=== PATIENT | male | born 1935 | race Caucasian/White ===

== ENCOUNTER 2016-11-10 10:01 | Day surgery (SDC) | payer MEDICARE ==
[~2016-11-10 10:01] MED LIST: CHONDR SU A NA/HYALUR INTRAOC KIT (SURGICARE) ONE; KETOROLAC TROMETHAMINE 0.45% 4 DROP/0.4 ML DROPERETTE OD PRN; LIDOCAINE 1% INJ-PF (10 MG/ML) 30 ML SDV ONE; PHENYLEPHRINE/KETOROLAC 1%-0.3% 4 ML VIAL ONE
[2016-11-10] MEDS: BESIFLOXACIN HCL 0.6% OPH SUSP 5 ML BOTTLE OD PRN ×4 (11:25→12:47)
[2016-11-10] MEDS: CYCLOPENTOLATE 0.2%/PHENYLEPHRINE 1% OPH SOLN 2 ML OD PRN ×3 (11:25→11:45)
[2016-11-10] MEDS: TROPICAMIDE 1% OPH SOLN 3 ML OD PRN ×3 (11:25→11:45)
[2016-11-10] MEDS: TETRACAINE HCL 0.5% OPH SOLN 2 ML OD PRN ×3 (11:26→12:06)
[2016-11-10] MEDS ORDERED: MIDAZOLAM 2 MG/2 ML INJ ONE (11:46)
--- NOTE | 2016-11-11 04:28 | [facility] OPERATIVE REPORT E ---
[facility] Operative Report NAME: SARAH PIÑA AGE: 81Y DATE OF SURGERY: 11/10/2016 ROOM: PREOPERATIVE DIAGNOSES: 1. CATARACT, RIGHT EYE. 2. PUPIL MIOSIS OF THE RIGHT EYE. POSTOPERATIVE DIAGNOSES: 1. CATARACT, RIGHT EYE. 2. PUPIL MIOSIS OF THE RIGHT EYE. OPERATION: Complex cataract extraction with use of Malyugin ring due to a very miotic pupil. SURGEON: GAL PALACIO M.D. ANESTHESIA: Topical. PROCEDURE: After obtaining appropriate consent, the patient's right eye was prepped and draped in sterile fashion as well as the surgeon in a sterile manner and cataract surgery was started. First a paracentesis blade was used to make a small side-port incision. Viscoelastic was used to inflate the anterior chamber. Next a 2.4 mm incision was made with the paracentesis blade. A continuous capsulorrhexis incision was made using a cystotome and Utrata forceps. Following this hydrodissection was carried out to make the lens fully loose and mobile and it was rotated 90 degrees. Following this, a pakqku-tsm-[id number] technique was used to phacoemulsify the lens with a CDE of 17.96. The remaining cortex was removed with irrigation/aspiration. Provisc was instilled into the capsular bag to inflate the bag. A SN60WF, 21.5 diopter lens was placed. The remaining viscoelastic material was removed with irrigation/aspiration. Following this, a 10-0 nylon suture was used to close the incision and it was found to be watertight. Vigamox was instilled in the eye and a protective shield was placed over the eye. The patient returned to the postoperative recovery in stable condition. Prior to making the capsulorrhexis, a Malyugin ring was inserted. This was due to a very miotic pupil. This was removed at the end of the case. DICTATING PHYSICIAN: GAL PALACIO M.D. [id number] PHY#: [id number] ID: [id number] JOB#: [id number] ACCT: [id number] cc:GAL PALACIO M.D. >
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
== END 2016-11-10 13:32 | disposition home or self-care (01) ==
LOC: SC 10:01
PROVIDERS: ATTEND Internal Medicine
PROC: 08RJ3JZ Replacement of Right Lens with Synthetic Substitute, Percutaneous Approach (ICD-10-PCS; principal; 2016-11-10 11:30)
DX: H25.11 Age-related nuclear cataract, right eye (principal); Z96.1 Presence of intraocular lens; H57.03 Miosis; H35.372 Puckering of macula, left eye; H43.813 Vitreous degeneration, bilateral; E11.22 Type 2 diabetes mellitus with diabetic chronic kidney disease; I12.9 Hypertensive chronic kidney disease with stage 1 through stage 4 chronic kidney disease, or unspecified chronic kidney disease; N18.9 Chronic kidney disease, unspecified; E78.00 Pure hypercholesterolemia, unspecified; M19.90 Unspecified osteoarthritis, unspecified site; D64.9 Anemia, unspecified; Z79.82 Long term (current) use of aspirin
CPT/HCPCS: 66982; 82962; V2632; J2250; J3490 ×2; A9270; C9447; 142

== ENCOUNTER → 2016-11-17 | Outpatient (CLI) | payer MEDICARE ==
[2016-11-17 08:37] LABS: HEMATOCRIT 30.9 % (37.9-51.0); HEMOGLOBIN 10.2 g/dL (13.5-17.0); HGB HCT DIFFERENCE -0.3; MEAN CORPUSCULAR HEMOGLOBIN 29.2 pg (27.0-33.4); MEAN CORPUSCULAR VOLUME 88 fl (80-97); RED CELL DISTRIBUTION WIDTH 14.1 % (11.5-14.0); WHITE BLOOD COUNT 4.9 10^3/uL (4.0-10.5)
[2016-11-17 09:01] LABS: ANION GAP 9 (5-19); BLOOD UREA NITROGEN 34 mg/dL (7-20); CALCIUM 9.5 mg/dL (8.4-10.2); CARBON DIOXIDE 27 mmol/L (22-30); CHLORIDE 103 mmol/L (98-107); CREATININE RESULT 1.32 mg/dL (0.52-1.25); GLUCOSE 285 mg/dL (75-110); POTASSIUM 5.1 mmol/L (3.6-5.0); SODIUM 138.6 mmol/L (137-145)
== END ==
LOC: OD 08:03
PROVIDERS: ATTEND Internal Medicine Nephrology
DX: I12.9 Hypertensive chronic kidney disease with stage 1 through stage 4 chronic kidney disease, or unspecified chronic kidney disease (principal); N18.3 Chronic kidney disease, stage 3 (moderate); R80.9 Proteinuria, unspecified; D64.9 Anemia, unspecified
CPT/HCPCS: 36415; 80048; 82728; 83540; 83550; 85027

== ENCOUNTER → 2017-05-15 | Outpatient (CLI) | payer MEDICARE ==
[2017-05-15 12:35] LABS: HEMATOCRIT 29.1 % (37.9-51.0); HEMOGLOBIN 9.6 g/dL (13.5-17.0); HGB HCT DIFFERENCE -0.3; MEAN CORPUSCULAR HEMOGLOBIN 29.9 pg (27.0-33.4); MEAN CORPUSCULAR HGB CONC 32.9 g/dL (32.0-36.0); MEAN CORPUSCULAR VOLUME 91 fl (80-97); RED CELL DISTRIBUTION WIDTH 14.3 % (11.5-14.0); WHITE BLOOD COUNT 4.2 10^3/uL (4.0-10.5)
[2017-05-15 12:50] LABS: APPEARANCE,URINE SLIGHTLY-CLOUDY; BILIRUBIN,URINE NEGATIVE (NEGATIVE); GLUCOSE, URINE NEGATIVE (NEGATIVE); KETONES,URINE TRACE mg/dL (NEGATIVE); LEUKOCYTE ESTERASE,URINE NEGATIVE (NEGATIVE); NITRITE,URINE NEGATIVE (NEGATIVE); PROTEIN,URINE 100 mg/dL (NEGATIVE); URINE SPECIFIC GRAVITY 1.017; UROBILINOGEN,URINE NEGATIVE mg/dL (<2.0)
[2017-05-15 12:59] LABS: ANION GAP 8 (5-19); BLOOD UREA NITROGEN 29 mg/dL (7-20); CALCIUM 9.2 mg/dL (8.4-10.2); CARBON DIOXIDE 27 mmol/L (22-30); CHLORIDE 106 mmol/L (98-107); CREATININE RESULT 1.25 mg/dL (0.52-1.25); GLUCOSE 144 mg/dL (75-110); POTASSIUM 4.5 mmol/L (3.6-5.0); SODIUM 140.8 mmol/L (137-145)
[2017-05-15 13:15] LABS: URINE CREATININE 187.6 mg/dL (22-328); URINE PROTEIN 128.6 mg/dL (<12)
== END ==
LOC: OD 11:22
PROVIDERS: ATTEND Internal Medicine Nephrology
DX: E11.22 Type 2 diabetes mellitus with diabetic chronic kidney disease (principal); I12.9 Hypertensive chronic kidney disease with stage 1 through stage 4 chronic kidney disease, or unspecified chronic kidney disease; N18.2 Chronic kidney disease, stage 2 (mild); K50.90 Crohn's disease, unspecified, without complications
CPT/HCPCS: 36415; 80048; 81001; 82570; 82728; 83540; 83550; 84156; 85027

== ENCOUNTER → 2017-06-15 | Outpatient (CLI) | payer MEDICARE ==
[2017-06-15 08:26] LABS: HEMOGLOBIN 10.1 g/dL (13.5-17.0); HGB HCT DIFFERENCE 0.3; MEAN CORPUSCULAR HEMOGLOBIN 30.4 pg (27.0-33.4); MEAN CORPUSCULAR HGB CONC 33.8 g/dL (32.0-36.0); MEAN CORPUSCULAR VOLUME 90 fl (80-97); RED BLOOD COUNT 3.34 10^6/uL (4.35-5.55); RED CELL DISTRIBUTION WIDTH 14.9 % (11.5-14.0); WHITE BLOOD COUNT 5.2 10^3/uL (4.0-10.5)
[2017-06-15 08:45] LABS: ANION GAP 11 (5-19); BLOOD UREA NITROGEN 33 mg/dL (7-20); CALCIUM 9.1 mg/dL (8.4-10.2); CARBON DIOXIDE 27 mmol/L (22-30); CHLORIDE 105 mmol/L (98-107); CREATININE RESULT 1.07 mg/dL (0.52-1.25); GLUCOSE 161 mg/dL (75-110); POTASSIUM 4.2 mmol/L (3.6-5.0); SODIUM 143.4 mmol/L (137-145)
[2017-06-19 16:39] LABS: IMMUNOGLOBULIN A 75 mg/dL (61-437); IMMUNOGLOBULIN G 434 mg/dL (700-1600)
[2017-06-20 08:08] LABS: IMMUNOFIXATION SERUM 2 Comment: (.); IMMUNOGLOBULIN M 9 mg/dL (15-143)
== END ==
LOC: OD 07:14
PROVIDERS: ATTEND Internal Medicine Nephrology
DX: I12.9 Hypertensive chronic kidney disease with stage 1 through stage 4 chronic kidney disease, or unspecified chronic kidney disease (principal); N18.3 Chronic kidney disease, stage 3 (moderate); D64.9 Anemia, unspecified; R80.9 Proteinuria, unspecified
CPT/HCPCS: 36415; 80048; 82784; 85027

== ENCOUNTER → 2017-08-15 | Outpatient (CLI) | payer MEDICARE ==
[2017-08-15 08:23] LABS: HEMATOCRIT 31.5 % (37.9-51.0); HEMOGLOBIN 10.6 g/dL (13.5-17.0); HGB HCT DIFFERENCE 0.3; MEAN CORPUSCULAR HEMOGLOBIN 29.9 pg (27.0-33.4); MEAN CORPUSCULAR HGB CONC 33.6 g/dL (32.0-36.0); MEAN CORPUSCULAR VOLUME 89 fl (80-97); RED BLOOD COUNT 3.55 10^6/uL (4.35-5.55); RED CELL DISTRIBUTION WIDTH 13.8 % (11.5-14.0); WHITE BLOOD COUNT 6.1 10^3/uL (4.0-10.5)
== END ==
LOC: OD 07:08
PROVIDERS: ATTEND Internal Medicine Nephrology
DX: N18.3 Chronic kidney disease, stage 3 (moderate) (principal); D64.9 Anemia, unspecified
CPT/HCPCS: 36415; 82728; 83540; 83550; 85027

== ENCOUNTER → 2017-11-13 | Outpatient (CLI) | payer MEDICARE ==
[2017-11-13 13:33] LABS: HEMATOCRIT 32.1 % (37.9-51.0); HEMOGLOBIN 10.8 g/dL (13.5-17.0); MEAN CORPUSCULAR HEMOGLOBIN 29.9 pg (27.0-33.4); MEAN CORPUSCULAR HGB CONC 33.7 g/dL (32.0-36.0); MEAN CORPUSCULAR VOLUME 89 fl (80-97); PLATELET COUNT 192 10^3/uL (150-450); RED BLOOD COUNT 3.62 10^6/uL (4.35-5.55); RED CELL DISTRIBUTION WIDTH 14.9 % (11.5-14.0); WHITE BLOOD COUNT 6.3 10^3/uL (4.0-10.5)
[2017-11-13 13:45] LABS: IRON(TIBC) 101.5 ug/dL (49-181)
== END ==
LOC: OD 12:21
PROVIDERS: ATTEND Internal Medicine Nephrology
DX: D64.9 Anemia, unspecified (principal); N18.3 Chronic kidney disease, stage 3 (moderate)
CPT/HCPCS: 36415; 82728; 83540; 83550; 85027

== ENCOUNTER → 2017-12-11 | Outpatient (CLI) | payer MEDICARE ==
[2017-12-11 10:18] LABS: HEMATOCRIT 31.6 % (37.9-51.0); HEMOGLOBIN 10.7 g/dL (13.5-17.0); MEAN CORPUSCULAR HEMOGLOBIN 30.4 pg (27.0-33.4); MEAN CORPUSCULAR HGB CONC 33.7 g/dL (32.0-36.0); MEAN CORPUSCULAR VOLUME 90 fl (80-97); PLATELET COUNT 183 10^3/uL (150-450); RED BLOOD COUNT 3.51 10^6/uL (4.35-5.55); RED CELL DISTRIBUTION WIDTH 14.9 % (11.5-14.0); WHITE BLOOD COUNT 4.2 10^3/uL (4.0-10.5)
[2017-12-11 10:42] LABS: ANION GAP 7 (5-19); BLOOD UREA NITROGEN 25 mg/dL (7-20); CALCIUM 8.9 mg/dL (8.4-10.2); CARBON DIOXIDE 29 mmol/L (22-30); CHLORIDE 104 mmol/L (98-107); GLUCOSE 240 mg/dL (75-110); IRON(TIBC) 81.4 ug/dL (49-181); SODIUM 140.1 mmol/L (137-145)
== END ==
LOC: OD 09:14
PROVIDERS: ATTEND Internal Medicine Nephrology
DX: N18.3 Chronic kidney disease, stage 3 (moderate) (principal); D64.9 Anemia, unspecified; I12.9 Hypertensive chronic kidney disease with stage 1 through stage 4 chronic kidney disease, or unspecified chronic kidney disease; E11.9 Type 2 diabetes mellitus without complications
CPT/HCPCS: 36415; 80048; 82728; 83540; 83550; 85027

== ENCOUNTER → 2018-03-05 | Outpatient (CLI) | payer MEDICARE ==
[2018-03-05 12:54] LABS: HEMOGLOBIN 11.4 g/dL (13.5-17.0); MEAN CORPUSCULAR HEMOGLOBIN 30.1 pg (27.0-33.4); MEAN CORPUSCULAR HGB CONC 33.4 g/dL (32.0-36.0); MEAN CORPUSCULAR VOLUME 90 fl (80-97); PLATELET COUNT 201 10^3/uL (150-450); RED BLOOD COUNT 3.77 10^6/uL (4.35-5.55); RED CELL DISTRIBUTION WIDTH 14.2 % (11.5-14.0); WHITE BLOOD COUNT 5.3 10^3/uL (4.0-10.5)
[2018-03-05 13:15] LABS: IRON(TIBC) 76.2 ug/dL (49-181)
== END ==
LOC: OD 11:59
PROVIDERS: ATTEND Internal Medicine Nephrology
DX: N18.3 Chronic kidney disease, stage 3 (moderate) (principal); D64.9 Anemia, unspecified
CPT/HCPCS: 36415; 82728; 83540; 83550; 85027

== ENCOUNTER → 2018-06-11 | Outpatient (CLI) | payer MEDICARE ==
[2018-06-11 09:30] LABS: HEMATOCRIT 29.4 % (37.9-51.0); HEMOGLOBIN 10.1 g/dL (13.5-17.0); MEAN CORPUSCULAR HEMOGLOBIN 29.9 pg (27.0-33.4); MEAN CORPUSCULAR HGB CONC 34.2 g/dL (32.0-36.0); MEAN CORPUSCULAR VOLUME 87 fl (80-97); PLATELET COUNT 189 10^3/uL (150-450); RED BLOOD COUNT 3.37 10^6/uL (4.35-5.55); WHITE BLOOD COUNT 7.9 10^3/uL (4.0-10.5)
[2018-06-11 10:04] LABS: ANION GAP 11 (5-19); BLOOD UREA NITROGEN 60 mg/dL (7-20); CALCIUM 8.8 mg/dL (8.4-10.2); CARBON DIOXIDE 23 mmol/L (22-30); CHLORIDE 106 mmol/L (98-107); GLUCOSE 204 mg/dL (75-110); POTASSIUM 4.8 mmol/L (3.6-5.0); SODIUM 140.4 mmol/L (137-145)
[2018-06-11 10:20] LABS: APPEARANCE,URINE CLEAR; BILIRUBIN,URINE NEGATIVE (NEGATIVE); COLOR,URINE YELLOW; GLUCOSE, URINE NEGATIVE (NEGATIVE); KETONES,URINE NEGATIVE (NEGATIVE); LEUKOCYTE ESTERASE,URINE NEGATIVE (NEGATIVE); NITRITE,URINE NEGATIVE (NEGATIVE); PROTEIN,URINE 30 mg/dL (NEGATIVE); UROBILINOGEN,URINE NEGATIVE mg/dL (<2.0)
[2018-06-11 10:31] LABS: URINE SPECIFIC GRAVITY 1.017
== END ==
LOC: OD 08:19
PROVIDERS: ATTEND Internal Medicine Nephrology
DX: I12.9 Hypertensive chronic kidney disease with stage 1 through stage 4 chronic kidney disease, or unspecified chronic kidney disease (principal); E11.22 Type 2 diabetes mellitus with diabetic chronic kidney disease; N18.3 Chronic kidney disease, stage 3 (moderate); R80.9 Proteinuria, unspecified; D64.9 Anemia, unspecified
CPT/HCPCS: 36415; 80048; 81001; 83735; 85027

== ENCOUNTER → 2018-07-23 | Outpatient (CLI) | payer MEDICARE ==
[2018-07-23 10:02] LABS: HEMOGLOBIN 9.9 g/dL (13.5-17.0); MEAN CORPUSCULAR HEMOGLOBIN 30.7 pg (27.0-33.4); MEAN CORPUSCULAR VOLUME 91 fl (80-97); PLATELET COUNT 271 10^3/uL (150-450); RED BLOOD COUNT 3.21 10^6/uL (4.35-5.55); RED CELL DISTRIBUTION WIDTH 16.1 % (11.5-14.0); WHITE BLOOD COUNT 6.5 10^3/uL (4.0-10.5)
[2018-07-23 10:06] LABS: APPEARANCE,URINE CLEAR; BILIRUBIN,URINE NEGATIVE (NEGATIVE); COLOR,URINE YELLOW; GLUCOSE, URINE NEGATIVE (NEGATIVE); KETONES,URINE NEGATIVE (NEGATIVE); LEUKOCYTE ESTERASE,URINE NEGATIVE (NEGATIVE); NITRITE,URINE NEGATIVE (NEGATIVE); PROTEIN,URINE 100 mg/dL (NEGATIVE); URINE SPECIFIC GRAVITY 1.015; UROBILINOGEN,URINE NEGATIVE mg/dL (<2.0)
[2018-07-23 10:29] LABS: ANION GAP 12 (5-19); BLOOD UREA NITROGEN 32 mg/dL (7-20); CALCIUM 9.3 mg/dL (8.4-10.2); CARBON DIOXIDE 26 mmol/L (22-30); CHLORIDE 105 mmol/L (98-107); GLUCOSE 206 mg/dL (75-110); IRON(TIBC) 64.3 ug/dL (49-181); PHOSPHORUS 4.6 mg/dL (2.5-4.5); POTASSIUM 4.5 mmol/L (3.6-5.0); SODIUM 142.5 mmol/L (137-145)
[2018-07-23 10:31] LABS: UR PRO/CREAT RATIO RESULT 1.4 mg/mg (0.0-0.2); URINE PROTEIN 154.8 mg/dL (<12)
== END ==
LOC: OD 09:05
PROVIDERS: ATTEND Internal Medicine Nephrology
DX: I12.9 Hypertensive chronic kidney disease with stage 1 through stage 4 chronic kidney disease, or unspecified chronic kidney disease (principal); N18.3 Chronic kidney disease, stage 3 (moderate); R80.9 Proteinuria, unspecified; D64.9 Anemia, unspecified
CPT/HCPCS: 36415; 80048; 81001; 82570; 82728; 83540; 83550; 83970; 84100; 84156; 85027

== ENCOUNTER 2018-09-09 09:34 | Inpatient (IN) | payer MEDICARE ==
[2018-09-09] MEDS ORDERED: LIDOCAINE 5% (700 MG) TRANSDERMAL ADH..PATCH TP ONE (09:59)
[2018-09-09] MEDS ORDERED: HYDROCHLOROTHIAZIDE 12.5 MG TABLET PO ONE ×2 (10:00→19:00)
[2018-09-09] MEDS ORDERED: HYDROCODONE/ACETAMINOPHEN 5-325 MG TABLET PO ONE (10:06)
--- NOTE | 2018-09-09 10:36 | RADIOLOGY REPORT (SQ) ---
EXAM DESCRIPTION: HIP LEFT AP/LATERAL COMPLETED DATE/TIME: 09/09/2018 10:26 am REASON FOR STUDY: concern for necrosis of head COMPARISON: None. NUMBER OF VIEWS: Two views. TECHNIQUE: AP pelvis and additional frog-leg view of the left hip. LIMITATIONS: None. FINDINGS: AP pelvis and frog-leg view left hip demonstrate no bony abnormality or fracture. Specifi carmen there no findings to suggest AVN. The SI joints are symmetrical. Lumbar spondylosis noted. V ascular calcification abdominal aorta and iliac vessels. IMPRESSION: NEGATIVE STUDY OF THE LEFT HIP AND PELVIS. NO RADIOGRAPHIC EVIDENCE OF ACUTE INJURY. TECHNICAL DOCUMENTATION: JOB ID: [id number] [employer]- All Rights Reserved Reading location - IP/workstation name: [email or web address]
--- NOTE | 2018-09-09 10:52 | ER Document Report ---
ED Medical Screen (RME) - General Chief Complaint: Hip Injury Stated Complaint: LEFT LEG/HIP PAIN Time Seen by Provider: 09/09/18 09:42 TRAVEL OUTSIDE OF THE [place] IN LAST 30 DAYS: No - HPI Patient complains to provider of: left hip pelvis pain Onset: Other - This is an 83-year-old man who presents for evaluation of pain in his left hip and back which radiates down the leg which is suffered for some time been evaluated by his primary physician in the past and started on celecoxi b 200 mg every afternoon to try and help with this pain. He notes that he is continued to have pain despite the use of Tylenol and this medicine as well as a topical medication to help with it. Nothing seems to make it better or worse and today because of how bad the pain was he could not do anything with it. - Related Data Allergies/Adverse Reactions: No Known Allergies Allergy (Verified 09/09/18 09:35) Past Medical History - General Information source: Patient, Relative - Past Medical History Cardiac Medical History: Reports: Hx Hypertension Denies: Hx Heart Attack Pulmonary Medical History: Denies: Hx Asthma Neurological Medical History: Denies: Hx Cerebrovascular Accident, Hx Seizures Endocrine Medical History: Reports: Hx Diabetes Mellitus Type 2 Renal/ Medical History: Denies: Hx Peritoneal Dialysis GI Medical History: Denies: Hx Hepatitis, Hx Hiatal Hernia, Hx Ulcer Infectious Medical History: Denies: Hx Hepatitis Past Surgical History: Reports: Hx Cholecystectomy. Denies: Hx Open Heart Surgery, Hx Pacemaker - Immunizations Hx Diphtheria, Pertussis, Tetanus Vaccination: Yes Physical Exam - Vital signs Vitals: Temp Pulse Resp BP Pulse Ox 97.5 F 74 18 156/68 H 99 09/09/18 09:41 09/09/18 09:41 09/09/18 09:41 09/09/18 09:41 09/09/18 09:41 Course - Re-evaluation Re-evalutation: 09/09/18 12:08 Obtained x-ray for this gentleman. X-rays nondiagnostic. Placed Lidoderm patch administered narcotic patient did take Celebrex last night. On reinvestigation the patient states that his pain is worse than when he arrived. Says it is been going through this since Lian and he is tired of it needs help. Son at the bedside states that he is concerned about his father and that now he cannot walk. Patient continues to have a normal neurologic examination of the left lower extremity. Does have some radicular symptoms. I have seen and evaluated this patient in rapid medical screening exam fashion. I have initiated a evaluation and workup, this patient will require further investigation evaluation and disposition determination by secondary provider. - Vital Signs Vital signs: Temp Pulse Resp BP Pulse Ox 97.5 F 74 18 156/68 H 99 09/09/18 09:41 09/09/18 09:41 09/09/18 09:41 09/09/18 09:41 09/09/18 09:41 - Laboratory Result Diagrams: 09/09/18 10:30 Laboratory results interpreted by me: 09/09/18 10:30 Sodium 136.6 L BUN 33 H Creatinine 1.27 H Est GFR (Non-Af Amer) 54 L Glucose 182 H Doctor's Discharge - Discharge Clinical Impression: Back pain Qualifiers: Back pain location: low back pain Chronicity: acute Back pain laterality: left Sciatica presence: unspecified whether sciatica present Qualified Code(s): M54.5 - Low back pain Hip pain Qualifiers: Laterality: left Qualified Code(s): M25.552 - Pain in left hip Additional Instructions: You were seen today in the emergency department for the pain in your back as well as your hip. You had an evaluation including a physical exam. You were given a strong medicine to kill this pain. You can increase the dose of your celecoxib to twice a day. You should take it in the morning in the early part of the day. You have been given a prescription for the numbing medicine that we placed on your back. You have been given a couple of the strong painkiller medicines called Erskine. Be careful taking the Erskine and the Tylenol you are taking together. If you have worsening pain, or unable to walk or have new numbness or weakness please return to the emergency room because it could be a more serious condition. Prescriptions: Hydrocodone/Acetaminophen [Erskine 5-325 mg Tablet] 1 tab PO Q8 PRN #12 tablet PRN Reason: Lidocaine [Lidoderm 5% (700 mg) Transdermal Patch] 1 patch TP DAILY #30 adh..patch Referrals: Ruby WHEAT MD [Primary Care Provider] - Follow up as needed
[2018-09-09 11:21] LABS: ANION GAP 9 (5-19); BLOOD UREA NITROGEN 33 mg/dL (7-20); CARBON DIOXIDE 22 mmol/L (22-30); CHLORIDE 106 mmol/L (98-107); GLUCOSE 182 mg/dL (75-110); POTASSIUM 4.5 mmol/L (3.6-5.0); SODIUM 136.6 mmol/L (137-145)
[2018-09-09] MEDS ORDERED: KETOROLAC TROMETHAMINE 60 MG/2 ML SDV IM ONE (12:08)
--- NOTE | 2018-09-09 12:58 | RADIOLOGY REPORT (SQ) ---
EXAM DESCRIPTION: CT LUMBAR SPINE WITHOUT COMPLETED DATE/TIME: 09/09/2018 12:42 pm REASON FOR STUDY: concern for narrowing in the spine COMPARISON: None. TECHNIQUE: Axial images acquired through the lumbar spine without intravenous contrast. Images revi ewed with lung, soft tissue and bone windows. Reconstructed coronal and sagittal MPR images reviewed . All images stored on PACS. All CT scanners at this facility use dose modulation, iterative reconstruction, and/or weight based d osing when appropriate to reduce radiation dose to as low as reasonably achievable (ALARA). [facility]: Dose Right [facility]: CareDose [facility]: Dose Right [facility]: Teradose 4D [facility]: Macrotek RADIATION DOSE: 498 mGy cm LIMITATIONS: None. FINDINGS: SEGMENTATION: Normal. No transitional anatomy. ALIGNMENT: Normal. VERTEBRAL BODIES: Osteopenia. Acute appearing superior endplate wedge deformity of L4 vertebral body . DISCS: No significant protrusions. Study limited by lack of intrathecal contrast. PEDICLES, TRANSVERSE PROCESSES: No fractures. No dislocation. No acute findings. FACETS, POSTERIOR ELEMENTS: No fractures. No dislocation. No spinal stenosis. HARDWARE: None in the spine. VISUALIZED RIBS: No fractures. SOFT TISSUES: No significant or acute finding in adjacent soft tissues. OTHER: Extensive calcified atherosclerosis. IMPRESSION: Acute appearing superior endplate wedge deformity of the L4 vertebral body. No obvious epidural hematoma or fracture fragment pulsion. TECHNICAL DOCUMENTATION: JOB ID: [id number] Quality ID # [id number]: Final reports with documentation of one or more dose reduction techniques (e.g., Au tomated exposure control, adjustment of the mA and/or kV according to patient size, use of iterative reconstruction technique) 2010 [employer]- All Rights Reserved Reading location - IP/workstation name: [email or web address]
[2018-09-09] MEDS ORDERED: FENTANYL CITRATE INJ/PF 100 MCG/2 ML AMPUL IV ONE (13:48)
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
[2018-09-09 14:57] LABS: ABSOLUTE LYMPHOCYTES (AUTO) 1.1 10^3/uL (0.5-4.7); ABSOLUTE MONOCYTES (AUTO) 0.5 10^3/uL (0.1-1.4); ABSOLUTE NEUT (AUTO) 2.8 10^3/uL (1.7-8.2); BASOPHILS % (AUTO) 0.3 % (0-2); EOSINOPHILS % (AUTO) 0.3 % (0-6); HEMATOCRIT 30.2 % (37.9-51.0); HEMOGLOBIN 10.1 g/dL (13.5-17.0); LYMPHOCYTES % (AUTO) 23.8 % (13-45); MEAN CORPUSCULAR HEMOGLOBIN 31.2 pg (27.0-33.4); MEAN CORPUSCULAR HGB CONC 33.3 g/dL (32.0-36.0); MEAN CORPUSCULAR VOLUME 94 fl (80-97); MONOCYTES % (AUTO) 11.6 % (3-13); PLATELET COUNT 208 10^3/uL (150-450); RED BLOOD COUNT 3.23 10^6/uL (4.35-5.55); RED CELL DISTRIBUTION WIDTH 16.7 % (11.5-14.0); TOTAL CELLS COUNTED % (AUTO) 100 %; WHITE BLOOD COUNT 4.4 10^3/uL (4.0-10.5)
[2018-09-09] MEDS ORDERED: GLUCAGON,HUMAN RECOMB 1 MG INJ IM PRN (15:09)
[2018-09-09] MEDS ORDERED: DEXTROSE 40% GEL 15 GM TUBE PO PRN ×2 (15:09)
[2018-09-09] MEDS ORDERED: DEXTROSE 50%-WATER 25 GM/50 ML DISP.SYRIN IV PRN ×2 (15:09)
[2018-09-09] MEDS: MORPHINE SULFATE 10 MG/ML INJ IV PRN (16:07)
[2018-09-09] MEDS: ATORVASTATIN CALCIUM 40 MG TABLET PO SCH (17:06)
[2018-09-09] MEDS: HYDROCODONE/ACETAMINOPHEN 7.5-325 MG TABLET PO PRN (17:09)
[2018-09-09] MEDS ORDERED: HYDRALAZINE HCL INJ/PF 20 MG/1 ML SDV IV PRN (18:02)
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
[2018-09-09] MEDS ORDERED: LOSARTAN POTASSIUM 50 MG TABLET PO ONE (19:00)
[2018-09-09] MEDS: INSULIN LISPRO 100 UNIT/ML 3 ML VIAL SUBCUT PRN (22:04)
[2018-09-09] MEDS: HEPARIN SOD (PORCINE) 5,000 UNIT/ML 1 ML SYRINGE SUBCUT SCH (22:05)
--- NOTE | 2018-09-09 22:13 | EKG REPORT ---
SEVERITY:- NORMAL ECG - SINUS RHYTHM : Confirmed by: Noemi Altman MD 09-Sep-2018 22:12:58
[2018-09-10] MEDS: MORPHINE SULFATE 10 MG/ML INJ IV PRN (05:54)
[2018-09-10] MEDS: HYDROCODONE/ACETAMINOPHEN 7.5-325 MG TABLET PO PRN ×3 (08:19→21:10)
[2018-09-10 09:51] LABS: ANION GAP 5 (5-19); BLOOD UREA NITROGEN 35 mg/dL (7-20); CALCIUM 8.8 mg/dL (8.4-10.2); CARBON DIOXIDE 25 mmol/L (22-30); CHLORIDE 110 mmol/L (98-107); GLUCOSE 104 mg/dL (75-110); POTASSIUM 4.6 mmol/L (3.6-5.0); SODIUM 140.2 mmol/L (137-145)
[2018-09-10] MEDS: HEPARIN SOD (PORCINE) 5,000 UNIT/ML 1 ML SYRINGE SUBCUT SCH (10:05)
[2018-09-10] MEDS: AMLODIPINE BESYLATE 10 MG TABLET PO SCH (10:05)
[2018-09-10] MEDS: FINASTERIDE 5 MG TABLET PO SCH (10:05)
[2018-09-10] MEDS: HYDROCHLOROTHIAZIDE 12.5 MG TABLET PO SCH (10:06)
[2018-09-10] MEDS: LOSARTAN POTASSIUM 50 MG TABLET PO SCH (10:06)
[2018-09-10] MEDS: TAMSULOSIN HCL 0.4 MG CAP.SR.24H PO SCH (10:06)
[2018-09-10] MEDS: ATORVASTATIN CALCIUM 40 MG TABLET PO SCH ×2 (10:06→17:02)
[2018-09-10] MEDS: ASPIRIN 81 MG TABLET, ENT COATED PO SCH (10:06)
--- NOTE | 2018-09-10 11:03 | RADIOLOGY REPORT (SQ) ---
EXAM DESCRIPTION: FOOT RIGHT 2 VIEWS COMPLETED DATE/TIME: 09/10/2018 10:54 am REASON FOR STUDY: right foot swelling R73.9 HYPERGLYCEMIA, UNSPECIFIED COMPARISON: None. NUMBER OF VIEWS: Two views. TECHNIQUE: AP and lateral radiographic images acquired of the right foot. LIMITATIONS: None. FINDINGS: MINERALIZATION: Osteoporotic BONES: No acute fracture or dislocation. No worrisome bone lesions. JOINTS: No effusions. SOFT TISSUES: Forefoot soft tissue swelling. No foreign body. OTHER: No other significant finding. IMPRESSION: Soft tissue swelling without acute fracture identified. TECHNICAL DOCUMENTATION: JOB ID: [id number] [employer]- All Rights Reserved Reading location - IP/workstation name: [email or web address]
--- NOTE | 2018-09-10 12:40 | PDOC PROGRESS REPORT ---
Subjective Progress Note for:: 09/10/18 Subjective:: SARAH PIÑA is a 83 year old male with a PMH of HTN, IDDM, and BPH who presented with intractable back pain failing outpatient treatment. He was found to have an L4 compression fracture on lumbar CT. No acute event overnight. His pain is controlled with current pain regimen. Discussed with Dr. Rosas who said his colleague will be evaluating patient later today. Patient denies numbness, paresthesia, weakness on the legs. No urinary or bowel incontinence. Reason For Visit: INTRACTABLE PAIN,L4 COMPRESSION DEFORMITY Physical Exam Vital Signs: Temp Pulse Resp BP Pulse Ox 98.2 F 57 L 16 154/54 H 100 09/10/18 12:04 09/10/18 12:04 09/10/18 12:04 09/10/18 12:04 09/10/18 12:04 Intake & Output 09/09/18 09/10/18 09/11/18 06:59 06:59 06:59 Intake Total 480 Balance 480 Weight 170 lb 6.677 oz General appearance: PRESENT: no acute distress, well-developed, well-nourished Head exam: PRESENT: atraumatic, normocephalic Eye exam: PRESENT: conjunctiva pink, EOMI, PERRLA. ABSENT: scleral icterus Ear exam: PRESENT: normal external ear exam Mouth exam: PRESENT: moist, tongue midline Neck exam: ABSENT: carotid bruit, JVD, lymphadenopathy, thyromegaly Respiratory exam: PRESENT: clear to auscultation kevin. ABSENT: rales, rhonchi, wheezes Pulses: PRESENT: normal dorsalis pedis pul GI/Abdominal exam: PRESENT: normal bowel sounds, soft. ABSENT: distended, guarding, mass, organolmegaly, rebound, tenderness Rectal exam: PRESENT: deferred Neurological exam: PRESENT: alert, awake, oriented to person, oriented to place, oriented to time, oriented to situation, CN II-XII grossly intact. ABSENT: motor sensory deficit Results Laboratory Results: 09/09/18 14:40 09/10/18 08:54 09/09/18 09/10/18 14:40 08:54 WBC 4.4 RBC 3.23 L Hgb 10.1 L Hct 30.2 L MCV 94 MCH 31.2 MCHC 33.3 RDW 16.7 H Plt Count 208 Seg Neutrophils % 64.0 Lymphocytes % 23.8 Monocytes % 11.6 Eosinophils % 0.3 Basophils % 0.3 Absolute Neutrophils 2.8 Absolute Lymphocytes 1.1 Absolute Monocytes 0.5 Absolute Eosinophils 0.0 Absolute Basophils 0.0 Sodium 140.2 Potassium 4.6 Chloride 110 H Carbon Dioxide 25 Anion Gap 5 BUN 35 H Creatinine 1.12 Est GFR ( Amer) > 60 Est GFR (Non-Af Amer) > 60 Glucose 104 Calcium 8.8 Impressions: Hip X-Ray 09/09/18 09:59 IMPRESSION: NEGATIVE STUDY OF THE LEFT HIP AND PELVIS. NO RADIOGRAPHIC EVIDENCE OF ACUTE INJURY. Lumbar Spine CT 09/09/18 12:07 IMPRESSION: Acute appearing superior endplate wedge deformity of the L4 vertebral body. No obvious epidural hematoma or fracture fragment pulsion. Foot X-Ray 09/10/18 00:00 IMPRESSION: Soft tissue swelling without acute fracture identified. Assessment & Plan - Diagnosis (1) Intractable pain Is this a current diagnosis for this admission?: Yes Plan: Patient presented with intractable pain failing outpatient pain medication regimen secondary to L4 compression fracture. He was given [place] and fentanyl in the ER which have given him some relief. Conitnue [place] and morphine prn. Discussed with Dr. Rosas. Await further evaluation and recommendation for possible kyphoplasty. (2) Wedge compression fracture of L4 vertebra Qualifiers: Encounter type: initial encounter Fracture type: closed Qualified Code(s): S32.040A - Wedge compression fracture of fourth lumbar vertebra, initial encounter for closed fracture Is this a current diagnosis for this admission?: Yes Plan: As per number 1. (3) Insulin dependent diabetes mellitus Is this a current diagnosis for this admission?: Yes Plan: Hba1c 7.8. Continue sliding scale coverage. (4) Hypertension Is this a current diagnosis for this admission?: Yes Plan: Continue losartan and amlodipine. - Time Time Spent with patient: 25-34 minutes
[2018-09-10] MEDS: INSULIN LISPRO 100 UNIT/ML 3 ML VIAL SUBCUT PRN ×2 (17:02→22:40)
[2018-09-11 00:21] LABS: APPEARANCE,URINE CLEAR; BILIRUBIN,URINE NEGATIVE (NEGATIVE); COLOR,URINE YELLOW; GLUCOSE, URINE NEGATIVE (NEGATIVE); KETONES,URINE NEGATIVE (NEGATIVE); LEUKOCYTE ESTERASE,URINE NEGATIVE (NEGATIVE); NITRITE,URINE NEGATIVE (NEGATIVE); PROTEIN,URINE 100 mg/dL (NEGATIVE); URINE SPECIFIC GRAVITY 1.018; UROBILINOGEN,URINE NEGATIVE mg/dL (<2.0)
[2018-09-11 00:37] LABS: HEMATOCRIT 25.4 % (37.9-51.0); HEMOGLOBIN 8.6 g/dL (13.5-17.0); MEAN CORPUSCULAR HEMOGLOBIN 31.6 pg (27.0-33.4); MEAN CORPUSCULAR HGB CONC 33.6 g/dL (32.0-36.0); MEAN CORPUSCULAR VOLUME 94 fl (80-97); PLATELET COUNT 183 10^3/uL (150-450); RED BLOOD COUNT 2.71 10^6/uL (4.35-5.55); RED CELL DISTRIBUTION WIDTH 16.4 % (11.5-14.0); WHITE BLOOD COUNT 4.7 10^3/uL (4.0-10.5)
[2018-09-11 00:41] LABS: INTERNATIONAL RATION (INR) 0.87; PROTHROMBIN TIME 12.3 SEC (11.4-15.4)
[2018-09-11 00:42] LABS: PARTIAL THROMBOPLASTIN TIME 26.9 SEC (23.5-35.8)
[2018-09-11] MEDS: HYDROCODONE/ACETAMINOPHEN 7.5-325 MG TABLET PO PRN ×2 (03:54→21:27)
[2018-09-11] MEDS ORDERED: LIDOCAINE 1% INJ-PF (10 MG/ML) 30 ML SDV ONE (06:48)
[2018-09-11] MEDS ORDERED: SODIUM BICARBONATE 8.4% INJ 50 MEQ/50 ML DISP.SYRIN ONE (06:48)
[2018-09-11] MEDS ORDERED: ONDANSETRON HCL INJ/PF 4 MG/2 ML SDV IV PRN (07:51)
[2018-09-11] MEDS ORDERED: MEPERIDINE HCL/PF INJ 25 MG/1 ML DISP.SYRIN IV PRN (07:51)
[2018-09-11] MEDS ORDERED: MORPHINE SULFATE 10 MG/ML INJ IV PRN (07:51)
[2018-09-11] MEDS ORDERED: DIPHENHYDRAMINE HCL 50 MG/ML VIAL IV PRN (07:51)
[2018-09-11] MEDS ORDERED: PROMETHAZINE HCL INJ 25 MG/1 ML VIAL IV PRN ×2 (07:51)
[2018-09-11] MEDS ORDERED: FENTANYL CITRATE INJ/PF 100 MCG/2 ML AMPUL IV PRN ×3 (07:51)
[2018-09-11] MEDS ORDERED: CEFAZOLIN INJ 1 GM VIAL ONE (08:46)
[2018-09-11] MEDS: FENTANYL CITRATE INJ/PF 100 MCG/2 ML AMPUL ONE ×2 (09:00→09:05)
[2018-09-11] MEDS ORDERED: CEFAZOLIN 1 GM/D5W RTU 1 GM/50 ML RTUPB IV PRN (09:13)
[2018-09-11] MEDS: MORPHINE SULFATE 10 MG/ML INJ IV PRN ×3 (11:00→18:13)
[2018-09-11] MEDS ORDERED: ACETAMINOPHEN 325 MG TABLET PO PRN (11:18)
[2018-09-11] MEDS: AMLODIPINE BESYLATE 10 MG TABLET PO SCH (11:20)
[2018-09-11] MEDS: TAMSULOSIN HCL 0.4 MG CAP.SR.24H PO SCH (11:20)
[2018-09-11] MEDS: LOSARTAN POTASSIUM 50 MG TABLET PO SCH (11:21)
[2018-09-11] MEDS: HYDROCHLOROTHIAZIDE 12.5 MG TABLET PO SCH (11:21)
[2018-09-11] MEDS: FINASTERIDE 5 MG TABLET PO SCH (11:21)
[2018-09-11] MEDS: ATORVASTATIN CALCIUM 40 MG TABLET PO SCH ×2 (11:21→18:13)
--- NOTE | 2018-09-11 11:24 | PDOC PROGRESS REPORT ---
Subjective Progress Note for:: 09/11/18 Subjective:: 83-year-old male admitted for L4 compression fracture and pain he went for a laminectomy this morning. He came back from the procedure he says feeling much better after his surgery. No acute events in the last 24 hours. Reason For Visit: INTRACTABLE PAIN,L4 COMPRESSION DEFORMITY Physical Exam Vital Signs: Temp Pulse Resp BP Pulse Ox 97.6 F 66 12 143/53 H 100 09/11/18 09:30 09/11/18 09:30 09/11/18 09:30 09/11/18 09:30 09/11/18 09:30 Intake & Output 09/10/18 09/11/18 09/12/18 06:59 06:59 06:59 Intake Total 1560 750 Output Total 225 5 Balance 1335 745 Weight 77.3 kg 76 kg General appearance: PRESENT: no acute distress Head exam: PRESENT: atraumatic Eye exam: PRESENT: PERRLA Mouth exam: PRESENT: moist Neck exam: ABSENT: carotid bruit, JVD, lymphadenopathy, thyromegaly Respiratory exam: PRESENT: clear to auscultation kevin. ABSENT: rales, rhonchi, wheezes Cardiovascular exam: PRESENT: RRR. ABSENT: diastolic murmur, rubs, systolic murmur GI/Abdominal exam: PRESENT: normal bowel sounds, soft. ABSENT: distended, guar ding, mass, organolmegaly, rebound, tenderness Extremities exam: PRESENT: full ROM. ABSENT: calf tenderness, clubbing, pedal edema Neurological exam: PRESENT: alert, awake, oriented to person, oriented to place, oriented to time, oriented to situation, CN II-XII grossly intact. ABSENT: motor sensory deficit Psychiatric exam: PRESENT: appropriate affect, normal mood. ABSENT: homicidal ideation, suicidal ideation Results Laboratory Results: 09/11/18 00:26 09/10/18 08:54 09/10/18 09/11/18 23:56 00:26 WBC 4.7 RBC 2.71 L Hgb 8.6 L Hct 25.4 L MCV 94 MCH 31.6 MCHC 33.6 RDW 16.4 H Plt Count 183 Urine Color YELLOW Urine Appearance CLEAR Urine pH 5.0 Ur Specific [place] 1.018 Urine Protein 100 H Urine Glucose (UA) NEGATIVE Urine Ketones NEGATIVE Urine Blood NEGATIVE Urine Nitrite NEGATIVE Ur Leukocyte Esterase NEGATIVE Urine WBC (Auto) 1 Urine RBC (Auto) 0 Impressions: Hip X-Ray 09/09/18 09:59 IMPRESSION: NEGATIVE STUDY OF THE LEFT HIP AND PELVIS. NO RADIOGRAPHIC EVIDENCE OF ACUTE INJURY. Lumbar Spine CT 09/09/18 12:07 IMPRESSION: Acute appearing superior endplate wedge deformity of the L4 vertebral body. No obvious epidural hematoma or fracture fragment pulsion. Foot X-Ray 09/10/18 00:00 IMPRESSION: Soft tissue swelling without acute fracture identified. Assessment & Plan - Diagnosis (1) Intractable pain Is this a current diagnosis for this admission?: Yes Plan: Patient presented with intractable pain failing outpatient pain medication regimen secondary to L4 compression fracture. He was given [place] and fentanyl in the ER which have given him some relief. Conitnue [place] and morphine prn. Discussed with Dr. Rosas. Await further evaluation and recommendation for possible kyphoplasty. 09/11/2018-patient came in with the severe pain secondary to L4 compression fracture status post laminectomy. She is feeling much better after the surgery. Presently he is on [place] and as needed morphine. Plan is to continue the present management. (2) Wedge compression fracture of L4 vertebra Qualifiers: Encounter type: initial encounter Fracture type: closed Qualified Code(s): S32.040A - Wedge compression fracture of fourth lumbar vertebra, initial encounter for closed fracture Is this a current diagnosis for this admission?: Yes Plan: 09/21/2018-patient has a laminectomy today for L4 compression fracture patient is feeling much better I am going to request for PT/ OT consult. Continue the present management. Patient denies any problem with urination or bowel movements. (3) Insulin dependent diabetes mellitus Is this a current diagnosis for this admission?: Yes Plan: 09/11/2018-patient has history of diabetes mellitus he is home on sliding scale and also on Lantus 14 units nightly. Globin A1c 7.9 plan is to resume the medications. Patient is also on glipizide 10 mg p.o. daily at home plan is to resume the medication. (4) Hypertension Is this a current diagnosis for this admission?: Yes Plan: 09/11/2018-patient's blood pressure today is 143/53 with pulse rate of 63. Plan is to resume his home medication amlodipine 10 mg daily, losartan/ hydrochlorothiazide 25-12.5 mg p.o. daily. - Time Time Spent with patient: 15-24 minutes Medications reviewed and adjusted accordingly: Yes Anticipated discharge: Home
[2018-09-11] MEDS ORDERED: (PENDING PHARMACY ID) (Alendronate Sodium [Fosamax 70 Mg Tablet] 70 MG) PO SCH (11:30)
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
--- NOTE | 2018-09-11 15:48 | RADIOLOGY REPORT (SQ) ---
EXAM DESCRIPTION: NO CHG FLUORO; L SPINE 2 VIEWS COMPLETED DATE/TIME: 09/11/2018 3:39 pm REASON FOR STUDY: KYPHOPLASTY L4 ASSISTED WITH FLUORO IN OR; KYPHOPLASTY L4 IN OR R73.9 HYPERGLYCE HAIM, UNSPECIFIED S32.008A OTH FRACTURE OF UNSP LUMBAR VERTEBRA, INIT FOR CLOS M54.5 LOW BACK PAIN COMPARISON: None. FLUOROSCOPY TIME: 4.1 minutes. 13 images saved to PACS. TECHNIQUE: Intra-operative images acquired during surgical procedure to evaluate progress. NUMBER OF IMAGES: 13 images. LIMITATIONS: None. FINDINGS: Images of the spine acquired during kyphoplasty procedure. IMPRESSION: IMAGE(S) OBTAINED DURING PROCEDURE. COMMENT: Quality ID 145: Final reports for procedures using fluoroscopy that document radiation exp osure indices, or exposure time and number of fluorographic images (if radiation exposure indices are not available) Please consult full operative report of the attending physician for description of the procedure. TECHNICAL DOCUMENTATION: JOB ID: [id number] [employer]- All Rights Reserved Reading location - IP/workstation name: [facility]
--- NOTE | 2018-09-11 15:48 | RADIOLOGY REPORT (SQ) ---
EXAM DESCRIPTION: NO CHG FLUORO; L SPINE 2 VIEWS COMPLETED DATE/TIME: 09/11/2018 3:39 pm REASON FOR STUDY: KYPHOPLASTY L4 ASSISTED WITH FLUORO IN OR; KYPHOPLASTY L4 IN OR R73.9 HYPERGLYCE HAIM, UNSPECIFIED S32.008A OTH FRACTURE OF UNSP LUMBAR VERTEBRA, INIT FOR CLOS M54.5 LOW BACK PAIN COMPARISON: None. FLUOROSCOPY TIME: 4.1 minutes. 13 images saved to PACS. TECHNIQUE: Intra-operative images acquired during surgical procedure to evaluate progress. NUMBER OF IMAGES: 13 images. LIMITATIONS: None. FINDINGS: Images of the spine acquired during kyphoplasty procedure. IMPRESSION: IMAGE(S) OBTAINED DURING PROCEDURE. COMMENT: Quality ID 145: Final reports for procedures using fluoroscopy that document radiation exp osure indices, or exposure time and number of fluorographic images (if radiation exposure indices are not available) Please consult full operative report of the attending physician for description of the procedure. TECHNICAL DOCUMENTATION: JOB ID: [id number] [employer]- All Rights Reserved Reading location - IP/workstation name: [facility]
[2018-09-11] MEDS: SILVER SULFADIAZINE 1% CREAM 400 GM TP SCH ×2 (18:19→21:22)
[2018-09-11] MEDS: HEPARIN SOD (PORCINE) 5,000 UNIT/ML 1 ML SYRINGE SUBCUT SCH (21:21)
[2018-09-11] MEDS: INSULIN LISPRO 100 UNIT/ML 3 ML VIAL SUBCUT PRN (22:49)
[2018-09-12] MEDS: HYDROCODONE/ACETAMINOPHEN 7.5-325 MG TABLET PO PRN (04:12)
[2018-09-12 06:51] LABS: ABSOLUTE LYMPHOCYTES (AUTO) 1.1 10^3/uL (0.5-4.7); ABSOLUTE MONOCYTES (AUTO) 0.6 10^3/uL (0.1-1.4); ABSOLUTE NEUT (AUTO) 3.7 10^3/uL (1.7-8.2); BASOPHILS % (AUTO) 0.3 % (0-2); EOSINOPHILS % (AUTO) 0.6 % (0-6); HEMATOCRIT 27.4 % (37.9-51.0); HEMOGLOBIN 9.1 g/dL (13.5-17.0); LYMPHOCYTES % (AUTO) 19.9 % (13-45); MEAN CORPUSCULAR HEMOGLOBIN 31.2 pg (27.0-33.4); MEAN CORPUSCULAR HGB CONC 33.2 g/dL (32.0-36.0); MEAN CORPUSCULAR VOLUME 94 fl (80-97); MONOCYTES % (AUTO) 10.7 % (3-13); PLATELET COUNT 198 10^3/uL (150-450); RED BLOOD COUNT 2.92 10^6/uL (4.35-5.55); RED CELL DISTRIBUTION WIDTH 16.3 % (11.5-14.0); SEGMENTED NEUTROPHILS % (AUTO) 68.5 % (42-78); TOTAL CELLS COUNTED % (AUTO) 100 %; WHITE BLOOD COUNT 5.4 10^3/uL (4.0-10.5)
[2018-09-12] MEDS: MORPHINE SULFATE 10 MG/ML INJ IV PRN ×2 (06:59→09:05)
[2018-09-12 07:11] LABS: ALANINE AMINOTRANSFERASE 41 U/L (21-72); ALKALINE PHOSPHATASE 50 U/L (38-126); ANION GAP 7 (5-19); ASPARTATE AMINO TRANSFERASE 38 U/L (17-59); BILIRUBIN,DIRECT 0.2 mg/dL (0.0-0.4); BILIRUBIN,TOTAL 0.4 mg/dL (0.2-1.3); BLOOD UREA NITROGEN 41 mg/dL (7-20); CALCIUM 8.1 mg/dL (8.4-10.2); CARBON DIOXIDE 24 mmol/L (22-30); CHLORIDE 106 mmol/L (98-107); GLUCOSE 100 mg/dL (75-110); POTASSIUM 4.6 mmol/L (3.6-5.0); SODIUM 137.1 mmol/L (137-145); TOTAL PROTEIN 5.1 g/dL (6.3-8.2)
[2018-09-12] MEDS: ATORVASTATIN CALCIUM 40 MG TABLET PO SCH ×2 (09:12→17:45)
[2018-09-12] MEDS: TAMSULOSIN HCL 0.4 MG CAP.SR.24H PO SCH (09:12)
[2018-09-12] MEDS: FERROUS SULFATE 325 MG TABLET PO SCH (09:12)
[2018-09-12] MEDS: AMLODIPINE BESYLATE 10 MG TABLET PO SCH (09:13)
[2018-09-12] MEDS: GLIPIZIDE XL 5 MG TAB.ER.24 PO SCH (09:13)
[2018-09-12] MEDS: CHOLECALCIFEROL (D3) 1,000 UNIT TABLET PO SCH (09:13)
[2018-09-12] MEDS: HYDROCHLOROTHIAZIDE 12.5 MG TABLET PO SCH (09:14)
[2018-09-12] MEDS: FINASTERIDE 5 MG TABLET PO SCH (09:15)
[2018-09-12] MEDS: LOSARTAN POTASSIUM 50 MG TABLET PO SCH (09:15)
[2018-09-12] MEDS: SILVER SULFADIAZINE 1% CREAM 400 GM TP SCH ×4 (09:17→21:33)
[2018-09-12] MEDS: HEPARIN SOD (PORCINE) 5,000 UNIT/ML 1 ML SYRINGE SUBCUT SCH ×2 (09:18→21:31)
[2018-09-12] MEDS ORDERED: INSULIN GLARGINE HUM REC ANLOG 14 UNIT SQ SCH (10:00)
--- NOTE | 2018-09-12 10:35 | PDOC PROGRESS REPORT ---
Subjective Progress Note for:: 09/12/18 Subjective:: 83-year-old male admitted for L4 compression fracture and pain he went for kyphoplasty this morning. He came back from the procedure he says feeling much better after his surgery. No acute events in the last 24 hours. 09/12/2018-patient was admitted for L4 compression fracture status post kyphoplasty yesterday. Patient is in excruciating pain today he is getting morphine 2 mg IV every 4 as needed and also is getting p.o. morphine according to the patient 2 tablets are not working at all the IV morphine lasting for only for 3 hours with the nurse called me around 9:00 I requested her to give a one- time dose of her morphine 2 mg IV I am going to switch the frequency to every 3 hours as needed. On examination patient is not in pain at this moment as I men tioned above is complaining of pain and medication is lasting only for 3 hours. No acute events in the last 24 hours. Reason For Visit: INTRACTABLE PAIN,L4 COMPRESSION DEFORMITY Physical Exam Vital Signs: Temp Pulse Resp BP Pulse Ox 98.1 F 60 16 121/57 L 98 09/12/18 04:01 09/12/18 04:01 09/12/18 04:01 09/12/18 04:01 09/12/18 04:01 Intake & Output 09/11/18 09/12/18 09/13/18 06:59 06:59 06:59 Intake Total 1560 1105 Output Total 225 5 Balance 1335 1100 Weight 76 kg General appearance: PRESENT: mild distress Head exam: PRESENT: atraumatic Eye exam: PRESENT: PERRLA Mouth exam: PRESENT: moist Neck exam: ABSENT: carotid bruit, JVD, lymphadenopathy, thyromegaly Respiratory exam: PRESENT: clear to auscultation kevin. ABSENT: rales, rhonchi, wheezes Cardiovascular exam: PRESENT: RRR. ABSENT: diastolic murmur, rubs, systolic murmur GI/Abdominal exam: PRESENT: normal bowel sounds, soft. ABSENT: distended, guarding, mass, organolmegaly, rebound, tenderness Neurological exam: PRESENT: alert, awake, oriented to person, oriented to place, oriented to time, oriented to situation, CN II-XII grossly intact. ABSENT: motor sensory deficit Psychiatric exam: PRESENT: appropriate affect, normal mood. ABSENT: homicidal ideation, suicidal ideation Results Laboratory Results: 09/12/18 06:23 09/12/18 06:23 09/12/18 09/12/18 06:23 06:23 WBC 5.4 RBC 2.92 L Hgb 9.1 L Hct 27.4 L MCV 94 MCH 31.2 MCHC 33.2 RDW 16.3 H Plt Count 198 Seg Neutrophils % 68.5 Lymphocytes % 19.9 Monocytes % 10.7 Eosinophils % 0.6 Basophils % 0.3 Absolute Neutrophils 3.7 Absolute Lymphocytes 1.1 Absolute Monocytes 0.6 Absolute Eosinophils 0.0 Absolute Basophils 0.0 Sodium 137.1 Potassium 4.6 Chloride 106 Carbon Dioxide 24 Anion Gap 7 BUN 41 H Creatinine 1.22 Est GFR ( Amer) > 60 Est GFR (Non-Af Amer) 56 L Glucose 100 Calcium 8.1 L Magnesium 2.3 Total Bilirubin 0.4 AST 38 ALT 41 Alkaline Phosphatase 50 Total Protein 5.1 L Albumin 3.0 L Impressions: Hip X-Ray 09/09/18 09:59 IMPRESSION: NEGATIVE STUDY OF THE LEFT HIP AND PELVIS. NO RADIOGRAPHIC EVIDENCE OF ACUTE INJURY. Lumbar Spine CT 09/09/18 12:07 IMPRESSION: Acute appearing superior endplate wedge deformity of the L4 vertebral body. No obvious epidural hematoma or fracture fragment pulsion. Foot X-Ray 09/10/18 00:00 IMPRESSION: Soft tissue swelling without acute fracture identified. Fluoroscopy 09/11/18 00:00 IMPRESSION: IMAGE(S) OBTAINED DURING PROCEDURE. Lumbar Spine X-Ray 09/11/18 00:00 IMPRESSION: IMAGE(S) OBTAINED DURING PROCEDURE. Assessment & Plan - Diagnosis (1) Intractable pain Is this a current diagnosis for this admission?: Yes Plan: Patient presented with intractable pain failing outpatient pain medication regimen secondary to L4 compression fracture. He was given [place] and fentanyl in the ER which have given him some relief. Conitnue [place] and morphine prn. Discussed with Dr. Rosas. Await further evaluation and recommendation for possible kyphoplasty. 09/11/2018-patient came in with the severe pain secondary to L4 compression fracture status post kyphoplasty. She is feeling much better after the surgery. Presently he is on [place] and as needed morphine. Plan is to continue the present management. 09/12/2018-patient is in excruciating pain this morning around 9:00 nurse called me with the patient complaining of pain scale of 10 x 10, we gave her morphine 2 mg IV 1 dose and switching morphine from 2 mg every 4 as needed to every 3 hours IV as needed. Hopefully it will help to ease off the pain. Because of the intractable pain I think is appropriate to change the patient's status from observation to inpatient. Awaiting the recommendations from a pain management team. (2) Wedge compression fracture of L4 vertebra Qualifiers: Encounter type: initial encounter Fracture type: closed Qualified Code(s): S32.040A - Wedge compression fracture of fourth lumbar vertebra, initial encounter for closed fracture Is this a current diagnosis for this admission?: Yes Plan: 09/11/2018-patient has kyphoplasty today for L4 compression fracture patient is feeling much better I am going to request for PT/ OT consult. Continue the present management. Patient denies any problem with urination or bowel movements. 09/12/2018-patient has a kyphoplasty yesterday yesterday his pain was much better after the surgery as expected today pain was much severe today presently he is on morphine 2 mg IV every 3 as needed. I am going to assess his pain scale on regular basis. Plan is to continue PT/OT. (3) Insulin dependent diabetes mellitus Is this a current diagnosis for this admission?: Yes Plan: 09/11/2018-patient has history of diabetes mellitus he is home on sliding scale and also on Lantus 14 units nightly. hemoGlobin A1c 7.9 plan is to resume the medications. Patient is also on glipizide 10 mg p.o. daily at home plan is to resume the medication. 09/12/2018-she has blood sugar today is 111 well controlled. Presently he is on Lantus 14 units at night and glipizide 10 mg p.o. daily along with insulin sliding scale. Hemoglobin A1c 7.9. Plan is to continue the present management. Dietary consult was requested. (4) Hypertension Is this a current diagnosis for this admission?: Yes Plan: 09/11/2018-patient's blood pressure today is 143/53 with pulse rate of 63. Plan is to resume his home medication amlodipine 10 mg daily, losartan/hydrochlor othiazide 25-12.5 mg p.o. daily. 09/12/2018-blood pressure today is 121/54 with pulse rate of 60. Patient is on amlodipine 10 mg daily, losartan/hydrochlorothiazide 25/ 12.5 mg p.o. daily. plan is to continue the present management. - Time Time Spent with patient: 15-24 minutes Medications reviewed and adjusted accordingly: Yes
--- NOTE | 2018-09-12 11:11 | CONSULTATION REPORT E ---
Consultation Report NAME: SARAH PIÑA : 1935 AGE: 83Y DATE: 09/10/2018 322 A TO: GREGORIA ZEPEDA M.D. FROM: DAVID GREEN M.D. Requesting Physician REASON FOR CONSULTATION: L4 COMPRESSION FRACTURE. REQUESTING PHYSICIAN: Dr. Celso Haines. CHIEF COMPLAINT: Low back pain. HISTORY OF PRESENT ILLNESS: The patient is a pleasant 83-year-old male with a past medical history diabetes, hypertension, and BPH who was seen in the emergency room for intractable back and left posterior hip pain. The patient and his son recount that around May, during [place], patient was moving heavy a heavy flower pot and felt like he pulled his back. He had the sudden development of pain in the lower back with radiation down the left lateral leg to the outside of the knee. This did not extend down to the calf or the foot. He denied any numbness or tingling associated with this, nor loss of bowel or bladder function. He went to his primary care physician and states he was given a few shots. He states he had an x-ray which showed no acute findings. The patient states that the pain was in fact improving over a period of time and his son noted that he was able to take him out on a fishing trip with no real difficulty with ambulation, just some lingering intermittent pain. However, approximately 2 to 3 weeks ago the patient had sudden progression of his pain. He states his pain became very severe, sharp, and shooting in his lower back and left hip area. The patient was still having some radiation down the left leg, though this was less prominent than the pain in the middle to left portion of the lower back. He states that he has been barely able to walk secondary to this pain. As such, he presented to the Emergency Department. Lumbar spine CT was performed and the patient was found to have an acute compression fracture of the L4 vertebral body, changed from previous x-rays. The patient's family notes today that he has been crying because he is in severe pain. Tonight, the patient notes that his pain is somewhat better after some pain medication including morphine and hydrocodone. However, any movement exacerbates pain to a severe degree. He states any time he gets up or moves out of the bed the pain is sharp and lancinating. He is hopeful to find something more that can be done about this. PAST MEDICAL HISTORY: 1. Hypertension. 2. Diabetes type-2. 3. Benign prostatic hyperplasia. 4. Hyperlipidemia. 5. Osteoporosis. PAST SURGICAL HISTORY: Cholecystectomy. SOCIAL HISTORY: The patient is . He is here with his son. He currently has his own healthcare power of contracts attorney. The patient is full code and he was never a smoker. Denies any illicit drug use. FAMILY HISTORY: Noncontributory. ALLERGIES: No known drug allergies. HOME MEDICATIONS: 1. Amlodipine. 2. Atorvastatin. 3. Cholecalciferol. 4. *------*. 5. Insulin. 6. Losartan hydrochlorothiazide. 7. Tamsulosin. 8. Acetaminophen. 9. Alendronate. 10. Celebrex. 11. Ferrous sulfate. 12. Glipizide. 13. Insulin glargine. LAB RESULTS: CBC is within normal limits. Lumbar spine CT demonstrates osteopenia and acute appearing superior end-plate wedge deformity of the L4 vertebral body with no obvious retropulsion. Hip x-ray negative for acute process. PHYSICAL EXAMINATION: VITAL SIGNS: Temperature 98.6. Blood pressure 131/52. Saturation 98% on room air. Pain level 4/5. GENERAL: The patient is a very pleasant, well-developed, well-nourished elderly gentleman. He is sitting on the side of the bed with very minimal capacity to move secondary to pain. HEENT: Patient wears glasses. CACRDIOVASCULAR: Pulses regular at current. RESPIRATORY: Even, unlabored work of breathing. MUSCULOSKELETAL: The patient's lumbar spine demonstrates loss of lordosis. He does have prominent midline tenderness at the L4-L5 spinous process and left-sided paravertebral muscular along the left iliac crest. There is some mild skin breakdown from previous TENS unit placement in the left paravertebral musculature region. Patient has no tenderness along the greater trochanteric bursa. Mild diminished sensation along the left lateral side noted. Negative straight leg raise from seated position. NEUROLOGIC: Strength is preserved in the upper and lower extremities. No overt motor deficit appreciated. ASSESSMENT: ACUTE COMPRESSION OF THE L4 VERTEBRAL BODY WITH INTRACTABLE BACK PAIN. PLAN: The patient is a very pleasant 83-year-old male with what sounds to be acute lumbar radiculopathy that presented after lifting a heavy pot in May which has recently been exacerbated by severe midline back pain that I suspect is due to the acute L4 vertebral compression fracture. I discussed risks of potential kyphoplasty with the patient at length including but not limited to bleeding, bruising, infection, injury to nerve, or nerve ends, loss of bowel or bladder function, paralysis, pain and . I did discuss with the patient that kyphoplasty may not help with pain along the left side of the leg, however, the patient notes that the worst of the pain at current is in the mid back. I think this was consistent with the history and findings on examination. As such, we will plan to proceed with kyphoplasty tomorrow morning. Should this not ameliorate pain to a substantial degree then we will proceed with MRI of the lumbar spine and consideration of further interventional therapy based upon findings. Additionally, we will plan for physical therapy to evaluate the patient prior to discharge to ensure that strength is reasonably well preserved. He may continue hydrocodone and morphine as needed at the current dosing. Otherwise, we will continue to follow along with the patient. DICTATING PHYSICIAN: GREGORIA ZEPEDA M.D. [id number] Y#: [id number] 1819 ID: [id number] JOB#: [id number] ACCT: [id number] cc:GREGORIA ZEPEDA M.D. >
[2018-09-12] MEDS: HYDROMORPHONE HCL INJ/PF 2 MG/ML AMPULE IV PRN ×3 (12:00→17:41)
[2018-09-12] MEDS: GABAPENTIN 100 MG CAPSULE PO SCH (21:30)
[2018-09-12] MEDS: INSULIN LISPRO 100 UNIT/ML 3 ML VIAL SUBCUT PRN (21:30)
--- NOTE | 2018-09-13 01:12 | RADIOLOGY REPORT (SQ) ---
EXAM DESCRIPTION: MR LUMBAR SPINE WITHOUT IV CONTRAST COMPLETED DATE/TME: 09/12/2018 00:00 CLINICAL HISTORY: 83 years, Male, back pain COMPARISON: Plain films 09/11/2018 TECHNIQUE: 171 Images stored on PACS. LIMITATIONS: None. FINDINGS: For the purposes of this exam, 5 lumbar type vertebral bodies are labeled. There is lumbarization of the S1 segment. Normal signal in the visualized spinal cord. The conus medullaris terminates appropriately. Superior endplate compression fracture deformity of L4, with widening of the L3/L4 disc space. A small amount of fluid within the disc space. Low signal associated with the superior L4 endplate likely reflects postkyphoplasty changes at this level. No retropulsed fracture fragment. Limited evaluation of extraspinal anatomic structures is unremarkable. T12-L1 level is unremarkable. Minor endplate degenerative changes at L1-L2 and L2-L3 without disc bulge or protrusion. At L3-L4, there is mild facet arthropathy bilaterally with ligament flavum hypertrophy and diffuse disc bulging. Moderate neural foraminal narrowing bilaterally. No greater than mild central canal stenosis. At L4-5, there is bilateral facet arthropathy with endplate degenerative change, ossific spurring, and diffuse disc bulging. Mild bilateral neural foraminal narrowing. No central canal stenosis. At L5-S1, there is bilateral facet arthropathy with endplate degenerative change and ossific spurring. Diffuse disc bulging with a superimposed central disc protrusion and annular tear. No central canal stenosis. Moderate neural foraminal narrowing bilaterally. 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 IMPRESSION: Post kyphoplasty changes at the L4 level. Minor widening of the L3/L4 disc space with a small amount of fluid in the disc space. Findings are likely postoperative. Infectious process felt much less likely. Surrounding soft tissues are grossly unremarkable. Multilevel degenerative change. No greater than mild central canal stenosis, noted at the L3-4 level. Moderate neural foraminal narrowing bilaterally at L3-4 and L5-S1. Please see above for detailed discussion at each level. copyright 2010 [facility]- All Rights Reserved
[2018-09-13] MEDS: HYDROMORPHONE HCL INJ/PF 2 MG/ML AMPULE IV PRN ×5 (07:20→19:49)
--- NOTE | 2018-09-13 09:54 | PDOC PROGRESS REPORT ---
Subjective Progress Note for:: 09/13/18 Subjective:: 83-year-old male admitted for L4 compression fracture and pain he went for kyphoplasty this morning. He came back from the procedure he says feeling much better after his surgery. No acute events in the last 24 hours. 09/12/2018-patient was admitted for L4 compression fracture status post kyphoplasty yesterday. Patient is in excruciating pain today he is getting morphine 2 mg IV every 4 as needed and also is getting p.o. morphine according to the patient 2 tablets are not working at all the IV morphine lasting for only for 3 hours with the nurse called me around 9:00 I requested her to give a one- time dose of her morphine 2 mg IV I am going to switch the frequency to every 3 hours as needed. On examination patient is not in pain at this moment as I men tioned above is complaining of pain and medication is lasting only for 3 hours. No acute events in the last 24 hours. 09/13/2018-patient complained of severe lower back pain yesterday he went for the MRI of the spine it shows mild postoperative decrease with the fluid collection around the L4 kyphoplasty site the radiologist impression is infection is very less likely. Patient is doing much better today. No acute events. Patient is afebrile. Reason For Visit: 14 COMPRESSION FRACTURE Physical Exam Vital Signs: Temp Pulse Resp BP Pulse Ox 98.3 F 65 16 127/49 H 99 09/13/18 03:16 09/13/18 03:16 09/13/18 03:16 09/13/18 03:16 09/13/18 03:16 Intake & Output 09/12/18 09/13/18 09/14/18 06:59 06:59 06:59 Intake Total 1105 1006 Output Total 5 250 Balance 1100 756 Weight 80.9 kg General appearance: PRESENT: no acute distress Head exam: PRESENT: atraumatic Eye exam: PRESENT: PERRLA Mouth exam: PRESENT: moist Neck exam: ABSENT: carotid bruit, JVD, lymphadenopathy, thyromegaly Respiratory exam: PRESENT: clear to auscultation kevin. ABSENT: rales, rhonchi, wheezes Cardiovascular exam: PRESENT: RRR. ABSENT: diastolic murmur, rubs, systolic murmur GI/Abdominal exam: PRESENT: normal bowel sounds, soft. ABSENT: distended, guarding, mass, organolmegaly, rebound, tenderness Extremities exam: PRESENT: full ROM. ABSENT: calf tenderness, clubbing, pedal edema Neurological exam: PRESENT: alert, awake, oriented to person, oriented to place, oriented to time, oriented to situation, CN II-XII grossly intact. ABSENT: motor sensory deficit Psychiatric exam: PRESENT: appropriate affect, normal mood. ABSENT: homicidal ideation, suicidal ideation Results Laboratory Results: 09/12/18 06:23 09/12/18 06:23 Impressions: Hip X-Ray 09/09/18 09:59 IMPRESSION: NEGATIVE STUDY OF THE LEFT HIP AND PELVIS. NO RADIOGRAPHIC EVIDENCE OF ACUTE INJURY. Lumbar Spine CT 09/09/18 12:07 IMPRESSION: Acute appearing superior endplate wedge deformity of the L4 vertebral body. No obvious epidural hematoma or fracture fragment pulsion. Foot X-Ray 09/10/18 00:00 IMPRESSION: Soft tissue swelling without acute fracture identified. Fluoroscopy 09/11/18 00:00 IMPRESSION: IMAGE(S) OBTAINED DURING PROCEDURE. Lumbar Spine X-Ray 09/11/18 00:00 IMPRESSION: IMAGE(S) OBTAINED DURING PROCEDURE. Lumbar Spine MRI 09/12/18 00:00 IMPRESSION: Post kyphoplasty changes at the L4 level. Minor widening of the L3/L4 disc space with a small amount of fluid in the disc space. Findings are likely postoperative. Infectious process felt much less likely. Surrounding soft tissues are grossly unremarkable. Multilevel degenerative change. No greater than mild central canal stenosis, noted at the L3-4 level. Moderate neural foraminal narrowing bilaterally at L3-4 and L5-S1. Please see above for detailed discussion at each level. copyright 2010 [employer]- All Rights Reserved Assessment & Plan - Diagnosis (1) Intractable pain Is this a current diagnosis for this admission?: Yes Plan: Patient presented with intractable pain failing outpatient pain medication regimen secondary to L4 compression fracture. He was given Freeport and fentanyl in the ER which have given him some relief. Conitnue Freeport and morphine prn. Discussed with Dr. Rosas. Await further evaluation and recommendation for possible kyphoplasty. 09/11/2018-patient came in with the severe pain secondary to L4 compression fracture status post kyphoplasty. She is feeling much better after the surgery. Presently he is on Freeport and as needed morphine. Plan is to continue the present management. 09/12/2018-patient is in excruciating pain this morning around 9:00 nurse called me with the patient complaining of pain scale of 10 x 10, we gave her morphine 2 mg IV 1 dose and switching morphine from 2 mg every 4 as needed to every 3 hours IV as needed. Hopefully it will help to ease off the pain. Because of the intractable pain I think is appropriate to change the patient's status from observation to inpatient. Awaiting the recommendations from a pain management team. 09/13/2018-patient yesterday complaining of severe pain pain scale of 10 x 10 event for the lumbar spine MRI no acute changes were found. Patient is doing much much better. As per the pain management we are going to watch his pain levels today and if he is able to tolerate the p.o. medications probably we will discharge him back home tomorrow. He had a good bowel movement today. (2) Wedge compression fracture of L4 vertebra Qualifiers: Encounter type: initial encounter Fracture type: closed Qualified Code(s): S32.040A - Wedge compression fracture of fourth lumbar vertebra, initial encounter for closed fracture Is this a current diagnosis for this admission?: Yes Plan: 09/11/2018-patient has kyphoplasty today for L4 compression fracture patient is feeling much better I am going to request for PT/ OT consult. Continue the present management. Patient denies any problem with urination or bowel movements. 09/12/2018-patient has a kyphoplasty yesterday yesterday his pain was much better after the surgery as expected today pain was much severe today presently he is on morphine 2 mg IV every 3 as needed. I am going to assess his pain scale on regular basis. Plan is to continue PT/OT. 09/13/2018-patient was admitted with wedge compression fracture of the L4 vertebra status post kyphoplasty was done postop day 2. He is doing much much better. Plan is to continue the present management. (3) Insulin dependent diabetes mellitus Is this a current diagnosis for this admission?: Yes Plan: 09/11/2018-patient has history of diabetes mellitus he is home on sliding scale and also on Lantus 14 units nightly. hemoGlobin A1c 7.9 plan is to resume the medications. Patient is also on glipizide 10 mg p.o. daily at home plan is to resume the medication. 09/12/2018-she has blood sugar today is 111 well controlled. Presently he is on Lantus 14 units at night and glipizide 10 mg p.o. daily along with insulin sliding scale. Hemoglobin A1c 7.9. Plan is to continue the present management. Dietary consult was requested. 09/13/2018-patient blood sugar is 133. Well controlled hemoglobin A1c 7.9 plan is to continue the present management. (4) Hypertension Is this a current diagnosis for this admission?: Yes Plan: 09/11/2018-patient's blood pressure today is 143/53 with pulse rate of 63. Plan is to resume his home medication amlodipine 10 mg daily, losartan/hydrochlorothiazide 25-12.5 mg p.o. daily. 09/12/2018-blood pressure today is 121/54 with pulse rate of 60. Patient is on amlodipine 10 mg daily, losartan/hydrochlorothiazide 25/ 12.5 mg p.o. daily. plan is to continue the present management. 09/13/2018-blood pressure today is 127/49 well controlled pulse rate is 65 plan is to continue amlodipine 10 mg p.o. daily, losartan/hydrochlorothiazide 25/12.5 mg p.o. daily. - Time Time Spent with patient: 15-24 minutes Medications reviewed and adjusted accordingly: Yes Anticipated discharge: Home
[2018-09-13] MEDS: AMLODIPINE BESYLATE 10 MG TABLET PO SCH (11:03)
[2018-09-13] MEDS: FERROUS SULFATE 325 MG TABLET PO SCH (11:04)
[2018-09-13] MEDS: ASPIRIN 81 MG TABLET, ENT COATED PO SCH (11:04)
[2018-09-13] MEDS: GLIPIZIDE XL 5 MG TAB.ER.24 PO SCH (11:04)
[2018-09-13] MEDS: HYDROCHLOROTHIAZIDE 12.5 MG TABLET PO SCH (11:04)
[2018-09-13] MEDS: LOSARTAN POTASSIUM 50 MG TABLET PO SCH (11:04)
[2018-09-13] MEDS: FINASTERIDE 5 MG TABLET PO SCH (11:04)
[2018-09-13] MEDS: ATORVASTATIN CALCIUM 40 MG TABLET PO SCH ×2 (11:05→17:20)
[2018-09-13] MEDS: CHOLECALCIFEROL (D3) 1,000 UNIT TABLET PO SCH (11:05)
[2018-09-13] MEDS: TAMSULOSIN HCL 0.4 MG CAP.SR.24H PO SCH (11:05)
[2018-09-13] MEDS: HEPARIN SOD (PORCINE) 5,000 UNIT/ML 1 ML SYRINGE SUBCUT SCH ×2 (11:05→22:16)
[2018-09-13] MEDS: SILVER SULFADIAZINE 1% CREAM 400 GM TP SCH ×4 (11:12→22:16)
[2018-09-13] MEDS ORDERED: OXYCODONE HCL IR 5 MG TABLET PO PRN (18:56)
[2018-09-13] MEDS: INSULIN LISPRO 100 UNIT/ML 3 ML VIAL SUBCUT PRN (19:49)
[2018-09-13] MEDS: GABAPENTIN 100 MG CAPSULE PO SCH (22:22)
[2018-09-14] MEDS: HYDROMORPHONE HCL INJ/PF 2 MG/ML AMPULE IV PRN ×2 (08:37→11:29)
[2018-09-14] MEDS: GLIPIZIDE XL 5 MG TAB.ER.24 PO SCH (08:38)
[2018-09-14 10:42] VITALS: BP 131/52
[2018-09-14] MEDS: AMLODIPINE BESYLATE 10 MG TABLET PO SCH (11:13)
[2018-09-14] MEDS: ATORVASTATIN CALCIUM 40 MG TABLET PO SCH (11:13)
[2018-09-14] MEDS: ASPIRIN 81 MG TABLET, ENT COATED PO SCH (11:14)
[2018-09-14] MEDS: TAMSULOSIN HCL 0.4 MG CAP.SR.24H PO SCH (11:14)
[2018-09-14] MEDS: HYDROCHLOROTHIAZIDE 12.5 MG TABLET PO SCH (11:14)
[2018-09-14] MEDS: CHOLECALCIFEROL (D3) 1,000 UNIT TABLET PO SCH (11:14)
[2018-09-14] MEDS: FINASTERIDE 5 MG TABLET PO SCH (11:16)
[2018-09-14] MEDS: FERROUS SULFATE 325 MG TABLET PO SCH (11:17)
[2018-09-14] MEDS: SILVER SULFADIAZINE 1% CREAM 400 GM TP SCH (11:17)
[2018-09-14] MEDS: HEPARIN SOD (PORCINE) 5,000 UNIT/ML 1 ML SYRINGE SUBCUT SCH (11:17)
[2018-09-14] MEDS: LOSARTAN POTASSIUM 50 MG TABLET PO SCH (11:17)
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
== END 2018-09-14 13:22 | disposition home health service (06) | DRG 517 ==
LOC: ER 09:34 → INTOOBSV 14:30 → OBSVTOIN 14:30 → UNDOADMOB 14:30 → EH 14:30 → 3W 15:57 → EH 15:57
PROVIDERS: ADMIT Internal Medicine; ATTEND Internal Medicine
PROC: 0QU03JZ Supplement Lumbar Vertebra with Synthetic Substitute, Percutaneous Approach (ICD-10-PCS; 2018-09-11)
PROC: 0QS03ZZ Reposition Lumbar Vertebra, Percutaneous Approach (ICD-10-PCS; principal; 2018-09-11 07:30)
DX: S32.040A Wedge compression fracture of fourth lumbar vertebra, initial encounter for closed fracture (principal); E11.65 Type 2 diabetes mellitus with hyperglycemia; I10 Essential (primary) hypertension; N40.0 Benign prostatic hyperplasia without lower urinary tract symptoms; E78.5 Hyperlipidemia, unspecified; M81.0 Age-related osteoporosis without current pathological fracture; Z79.4 Long term (current) use of insulin; Z79.82 Long term (current) use of aspirin; Z79.899 Other long term (current) drug therapy; Z90.49 Acquired absence of other specified parts of digestive tract
CPT/HCPCS: 01936; 36415; 72100; 72131; 72148; 80048; 80053; 81001; 82962; 83036; 83735; 85025; 85027; 85610; 85730; 93005; 93010; 96372; 96374; 99284; C1713; J0690; J1170; J1644; J1815; J1885; J2270; J3010; J3490; Q9966

== ENCOUNTER → 2018-09-12 | Outpatient (CLI) | payer MEDICARE ==
[~2018-09-12] MED LIST changes: -CHONDR SU A NA/HYALUR INTRAOC KIT (SURGICARE) ONE; +FENTANYL CITRATE INJ/PF 100 MCG/2 ML AMPUL ONE; +KETAMINE HCL INJ 500 MG/10 ML VIAL ONE; -KETOROLAC TROMETHAMINE 0.45% 4 DROP/0.4 ML DROPERETTE OD PRN; -LIDOCAINE 1% INJ-PF (10 MG/ML) 30 ML SDV ONE; +LIDOCAINE 2% INJ-PF (20 MG/ML) 10 ML AMPUL ONE; +MIDAZOLAM 2 MG/2 ML INJ ONE; +ONDANSETRON HCL INJ/PF 4 MG/2 ML SDV ONE; -PHENYLEPHRINE/KETOROLAC 1%-0.3% 4 ML VIAL ONE; +PROPOFOL INJ 200 MG/20 ML VIAL IV ONE
== END ==
LOC: RAD 10:30
PROVIDERS: ATTEND Family Medicine
DX: Z53.9 Procedure and treatment not carried out, unspecified reason (principal)
CPT/HCPCS: J2250; J3010; J3490 ×2; J2405; J2704

== ENCOUNTER → 2018-09-25 | Outpatient (CLI) | payer MEDICARE ==
[2018-09-25 16:20] LABS: HEMATOCRIT 25.5 % (37.9-51.0); HEMOGLOBIN 8.6 g/dL (13.5-17.0); MEAN CORPUSCULAR HEMOGLOBIN 31.5 pg (27.0-33.4); MEAN CORPUSCULAR HGB CONC 33.6 g/dL (32.0-36.0); MEAN CORPUSCULAR VOLUME 94 fl (80-97); PLATELET COUNT 257 10^3/uL (150-450); RED BLOOD COUNT 2.72 10^6/uL (4.35-5.55); RED CELL DISTRIBUTION WIDTH 15.1 % (11.5-14.0); WHITE BLOOD COUNT 6.7 10^3/uL (4.0-10.5)
[2018-09-25 16:40] LABS: ANION GAP 9 (5-19); BLOOD UREA NITROGEN 55 mg/dL (7-20); CALCIUM 8.5 mg/dL (8.4-10.2); CARBON DIOXIDE 23 mmol/L (22-30); CHLORIDE 102 mmol/L (98-107); GLUCOSE 238 mg/dL (75-110); POTASSIUM 5.7 mmol/L (3.6-5.0); SODIUM 134.3 mmol/L (137-145)
== END ==
LOC: OD 15:40
PROVIDERS: ATTEND Internal Medicine Nephrology
DX: N18.4 Chronic kidney disease, stage 4 (severe) (principal); D64.9 Anemia, unspecified
CPT/HCPCS: 36415; 80048; 85027

== ENCOUNTER → 2018-10-02 | Outpatient (CLI) | payer MEDICARE | LOC: OD 15:49 | PROVIDERS: ATTEND Physician Assistant Medical | DX: N18.4 Chronic kidney disease, stage 4 (severe) (principal); E87.5 Hyperkalemia | CPT/HCPCS: 36415; 84132 ==

== ENCOUNTER 2018-10-16 10:33 | Emergency (ER) | payer MEDICARE ==
[2018-10-16] MEDS ORDERED: BUPIVACAINE HCL 0.75% INJ/PF (7.5 MG/1 ML) 10 ML SDV INJ ONE (11:01)
[2018-10-16] MEDS ORDERED: METHYLPREDNISOLONE ACETATE INJ 80 MG/1 ML VIAL IM ONE (11:01)
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
--- NOTE | 2018-10-16 11:36 | RADIOLOGY REPORT (SQ) ---
EXAM DESCRIPTION: CHEST SINGLE VIEW COMPLETED DATE/TIME: 10/16/2018 11:24 am REASON FOR STUDY: Chest pain COMPARISON: None. EXAM PARAMETERS: NUMBER OF VIEWS: One view. TECHNIQUE: Single frontal radiographic view of the chest acquired. RADIATION DOSE: NA LIMITATIONS: None. FINDINGS: LUNGS AND PLEURA: No opacities, masses or pneumothorax. No pleural effusion. MEDIASTINUM AND HILAR STRUCTURES: No masses. Contour normal. HEART AND VASCULAR STRUCTURES: Heart normal in size. Normal vasculature. BONES: No acute findings. HARDWARE: None in the chest. OTHER: No other significant finding. IMPRESSION: NO ACUTE RADIOGRAPHIC FINDING IN THE CHEST. TECHNICAL DOCUMENTATION: JOB ID: [id number] [employer]- All Rights Reserved Reading location - IP/workstation name: [email or web address]
--- NOTE | 2018-10-16 11:52 | ER Document Report ---
ED General - General Chief Complaint: Hip Pain Stated Complaint: HIP PAIN Time Seen by Provider: 10/16/18 10:56 Primary Care Provider: ELIUD GARCIA MD [Primary Care Provider] - Follow up as needed Notes: 83-year-old male presents with pain in his left buttock/hip nonradiating and severe worse with certain positions. He had an L4 kyphoplasty a few months ago for a compression fracture and has been in chronic pain ever since having been to pain management, having been on Dilaudid and having run out of said Dilaudid 3 days prior to this ED visit. No radiculopathy no neurologic symptoms. Incidentally he felt sharp chest pain and palpitations for about 30 minutes overnight which is now resolved this was at least 6 hours ago, and says that he is been constipated while taking iron and having dark stools. Intermittent dizziness when standing. TRAVEL OUTSIDE OF THE [place] IN LAST 30 DAYS: No - Related Data Allergies/Adverse Reactions: No Known Allergies Allergy (Verified 10/16/18 10:35) Past Medical History - Social History Smoking Status: Never Smoker Family History: Reviewed & Not Pertinent Patient has suicidal ideation: No Patient has homicidal ideation: No - Medical History Medical History: Other - Diabetes hypertension hyperlipidemia compression fracture anemia - Past Medical History Cardiac Medical History: Reports: Hx Hypertension Denies: Hx Heart Attack Pulmonary Medical History: Denies: Hx Asthma Neurological Medical History: Denies: Hx Cerebrovascular Accident, Hx Seizures Endocrine Medical History: Reports: Hx Diabetes Mellitus Type 2 Renal/ Medical History: Denies: Hx Peritoneal Dialysis GI Medical History: Denies: Hx Hepatitis, Hx Hiatal Hernia, Hx Ulcer Infectious Medical History: Denies: Hx Hepatitis Past Surgical History: Reports: Hx Cholecystectomy. Denies: Hx Open Heart Surgery, Hx Pacemaker - Immunizations Hx Diphtheria, Pertussis, Tetanus Vaccination: Yes Review of Systems - Review of Systems Notes: REVIEW OF SYSTEMS GEN: Denies fever, chills, weight loss ENT: Denies sore throat, nasal discharge, ear pain EYES: Denies blurry vision, eye pain, discharge CV: Denies chest pain, palpitations, edema RESP: Denies cough, shortness of breath, wheezing GI: Denies abdominal pain, nausea, vomiting, diarrhea positive dark stools MSK: Denies joint pain/swelling, edema, left buttock pain presents SKIN: Denies rash, skin lesions LYMPH: Denies swollen glands/lymph nodes NEURO: Intermittent dizziness. Denies headache, focal weakness or numbness, dizziness PSYCH: Denies depression, suicidal or homicidal ideation PHYSICAL EXAMINATION General: No acute distress, well-nourished Head: Atraumatic, normocephalic ENT: Mouth normal, oropharynx moist, no exudates or tonsillar enlargement Eyes: Conjunctiva normal, pupils equal, lids normal Neck: No JVD, supple, no guarding CVS: Normal rate, regular rhythm, no murmurs Resp: No resp distress, equal and normal breath sounds bilaterally GI: Nondistended, soft, no tenderness to palpation, no rebound or guarding dark stools. Ext: No deformities, no edema, normal range of motion in upper and lower ext Back: No CVA or midline TTP uncomfortable moving about the gurney but no point tenderness in the back. Skin: No rash, warm Lymphatic: No lymphadeopathy noted Neuro: Awake, alert. Face symmetric. GCS 15. Physical Exam - Vital signs Vitals: Temp 97.6 F 10/16/18 10:47 Course - Re-evaluation Re-evalutation: 10/16/18 12:53 Acute on chronic back pain in the setting of discontinuing opioids. Seems could be SI joint versus other source of back pain but there is no neurologic deficits or fever or bowel or bladder dysfunction. Family reports multiple visits to multiple providers about this pain and difficulty controlling it. Has stopped Dilaudid recently and this is probably contributing. Also having dark stool and constipation likely from iron. His hemoglobin today is higher than usual and there is no evidence of ongoing GI leading. His atypical episode of chest pain overnight seems innocuous, his family reports yearly stress tests all of which are normal, and today his ECG is nonischemic and his troponin, although slightly detectable, as well below the range given the amount of time I think we have ruled out ACS. Given a dose of Dilaudid p.o. in the ED and referred back to primary care. I have discussed with the patient there likely diagnosis, aftercare plan, follow- up plans and my usual and customary return precautions. They verbalized understanding of this. - Vital Signs Vital signs: Temp Pulse Resp BP Pulse Ox 97.6 F 71 18 150/52 H 98 10/16/18 10:54 10/16/18 10:54 10/16/18 10:54 10/16/18 10:54 10/16/18 11:10 - Laboratory Result Diagrams: 10/16/18 11:30 10/16/18 11:30 Laboratory results interpreted by me: 10/16/18 10/16/18 11:30 11:30 RBC 3.26 L Hgb 10.3 L Hct 31.3 L RDW 14.6 H Seg Neutrophils % 86.1 H Lymphocytes % 7.0 L Sodium 135.8 L Potassium 5.3 H Carbon Dioxide 21 L BUN 35 H Creatinine 1.34 H Est GFR (Non-Af Amer) 51 L Glucose 549 H* - Diagnostic Test Radiology reviewed: Pending, Image reviewed, Reports reviewed - EKG Interpretation by Me EKG shows normal: Sinus rhythm Rate: Normal Rhythm: NSR - Ischemic change Discharge - Discharge Clinical Impression: Chronic back pain Qualifiers: Back pain location: back pain in unspecified location Back pain laterality: left Qualified Code(s): M54.9 - Dorsalgia, unspecified Condition: Good Disposition: HOME, SELF-CARE Instructions: Constipation ([facility]), Chronic Back Pain ([facility]), Chest Pain of Unclear Cause ([facility]) Referrals: ELIUD GARCIA MD [Primary Care Provider] - Follow up as needed
[2018-10-16 11:53] LABS: ABSOLUTE LYMPHOCYTES (AUTO) 0.5 10^3/uL (0.5-4.7); ABSOLUTE MONOCYTES (AUTO) 0.5 10^3/uL (0.1-1.4); BASOPHILS % (AUTO) 0.1 % (0-2); HEMATOCRIT 31.3 % (37.9-51.0); HEMOGLOBIN 10.3 g/dL (13.5-17.0); MEAN CORPUSCULAR HEMOGLOBIN 31.5 pg (27.0-33.4); MEAN CORPUSCULAR HGB CONC 32.7 g/dL (32.0-36.0); MEAN CORPUSCULAR VOLUME 96 fl (80-97); MONOCYTES % (AUTO) 6.8 % (3-13); PLATELET COUNT 222 10^3/uL (150-450); RED BLOOD COUNT 3.26 10^6/uL (4.35-5.55); RED CELL DISTRIBUTION WIDTH 14.6 % (11.5-14.0); SEGMENTED NEUTROPHILS % (AUTO) 86.1 % (42-78); TOTAL CELLS COUNTED % (AUTO) 100 %
[2018-10-16 12:09] LABS: ALANINE AMINOTRANSFERASE 53 U/L (21-72); ALBUMIN 4.4 g/dL (3.5-5.0); ALKALINE PHOSPHATASE 71 U/L (38-126); ANION GAP 10 (5-19); ASPARTATE AMINO TRANSFERASE 50 U/L (17-59); BILIRUBIN,DIRECT 0.3 mg/dL (0.0-0.4); BILIRUBIN,TOTAL 0.5 mg/dL (0.2-1.3); BLOOD UREA NITROGEN 35 mg/dL (7-20); CALCIUM 8.9 mg/dL (8.4-10.2); CARBON DIOXIDE 21 mmol/L (22-30); CHLORIDE 105 mmol/L (98-107); CREATINE KINASE 81 U/L (55-170); POTASSIUM 5.3 mmol/L (3.6-5.0); SODIUM 135.8 mmol/L (137-145); TOTAL PROTEIN 6.3 g/dL (6.3-8.2)
[2018-10-16 12:18] LABS: GLUCOSE 549 mg/dL (75-110)
[2018-10-16 12:32] LABS: CREATINE KINASE MB 2.96 ng/mL (<4.55)
[2018-10-16 12:33] LABS: TROPONIN I 0.036 ng/mL
[2018-10-16] MEDS ORDERED: HYDROMORPHONE HCL 2 MG TABLET PO ONE (12:52)
[2018-10-16] MEDS ORDERED: INSULIN REG, HUMAN 100 UNIT/ML 3 ML VIAL (PYX) IV ONE (12:59)
[2018-10-16 13:04] VITALS: BP 197/73
--- NOTE | 2018-10-16 17:55 | EKG REPORT ---
SEVERITY:- NORMAL ECG - SINUS RHYTHM : Confirmed by: Noemi Altman MD 16-Oct-2018 17:54:19
== END 2018-10-16 14:04 | disposition home or self-care (01) ==
LOC: ER 10:33
DX: G89.29 Other chronic pain (principal); M54.9 Dorsalgia, unspecified; M25.552 Pain in left hip; K59.00 Constipation, unspecified; R19.5 Other fecal abnormalities; R07.9 Chest pain, unspecified; R00.2 Palpitations; R42 Dizziness and giddiness; I10 Essential (primary) hypertension; E11.9 Type 2 diabetes mellitus without complications; D64.9 Anemia, unspecified; Z98.890 Other specified postprocedural states; Z79.899 Other long term (current) drug therapy
CPT/HCPCS: 93005; 99284; 96372; 36415; 82553; 82962; 82550; 85025; 80053; 84484; 71045; 93010; J3490; A9270 ×2; J1040; J1815

== ENCOUNTER 2018-10-24 19:43 | Inpatient (IN) | payer MEDICARE ==
[2018-10-24 20:23] LABS: ABSOLUTE LYMPHOCYTES (AUTO) 0.7 10^3/uL (0.5-4.7); ABSOLUTE MONOCYTES (AUTO) 0.8 10^3/uL (0.1-1.4); BASOPHILS % (AUTO) 0.2 % (0-2); EOSINOPHILS % (AUTO) 0.1 % (0-6); HEMATOCRIT 34.6 % (37.9-51.0); HEMOGLOBIN 11.7 g/dL (13.5-17.0); LYMPHOCYTES % (AUTO) 7.1 % (13-45); MEAN CORPUSCULAR HEMOGLOBIN 31.7 pg (27.0-33.4); MEAN CORPUSCULAR HGB CONC 33.7 g/dL (32.0-36.0); MEAN CORPUSCULAR VOLUME 94 fl (80-97); MONOCYTES % (AUTO) 8.8 % (3-13); PLATELET COUNT 222 10^3/uL (150-450); RED BLOOD COUNT 3.68 10^6/uL (4.35-5.55); RED CELL DISTRIBUTION WIDTH 14.3 % (11.5-14.0); SEGMENTED NEUTROPHILS % (AUTO) 83.8 % (42-78); TOTAL CELLS COUNTED % (AUTO) 100 %; WHITE BLOOD COUNT 9.5 10^3/uL (4.0-10.5)
--- NOTE | 2018-10-24 20:29 | ER Document Report ---
ED Blood Sugar Problem - General Chief Complaint: High Blood Sugar Stated Complaint: BLOOD SUGAR ISSUES Time Seen by Provider: 10/24/18 20:29 Primary Care Provider: ELIUD GARCIA MD [Primary Care Provider] - Follow up as needed Mode of Arrival: Stretcher Information source: Patient, Relative, Emergency Med Personnel Notes: HISTORY OF PRESENT ILLNESS: Patient is a 83-year-old male with a past medical history of diabetes, hypertension, and chronic back and left hip pain who presents with elevated blood glucose. Patient and family deny recent fevers or chills, report patient has been having more pain lately and has not had a good appetite. Checked his blood sugar earlier this morning but does not remember what it was, however he still give himself a dose of insulin but does not remember how much. Of note, the patient was recently diagnosed with a urinary tract infection and was treated with antibiotics. Location: Global, left hip Onset: Gradual Provocation: Movement Quality: Aching Radiation: None Severity: Moderate to severe Timing: Constant Associated symptoms: Denies fevers or chills, no cough or congestion, no chest pain or shortness of breath REVIEW OF SYSTEMS: CONSTITUTIONAL : Positive for general weakness. Denies fever or chills, no sweats. Denies recent illness. EENT: Denies eye, ear, throat, or mouth pain or symptoms. Denies nasal or sinus congestion. CARDIOVASCULAR: Denies chest pain. RESPIRATORY: Denies cough, cold, or chest congestion. Denies shortness of breath, difficulty breathing, or wheezing. GASTROINTESTINAL: Denies abdominal pain. Denies nausea, vomiting, or diarrhea. Denies constipation. GENITOURINARY: Denies difficulty urinating, painful urination, burning, frequency, or blood in urine. MUSCULOSKELETAL: Positive for left hip and chronic back pain. Denies swelling or neck pain. SKIN: Denies rash or skin lesions. HEMATOLOGIC : Denies easy bruising or bleeding. LYMPHATIC: Denies swollen, enlarged glands. NEUROLOGICAL: Denies altered mental status or loss of consciousness. Denies headache. Denies weakness or paralysis or loss of use of either side. Denies problems with gait or speech. Denies sensory or motor loss. PSYCHIATRIC: Denies anxiety or stress or depression. All other systems reviewed and negative. PHYSICAL EXAMINATION: GENERAL: Frail-appearing, well-nourished and in no acute distress. HEAD: Atraumatic, normocephalic. No scalp deformity, depression, or crepitance. EYES: Pupils are 2mm and equal/round/reactive to light, extraocular movements intact, sclera anicteric, conjunctiva are normal. ENT: Nares patent bilaterally, oropharynx clear without exudates or palatal petechia. Moist mucous membranes. No tonsil hypertrophy. NECK: Normal range of motion, supple without lymphadenopathy. LUNGS: Breath sounds present, equal, and clear to auscultation bilaterally. No wheezes, rales, or rhonchi. HEART: Regular rate and rhythm without murmurs, rubs, or gallops. 2+ peripheral pulses. Normal capillary refill. ABDOMEN: Soft, nontender, nondistended. Normoactive bowel sounds. No guarding, no rebound. No masses appreciated. BACK: Normal contour, no midline tenderness. Rectal exam deferred. GENITAL: Deferred. EXTREMITIES: Moderate tenderness to the left lateral hip without deformity. Normal range of motion, no pitting or edema. No cyanosis. NEUROLOGICAL: No focal neurological deficits. Moves all extremities spontaneously and on command. PSYCH: Normal mood, normal affect. No suicidal thoughts/ideations. No homocidal thoughts/ideations. No hallucinations. SKIN: Warm, dry, normal turgor, no rashes or lesions noted. ASSESSMENT AND PLAN: This patient is a 83-year-old male who presents with chronic back pain with left hip pain in the setting of feeling weaker than normal with decreased appetite. Could be UTI versus viral syndrome versus malnutrition versus dehydration versus acute ME. Initial fingerstick was greater than 500, preliminary blood work currently shows blood glucose of almost 700 with a potassium of 6.2. 1. Will obtain labs, urine, cardiac enzymes, VBG, and lactic acid. 2. Will give IV fluids with insulin and reassess. TRAVEL OUTSIDE OF THE [place] IN LAST 30 DAYS: No - Related Data Allergies/Adverse Reactions: No Known Allergies Allergy (Verified 10/16/18 10:35) Past Medical History - General Information source: Patient, Relative, Emergency Med Personnel - Social History Smoking Status: Former Smoker Chew tobacco use (# tins/day): No Frequency of alcohol use: None Drug Abuse: None Lives with: Family Family History: Reviewed & Not Pertinent Patient has suicidal ideation: No Patient has homicidal ideation: No - Past Medical History Cardiac Medical History: Reports: Hx Hypertension Denies: Hx Heart Attack Pulmonary Medical History: Reports: None Denies: Hx Asthma EENT Medical History: Reports: None Neurological Medical History: Reports: None. Denies: Hx Cerebrovascular Accident, Hx Seizures Endocrine Medical History: Reports: Hx Diabetes Mellitus Type 2 Renal/ Medical History: Reports: None. Denies: Hx Peritoneal Dialysis Malignancy Medical History: Reports None GI Medical History: Reports: None. Denies: Hx Hepatitis, Hx Hiatal Hernia, Hx Ulcer Musculoskeletal Medical History: Reports Hx Musculoskeletal Trauma Skin Medical History: Reports None Psychiatric Medical History: Reports: None Traumatic Medical History: Reports: None Infectious Medical History: Reports: None. Denies: Hx Hepatitis Past Surgical History: Reports: Hx Cholecystectomy. Denies: Hx Open Heart Surgery, Hx Pacemaker - Immunizations Immunizations up to date: Yes Hx Diphtheria, Pertussis, Tetanus Vaccination: Yes History of Influenza Vaccine for 06/2017 - 11/2017 Season: No Physical Exam - Vital signs Vitals: Temp Pulse Resp BP Pulse Ox 98.7 F 80 16 181/80 H 100 10/24/18 19:43 10/24/18 19:43 10/24/18 19:43 10/24/18 19:43 10/24/18 19:43 Course - Re-evaluation Re-evalutation: 10/25/18 01:41 Urine is negative. Head CT is still pending. Cardiac enzymes are mildly elevated, overall patient has baseline labs with chronic renal failure. Patient will be admitted to the hospital. - Vital Signs Vital signs: Temp Pulse Resp BP Pulse Ox 98.7 F 80 15 133/67 H 99 10/24/18 19:43 10/24/18 19:43 10/25/18 00:00 10/24/18 23:01 10/25/18 00:00 - Laboratory Result Diagrams: 10/24/18 20:14 10/24/18 20:14 Laboratory results interpreted by me: 10/24/18 10/24/18 10/24/18 20:14 20:14 20:42 RBC 3.68 L Hgb 11.7 L Hct 34.6 L RDW 14.3 H Seg Neutrophils % 83.8 H Lymphocytes % 7.1 L Sodium 131.9 L Potassium 6.1 H* Chloride 97 L BUN 89 H Creatinine 1.92 H Est GFR ( Amer) 40 L Est GFR (Non-Af Amer) 33 L Glucose 594 H* POC Glucose Total Protein 6.0 L Urine Protein 30 H Urine Glucose (UA) >=500 H Urine Blood SMALL H 10/25/18 00:06 RBC Hgb Hct RDW Seg Neutrophils % Lymphocytes % Sodium Potassium Chloride BUN Creatinine Est GFR ( Amer) Est GFR (Non-Af Amer) Glucose POC Glucose 385 H Total Protein Urine Protein Urine Glucose (UA) Urine Blood - Diagnostic Test Radiology reviewed: Image reviewed, Reports reviewed - EKG Interpretation by Me EKG shows normal: Sinus rhythm Rate: Normal Rhythm: NSR Levering/QRS: No: Right axis deviation, Left axis deviation, RBBB, LBBB, IVCD, LAHB/LAFB, LPHB/LPFB, Bifasicular block Voltage: No: Increased voltage, Consistant with LVH, Decreased voltage, Throughout, Limb leads P Waves: No: ROCHELLE, LAE, Absent, AV Dissociation, Other Heart block present: No: 1st Degree, Mobitz 1, Mobitz 2, CHB (3rd degree block) When compared to previous EKG there are: No significant change - Consults Dr. Gottlieb Time consulted: 01:41 - Will admit Consulted provider: will come to ER Discharge - Discharge Clinical Impression: Hyperglycemia, Elevated troponin Failure to thrive Qualifiers: Failure to thrive age range: in adult Qualified Code(s): R62.7 - Adult failure to thrive Condition: Stable Disposition: ADMITTED INPATIENT Admitting Provider: Hospitalist Unit Admitted: Telemetry Referrals: ELIUD GARCIA MD [Primary Care Provider] - Follow up as needed
[2018-10-24 20:41] LABS: ALANINE AMINOTRANSFERASE 52 U/L (21-72); ALBUMIN 4.3 g/dL (3.5-5.0); ALKALINE PHOSPHATASE 72 U/L (38-126); ANION GAP 12 (5-19); ASPARTATE AMINO TRANSFERASE 39 U/L (17-59); BILIRUBIN,DIRECT 0.3 mg/dL (0.0-0.4); BILIRUBIN,TOTAL 0.6 mg/dL (0.2-1.3); BLOOD UREA NITROGEN 89 mg/dL (7-20); CALCIUM 9.3 mg/dL (8.4-10.2); CARBON DIOXIDE 23 mmol/L (22-30); CHLORIDE 97 mmol/L (98-107); SODIUM 131.9 mmol/L (137-145)
[2018-10-24 20:51] LABS: GLUCOSE 594 mg/dL (75-110); POTASSIUM 6.1 mmol/L (3.6-5.0)
[2018-10-24 21:01] LABS: VENOUS BLOOD BASE EXCESS -1.1 mmol/L; VENOUS BLOOD HCO3 24.9 mmol/L (20-32); VENOUS BLOOD PCO2 47.3 mmHg (35-63); VENOUS BLOOD PH 7.34 (7.30-7.42)
[2018-10-24 21:21] LABS: APPEARANCE,URINE CLEAR; BILIRUBIN,URINE NEGATIVE (NEGATIVE); COLOR,URINE STRAW; GLUCOSE, URINE >=500 mg/dL (NEGATIVE); KETONES,URINE NEGATIVE (NEGATIVE); LEUKOCYTE ESTERASE,URINE NEGATIVE (NEGATIVE); NITRITE,URINE NEGATIVE (NEGATIVE); PROTEIN,URINE 30 mg/dL (NEGATIVE); URINE SPECIFIC GRAVITY 1.015; UROBILINOGEN,URINE NEGATIVE mg/dL (<2.0)
[2018-10-24] MEDS ORDERED: INSULIN REG, HUMAN 100 UNIT/ML 3 ML VIAL (PYX) IV ONE (21:37)
[2018-10-24] MEDS ORDERED: NORMAL SALINE 1000 ML 1,000 ML IV ONE (21:37)
[2018-10-25] MEDS ORDERED: MAG HYDROX/AL HYDROX/SIMETH SUSP 30 ML UDCUP PO PRN (02:39)
[2018-10-25] MEDS ORDERED: ONDANSETRON 4 MG TAB.RAPDIS PO PRN (02:39)
[2018-10-25] MEDS ORDERED: ONDANSETRON HCL INJ/PF 4 MG/2 ML SDV IV PRN (02:39)
[2018-10-25] MEDS ORDERED: ACETAMINOPHEN 325 MG TABLET PO PRN (02:46)
[2018-10-25] MEDS ORDERED: DEXTROSE 50%-WATER 25 GM/50 ML DISP.SYRIN IV PRN ×2 (02:47)
[2018-10-25] MEDS ORDERED: DEXTROSE 40% GEL 15 GM TUBE PO PRN ×2 (02:47)
[2018-10-25] MEDS ORDERED: GLUCAGON,HUMAN RECOMB 1 MG INJ IM PRN (02:47)
--- NOTE | 2018-10-25 03:15 | RADIOLOGY REPORT (SQ) ---
EXAM DESCRIPTION: CT HEAD WITHOUT IV CONTRAST COMPLETED DATE/TME: 10/25/2018 01:24 CLINICAL HISTORY: 83 years, Male, Weakness COMPARISON: None. TECHNIQUE: 74 Images stored on PACS. All CT scanners at this facility use dose modulation, iterative reconstruction, and/or weight based dosing when appropriate to reduce radiation dose to as low as reasonably achievable (ALARA). [facility]: Dose Right [facility]: CareDose [facility]: Dose Right [facility]: Teradose 4D [facility]: Sensicore LIMITATIONS: None. FINDINGS: The globes are intact. Paranasal sinuses and mastoid air cells are unremarkable. No displaced or depressed skull fracture. No intra or extra-axial hemorrhage. CT is limited for evaluation of acute infarct. No CT evidence for large or territorial acute infarct. Diffuse age-appropriate atrophy. Hypodensities in the periventricular and subcortical white matter consistent with sequelae of small vessel ischemic change. No mass or midline shift. IMPRESSION: Diffuse atrophy with small vessel ischemic change TECHNICAL DOCUMENTATION: Quality ID # [id number]: Final reports with documentation of one or more dose reduction techniques (e.g., Automated exposure control, adjustment of the mA and/or kV according to patient size, use of iterative reconstruction technique) copyright 2010 [employer]- All Rights Reserved
[2018-10-25 04:06] LABS: CREATINE KINASE MB 5.17 ng/mL (<4.55); TROPONIN I 0.044 ng/mL
[2018-10-25 04:12] LABS: FREE T3 2.13 pg/mL (2.77-5.27); FREE T4 (FREE THYROXINE) 1.46 ng/dL (0.78-2.19)
[2018-10-25 04:26] LABS: THYROID STIMULATING HORMONE 0.37 uIU/mL (0.47-4.68)
--- NOTE | 2018-10-25 06:50 | PDOC H&P ---
History of Present Illness Admission Date/PCP: 10/25/18 02:10 ELIUD GARCIA MD Patient complains of: Weakness History of Present Illness: SARAH PIÑA is a 83 year old male who presented to the emergency room with a one-week history of gradually worsening weakness. He indicates that his problems began several weeks ago when he apparently injured his back while moving a large flowerpot. He subsequently had an evaluation performed utilizing a CT/MRI which revealed bulging disks and some collapsed vertebrae which were treated with an injection of some type. Approximately 1 week ago he received a steroid injection in his left hip performed by his primary care physician and also another injection 1 day later given in the emergency room here at [facility]. Since that time he has gradually worsening weakness, his blood sugars have been running high and there has been no relief of his back pain which he now rates as extremely severe. His pain is a constant, continuous, sharp grinding/grating sensation in his left lower back radiating to the left hip area. The pain is somewhat relieved with rest and is significantly exacerbated by movement or weightbearing. His attempt to control his blood sugar with insulin has failed and he has become more lethargic and weak. He additionally admits the associated symptoms of decreased appetite with the increased pain in his back since his injury. He admits that this pain is an increased level of the pain that he has chronically. In the emergency room he was found to have no significant changes in his laboratory evaluation from his baseline with the exception of a mild hyperkalemia and a acute on chronic renal insufficiency. He was subsequently admitted to hospital for further evaluation and treatment. Past Medical History Cardiac Medical History: Reports: Hypertension Denies: Myocardial Infarction Pulmonary Medical History: Denies: Asthma, Chronic Obstructive Pulmonary Disease (COPD) EENT Medical History: Reports: None Neurological Medical History: Denies: Multiple Sclerosis, Seizures Endocrine Medical History: Reports: Diabetes Mellitus Type 2 Denies: Hyperthyroidism, Hypothyroidism Renal/ Medical History: Reports: Chronic Kidney Disease Denies: Nephrolithiasis Malignancy Medical History: Reports: None GI Medical History: Denies: Cirrhosis, Hepatitis, Hiatal Hernia Musculoskeltal Medical History: Reports: 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, Other - Chronic back pain Skin Medical History: Reports: Eczema, Psoriasis Psychiatric Medical History: Denies: Alcohol Dependency, Substance Abuse, Tobacco Dependency Traumatic Medical History: Reports: Other - Recent back injury as indicated in HPI Hematology: Denies: Anemia, Sickle Cell Disease Infectious Medical History: Reports: None Past Surgical History Past Surgical History: Reports: Cholecystectomy Denies: Pacemaker Social History Information Source: Patient Lives with: Family Smoking Status: Former Smoker Frequency of Alcohol Use: None Hx Recreational Drug Use: No Drugs: None Hx Prescription Drug Abuse: No - Advance Directive Resuscitation Status: Full Code Surrogate healthcare decision maker:: Spouse Family History Family History: CAD, DM, Hypertension, Malignancy Parental Family History Reviewed: Yes Children Family History Reviewed: No Sibling(s) Family History Reviewed.: Yes Medication/Allergy Home Medications: Amlodipine Besylate [Norvasc 10 mg Tablet] 10 mg PO DAILY 11/09/16 Atorvastatin Calcium [Lipitor 40 mg Tablet] 40 mg PO QHS 11/09/16 Cholecalciferol (Vitamin D3) [Vitamin D3 1000 Unit Tablet] 1,000 unit PO DAILY 11/09/16 Finasteride [Proscar 5 mg Tablet] 5 mg PO DAILY 11/09/16 Insulin Regular, Human [Humulin R (Reg) Insulin 100 unit/mL] 0 unit SUBCUT .SLD SCALE 11/09/16 Losartan/Hydrochlorothiazide [Hyzaar 50-12.5 Tablet] 1 each PO DAILY 11/09/16 Tamsulosin HCl [Flomax] 0.4 mg PO DAILY 11/09/16 Acetaminophen [Tylenol 325 mg Tablet] 650 mg PO PRN PRN 09/09/18 Alendronate Sodium [Fosamax 70 mg Tablet] 70 mg PO Q7D 09/09/18 Ferrous Sulfate [Albafort] 325 mg PO DAILY 09/09/18 Glipizide [Glipizide Xl] 10 mg PO DAILY 09/09/18 Insulin Glargine,Hum.rec.anlog [Toujeo Solostar] 14 unit SQ DAILY 09/09/18 Aspirin [Ecotrin 81 mg EC Tablet] 81 mg PO DAILY tabec 09/14/18 Gabapentin [Neurontin 100 mg Capsule] 100 mg PO QHS #30 capsule 09/14/18 Oxycodone HCl [Oxy-Ir 5 mg Tablet] 10 mg PO Q4HP PRN #20 tablet 09/14/18 Allergies/Adverse Reactions: No Known Allergies Allergy (Verified 10/16/18 10:35) Review of Systems Constitutional: PRESENT: as per HPI, anorexia - Decreased appetite secondary to pain, weakness - Generalized weakness, other - Lethargy. ABSENT: chills, fever(s) Eyes: ABSENT: visual disturbances, other Ears: ABSENT: hearing changes, other - Eye pain ear pain Nose, Mouth, and Throat: ABSENT: mouth pain, sore throat Cardiovascular: ABSENT: chest pain, palpitations Respiratory: ABSENT: cough, dyspnea Gastrointestinal: PRESENT: nausea. ABSENT: abdominal pain, constipation, diar staci, vomiting Genitourinary: ABSENT: dysuria, hematuria Musculoskeletal: PRESENT: as per HPI, back pain. ABSENT: deformity, joint swelling, muscle weakness Integumentary: ABSENT: pruritus, rash Neurological: ABSENT: confusion, convulsions, memory loss Psychiatric: ABSENT: anxiety, depression Endocrine: ABSENT: cold intolerance, heat intolerance Hematologic/Lymphatic: ABSENT: easy bleeding, easy bruising Physical Exam Vital Signs: Temp Pulse Resp BP Pulse Ox 98.7 F 80 20 173/82 H 100 10/24/18 19:43 10/24/18 19:43 10/25/18 02:14 10/25/18 02:14 10/25/18 02:14 Intake & Output 10/23/18 10/24/18 10/25/18 23:59 23:59 23:59 Weight 74.843 kg General appearance: PRESENT: no acute distress, cooperative Head exam: PRESENT: atraumatic, normocephalic Eye exam: PRESENT: conjunctiva pink. ABSENT: scleral icterus Ear exam: PRESENT: normal external ear exam. ABSENT: drainage Mouth exam: PRESENT: dry mucosa, neck supple Neck exam: ABSENT: thyromegaly, tracheal deviation Respiratory exam: PRESENT: clear to auscultation kevin, symmetrical, unlabored Cardiovascular exam: PRESENT: RRR. ABSENT: clicks, gallop, rubs Pulses: PRESENT: normal radial pulses, normal dorsalis pedis pul Vascular exam: PRESENT: normal capillary refill. ABSENT: pallor GI/Abdominal exam: PRESENT: normal bowel sounds, soft Rectal exam: PRESENT: deferred Extremities exam: ABSENT: joint swelling, pedal edema Musculoskeletal exam: PRESENT: tenderness - Painful to palpate or move his left lower back. Moderate to severe muscle spasm is present in the left lumbar region.. ABSENT: deformity, dislocation Neurological exam: PRESENT: alert, oriented to person, oriented to place, oriented to time, oriented to situation, CN II-XII grossly intact. ABSENT: motor sensory deficit Psychiatric exam: PRESENT: appropriate affect, normal mood Skin exam: PRESENT: dry, intact, warm. ABSENT: jaundice, rash, urticaria Results Laboratory Results: 10/24/18 20:14 10/24/18 20:14 10/24/18 10/24/18 10/24/18 20:14 20:14 20:42 WBC 9.5 RBC 3.68 L Hgb 11.7 L Hct 34.6 L MCV 94 MCH 31.7 MCHC 33.7 RDW 14.3 H Plt Count 222 Seg Neutrophils % 83.8 H Lymphocytes % 7.1 L Monocytes % 8.8 Eosinophils % 0.1 Basophils % 0.2 Absolute Neutrophils 8.0 Absolute Lymphocytes 0.7 Absolute Monocytes 0.8 Absolute Eosinophils 0.0 Absolute Basophils 0.0 VBG pH 7.34 VBG pCO2 47.3 VBG HCO3 24.9 VBG Base Excess -1.1 Sodium 131.9 L Potassium 6.1 H* Chloride 97 L Carbon Dioxide 23 Anion Gap 12 BUN 89 H Creatinine 1.92 H Est GFR ( Amer) 40 L Est GFR (Non-Af Amer) 33 L Glucose 594 H* Calcium 9.3 Total Bilirubin 0.6 AST 39 ALT 52 Alkaline Phosphatase 72 Total Protein 6.0 L Albumin 4.3 Urine Color Urine Appearance Urine pH Ur Specific [place] Urine Protein Urine Glucose (UA) Urine Ketones Urine Blood Urine Nitrite Ur Leukocyte Esterase Urine WBC (Auto) Urine RBC (Auto) 10/24/18 20:42 WBC RBC Hgb Hct MCV MCH MCHC RDW Plt Count Seg Neutrophils % Lymphocytes % Monocytes % Eosinophils % Basophils % Absolute Neutrophils Absolute Lymphocytes Absolute Monocytes Absolute Eosinophils Absolute Basophils VBG pH VBG pCO2 VBG HCO3 VBG Base Excess Sodium Potassium Chloride Carbon Dioxide Anion Gap BUN Creatinine Est GFR ( Amer) Est GFR (Non-Af Amer) Glucose Calcium Total Bilirubin AST ALT Alkaline Phosphatase Total Protein Albumin Urine Color STRAW Urine Appearance CLEAR Urine pH 5.0 Ur Specific [place] 1.015 Urine Protein 30 H Urine Glucose (UA) >=500 H Urine Ketones NEGATIVE Urine Blood SMALL H Urine Nitrite NEGATIVE Ur Leukocyte Esterase NEGATIVE Urine WBC (Auto) 1 Urine RBC (Auto) 0 10/24/18 20:14 Troponin I 0.054 Assessment & Plan - Diagnosis (1) Intractable pain Is this a current diagnosis for this admission?: Yes Plan: Patient will be admitted for further evaluation and treatment with addressing his back pain with a reasonable approach to chronic pain therapy and dealing with acute exacerbations. This will require use of morphine 2-4 mg IV every 2 hours as needed on a sliding scale for pain control. Patient should then be placed on a chronic dose of morphine with an extended release form and an instant release form given in combination for long-term pain management and acute breakthrough pain. Another approach to pain management may be acceptable and will be at the discretion of hospitalist managing the patient. (2) Insulin dependent diabetes mellitus Is this a current diagnosis for this admission?: Yes Plan: Along with a diabetic diet the patient will be continued on an insulin regiment for management of his diabetes with the use of Lantus and a sliding scale insulin in the form of Humulin R to bring his blood sugar under adequate control. (3) Hypertension Qualifiers: Hypertension type: essential hypertension Qualified Code(s): I10 - Essential (primary) hypertension Is this a current diagnosis for this admission?: Yes Plan: Patient will be continued on his current antihypertensive regiment as appropriate for management of his hypertension. (4) Chronic pain syndrome Is this a current diagnosis for this admission?: Yes Plan: Patient's chronic pain syndrome will be managed with extended release morphine administered orally to the patient. He will use instant release morphine as required for controlling breakthrough pain. (5) Acute kidney injury (nontraumatic) Is this a current diagnosis for this admission?: Yes Plan: Patient was given IV fluids in an attempt to reverse the effect of excessive diuresis and decreased intake the last week. - Time Time Spent: 30 to 50 Minutes Critical Time spent with patient: Less than 15 minutes Medications reviewed and adjusted accordingly: Yes Anticipated discharge: Home - Inpatient Certification Based on my medical assessment, after consideration of the patient's comorbidities, presenting symptoms, or acuity I expect that the services needed warrant INPATIENT care.: Yes I certify that my determination is in accordance with my understanding of Medicare's requirements for reasonable and necessary INPATIENT services [42 CFR 412.3e].: Yes Medical Necessity: Significant Comorbidiites Make Outpatient Treatment Too Risky, Need For IV Fluids, Need For Continuous Telemetry Monitoring, Need for Pain Control, Risk of Complication if Not Cared For in Hospital
[2018-10-25] MEDS ORDERED: MORPHINE SULFATE 10 MG/ML INJ IV PRN ×2 (07:00)
[2018-10-25 09:45] LABS: HEMOGLOBIN 11.5 g/dL (13.5-17.0); MEAN CORPUSCULAR HEMOGLOBIN 31.7 pg (27.0-33.4); MEAN CORPUSCULAR HGB CONC 33.9 g/dL (32.0-36.0); MEAN CORPUSCULAR VOLUME 94 fl (80-97); PLATELET COUNT 217 10^3/uL (150-450); RED BLOOD COUNT 3.63 10^6/uL (4.35-5.55); RED CELL DISTRIBUTION WIDTH 14.8 % (11.5-14.0); WHITE BLOOD COUNT 9.9 10^3/uL (4.0-10.5)
[2018-10-25] MEDS: HEPARIN SOD (PORCINE) 5,000 UNIT/ML 1 ML SYRINGE SUBCUT SCH ×3 (09:49→23:00)
[2018-10-25] MEDS: ASPIRIN 81 MG TABLET, ENT COATED PO SCH (09:56)
[2018-10-25] MEDS: TAMSULOSIN HCL 0.4 MG CAP.SR.24H PO SCH (09:56)
[2018-10-25] MEDS: FERROUS SULFATE 325 MG TABLET PO SCH (09:56)
[2018-10-25] MEDS: DOCUSATE SODIUM 100 MG CAPSULE PO SCH ×2 (09:56→17:34)
[2018-10-25] MEDS: GLIPIZIDE XL 5 MG TAB.ER.24 PO SCH (09:56)
[2018-10-25] MEDS: LOSARTAN POTASSIUM 50 MG TABLET PO SCH (09:56)
[2018-10-25] MEDS: HYDROCHLOROTHIAZIDE 25 MG TABLET PO SCH (09:57)
[2018-10-25] MEDS: AMLODIPINE BESYLATE 10 MG TABLET PO SCH (09:57)
[2018-10-25] MEDS: MORPHINE SULFATE SR 30 MG TABLET PO SCH ×2 (09:57→22:59)
[2018-10-25] MEDS: CHOLECALCIFEROL (D3) 1,000 UNIT TABLET PO SCH (09:58)
[2018-10-25] MEDS: NORMAL SALINE 1000 ML 1,000 ML IV PRN ×2 (09:58→11:11)
[2018-10-25] MEDS: FAMOTIDINE 20 MG TABLET PO SCH ×2 (09:58→22:59)
[2018-10-25] MEDS: FINASTERIDE 5 MG TABLET PO SCH (10:00)
[2018-10-25] MEDS ORDERED: INSULIN GLARGINE HUM REC ANLOG 14 UNIT SQ SCH (10:00)
[2018-10-25 10:08] LABS: ANION GAP 10 (5-19); CALCIUM 9.2 mg/dL (8.4-10.2); CARBON DIOXIDE 22 mmol/L (22-30); CHLORIDE 105 mmol/L (98-107); GLUCOSE 369 mg/dL (75-110); SODIUM 136.5 mmol/L (137-145)
[2018-10-25 10:18] LABS: CREATINE KINASE MB 4.05 ng/mL (<4.55); TROPONIN I 0.046 ng/mL
[2018-10-25 10:34] LABS: BLOOD UREA NITROGEN 68 mg/dL (7-20)
[2018-10-25 10:35] LABS: POTASSIUM 6.1 mmol/L (3.6-5.0)
--- NOTE | 2018-10-25 11:29 | RADIOLOGY REPORT (SQ) ---
EXAM DESCRIPTION: MRI HEAD WITHOUT COMPLETED DATE/TIME: 10/25/2018 10:43 am REASON FOR STUDY: Sudden change in personality confusion, weakness, altered mental status COMPARISON: CT brain 10/25/2018 TECHNIQUE: Multiplanar imaging includes non-contrasted T1, T2, FLAIR, and diffusion with ADC map seq uences. Images stored on PACS. LIMITATIONS: None. FINDINGS: ANATOMY: No congenital anomalies. Normal vascular flow voids. Pituitary fossa normal. CSF SPACES: Mild prominence of the ventricles out of proportion to sulci and sylvian fissures. This does raise a question of normal pressure hydrocephalus. Clinical correlation recommended. CEREBRUM AND CEREBELLUM: No MR evidence of acute large territory ischemic change, acute intracranial hemorrhage, mass effect, or midline shift. 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 Minimal bifrontal a nd biparietal small vessel ischemic change in the hemispheric white matter. 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 Internal auditory canals, cerebello-pontine angles, mastoids normal. DIFFUSION IMAGING: Negative for acute or sub-acute infarction. ORBITS: No masses. Globes post cataract surgery. PARANASAL SINUSES: No fluid levels. Mucosa normal. OTHER: No other significant finding. IMPRESSION: Prominence of the ventricles out of proportion to sulci. Question normal pressure hydro cephalus. Clinical correlation recommended. 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 Minimal whit e matter disease. EVIDENCE OF ACUTE STROKE: NO. TECHNICAL DOCUMENTATION: JOB ID: [id number] [employer]- All Rights Reserved Reading location - IP/workstation name: [email or web address]
[2018-10-25 15:11] LABS: CREATINE KINASE MB 2.62 ng/mL (<4.55); TROPONIN I 0.035 ng/mL
--- NOTE | 2018-10-25 15:17 | PDOC PROGRESS REPORT ---
Subjective Progress Note for:: 10/25/18 Subjective:: 10/25/2018 83 year old male who presented to the emergency room with a one-week history of gradually worsening weakness. He indicates that his problems began several weeks ago when he apparently injured his back while moving a large flowerpot. He subsequently had an evaluation performed utilizing a CT/MRI which revealed bulging disks and some collapsed vertebrae which were treated with an injection of some type. Approximately 1 week ago he received a steroid in jection in his left hip performed by his primary care physician and also another injection 1 day later given in the emergency room here at [facility]. Since that time he has gradually worsening weakness, his blood sugars have been running high and there has been no relief of his back pain which he now rates as extremely severe. His pain is a constant, continuous, sharp grinding/grating sensation in his left lower back radiating to the left hip area. The pain is somewhat relieved with rest and is significantly exacerbated by movement or weightbearing. His attempt to control his blood sugar with insulin has failed and he has become more lethargic and weak. He additionally admits the associated symptoms of decreased appetite with the increased pain in his back since his injury. He admits that this pain is an increased level of the pain that he has chronically. In the emergency room he was found to have no significant changes in his laboratory evaluation from his baseline with the exception of a mild hyperkalemia and a acute on chronic renal insufficiency. He was subsequently admitted to hospital for further evaluation and treatment. 10/25/2018-patient is more alert and awake communicating better today. MRI of the brain CT head was negative. Blood sugars are improving. His appetite is improving. Calcium levels are still high we going to repeat the potassium level again. Repeat potassium is 5.9. Started on Veltassa. Reason For Visit: PROGRESSIVE GENERALIZED WEAKNESS, WITH Physical Exam Vital Signs: Temp Pulse Resp BP Pulse Ox 98.5 F 75 12 124/52 L 96 10/25/18 11:11 10/25/18 14:00 10/25/18 11:11 10/25/18 11:11 10/25/18 11:11 Intake & Output 10/24/18 10/25/18 10/26/18 06:59 06:59 06:59 Intake Total 2203 Balance 2203 Weight 62 kg General appearance: PRESENT: no acute distress Head exam: PRESENT: atraumatic Eye exam: PRESENT: PERRLA Mouth exam: PRESENT: dry mucosa Neck exam: ABSENT: carotid bruit, JVD, lymphadenopathy, thyromegaly Respiratory exam: PRESENT: clear to auscultation kevin. ABSENT: rales, rhonchi, wheezes Pulses: PRESENT: normal dorsalis pedis pul GI/Abdominal exam: PRESENT: normal bowel sounds, soft. ABSENT: distended, guarding, mass, organolmegaly, rebound, tenderness Extremities exam: PRESENT: full ROM. ABSENT: calf tenderness, clubbing, pedal edema Neurological exam: PRESENT: alert, awake, oriented to person, oriented to place, oriented to time, oriented to situation, CN II-XII grossly intact. ABSENT: motor sensory deficit Psychiatric exam: PRESENT: appropriate affect, normal mood. ABSENT: homicidal ideation, suicidal ideation Results Laboratory Results: 10/25/18 09:07 10/25/18 13:52 10/24/18 10/24/18 10/24/18 20:14 20:14 20:42 WBC 9.5 RBC 3.68 L Hgb 11.7 L Hct 34.6 L MCV 94 MCH 31.7 MCHC 33.7 RDW 14.3 H Plt Count 222 Seg Neutrophils % 83.8 H Lymphocytes % 7.1 L Monocytes % 8.8 Eosinophils % 0.1 Basophils % 0.2 Absolute Neutrophils 8.0 Absolute Lymphocytes 0.7 Absolute Monocytes 0.8 Absolute Eosinophils 0.0 Absolute Basophils 0.0 VBG pH 7.34 VBG pCO2 47.3 VBG HCO3 24.9 VBG Base Excess -1.1 Sodium 131.9 L Potassium 6.1 H* Chloride 97 L Carbon Dioxide 23 Anion Gap 12 BUN 89 H Creatinine 1.92 H Est GFR ( Amer) 40 L Est GFR (Non-Af Amer) 33 L Glucose 594 H* Calcium 9.3 Magnesium Total Bilirubin 0.6 AST 39 ALT 52 Alkaline Phosphatase 72 Total Protein 6.0 L Albumin 4.3 TSH Free T4 Free T3 pg/mL Urine Color Urine Appearance Urine pH Ur Specific Jermyn Urine Protein Urine Glucose (UA) Urine Ketones Urine Blood Urine Nitrite Ur Leukocyte Esterase Urine WBC (Auto) Urine RBC (Auto) 10/24/18 10/25/18 10/25/18 20:42 03:20 03:20 WBC RBC Hgb Hct MCV MCH MCHC RDW Plt Count Seg Neutrophils % Lymphocytes % Monocytes % Eosinophils % Basophils % Absolute Neutrophils Absolute Lymphocytes Absolute Monocytes Absolute Eosinophils Absolute Basophils VBG pH VBG pCO2 VBG HCO3 VBG Base Excess Sodium Potassium Chloride Carbon Dioxide Anion Gap BUN Creatinine Est GFR ( Amer) Est GFR (Non-Af Amer) Glucose Calcium Magnesium 2.9 H Total Bilirubin AST ALT Alkaline Phosphatase Total Protein Albumin TSH 0.37 L Free T4 1.46 Free T3 pg/mL 2.13 L Urine Color STRAW Urine Appearance CLEAR Urine pH 5.0 Ur Specific Jermyn 1.015 Urine Protein 30 H Urine Glucose (UA) >=500 H Urine Ketones NEGATIVE Urine Blood SMALL H Urine Nitrite NEGATIVE Ur Leukocyte Esterase NEGATIVE Urine WBC (Auto) 1 Urine RBC (Auto) 0 10/25/18 10/25/18 10/25/18 09:07 09:07 13:52 WBC 9.9 RBC 3.63 L Hgb 11.5 L Hct 34.0 L MCV 94 MCH 31.7 MCHC 33.9 RDW 14.8 H Plt Count 217 Seg Neutrophils % Lymphocytes % Monocytes % Eosinophils % Basophils % Absolute Neutrophils Absolute Lymphocytes Absolute Monocytes Absolute Eosinophils Absolute Basophils VBG pH VBG pCO2 VBG HCO3 VBG Base Excess Sodium 136.5 L Potassium 6.1 H* 5.9 H Chloride 105 Carbon Dioxide 22 Anion Gap 10 BUN 68 H D Creatinine 1.30 H Est GFR ( Amer) > 60 Est GFR (Non-Af Amer) 52 L Glucose 369 H Calcium 9.2 Magnesium Total Bilirubin AST ALT Alkaline Phosphatase Total Protein Albumin TSH Free T4 Free T3 pg/mL Urine Color Urine Appearance Urine pH Ur Specific Jermyn Urine Protein Urine Glucose (UA) Urine Ketones Urine Blood Urine Nitrite Ur Leukocyte Esterase Urine WBC (Auto) Urine RBC (Auto) 10/24/18 10/25/18 10/25/18 20:14 03:20 03:20 Creatine Kinase 249 H CK-MB (CK-2) 5.17 H Troponin I 0.054 0.044 10/25/18 10/25/18 09:07 09:07 Creatine Kinase 189 H CK-MB (CK-2) 4.05 Troponin I 0.046 Impressions: Head MRI 10/25/18 00:00 IMPRESSION: Prominence of the ventricles out of proportion to sulci. Question normal pressure hydrocephalus. Clinical correlation recommended. 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 Minimal white matter disease. EVIDENCE OF ACUTE STROKE: NO. Head CT 10/25/18 01:24 IMPRESSION: Diffuse atrophy with small vessel ischemic change TECHNICAL DOCUMENTATION: Quality ID # 436: Final reports with documentation of one or more dose reduction techniques (e.g., Automated exposure control, adjustment of the mA and/or kV according to patient size, use of iterative reconstruction technique) copyright 2010 [employer]- All Rights Reserved Assessment & Plan - Diagnosis (1) Acute kidney injury (nontraumatic) Is this a current diagnosis for this admission?: Yes Plan: Patient was given IV fluids in an attempt to reverse the effect of excessive diuresis and decreased intake the last week. 10/25/2018-acute kidney injury most likely secondary to prerenal causes. With IV fluids it is improved to 1.3 today. (2) Intractable pain Is this a current diagnosis for this admission?: Yes Plan: Patient will be admitted for further evaluation and treatment with addressing his back pain with a reasonable approach to chronic pain therapy and dealing with acute exacerbations. This will require use of morphine 2-4 mg IV every 2 hours as needed on a sliding scale for pain control. Patient should then be placed on a chronic dose of morphine with an extended release form and an instant release form given in combination for long-term pain management and acute breakthrough pain. Another approach to pain management may be acceptable and will be at the discretion of hospitalist managing the patient. 10/25/2018-patient was admitted with intractable pain. He is on IV morphine sliding scale. Physical therapy consult was requested. aT the time of examination patient said pain scale is 0. Physical therapy consult was requested. (3) Insulin dependent diabetes mellitus Is this a current diagnosis for this admission?: Yes Plan: Along with a diabetic diet the patient will be continued on an insulin regiment for management of his diabetes with the use of Lantus and a sliding scale insulin in the form of Humulin R to bring his blood sugar under adequate control. 10/25/2018-patient's hemoglobin A1c is 11.2. Is on insulin sliding scale. I started him on Lantus 10 units twice a day. Latest blood sugar is 437. We are going to check the labs again tomorrow. Dietary consult was requested. (4) Hypertension Qualifiers: Hypertension type: essential hypertension Qualified Code(s): I10 - Essential (primary) hypertension Is this a current diagnosis for this admission?: Yes Plan: 10/25/2018 patient blood pressure today is 124/52 with pulse rate 76 he is on Bumex 1 mg p.o. daily which was discontinued. (5) Chronic pain syndrome Is this a current diagnosis for this admission?: Yes Plan: 10/25/2018-patient has a chronic pain syndrome he is on morphine sliding scale. Pain is relatively controlled now. Physical therapy consult was requested. - Time Time Spent with patient: 15-24 minutes Medications reviewed and adjusted accordingly: Yes Anticipated discharge: Home
[2018-10-25] MEDS: MORPHINE SULFATE 10 MG/ML INJ IV PRN (16:21)
--- NOTE | 2018-10-25 16:58 | PSYCHOLOGICAL NOTE ---
Psych Note - Psych Note Date seen by psych provider: 10/25/18 Time seen by psych provider: 11:40 Psych Note: Reason for Consult: confusion Family at bedside per patient's request SARAH PIÑA is a 83 year old male who presented to the emergency room with a one-week history of gradually worsening weakness. Patient is unable to state that he is currently in the hospital however is able to identify as a brick building where "babies are " and "operations hap pen." Patient currently believes is 2000 however is able to identify the current president is Rory. When asked further worsens of past presidents sees he is only able to identify Fred Fatima and that his "Lynda Fatima tried but lost."Patient is unable to identify the current city but is able to identify the county. When patient is asked abstract rational level thinking questions he is unable to correctly answer. He is unable to answer sequencing questions or switching questions. When asked problem solving and safety questions he states that he would attempt to ensure no one was in the building if there was a fire and then call the fire department; however, he was unable to identify the number to call. When specifically asked what the emergency number would be, he was able to state 911. Patient was unable to make the connection between the emergency number and the number to call when in the emergency. Patient denies any thoughts of wanting to harm himself or others. Patient is alert and orientated to person and place. Mood is euthymic with congruent affect is smiling and engaging with clinician. Patient denies suicidal and homicidal ideations. Clinician notes patient is demonstrating symptoms of cognitive impairment i.e. orientation difficulties, abstract rational level thinking difficulties, memory difficulties executive functioning sequencing and switching difficulties problem solving and safety difficulties, in addition to planning, attention, and visuospatial organizational abilities. Clinician notes patient is currently in medical crisis and is unknown at this time if current presentation is temporary. Patient is not demonstrating any behaviors indicating he is responding to internal stimuli i.e. maintains good eye contact and is able to answer questions and organized linear manner, Even if incorrect. Clinician spoke with patient's son, Stew identified as RYANN, who reports that the patient has had an increase in difficulties since receiving multiple steroid medications and shots for pain. He reports that on the he received a shot and then on the he received another 1. The family did not notice any confusion or behavioral changes until the . At that time they were realized the patient had stopped writing in his daily journal on his diabetes checks. It is unclear how long the patient was accurately caring for his diabetes. Medication recommendations per [facility]'s contracted psychiatrist Dr Cecelia SALAZAR are as follows Tegretol 500mg twice daily Buspar 7.5mg twice daily Impression/Plan: Patient is cleared from acute psychiatric services. Patient is currently in medical crisis and is demonstrating some delirium. Medication recommendations have been provided at the family's request. Please reconsult once patient's medical status is stabilized if there is further concerns. Dr. Bellamy was consulted on the care and management of this patient; attending physician is in agreement with recommendations and disposition.
[2018-10-25] MEDS: PATIROMER 8.4 GM SUSP PACKET PO SCH (17:34)
[2018-10-25] MEDS: INSULIN REG, HUMAN 100 UNIT/ML 3 ML VIAL (PYX) SUBCUT PRN (17:35)
[2018-10-25] MEDS: INSULIN GLARGINE,HUM.REC.ANLOG 1,000 UNIT/10 ML UNIT SUBCUT SCH (17:35)
[2018-10-25] MEDS ORDERED: INSULIN GLARGINE,HUM.REC.ANLOG 1,000 UNIT/10 ML UNIT SUBCUT SCH (18:00)
[2018-10-25] MEDS ORDERED: MIRTAZAPINE 15 MG TABLET PO PRN (22:00)
[2018-10-25] MEDS: ATORVASTATIN CALCIUM 40 MG TABLET PO SCH (22:59)
[2018-10-26] MEDS: HEPARIN SOD (PORCINE) 5,000 UNIT/ML 1 ML SYRINGE SUBCUT SCH ×3 (06:12→21:56)
[2018-10-26 08:49] LABS: HEMATOCRIT 35.3 % (37.9-51.0); HEMOGLOBIN 11.7 g/dL (13.5-17.0); MEAN CORPUSCULAR HEMOGLOBIN 31.2 pg (27.0-33.4); MEAN CORPUSCULAR HGB CONC 33.2 g/dL (32.0-36.0); MEAN CORPUSCULAR VOLUME 94 fl (80-97); PLATELET COUNT 195 10^3/uL (150-450); RED BLOOD COUNT 3.75 10^6/uL (4.35-5.55); RED CELL DISTRIBUTION WIDTH 14.6 % (11.5-14.0); WHITE BLOOD COUNT 11.8 10^3/uL (4.0-10.5)
[2018-10-26] MEDS: DOCUSATE SODIUM 100 MG CAPSULE PO SCH ×2 (09:07→17:41)
[2018-10-26] MEDS: LOSARTAN POTASSIUM 50 MG TABLET PO SCH (09:07)
[2018-10-26] MEDS: TAMSULOSIN HCL 0.4 MG CAP.SR.24H PO SCH (09:08)
[2018-10-26] MEDS: HYDROCHLOROTHIAZIDE 25 MG TABLET PO SCH (09:08)
[2018-10-26] MEDS: ASPIRIN 81 MG TABLET, ENT COATED PO SCH (09:08)
[2018-10-26] MEDS: GLIPIZIDE XL 5 MG TAB.ER.24 PO SCH (09:08)
[2018-10-26] MEDS: FERROUS SULFATE 325 MG TABLET PO SCH (09:08)
[2018-10-26] MEDS: AMLODIPINE BESYLATE 10 MG TABLET PO SCH (09:10)
[2018-10-26] MEDS: INSULIN GLARGINE,HUM.REC.ANLOG 1,000 UNIT/10 ML UNIT SUBCUT SCH ×2 (09:10→21:52)
[2018-10-26] MEDS: MORPHINE SULFATE SR 30 MG TABLET PO SCH (09:10)
[2018-10-26] MEDS: CYANOCOBALAMIN (VITAMIN B-12) 1,000 MCG TABLET PO SCH (09:11)
[2018-10-26] MEDS: FINASTERIDE 5 MG TABLET PO SCH (09:11)
[2018-10-26] MEDS: FAMOTIDINE 20 MG TABLET PO SCH (09:11)
[2018-10-26] MEDS: CHOLECALCIFEROL (D3) 1,000 UNIT TABLET PO SCH (09:11)
[2018-10-26] MEDS: INSULIN REG, HUMAN 100 UNIT/ML 3 ML VIAL (PYX) SUBCUT PRN ×4 (09:12→21:54)
[2018-10-26 09:16] LABS: ALANINE AMINOTRANSFERASE 35 U/L (21-72); ALBUMIN 3.9 g/dL (3.5-5.0); ALKALINE PHOSPHATASE 55 U/L (38-126); ANION GAP 10 (5-19); ASPARTATE AMINO TRANSFERASE 31 U/L (17-59); BILIRUBIN,DIRECT 0.3 mg/dL (0.0-0.4); BILIRUBIN,TOTAL 0.5 mg/dL (0.2-1.3); BLOOD UREA NITROGEN 70 mg/dL (7-20); CALCIUM 9.5 mg/dL (8.4-10.2); CARBON DIOXIDE 21 mmol/L (22-30); CHLORIDE 105 mmol/L (98-107); GLUCOSE 233 mg/dL (75-110); SODIUM 136.2 mmol/L (137-145); TOTAL PROTEIN 5.9 g/dL (6.3-8.2)
[2018-10-26 09:22] LABS: POTASSIUM 6.2 mmol/L (3.6-5.0)
[2018-10-26] MEDS ORDERED: BUMETANIDE 1 MG TABLET PO SCH (10:00)
[2018-10-26] MEDS: SODIUM POLYSTYRENE SULFONATE 15 GM/60 ML PO SCH ×2 (10:56→21:56)
--- NOTE | 2018-10-26 10:56 | PDOC PROGRESS REPORT ---
Subjective Progress Note for:: 10/26/18 Subjective:: 10/25/2018 83 year old male who presented to the emergency room with a one-week history of gradually worsening weakness. He indicates that his problems began several weeks ago when he apparently injured his back while moving a large flowerpot. He subsequently had an evaluation performed utilizing a CT/MRI which revealed bulging disks and some collapsed vertebrae which were treated with an injection of some type. Approximately 1 week ago he received a steroid in jection in his left hip performed by his primary care physician and also another injection 1 day later given in the emergency room here at [facility]. Since that time he has gradually worsening weakness, his blood sugars have been running high and there has been no relief of his back pain which he now rates as extremely severe. His pain is a constant, continuous, sharp grinding/grating sensation in his left lower back radiating to the left hip area. The pain is somewhat relieved with rest and is significantly exacerbated by movement or weightbearing. His attempt to control his blood sugar with insulin has failed and he has become more lethargic and weak. He additionally admits the associated symptoms of decreased appetite with the increased pain in his back since his injury. He admits that this pain is an increased level of the pain that he has chronically. In the emergency room he was found to have no significant changes in his laboratory evaluation from his baseline with the exception of a mild hyperkalemia and a acute on chronic renal insufficiency. He was subsequently admitted to hospital for further evaluation and treatment. 10/25/2018-patient is more alert and awake communicating better today. MRI of the brain CT head was negative. Blood sugars are improving. His appetite is improving. Calcium levels are still high we going to repeat the potassium level again. Repeat potassium is 5.9. Started on Veltassa. 10/26/2018-no acute events in the last 24 hours. Patient is comfortable in the chair. Afebrile. Pain-free. Communicating very well. His wrist requesting something for bowel movement. Reason For Visit: PROGRESSIVE GENERALIZED WEAKNESS, WITH Physical Exam Vital Signs: Temp Pulse Resp BP Pulse Ox 97.3 F 64 15 122/54 L 99 10/26/18 08:00 10/26/18 08:00 10/26/18 08:00 10/26/18 08:00 10/26/18 08:00 Intake & Output 10/25/18 10/26/18 10/27/18 06:59 06:59 06:59 Intake Total 2723 Output Total 1850 Balance 873 Weight 62 kg 61.5 kg General appearance: PRESENT: no acute distress Head exam: PRESENT: atraumatic Eye exam: PRESENT: PERRLA Mouth exam: PRESENT: moist, tongue midline Neck exam: ABSENT: carotid bruit, JVD, lymphadenopathy, thyromegaly Respiratory exam: PRESENT: clear to auscultation kevin. ABSENT: rales, rhonchi, wheezes Cardiovascular exam: PRESENT: RRR. ABSENT: diastolic murmur, rubs, systolic murmur GI/Abdominal exam: PRESENT: normal bowel sounds, soft. ABSENT: distended, gua rding, mass, organolmegaly, rebound, tenderness Extremities exam: PRESENT: full ROM. ABSENT: calf tenderness, clubbing, pedal edema Neurological exam: PRESENT: alert, awake, oriented to person, oriented to place, oriented to time, oriented to situation, CN II-XII grossly intact. ABSENT: motor sensory deficit Psychiatric exam: PRESENT: appropriate affect, normal mood. ABSENT: homicidal ideation, suicidal ideation Results Laboratory Results: 10/26/18 07:53 10/26/18 07:53 10/25/18 10/26/18 10/26/18 13:52 07:53 07:53 WBC 11.8 H RBC 3.75 L Hgb 11.7 L Hct 35.3 L MCV 94 MCH 31.2 MCHC 33.2 RDW 14.6 H Plt Count 195 Sodium 136.2 L Potassium 5.9 H 6.2 H* Chloride 105 Carbon Dioxide 21 L Anion Gap 10 BUN 70 H Creatinine 1.59 H Est GFR ( Amer) 50 L Est GFR (Non-Af Amer) 42 L Glucose 233 H Calcium 9.5 Magnesium 3.0 H Total Bilirubin 0.5 AST 31 ALT 35 Alkaline Phosphatase 55 Total Protein 5.9 L Albumin 3.9 10/24/18 10/25/18 10/25/18 20:14 03:20 03:20 Creatine Kinase 249 H CK-MB (CK-2) 5.17 H Troponin I 0.054 0.044 10/25/18 10/25/18 10/25/18 09:07 09:07 14:33 Creatine Kinase 189 H 133 CK-MB (CK-2) 4.05 Troponin I 0.046 10/25/18 14:33 Creatine Kinase CK-MB (CK-2) 2.62 Troponin I 0.035 Impressions: Head MRI 10/25/18 00:00 IMPRESSION: Prominence of the ventricles out of proportion to sulci. Question normal pressure hydrocephalus. Clinical correlation recommended. 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 Minimal white matter disease. EVIDENCE OF ACUTE STROKE: NO. Head CT 10/25/18 01:24 IMPRESSION: Diffuse atrophy with small vessel ischemic change TECHNICAL DOCUMENTATION: Quality ID # 436: Final reports with documentation of one or more dose reduction techniques (e.g., Automated exposure control, adjustment of the mA and/or kV according to patient size, use of iterative reconstruction technique) copyright 2011 [employer]- All Rights Reserved Assessment & Plan - Diagnosis (1) Acute kidney injury (nontraumatic) Is this a current diagnosis for this admission?: Yes Plan: Patient was given IV fluids in an attempt to reverse the effect of excessive diuresis and decreased intake the last week. 10/25/2018-acute kidney injury most likely secondary to prerenal causes. With IV fluids it is improved to 1.3 today. 10/26/2018-patient was admitted with acute kidney injury with creatinine 1.93, it is 1.59 today. Acute kidney injury most likely prerenal. Taking Bumex at home. Which was stopped. Plan is to stop his losartan also today. To recheck his labs again tomorrow. Patient is nonoliguric. (2) Intractable pain Is this a current diagnosis for this admission?: Yes Plan: Patient will be admitted for further evaluation and treatment with addressing his back pain with a reasonable approach to chronic pain therapy and dealing with acute exacerbations. This will require use of morphine 2-4 mg IV every 2 h ours as needed on a sliding scale for pain control. Patient should then be placed on a chronic dose of morphine with an extended release form and an instant release form given in combination for long-term pain management and acute breakthrough pain. Another approach to pain management may be acceptable and will be at the discretion of hospitalist managing the patient. 10/25/2018-patient was admitted with intractable pain. He is on IV morphine sliding scale. Physical therapy consult was requested. aT the time of examination patient said pain scale is 0. Physical therapy consult was reques kasey. 10/26/2018-patient is not complaining of any pain at present he is comfortable in the chair. Physical therapy is working with the patient. He is on modified sliding scale. Plan is to continue the present management. (3) Insulin dependent diabetes mellitus Is this a current diagnosis for this admission?: Yes Plan: Along with a diabetic diet the patient will be continued on an insulin regiment for management of his diabetes with the use of Lantus and a sliding scale insulin in the form of Humulin R to bring his blood sugar under adequate control. 10/25/2018-patient's hemoglobin A1c is 11.2. Is on insulin sliding scale. I started him on Lantus 10 units twice a day. Latest blood sugar is 437. We are going to check the labs again tomorrow. Dietary consult was requested. 10/26/2017-latest blood sugar is 223. He is on Lantus 10 units twice a day and is also insulin sliding scale. Plan is to increase the Lantus to 15 units twice a day and continue to closely monitor the blood sugars. (4) Hypertension Qualifiers: Hypertension type: essential hypertension Qualified Code(s): I10 - Essential (primary) hypertension Is this a current diagnosis for this admission?: Yes Plan: 10/25/2018 patient blood pressure today is 124/52 with pulse rate 76 he is on Bumex 1 mg p.o. daily which was discontinued. 10/26/2018-patient blood pressure today is 122/54. We are going to hold his losartan for today. (5) Chronic pain syndrome Is this a current diagnosis for this admission?: Yes Plan: 10/25/2018-patient has a chronic pain syndrome he is on morphine sliding scale. Pain is relatively controlled now. Physical therapy consult was requested. 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 Physical therapy consult was requested he is on IV morphine on as needed basis. (6) Hyperkalemia Is this a current diagnosis for this admission?: Yes Plan: 10/26/2018-patient potassium level 6.2 today started on Veltassa yesterday. Plan is to hold losartan for today. Hyperkalemia most likely secondary to acute on chronic kidney injury. To recheck the labs tomorrow morning. - Time Time Spent with patient: 15-24 minutes Medications reviewed and adjusted accordingly: Yes Anticipated discharge: SNF
[2018-10-26] MEDS ORDERED: ONDANSETRON 4 MG TAB.RAPDIS PO PRN (11:00)
[2018-10-26] MEDS ORDERED: ONDANSETRON HCL INJ/PF 4 MG/2 ML SDV IV PRN (11:00)
[2018-10-26] MEDS: POLYETHYLENE GLYCOL 3350 POWDER 17 GM/1 PACKET PO SCH (12:39)
[2018-10-26] MEDS: MORPHINE SULFATE 10 MG/ML INJ IV PRN (14:25)
[2018-10-26] MEDS: PATIROMER 8.4 GM SUSP PACKET PO SCH (17:41)
[2018-10-26] MEDS: ATORVASTATIN CALCIUM 40 MG TABLET PO SCH (21:57)
[2018-10-27] MEDS: HEPARIN SOD (PORCINE) 5,000 UNIT/ML 1 ML SYRINGE SUBCUT SCH ×3 (05:27→21:21)
[2018-10-27 08:15] LABS: HEMATOCRIT 31.6 % (37.9-51.0); HEMOGLOBIN 10.8 g/dL (13.5-17.0); MEAN CORPUSCULAR HEMOGLOBIN 31.7 pg (27.0-33.4); MEAN CORPUSCULAR HGB CONC 34.1 g/dL (32.0-36.0); MEAN CORPUSCULAR VOLUME 93 fl (80-97); PLATELET COUNT 172 10^3/uL (150-450); RED BLOOD COUNT 3.39 10^6/uL (4.35-5.55); RED CELL DISTRIBUTION WIDTH 14.4 % (11.5-14.0); WHITE BLOOD COUNT 10.4 10^3/uL (4.0-10.5)
[2018-10-27 08:35] LABS: ALANINE AMINOTRANSFERASE 37 U/L (21-72); ALBUMIN 3.1 g/dL (3.5-5.0); ALKALINE PHOSPHATASE 51 U/L (38-126); ANION GAP 8 (5-19); ASPARTATE AMINO TRANSFERASE 36 U/L (17-59); BILIRUBIN,DIRECT 0.3 mg/dL (0.0-0.4); BILIRUBIN,TOTAL 0.3 mg/dL (0.2-1.3); BLOOD UREA NITROGEN 79 mg/dL (7-20); CALCIUM 8.9 mg/dL (8.4-10.2); CARBON DIOXIDE 25 mmol/L (22-30); CHLORIDE 103 mmol/L (98-107); GLUCOSE 104 mg/dL (75-110); TOTAL PROTEIN 4.9 g/dL (6.3-8.2)
[2018-10-27 08:51] LABS: POTASSIUM 4.9 mmol/L (3.6-5.0)
--- NOTE | 2018-10-27 09:47 | PDOC PROGRESS REPORT ---
Subjective Progress Note for:: 10/27/18 Subjective:: 10/25/2018 83 year old male who presented to the emergency room with a one-week history of gradually worsening weakness. He indicates that his problems began several weeks ago when he apparently injured his back while moving a large flowerpot. He subsequently had an evaluation performed utilizing a CT/MRI which revealed bulging disks and some collapsed vertebrae which were treated with an injection of some type. Approximately 1 week ago he received a steroid in jection in his left hip performed by his primary care physician and also another injection 1 day later given in the emergency room here at [facility]. Since that time he has gradually worsening weakness, his blood sugars have been running high and there has been no relief of his back pain which he now rates as extremely severe. His pain is a constant, continuous, sharp grinding/grating sensation in his left lower back radiating to the left hip area. The pain is somewhat relieved with rest and is significantly exacerbated by movement or weightbearing. His attempt to control his blood sugar with insulin has failed and he has become more lethargic and weak. He additionally admits the associated symptoms of decreased appetite with the increased pain in his back since his injury. He admits that this pain is an increased level of the pain that he has chronically. In the emergency room he was found to have no significant changes in his laboratory evaluation from his baseline with the exception of a mild hyperkalemia and a acute on chronic renal insufficiency. He was subsequently admitted to hospital for further evaluation and treatment. 10/25/2018-patient is more alert and awake communicating better today. MRI of the brain CT head was negative. Blood sugars are improving. His appetite is improving. Calcium levels are still high we going to repeat the potassium level again. Repeat potassium is 5.9. Started on Veltassa. 10/26/2018-no acute events in the last 24 hours. Patient is comfortable in the chair. Afebrile. Pain-free. Communicating very well. His wrist requesting something for bowel movement. 10/27/2018-no acute events in the last 24 hours. Patient is afebrile. Patient said pain is well controlled. Family is happy that his appetite is coming back. Finally potassium is back to normal. Patient does not have any bowel movement for the last 4 days. We are going to try GoLYTELY. Family is concerned about his chronic back pain usually they go to pain management clinic so consult placed for Dr. Huerta. Reason For Visit: PROGRESSIVE GENERALIZED WEAKNESS, WITH Physical Exam Vital Signs: Temp Pulse Resp BP Pulse Ox 98.2 F 78 18 157/54 H 98 10/27/18 08:00 10/27/18 08:00 10/27/18 08:00 10/27/18 08:00 10/27/18 08:00 Intake & Output 10/26/18 10/27/18 10/28/18 06:59 06:59 06:59 Intake Total 2723 1390 Output Total 1850 965 Balance 873 425 Weight 61.5 kg 64.3 kg General appearance: PRESENT: no acute distress Head exam: PRESENT: atraumatic Eye exam: PRESENT: PERRLA Neck exam: ABSENT: carotid bruit, JVD, lymphadenopathy, thyromegaly Respiratory exam: PRESENT: clear to auscultation kevin. ABSENT: rales, rhonchi, wheezes Cardiovascular exam: PRESENT: RRR. ABSENT: diastolic murmur, rubs, systolic murmur GI/Abdominal exam: PRESENT: normal bowel sounds, soft. ABSENT: distended, guarding, mass, organolmegaly, rebound, tenderness Extremities exam: PRESENT: full ROM. ABSENT: calf tenderness, clubbing, pedal edema Neurological exam: PRESENT: alert, awake, oriented to person, oriented to place, oriented to time, oriented to situation, CN II-XII grossly intact. ABSENT: motor sensory deficit Psychiatric exam: PRESENT: appropriate affect, normal mood. ABSENT: homicidal ideation, suicidal ideation Results Laboratory Results: 10/27/18 07:38 10/27/18 07:38 10/27/18 10/27/18 10/27/18 07:38 07:38 07:38 WBC 10.4 RBC 3.39 L Hgb 10.8 L Hct 31.6 L MCV 93 MCH 31.7 MCHC 34.1 RDW 14.4 H Plt Count 172 Sodium 136.0 L Potassium 4.9 D Chloride 103 Carbon Dioxide 25 Anion Gap 8 BUN 79 H Creatinine 1.69 H Est GFR ( Amer) 47 L Est GFR (Non-Af Amer) 39 L Glucose 104 Calcium 8.9 Magnesium 2.7 H Total Bilirubin 0.3 AST 36 ALT 37 Alkaline Phosphatase 51 Total Protein 4.9 L Albumin 3.1 L 10/24/18 10/25/18 10/25/18 20:14 03:20 03:20 Creatine Kinase 249 H CK-MB (CK-2) 5.17 H Troponin I 0.054 0.044 10/25/18 10/25/18 10/25/18 09:07 09:07 14:33 Creatine Kinase 189 H 133 CK-MB (CK-2) 4.05 Troponin I 0.046 10/25/18 14:33 Creatine Kinase CK-MB (CK-2) 2.62 Troponin I 0.035 Impressions: Head MRI 10/25/18 00:00 IMPRESSION: Prominence of the ventricles out of proportion to sulci. Question normal pressure hydrocephalus. Clinical correlation recommended. 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 Minimal white matter disease. EVIDENCE OF ACUTE STROKE: NO. Head CT 10/25/18 01:24 IMPRESSION: Diffuse atrophy with small vessel ischemic change TECHNICAL DOCUMENTATION: Quality ID # [id number]: Final reports with documentation of one or more dose reduction techniques (e.g., Automated exposure control, adjustment of the mA and/or kV according to patient size, use of iterative reconstruction technique) copyright 2011 [employer]- All Rights Reserved Assessment & Plan - Diagnosis (1) Acute kidney injury (nontraumatic) Is this a current diagnosis for this admission?: Yes Plan: Patient was given IV fluids in an attempt to reverse the effect of excessive diuresis and decreased intake the last week. 10/25/2018-acute kidney injury most likely secondary to prerenal causes. With IV fluids it is improved to 1.3 today. 10/26/2018-patient was admitted with acute kidney injury with creatinine 1.93, it is 1.59 today. Acute kidney injury most likely prerenal. Taking Bumex at home. Which was stopped. Plan is to stop his losartan also today. To recheck his labs again tomorrow. Patient is nonoliguric. 10/27/2018-patient admitted with acute kidney injury with creatinine 1.93 today's creatinine is 1.69. Acute kidney injury most likely prerenal. Bumex was discontinued. Blood pressure today is 157/54. Losartan was discontinued y esterday. Patient was encouraged to drink plenty of fluids. We are going to continue to monitor the renal function on daily basis. (2) Intractable pain Is this a current diagnosis for this admission?: Yes Plan: Patient will be admitted for further evaluation and treatment with addressing his back pain with a reasonable approach to chronic pain therapy and dealing with acute exacerbations. This will require use of morphine 2-4 mg IV every 2 hours as needed on a sliding scale for pain control. Patient should then be placed on a chronic dose of morphine with an extended release form and an instant release form given in combination for long-term pain management and acute breakthrough pain. Another approach to pain management may be acceptable and will be at the discretion of hospitalist managing the patient. 10/25/2018-patient was admitted with intractable pain. He is on IV morphine sliding scale. Physical therapy consult was requested. aT the time of examination patient said pain scale is 0. Physical therapy consult was requested. 10/26/2018-patient is not complaining of any pain at present he is comfortable in the chair. Physical therapy is working with the patient. He is on modified sliding scale. Plan is to continue the present management. 10/27/2018-patient is on IV morphine as needed no complaints of pain today. Family's main concern is constipation at this time. We are going to give GoLYTELY to him. (3) Insulin dependent diabetes mellitus Is this a current diagnosis for this admission?: Yes Plan: Along with a diabetic diet the patient will be continued on an insulin regiment for management of his diabetes with the use of Lantus and a sliding scale insulin in the form of Humulin R to bring his blood sugar under adequate control. 10/25/2018-patient's hemoglobin A1c is 11.2. Is on insulin sliding scale. I started him on Lantus 10 units twice a day. Latest blood sugar is 437. We are going to check the labs again tomorrow. Dietary consult was requested. 10/26/2017-latest blood sugar is 223. He is on Lantus 10 units twice a day and is also insulin sliding scale. Plan is to increase the Lantus to 15 units twice a day and continue to closely monitor the blood sugars. 10/27/2018 finally blood sugars are controlled. Blood sugar is 106 today. Presently on Lantus 15 units twice a day, on glipizide 10 mg p.o. daily and insulin sliding scale. plan is to continue the present management .dietary consult was requested. (4) Hypertension Qualifiers: Hypertension type: essential hypertension Qualified Code(s): I10 - Essential (primary) hypertension Is this a current diagnosis for this admission?: Yes Plan: 10/25/2018 patient blood pressure today is 124/52 with pulse rate 76 he is on Bumex 1 mg p.o. daily which was discontinued. 10/26/2018-patient blood pressure today is 122/54. We are going to hold his losartan for today. 10/27/2018-patient blood pressure today is 157/54 presently on amlodipine 10 mg daily hydrochlorothiazide 12.5 mg p.o. daily plan is to continue the present management. (5) Chronic pain syndrome Is this a current diagnosis for this admission?: Yes (6) Hyperkalemia Is this a current diagnosis for this admission?: Yes Plan: 10/26/2018-patient potassium level 6.2 today started on Veltassa yesterday. Plan is to hold losartan for today. Hyperkalemia most likely secondary to acute on chronic kidney injury. To recheck the labs tomorrow morning. 10/27/2018-serum potassium level is 4.9 today he still did not have any bowel movement for the last 4 days we going to give GoLYTELY. Hopefully it may help in decreasing the potassium levels. - Time Time Spent with patient: 15-24 minutes Medications reviewed and adjusted accordingly: Yes Anticipated discharge: SNF
[2018-10-27] MEDS: MORPHINE SULFATE 10 MG/ML INJ IV PRN (10:07)
[2018-10-27] MEDS: DOCUSATE SODIUM 100 MG CAPSULE PO SCH ×2 (10:11→17:33)
[2018-10-27] MEDS: CHOLECALCIFEROL (D3) 1,000 UNIT TABLET PO SCH (10:12)
[2018-10-27] MEDS: HYDROCHLOROTHIAZIDE 25 MG TABLET PO SCH (10:12)
[2018-10-27] MEDS: CYANOCOBALAMIN (VITAMIN B-12) 1,000 MCG TABLET PO SCH (10:12)
[2018-10-27] MEDS: FERROUS SULFATE 325 MG TABLET PO SCH (10:12)
[2018-10-27] MEDS: TAMSULOSIN HCL 0.4 MG CAP.SR.24H PO SCH (10:12)
[2018-10-27] MEDS: FAMOTIDINE 20 MG TABLET PO SCH (10:12)
[2018-10-27] MEDS: AMLODIPINE BESYLATE 10 MG TABLET PO SCH (10:13)
[2018-10-27] MEDS: ASPIRIN 81 MG TABLET, ENT COATED PO SCH (10:14)
[2018-10-27] MEDS: INSULIN GLARGINE,HUM.REC.ANLOG 1,000 UNIT/10 ML UNIT SUBCUT SCH (10:14)
[2018-10-27] MEDS: POLYETHYLENE GLYCOL 3350 POWDER 17 GM/1 PACKET PO SCH (10:15)
[2018-10-27] MEDS: GLIPIZIDE XL 5 MG TAB.ER.24 PO SCH (10:23)
[2018-10-27] MEDS: FINASTERIDE 5 MG TABLET PO SCH (10:23)
[2018-10-27] MEDS ORDERED: PEG 3350/NA SULF,BICARB,CL/KCL 4000 ML PO ONE (11:30)
[2018-10-27] MEDS: INSULIN REG, HUMAN 100 UNIT/ML 3 ML VIAL (PYX) SUBCUT PRN ×4 (13:15→21:23)
[2018-10-27 16:20] LABS: APPEARANCE,URINE SLIGHTLY-CLOUDY; BILIRUBIN,URINE NEGATIVE (NEGATIVE); COLOR,URINE YELLOW; GLUCOSE, URINE >=500 mg/dL (NEGATIVE); KETONES,URINE NEGATIVE (NEGATIVE); LEUKOCYTE ESTERASE,URINE SMALL (NEGATIVE); NITRITE,URINE NEGATIVE (NEGATIVE); PROTEIN,URINE NEGATIVE (NEGATIVE); URINE SPECIFIC GRAVITY 1.013; UROBILINOGEN,URINE NEGATIVE mg/dL (<2.0)
[2018-10-27] MEDS: LIDOCAINE 5% (700 MG) TRANSDERMAL ADH..PATCH TP SCH (17:33)
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
[2018-10-27] MEDS: ATORVASTATIN CALCIUM 40 MG TABLET PO SCH (21:21)
[2018-10-27] MEDS: BISACODYL 10 MG SUPP.RECT PR ONE (21:27)
[2018-10-27] MEDS ORDERED: INSULIN GLARGINE,HUM.REC.ANLOG 1,000 UNIT/10 ML UNIT SUBCUT SCH (22:00)
[2018-10-28] MEDS: BISACODYL 10 MG SUPP.RECT PR ONE (01:00)
[2018-10-28] MEDS ORDERED: BISACODYL 10 MG SUPP.RECT PR ONE ×2 (01:15→15:00)
[2018-10-28] MEDS: MAGNESIUM HYDROXIDE SUSP 30 ML UDCUP PO PRN ×2 (01:15→23:11)
[2018-10-28] MEDS: HEPARIN SOD (PORCINE) 5,000 UNIT/ML 1 ML SYRINGE SUBCUT SCH ×3 (05:21→22:16)
[2018-10-28] MEDS ORDERED: NA PHOS,M-B/NA PHOS,DI-BA (ADULT) 133 ML ENEMA PR ONE ×2 (06:00→11:00)
[2018-10-28 06:48] LABS: HEMATOCRIT 31.6 % (37.9-51.0); HEMOGLOBIN 10.8 g/dL (13.5-17.0); MEAN CORPUSCULAR HEMOGLOBIN 31.7 pg (27.0-33.4); MEAN CORPUSCULAR VOLUME 93 fl (80-97); PLATELET COUNT 168 10^3/uL (150-450); RED BLOOD COUNT 3.39 10^6/uL (4.35-5.55); RED CELL DISTRIBUTION WIDTH 14.4 % (11.5-14.0); WHITE BLOOD COUNT 10.1 10^3/uL (4.0-10.5)
[2018-10-28 07:10] LABS: ALANINE AMINOTRANSFERASE 49 U/L (21-72); ALBUMIN 3.3 g/dL (3.5-5.0); ALKALINE PHOSPHATASE 55 U/L (38-126); ANION GAP 10 (5-19); ASPARTATE AMINO TRANSFERASE 44 U/L (17-59); BILIRUBIN,DIRECT 0.2 mg/dL (0.0-0.4); BILIRUBIN,TOTAL 0.3 mg/dL (0.2-1.3); BLOOD UREA NITROGEN 88 mg/dL (7-20); CALCIUM 8.5 mg/dL (8.4-10.2); CARBON DIOXIDE 29 mmol/L (22-30); CHLORIDE 96 mmol/L (98-107); GLUCOSE 77 mg/dL (75-110); POTASSIUM 4.5 mmol/L (3.6-5.0); SODIUM 135.4 mmol/L (137-145)
[2018-10-28] MEDS: FERROUS SULFATE 325 MG TABLET PO SCH (09:08)
[2018-10-28] MEDS: ASPIRIN 81 MG TABLET, ENT COATED PO SCH (09:08)
[2018-10-28] MEDS: DOCUSATE SODIUM 100 MG CAPSULE PO SCH ×2 (09:08→17:37)
[2018-10-28] MEDS: GLIPIZIDE XL 5 MG TAB.ER.24 PO SCH (09:08)
[2018-10-28] MEDS: TAMSULOSIN HCL 0.4 MG CAP.SR.24H PO SCH (09:08)
[2018-10-28] MEDS: CHOLECALCIFEROL (D3) 1,000 UNIT TABLET PO SCH (09:09)
[2018-10-28] MEDS: LIDOCAINE 5% (700 MG) TRANSDERMAL ADH..PATCH TP SCH (09:09)
[2018-10-28] MEDS: AMLODIPINE BESYLATE 10 MG TABLET PO SCH (09:09)
[2018-10-28] MEDS: FAMOTIDINE 20 MG TABLET PO SCH (09:09)
[2018-10-28] MEDS: CYANOCOBALAMIN (VITAMIN B-12) 1,000 MCG TABLET PO SCH (09:09)
[2018-10-28] MEDS: MORPHINE SULFATE IR 15 MG TABLET PO PRN (09:09)
[2018-10-28] MEDS: POLYETHYLENE GLYCOL 3350 POWDER 17 GM/1 PACKET PO SCH (09:09)
[2018-10-28] MEDS: HYDROCHLOROTHIAZIDE 25 MG TABLET PO SCH (09:09)
[2018-10-28] MEDS: FINASTERIDE 5 MG TABLET PO SCH (09:09)
--- NOTE | 2018-10-28 09:45 | PDOC PROGRESS REPORT ---
Subjective Progress Note for:: 10/28/18 Subjective:: 10/25/2018 83 year old male who presented to the emergency room with a one-week history of gradually worsening weakness. He indicates that his problems began several weeks ago when he apparently injured his back while moving a large flowerpot. He subsequently had an evaluation performed utilizing a CT/MRI which revealed bulging disks and some collapsed vertebrae which were treated with an injection of some type. Approximately 1 week ago he received a steroid in jection in his left hip performed by his primary care physician and also another injection 1 day later given in the emergency room here at [facility]. Since that time he has gradually worsening weakness, his blood sugars have been running high and there has been no relief of his back pain which he now rates as extremely severe. His pain is a constant, continuous, sharp grinding/grating sensation in his left lower back radiating to the left hip area. The pain is somewhat relieved with rest and is significantly exacerbated by movement or weightbearing. His attempt to control his blood sugar with insulin has failed and he has become more lethargic and weak. He additionally admits the associated symptoms of decreased appetite with the increased pain in his back since his injury. He admits that this pain is an increased level of the pain that he has chronically. In the emergency room he was found to have no significant changes in his laboratory evaluation from his baseline with the exception of a mild hyperkalemia and a acute on chronic renal insufficiency. He was subsequently admitted to hospital for further evaluation and treatment. 10/25/2018-patient is more alert and awake communicating better today. MRI of the brain CT head was negative. Blood sugars are improving. His appetite is improving. Calcium levels are still high we going to repeat the potassium level again. Repeat potassium is 5.9. Started on Veltassa. 10/26/2018-no acute events in the last 24 hours. Patient is comfortable in the chair. Afebrile. Pain-free. Communicating very well. His wrist requesting something for bowel movement. 10/27/2018-no acute events in the last 24 hours. Patient is afebrile. Patient said pain is well controlled. Family is happy that his appetite is coming back. Finally potassium is back to normal. Patient does not have any bowel movement for the last 4 days. We are going to try GoLYTELY. Family is concerned about his chronic back pain usually they go to pain management clinic so consult placed for Dr. Huerta. 10/28/2018 patient's blood sugar dropped to 51 around 2 AM this morning he started sweating and the nurse took the blood sugar turned out to be 51. At this present time blood sugar is 89. His blood sugars are fluctuating. Around 6:30 PM yesterday blood sugar is 435. Plan is to discontinue his glipizide from this evening and increase the Lantus to 25 units twice daily continue the sliding scale. Plan is to hold his Lantus this morning. Patient is also does not have any bowel movement. We tried in the mass to be tried Dulcolax suppositories to be tried GoLYTELY we tried magnesium citrate nothing is helping. We are going to try soapsuds edema today. Reason For Visit: PROGRESSIVE GENERALIZED WEAKNESS, WITH Physical Exam Vital Signs: Temp Pulse Resp BP Pulse Ox 98.2 F 69 19 119/51 L 97 10/28/18 07:59 10/28/18 07:59 10/28/18 07:59 10/28/18 07:59 10/28/18 07:59 Intake & Output 10/27/18 10/28/18 10/29/18 06:59 06:59 06:59 Intake Total 1390 1720 Output Total 965 700 Balance 425 1020 Weight 64.3 kg 64.2 kg General appearance: PRESENT: no acute distress Head exam: PRESENT: atraumatic Eye exam: PRESENT: PERRLA Mouth exam: PRESENT: moist, tongue midline Neck exam: ABSENT: carotid bruit, JVD, lymphadenopathy, thyromegaly Respiratory exam: PRESENT: clear to auscultation kevin. ABSENT: rales, rhonchi, wheezes Cardiovascular exam: PRESENT: tachycardia GI/Abdominal exam: PRESENT: normal bowel sounds, soft. ABSENT: distended, guarding, mass, organolmegaly, rebound, tenderness Extremities exam: PRESENT: full ROM. ABSENT: calf tenderness, clubbing, pedal edema Neurological exam: PRESENT: alert, awake, oriented to person, oriented to place, oriented to time, oriented to situation, CN II-XII grossly intact. ABSENT: motor sensory deficit Psychiatric exam: PRESENT: appropriate affect, normal mood. ABSENT: homicidal ideation, suicidal ideation Results Laboratory Results: 10/28/18 06:00 10/28/18 06:00 10/27/18 10/28/18 10/28/18 15:50 06:00 06:00 WBC 10.1 RBC 3.39 L Hgb 10.8 L Hct 31.6 L MCV 93 MCH 31.7 MCHC 34.0 RDW 14.4 H Plt Count 168 Sodium Cancelled Potassium Cancelled Chloride Cancelled Carbon Dioxide Cancelled Anion Gap Cancelled BUN Cancelled Creatinine Cancelled Est GFR ( Amer) Cancelled Est GFR (Non-Af Amer) Cancelled Glucose Cancelled Calcium Cancelled Magnesium 2.6 H Total Bilirubin AST ALT Alkaline Phosphatase Total Protein Albumin Urine Color YELLOW Urine Appearance SLIGHTLY-CLOUDY Urine pH 5.0 Ur Specific [place] 1.013 Urine Protein NEGATIVE Urine Glucose (UA) >=500 H Urine Ketones NEGATIVE Urine Blood NEGATIVE Urine Nitrite NEGATIVE Ur Leukocyte Esterase SMALL H Urine WBC (Auto) 6 Urine RBC (Auto) 0 10/28/18 06:00 WBC RBC Hgb Hct MCV MCH MCHC RDW Plt Count Sodium 135.4 L Potassium 4.5 Chloride 96 L Carbon Dioxide 29 Anion Gap 10 BUN 88 H Creatinine 1.65 H Est GFR ( Amer) 48 L Est GFR (Non-Af Amer) 40 L Glucose 77 Calcium 8.5 Magnesium Total Bilirubin 0.3 AST 44 ALT 49 Alkaline Phosphatase 55 Total Protein 5.0 L Albumin 3.3 L Urine Color Urine Appearance Urine pH Ur Specific [place] Urine Protein Urine Glucose (UA) Urine Ketones Urine Blood Urine Nitrite Ur Leukocyte Esterase Urine WBC (Auto) Urine RBC (Auto) 10/24/18 10/25/18 10/25/18 20:14 03:20 03:20 Creatine Kinase 249 H CK-MB (CK-2) 5.17 H Troponin I 0.054 0.044 10/25/18 10/25/18 10/25/18 09:07 09:07 14:33 Creatine Kinase 189 H 133 CK-MB (CK-2) 4.05 Troponin I 0.046 10/25/18 14:33 Creatine Kinase CK-MB (CK-2) 2.62 Troponin I 0.035 Impressions: Head MRI 10/25/18 00:00 IMPRESSION: Prominence of the ventricles out of proportion to sulci. Question normal pressure hydrocephalus. Clinical correlation recommended. 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 Minimal white matter disease. EVIDENCE OF ACUTE STROKE: NO. Head CT 10/25/18 01:24 IMPRESSION: Diffuse atrophy with small vessel ischemic change TECHNICAL DOCUMENTATION: Quality ID # 436: Final reports with documentation of one or more dose reduction techniques (e.g., Automated exposure control, adjustment of the mA and/or kV according to patient size, use of iterative reconstruction technique) copyright [address] [employer]- All Rights Reserved Assessment & Plan - Diagnosis (1) Acute kidney injury (nontraumatic) Is this a current diagnosis for this admission?: Yes Plan: Patient was given IV fluids in an attempt to reverse the effect of excessive diuresis and decreased intake the last week. 10/25/2018-acute kidney injury most likely secondary to prerenal causes. With IV fluids it is improved to 1.3 today. 10/26/2018-patient was admitted with acute kidney injury with creatinine 1.93, it is 1.59 today. Acute kidney injury most likely prerenal. Taking Bumex at home. Which was stopped. Plan is to stop his losartan also today. To recheck his labs again tomorrow. Patient is nonoliguric. 10/27/2018-patient admitted with acute kidney injury with creatinine 1.93 today's creatinine is 1.69. Acute kidney injury most likely prerenal. Bumex was discontinued. Blood pressure today is 157/54. Losartan was discontinued yesterday. Patient was encouraged to drink plenty of fluids. We are going to continue to monitor the renal function on daily basis. 10/28/2018-patient is admitted with acute kidney injury with creatinine of 1.93. Today's creatinine is 1.65. Improvement in creatinine. His baseline creatinine around 1.3. Patient is encouraged to drink more fluids. Plan to do the daily renal panel. (2) Intractable pain Is this a current diagnosis for this admission?: Yes Plan: Patient will be admitted for further evaluation and treatment with addressing his back pain with a reasonable approach to chronic pain therapy and dealing with acute exacerbations. This will require use of morphine 2-4 mg IV every 2 hours as needed on a sliding scale for pain control. Patient should then be placed on a chronic dose of morphine with an extended release form and an instant release form given in combination for long-term pain management and acute breakthrough pain. Another approach to pain management may be acceptable and will be at the discretion of hospitalist managing the patient. 10/25/2018-patient was admitted with intractable pain. He is on IV morphine sliding scale. Physical therapy consult was requested. aT the time of examination patient said pain scale is 0. Physical therapy consult was requested. 10/26/2018-patient is not complaining of any pain at present he is comfortable in the chair. Physical therapy is working with the patient. He is on modified sliding scale. Plan is to continue the present management. 10/27/2018-patient is on IV morphine as needed no complaints of pain today. Family's main concern is constipation at this time. We are going to give GoLYTELY to him. 10/28/2018-patient admitted with intractable pain. Pain is well controlled. He is getting IV morphine on as-needed basis. Presently severely constipated we going to try soapsuds enema. (3) Insulin dependent diabetes mellitus Is this a current diagnosis for this admission?: Yes Plan: Along with a diabetic diet the patient will be continued on an insulin regiment for management of his diabetes with the use of Lantus and a sliding scale insulin in the form of Humulin R to bring his blood sugar under adequate control. 10/25/2018-patient's hemoglobin A1c is 11.2. Is on insulin sliding scale. I started him on Lantus 10 units twice a day. Latest blood sugar is 437. We are going to check the labs again tomorrow. Dietary consult was requested. 10/26/2017-latest blood sugar is 223. He is on Lantus 10 units twice a day and is also insulin sliding scale. Plan is to increase the Lantus to 15 units twice a day and continue to closely monitor the blood sugars. 10/27/2018 finally blood sugars are controlled. Blood sugar is 106 today. Presently on Lantus 15 units twice a day, on glipizide 10 mg p.o. daily and insulin sliding scale. plan is to continue the present management .dietary consult was requested. 10/28/2018 patient hemoglobin A1c is 11.2 gently he is on Lantus 20 units twice a day glipizide 10 mg daily his blood sugar dropped to 51 last night he already received glipizide this morning. Be going to hold his Lantus to his morning d ose. Continue to do the sliding scale. And plan to give Lantus 25 units from [employer]. . (4) Hypertension Qualifiers: Hypertension type: essential hypertension Qualified Code(s): I10 - Essential (primary) hypertension Is this a current diagnosis for this admission?: Yes Plan: 10/25/2018 patient blood pressure today is 124/52 with pulse rate 76 he is on Bumex 1 mg p.o. daily which was discontinued. 10/26/2018-patient blood pressure today is 122/54. We are going to hold his losartan for today. 10/27/2018-patient blood pressure today is 157/54 presently on amlodipine 10 mg daily hydrochlorothiazide 12.5 mg p.o. daily plan is to continue the present management. 10/28/2018 patient blood pressure is 119/51 with pulse rate of 69 blood pressure is well-controlled presently on amlodipine 10 mg daily, hydrochlorothiazide 25 mg p.o. daily. (5) Chronic pain syndrome Is this a current diagnosis for this admission?: Yes Plan: 10/25/2018-patient has a chronic pain syndrome he is on morphine sliding scale. Pain is relatively controlled now. Physical therapy consult was requested. 10/26/2018-patient has chronic pain syndrome most likely secondary to spinal stenosis. Physical therapy consult was requested he is on IV morphine on as needed basis. 10/28/2018-patient is admitted with chronic pain syndrome secondary to spinal stenosis. His pain is relatively controlled well. (6) Hyperkalemia Is this a current diagnosis for this admission?: Yes Plan: 10/26/2018-patient potassium level 6.2 today started on Veltassa yesterday. Plan is to hold losartan for today. Hyperkalemia most likely secondary to acute on chronic kidney injury. To recheck the labs tomorrow morning. 10/27/2018-serum potassium level is 4.9 today he still did not have any bowel movement for the last 4 days we going to give GoLYTELY. Hopefully it may help in decreasing the potassium levels. 10/28/2018 patient potassium is 4.5 today hyperkalemia is resolved.
[2018-10-28] MEDS: INSULIN GLARGINE,HUM.REC.ANLOG 1,000 UNIT/10 ML UNIT SUBCUT SCH ×2 (12:25→22:17)
[2018-10-28] MEDS: INSULIN REG, HUMAN 100 UNIT/ML 3 ML VIAL (PYX) SUBCUT PRN ×3 (12:28→22:16)
[2018-10-28] MEDS: ATORVASTATIN CALCIUM 40 MG TABLET PO SCH (22:17)
--- NOTE | 2018-10-29 01:50 | RADIOLOGY REPORT (SQ) ---
EXAM DESCRIPTION: X-ray abdomen 1 view CLINICAL DATA: 83-year-old male with constipation. TECHNICAL DATA: A single AP supine x-ray of the abdomen was performed on 10/28/2018 at 7:17 PM. Comparison: None. FINDINGS: The bowel gas pattern is nonspecific and nonobstructive. There is moderate fecal residue scattered throughout the colon. Occasional pelvic phleboliths and additional vascular calcifications are noted. There is a punctate calcification projecting over the left upper quadrant. No abnormal air collections are identified. No focal soft tissue abnormalities are seen. No acute osseous abnormalities are identified. There has been prior cement augmentation of L4. There are mild degenerative changes of the thoracolumbar spine. IMPRESSION: 1. Moderate fecal residue scattered throughout the colon. 2. Nonspecific and nonobstructive bowel gas pattern. 3. Prior L4 cement augmentation.
[2018-10-29] MEDS: MORPHINE SULFATE IR 15 MG TABLET PO PRN (02:58)
[2018-10-29] MEDS: HEPARIN SOD (PORCINE) 5,000 UNIT/ML 1 ML SYRINGE SUBCUT SCH ×3 (06:11→22:45)
[2018-10-29 07:21] LABS: ABSOLUTE LYMPHOCYTES (AUTO) 0.9 10^3/uL (0.5-4.7); ABSOLUTE NEUT (AUTO) 8.1 10^3/uL (1.7-8.2); BASOPHILS % (AUTO) 0.2 % (0-2); EOSINOPHILS % (AUTO) 0.1 % (0-6); HEMATOCRIT 28.6 % (37.9-51.0); HEMOGLOBIN 9.9 g/dL (13.5-17.0); LYMPHOCYTES % (AUTO) 8.7 % (13-45); MEAN CORPUSCULAR HEMOGLOBIN 31.9 pg (27.0-33.4); MEAN CORPUSCULAR HGB CONC 34.5 g/dL (32.0-36.0); MEAN CORPUSCULAR VOLUME 93 fl (80-97); MONOCYTES % (AUTO) 10.3 % (3-13); PLATELET COUNT 139 10^3/uL (150-450); RED BLOOD COUNT 3.09 10^6/uL (4.35-5.55); RED CELL DISTRIBUTION WIDTH 14.5 % (11.5-14.0); SEGMENTED NEUTROPHILS % (AUTO) 80.7 % (42-78); TOTAL CELLS COUNTED % (AUTO) 100 %
[2018-10-29 07:50] LABS: ALANINE AMINOTRANSFERASE 30 U/L (21-72); ALBUMIN 2.8 g/dL (3.5-5.0); ALKALINE PHOSPHATASE 52 U/L (38-126); ANION GAP 7 (5-19); ASPARTATE AMINO TRANSFERASE 39 U/L (17-59); BILIRUBIN,DIRECT 0.3 mg/dL (0.0-0.4); BILIRUBIN,TOTAL 0.4 mg/dL (0.2-1.3); BLOOD UREA NITROGEN 75 mg/dL (7-20); CALCIUM 8.2 mg/dL (8.4-10.2); CARBON DIOXIDE 27 mmol/L (22-30); CHLORIDE 100 mmol/L (98-107); GLUCOSE 145 mg/dL (75-110); SODIUM 134.3 mmol/L (137-145); TOTAL PROTEIN 4.7 g/dL (6.3-8.2)
[2018-10-29] MEDS: HYDROCHLOROTHIAZIDE 25 MG TABLET PO SCH (09:32)
[2018-10-29] MEDS: FERROUS SULFATE 325 MG TABLET PO SCH (09:32)
[2018-10-29] MEDS: ASPIRIN 81 MG TABLET, ENT COATED PO SCH (09:32)
[2018-10-29] MEDS: INSULIN GLARGINE,HUM.REC.ANLOG 1,000 UNIT/10 ML UNIT SUBCUT SCH ×2 (09:32→22:46)
[2018-10-29] MEDS: DOCUSATE SODIUM 100 MG CAPSULE PO SCH ×2 (09:32→17:40)
[2018-10-29] MEDS: TAMSULOSIN HCL 0.4 MG CAP.SR.24H PO SCH (09:32)
[2018-10-29] MEDS: FINASTERIDE 5 MG TABLET PO SCH (09:33)
[2018-10-29] MEDS: POLYETHYLENE GLYCOL 3350 POWDER 17 GM/1 PACKET PO SCH (09:33)
[2018-10-29] MEDS: CHOLECALCIFEROL (D3) 1,000 UNIT TABLET PO SCH (09:33)
[2018-10-29] MEDS: FAMOTIDINE 20 MG TABLET PO SCH (09:33)
[2018-10-29] MEDS: LIDOCAINE 5% (700 MG) TRANSDERMAL ADH..PATCH TP SCH (09:33)
[2018-10-29] MEDS: CYANOCOBALAMIN (VITAMIN B-12) 1,000 MCG TABLET PO SCH (09:33)
[2018-10-29] MEDS: AMLODIPINE BESYLATE 10 MG TABLET PO SCH (09:33)
--- NOTE | 2018-10-29 10:41 | PDOC PROGRESS REPORT ---
Subjective Progress Note for:: 10/29/18 Subjective:: 10/25/2018 83 year old male who presented to the emergency room with a one-week history of gradually worsening weakness. He indicates that his problems began several weeks ago when he apparently injured his back while moving a large flowerpot. He subsequently had an evaluation performed utilizing a CT/MRI which revealed bulging disks and some collapsed vertebrae which were treated with an injection of some type. Approximately 1 week ago he received a steroid in jection in his left hip performed by his primary care physician and also another injection 1 day later given in the emergency room here at [facility]. Since that time he has gradually worsening weakness, his blood sugars have been running high and there has been no relief of his back pain which he now rates as extremely severe. His pain is a constant, continuous, sharp grinding/grating sensation in his left lower back radiating to the left hip area. The pain is somewhat relieved with rest and is significantly exacerbated by movement or weightbearing. His attempt to control his blood sugar with insulin has failed and he has become more lethargic and weak. He additionally admits the associated symptoms of decreased appetite with the increased pain in his back since his injury. He admits that this pain is an increased level of the pain that he has chronically. In the emergency room he was found to have no significant changes in his laboratory evaluation from his baseline with the exception of a mild hyperkalemia and a acute on chronic renal insufficiency. He was subsequently admitted to hospital for further evaluation and treatment. 10/25/2018-patient is more alert and awake communicating better today. MRI of the brain CT head was negative. Blood sugars are improving. His appetite is improving. Calcium levels are still high we going to repeat the potassium level again. Repeat potassium is 5.9. Started on Veltassa. 10/26/2018-no acute events in the last 24 hours. Patient is comfortable in the chair. Afebrile. Pain-free. Communicating very well. His wrist requesting something for bowel movement. 10/27/2018-no acute events in the last 24 hours. Patient is afebrile. Patient said pain is well controlled. Family is happy that his appetite is coming back. Finally potassium is back to normal. Patient does not have any bowel movement for the last 4 days. We are going to try GoLYTELY. Family is concerned about his chronic back pain usually they go to pain management clinic so consult placed for Dr. Huerta. 10/28/2018 patient's blood sugar dropped to 51 around 2 AM this morning he started sweating and the nurse took the blood sugar turned out to be 51. At this present time blood sugar is 89. His blood sugars are fluctuating. Around 6:30 PM yesterday blood sugar is 435. Plan is to discontinue his glipizide from this evening and increase the Lantus to 25 units twice daily continue the sliding scale. Plan is to hold his Lantus this morning. Patient is also does not have any bowel movement. We tried in the mass to be tried Dulcolax suppositories to be tried GoLYTELY we tried magnesium citrate nothing is helping. We are going to try soapsuds edema today. 10/29/2018-no acute events in the last 24 hours. Patient is afebrile. Had a large bowel movement yesterday. Cultures came back positive for Proteus mirabilis am going to start him on Cipro 500 mg p.o. daily. Family prefers the patient to go to [facility]. Reason For Visit: PROGRESSIVE GENERALIZED WEAKNESS, WITH Physical Exam Vital Signs: Temp Pulse Resp BP Pulse Ox 98.5 F 64 15 119/54 L 98 10/29/18 07:24 10/29/18 07:24 10/29/18 07:24 10/29/18 07:24 10/29/18 07:24 Intake & Output 10/28/18 10/29/18 10/30/18 06:59 06:59 06:59 Intake Total 1720 700 Output Total 700 200 Balance 1020 500 Weight 64.2 kg 64.4 kg General appearance: PRESENT: no acute distress Head exam: PRESENT: atraumatic Eye exam: PRESENT: PERRLA Neck exam: ABSENT: carotid bruit, JVD, lymphadenopathy, thyromegaly Respiratory exam: PRESENT: clear to auscultation kevin. ABSENT: rales, rhonchi, wheezes Cardiovascular exam: PRESENT: RRR. ABSENT: diastolic murmur, rubs, systolic murmur GI/Abdominal exam: PRESENT: normal bowel sounds, soft. ABSENT: distended, guarding, mass, organolmegaly, rebound, tenderness Extremities exam: PRESENT: full ROM. ABSENT: calf tenderness, clubbing, pedal edema Neurological exam: PRESENT: alert, awake, oriented to person, oriented to place, oriented to time, oriented to situation, CN II-XII grossly intact. ABSENT: motor sensory deficit Psychiatric exam: PRESENT: appropriate affect, normal mood. ABSENT: homicidal ideation, suicidal ideation Results Laboratory Results: 10/29/18 07:05 10/29/18 07:05 10/29/18 10/29/18 07:05 07:05 WBC 10.0 RBC 3.09 L Hgb 9.9 L Hct 28.6 L MCV 93 MCH 31.9 MCHC 34.5 RDW 14.5 H Plt Count 139 L Seg Neutrophils % 80.7 H Lymphocytes % 8.7 L Monocytes % 10.3 Eosinophils % 0.1 Basophils % 0.2 Absolute Neutrophils 8.1 Absolute Lymphocytes 0.9 Absolute Monocytes 1.0 Absolute Eosinophils 0.0 Absolute Basophils 0.0 Sodium 134.3 L Potassium 5.0 Chloride 100 Carbon Dioxide 27 Anion Gap 7 BUN 75 H Creatinine 1.45 H Est GFR ( Amer) 56 L Est GFR (Non-Af Amer) 46 L Glucose 145 H Calcium 8.2 L Magnesium 2.8 H Total Bilirubin 0.4 AST 39 ALT 30 Alkaline Phosphatase 52 Total Protein 4.7 L Albumin 2.8 L 10/27/18 15:50 Clean Catch Midstream Urine Culture - Final Proteus Mirabilis 10/24/18 10/25/18 10/25/18 20:14 03:20 03:20 Creatine Kinase 249 H CK-MB (CK-2) 5.17 H Troponin I 0.054 0.044 10/25/18 10/25/18 10/25/18 09:07 09:07 14:33 Creatine Kinase 189 H 133 CK-MB (CK-2) 4.05 Troponin I 0.046 10/25/18 14:33 Creatine Kinase CK-MB (CK-2) 2.62 Troponin I 0.035 Impressions: Head MRI 10/25/18 00:00 IMPRESSION: Prominence of the ventricles out of proportion to sulci. Question normal pressure hydrocephalus. Clinical correlation recommended. 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 Minimal white matter disease. EVIDENCE OF ACUTE STROKE: NO. Head CT 10/25/18 01:24 IMPRESSION: Diffuse atrophy with small vessel ischemic change TECHNICAL DOCUMENTATION: Quality ID # [id number]: Final reports with documentation of one or more dose reduction techniques (e.g., Automated exposure control, adjustment of the mA and/or kV according to patient size, use of iterative reconstruction technique) copyright 2011 [employer]- All Rights Reserved KUB X-Ray 10/28/18 00:00 IMPRESSION: 1. Moderate fecal residue scattered throughout the colon. 2. Nonspecific and nonobstructive bowel gas pattern. 3. Prior L4 cement augmentation. Assessment & Plan - Diagnosis (1) Acute kidney injury (nontraumatic) Is this a current diagnosis for this admission?: Yes Plan: Patient was given IV fluids in an attempt to reverse the effect of excessive diuresis and decreased intake the last week. 10/25/2018-acute kidney injury most likely secondary to prerenal causes. With IV fluids it is improved to 1.3 today. 10/26/2018-patient was admitted with acute kidney injury with creatinine 1.93, it is 1.59 today. Acute kidney injury most likely prerenal. Taking Bumex at home. Which was stopped. Plan is to stop his losartan also today. To recheck his la bs again tomorrow. Patient is nonoliguric. 10/27/2018-patient admitted with acute kidney injury with creatinine 1.93 today's creatinine is 1.69. Acute kidney injury most likely prerenal. Bumex was discontinued. Blood pressure today is 157/54. Losartan was discontinued yesterday. Patient was encouraged to drink plenty of fluids. We are going to continue to monitor the renal function on daily basis. 10/28/2018-patient is admitted with acute kidney injury with creatinine of 1.93. Today's creatinine is 1.65. Improvement in creatinine. His baseline creatinine around 1.3. Patient is encouraged to drink more fluids. Plan to do the daily renal panel. 10/29/2018-patient is admitted with acute kidney injury admission creatinine is 1.93. Creatinine today is 1.45 baseline creatinine is 1.3. Acute kidney injury secondary to prerenal causes improved. (2) Intractable pain Is this a current diagnosis for this admission?: Yes Plan: Patient will be admitted for further evaluation and treatment with addressing his back pain with a reasonable approach to chronic pain therapy and dealing with acute exacerbations. This will require use of morphine 2-4 mg IV every 2 hours as needed on a sliding scale for pain control. Patient should then be placed on a chronic dose of morphine with an extended release form and an ins tant release form given in combination for long-term pain management and acute breakthrough pain. Another approach to pain management may be acceptable and will be at the discretion of hospitalist managing the patient. 10/25/2018-patient was admitted with intractable pain. He is on IV morphine sli ding scale. Physical therapy consult was requested. aT the time of examination patient said pain scale is 0. Physical therapy consult was requested. 10/26/2018-patient is not complaining of any pain at present he is comfortable in the chair. Physical therapy is working with the patient. He is on modified sliding scale. Plan is to continue the present management. 10/27/2018-patient is on IV morphine as needed no complaints of pain today. Family's main concern is constipation at this time. We are going to give GoLYTELY to him. 10/28/2018-patient admitted with intractable pain. Pain is well controlled. He is getting IV morphine on as-needed basis. Presently severely constipated we go ing to try soapsuds enema. 10/29/2018 patient still having the occasional severe back pains. Is getting morphine on as-needed basis. Plan is to continue the present management. (3) Insulin dependent diabetes mellitus Is this a current diagnosis for this admission?: Yes Plan: Along with a diabetic diet the patient will be continued on an insulin regiment for management of his diabetes with the use of Lantus and a sliding scale insulin in the form of Humulin R to bring his blood sugar under adequate control. 10/25/2018-patient's hemoglobin A1c is 11.2. Is on insulin sliding scale. I started him on Lantus 10 units twice a day. Latest blood sugar is 437. We are going to check the labs again tomorrow. Dietary consult was requested. 10/26/2017-latest blood sugar is 223. He is on Lantus 10 units twice a day and is also insulin sliding scale. Plan is to increase the Lantus to 15 units twice a day and continue to closely monitor the blood sugars. 10/27/2018 finally blood sugars are controlled. Blood sugar is 106 today. Presently on Lantus 15 units twice a day, on glipizide 10 mg p.o. daily and insulin sliding scale. plan is to continue the present management .dietary consult was requested. 10/28/2018 patient hemoglobin A1c is 11.2 gently he is on Lantus 20 units twice a day glipizide 10 mg daily his blood sugar dropped to 51 last night he already received glipizide this morning. Be going to hold his Lantus to his morning dose. Continue to do the sliding scale. And plan to give Lantus 25 units from [employer]. . 10/29/2018-blood sugar this morning is 139 the blood sugars are stable last night. Presently on Lantus 25 units twice a day. Glipizide was discontinued. Plan is to continue the present management. (4) Hypertension Qualifiers: Hypertension type: essential hypertension Qualified Code(s): I10 - Essential (primary) hypertension Is this a current diagnosis for this admission?: Yes Plan: 10/25/2018 patient blood pressure today is 124/52 with pulse rate 76 he is on Bumex 1 mg p.o. daily which was discontinued. 10/26/2018-patient blood pressure today is 122/54. We are going to hold his losartan for today. 10/27/2018-patient blood pressure today is 157/54 presently on amlodipine 10 mg daily hydrochlorothiazide 12.5 mg p.o. daily plan is to continue the present management. 10/28/2018 patient blood pressure is 119/51 with pulse rate of 69 blood pressure is well-controlled presently on amlodipine 10 mg daily, hydrochlorothiazide 25 mg p.o. daily. 10/29/2018-patient blood pressure today is 119/54 with pulse rate of 64 blood pressure is well controlled he is on amlodipine 10 mg daily, hydrochlorothiazide 25 mg p.o. daily plan is to continue the present management. (5) Chronic pain syndrome Is this a current diagnosis for this admission?: Yes Plan: 10/25/2018-patient has a chronic pain syndrome he is on morphine sliding scale. Pain is relatively controlled now. Physical therapy consult was requested. 10/26/2018-patient has chronic pain syndrome most likely secondary to spinal sten osis. Physical therapy consult was requested he is on IV morphine on as needed basis. 10/28/2018-patient is admitted with chronic pain syndrome secondary to spinal stenosis. His pain is relatively controlled well. 10/29/2018 patient has chronic pain syndrome with opioid dependent. Presently is on morphine. Pain is relatively controlled. (6) Hyperkalemia Is this a current diagnosis for this admission?: Yes Plan: 10/26/2018-patient potassium level 6.2 today started on Veltassa yesterday. Plan is to hold losartan for today. Hyperkalemia most likely secondary to acute on chronic kidney injury. To recheck the labs tomorrow morning. 10/27/2018-serum potassium level is 4.9 today he still did not have any bowel movement for the last 4 days we going to give GoLYTELY. Hopefully it may help in decreasing the potassium levels. 10/28/2018 patient potassium is 4.5 today hyperkalemia is resolved. 10/29/2018-patient potassium level is 5.0 today today .hyperkalemia is resolved. - Time Time Spent with patient: 25-34 minutes Medications reviewed and adjusted accordingly: Yes Anticipated discharge: SN[facility]
[2018-10-29] MEDS: INSULIN REG, HUMAN 100 UNIT/ML 3 ML VIAL (PYX) SUBCUT PRN ×3 (11:50→22:44)
[2018-10-29] MEDS: ATORVASTATIN CALCIUM 40 MG TABLET PO SCH (22:45)
[2018-10-30] MEDS: MORPHINE SULFATE IR 15 MG TABLET PO PRN ×2 (01:00→08:15)
[2018-10-30] MEDS: HEPARIN SOD (PORCINE) 5,000 UNIT/ML 1 ML SYRINGE SUBCUT SCH ×3 (05:45→22:23)
[2018-10-30 07:42] LABS: ABSOLUTE LYMPHOCYTES (AUTO) 0.8 10^3/uL (0.5-4.7); ABSOLUTE MONOCYTES (AUTO) 0.8 10^3/uL (0.1-1.4); ABSOLUTE NEUT (AUTO) 6.2 10^3/uL (1.7-8.2); BASOPHILS % (AUTO) 0.4 % (0-2); EOSINOPHILS % (AUTO) 0.4 % (0-6); HEMATOCRIT 27.4 % (37.9-51.0); HEMOGLOBIN 9.3 g/dL (13.5-17.0); LYMPHOCYTES % (AUTO) 10.5 % (13-45); MEAN CORPUSCULAR HEMOGLOBIN 31.6 pg (27.0-33.4); MEAN CORPUSCULAR HGB CONC 34.1 g/dL (32.0-36.0); MEAN CORPUSCULAR VOLUME 93 fl (80-97); MONOCYTES % (AUTO) 10.5 % (3-13); PLATELET COUNT 148 10^3/uL (150-450); RED BLOOD COUNT 2.96 10^6/uL (4.35-5.55); RED CELL DISTRIBUTION WIDTH 14.4 % (11.5-14.0); SEGMENTED NEUTROPHILS % (AUTO) 78.2 % (42-78); TOTAL CELLS COUNTED % (AUTO) 100 %; WHITE BLOOD COUNT 7.9 10^3/uL (4.0-10.5)
[2018-10-30 08:11] LABS: ALANINE AMINOTRANSFERASE 32 U/L (21-72); ALBUMIN 2.7 g/dL (3.5-5.0); ALKALINE PHOSPHATASE 46 U/L (38-126); ASPARTATE AMINO TRANSFERASE 35 U/L (17-59); BILIRUBIN,DIRECT 0.3 mg/dL (0.0-0.4); BILIRUBIN,TOTAL 0.4 mg/dL (0.2-1.3); BLOOD UREA NITROGEN 67 mg/dL (7-20); CALCIUM 8.3 mg/dL (8.4-10.2); CARBON DIOXIDE 28 mmol/L (22-30); CHLORIDE 101 mmol/L (98-107); GLUCOSE 162 mg/dL (75-110); POTASSIUM 5.2 mmol/L (3.6-5.0); TOTAL PROTEIN 4.5 g/dL (6.3-8.2)
[2018-10-30 08:16] LABS: SODIUM 132.9 mmol/L (137-145)
[2018-10-30 08:19] LABS: ANION GAP 4 (5-19)
[2018-10-30] MEDS: INSULIN REG, HUMAN 100 UNIT/ML 3 ML VIAL (PYX) SUBCUT PRN ×4 (08:47→22:21)
[2018-10-30] MEDS: POLYETHYLENE GLYCOL 3350 POWDER 17 GM/1 PACKET PO SCH (10:58)
[2018-10-30] MEDS: INSULIN GLARGINE,HUM.REC.ANLOG 1,000 UNIT/10 ML UNIT SUBCUT SCH ×2 (10:58→22:22)
[2018-10-30] MEDS: HYDROCHLOROTHIAZIDE 25 MG TABLET PO SCH (10:59)
[2018-10-30] MEDS: DOCUSATE SODIUM 100 MG CAPSULE PO SCH ×2 (10:59→17:31)
[2018-10-30] MEDS: FERROUS SULFATE 325 MG TABLET PO SCH (10:59)
[2018-10-30] MEDS: CYANOCOBALAMIN (VITAMIN B-12) 1,000 MCG TABLET PO SCH (11:00)
[2018-10-30] MEDS: TAMSULOSIN HCL 0.4 MG CAP.SR.24H PO SCH (11:00)
[2018-10-30] MEDS: CIPROFLOXACIN HCL 500 MG TABLET PO SCH (11:00)
[2018-10-30] MEDS: AMLODIPINE BESYLATE 10 MG TABLET PO SCH (11:00)
[2018-10-30] MEDS: ASPIRIN 81 MG TABLET, ENT COATED PO SCH (11:00)
[2018-10-30] MEDS: FAMOTIDINE 20 MG TABLET PO SCH (11:00)
[2018-10-30] MEDS: CHOLECALCIFEROL (D3) 1,000 UNIT TABLET PO SCH (11:00)
[2018-10-30] MEDS: LIDOCAINE 5% (700 MG) TRANSDERMAL ADH..PATCH TP SCH (11:01)
[2018-10-30] MEDS: FINASTERIDE 5 MG TABLET PO SCH (11:10)
--- NOTE | 2018-10-30 12:43 | PDOC PROGRESS REPORT ---
Subjective Progress Note for:: 10/30/18 Subjective:: 10/25/2018 83 year old male who presented to the emergency room with a one-week history of gradually worsening weakness. He indicates that his problems began several weeks ago when he apparently injured his back while moving a large flowerpot. He subsequently had an evaluation performed utilizing a CT/MRI which revealed bulging disks and some collapsed vertebrae which were treated with an injection of some type. Approximately 1 week ago he received a steroid in jection in his left hip performed by his primary care physician and also another injection 1 day later given in the emergency room here at [facility]. Since that time he has gradually worsening weakness, his blood sugars have been running high and there has been no relief of his back pain which he now rates as extremely severe. His pain is a constant, continuous, sharp grinding/grating sensation in his left lower back radiating to the left hip area. The pain is somewhat relieved with rest and is significantly exacerbated by movement or weightbearing. His attempt to control his blood sugar with insulin has failed and he has become more lethargic and weak. He additionally admits the associated symptoms of decreased appetite with the increased pain in his back since his injury. He admits that this pain is an increased level of the pain that he has chronically. In the emergency room he was found to have no significant changes in his laboratory evaluation from his baseline with the exception of a mild hyperkalemia and a acute on chronic renal insufficiency. He was subsequently admitted to hospital for further evaluation and treatment. 10/25/2018-patient is more alert and awake communicating better today. MRI of the brain CT head was negative. Blood sugars are improving. His appetite is improving. Calcium levels are still high we going to repeat the potassium level again. Repeat potassium is 5.9. Started on Veltassa. 10/26/2018-no acute events in the last 24 hours. Patient is comfortable in the chair. Afebrile. Pain-free. Communicating very well. His wrist requesting something for bowel movement. 10/27/2018-no acute events in the last 24 hours. Patient is afebrile. Patient said pain is well controlled. Family is happy that his appetite is coming back. Finally potassium is back to normal. Patient does not have any bowel movement for the last 4 days. We are going to try GoLYTELY. Family is concerned about his chronic back pain usually they go to pain management clinic so consult placed for Dr. Huerta. 10/28/2018 patient's blood sugar dropped to 51 around 2 AM this morning he started sweating and the nurse took the blood sugar turned out to be 51. At this present time blood sugar is 89. His blood sugars are fluctuating. Around 6:30 PM yesterday blood sugar is 435. Plan is to discontinue his glipizide from this evening and increase the Lantus to 25 units twice daily continue the sliding scale. Plan is to hold his Lantus this morning. Patient is also does not have any bowel movement. We tried in the mass to be tried Dulcolax suppositories to be tried GoLYTELY we tried magnesium citrate nothing is helping. We are going to try soapsuds edema today. 10/29/2018-no acute events in the last 24 hours. Patient is afebrile. Had a large bowel movement yesterday. Cultures came back positive for Proteus mirabilis am going to start him on Cipro 500 mg p.o. daily. Family prefers the patient to go to [facility] halfway. 10/30/2018-no acute events in the last 24 hours. Patient is afebrile. He had a good bowel movement yesterday. Comfortably sitting in the chair eating his lunch. Waiting for halfway placement. Reason For Visit: PROGRESSIVE GENERALIZED WEAKNESS, WITH Physical Exam Vital Signs: Temp Pulse Resp BP Pulse Ox 98.5 F 67 12 125/53 L 98 10/30/18 11:26 10/30/18 11:26 10/30/18 11:26 10/30/18 11:26 10/30/18 11:26 Intake & Output 10/29/18 10/30/18 10/31/18 06:59 06:59 06:59 Intake Total 700 950 Output Total 200 300 Balance 500 650 Weight 64.4 kg 63.5 kg General appearance: PRESENT: no acute distress Head exam: PRESENT: atraumatic Eye exam: PRESENT: PERRLA Neck exam: ABSENT: carotid bruit, JVD, lymphadenopathy, thyromegaly Respiratory exam: PRESENT: clear to auscultation kevin. ABSENT: rales, rhonchi, wheezes Cardiovascular exam: PRESENT: RRR. ABSENT: diastolic murmur, rubs, systolic murmur GI/Abdominal exam: PRESENT: normal bowel sounds, soft. ABSENT: distended, guarding, mass, organolmegaly, rebound, tenderness Extremities exam: PRESENT: full ROM. ABSENT: calf tenderness, clubbing, pedal edema Neurological exam: PRESENT: alert, awake, oriented to person, oriented to place, oriented to time, oriented to situation, CN II-XII grossly intact. ABSENT: motor sensory deficit Psychiatric exam: PRESENT: appropriate affect, normal mood. ABSENT: homicidal ideation, suicidal ideation Results Laboratory Results: 10/30/18 07:26 10/30/18 07:26 10/30/18 10/30/18 07:26 07:26 WBC 7.9 RBC 2.96 L Hgb 9.3 L Hct 27.4 L MCV 93 MCH 31.6 MCHC 34.1 RDW 14.4 H Plt Count 148 L Seg Neutrophils % 78.2 H Lymphocytes % 10.5 L Monocytes % 10.5 Eosinophils % 0.4 Basophils % 0.4 Absolute Neutrophils 6.2 Absolute Lymphocytes 0.8 Absolute Monocytes 0.8 Absolute Eosinophils 0.0 Absolute Basophils 0.0 Sodium 132.9 L Potassium 5.2 H Chloride 101 Carbon Dioxide 28 Anion Gap 4 L BUN 67 H Creatinine 1.19 Est GFR ( Amer) > 60 Est GFR (Non-Af Amer) 58 L Glucose 162 H Calcium 8.3 L Magnesium 2.9 H Total Bilirubin 0.4 AST 35 ALT 32 Alkaline Phosphatase 46 Total Protein 4.5 L Albumin 2.7 L 10/27/18 15:50 Clean Catch Midstream Urine Culture - Final Proteus Mirabilis 10/24/18 10/25/18 10/25/18 20:14 03:20 03:20 Creatine Kinase 249 H CK-MB (CK-2) 5.17 H Troponin I 0.054 0.044 10/25/18 10/25/18 10/25/18 09:07 09:07 14:33 Creatine Kinase 189 H 133 CK-MB (CK-2) 4.05 Troponin I 0.046 10/25/18 14:33 Creatine Kinase CK-MB (CK-2) 2.62 Troponin I 0.035 Impressions: Head MRI 10/25/18 00:00 IMPRESSION: Prominence of the ventricles out of proportion to sulci. Question normal pressure hydrocephalus. Clinical correlation recommended. 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 Minimal white matter disease. EVIDENCE OF ACUTE STROKE: NO. Head CT 10/25/18 01:24 IMPRESSION: Diffuse atrophy with small vessel ischemic change TECHNICAL DOCUMENTATION: Quality ID # 436: Final reports with documentation of one or more dose reduction techniques (e.g., Automated exposure control, adjustment of the mA and/or kV according to patient size, use of iterative reconstruction technique) copyright 2011 [employer]- All Rights Reserved KUB X-Ray 10/28/18 00:00 IMPRESSION: 1. Moderate fecal residue scattered throughout the colon. 2. Nonspecific and nonobstructive bowel gas pattern. 3. Prior L4 cement augmentation. Assessment & Plan - Diagnosis (1) Acute kidney injury (nontraumatic) Is this a current diagnosis for this admission?: Yes Plan: Patient was given IV fluids in an attempt to reverse the effect of excessive diuresis and decreased intake the last week. 10/25/2018-acute kidney injury most likely secondary to prerenal causes. With IV fluids it is improved to 1.3 today. 10/26/2018-patient was admitted with acute kidney injury with creatinine 1.93, it is 1.59 today. Acute kidney injury most likely prerenal. Taking Bumex at home. Which was stopped. Plan is to stop his losartan also today. To recheck his l abs again tomorrow. Patient is nonoliguric. 10/27/2018-patient admitted with acute kidney injury with creatinine 1.93 today's creatinine is 1.69. Acute kidney injury most likely prerenal. Bumex was discontinued. Blood pressure today is 157/54. Losartan was discontinued yesterday. Patient was encouraged to drink plenty of fluids. We are going to continue to monitor the renal function on daily basis. 10/28/2018-patient is admitted with acute kidney injury with creatinine of 1.93. Today's creatinine is 1.65. Improvement in creatinine. His baseline creatinine around 1.3. Patient is encouraged to drink more fluids. Plan to do the daily renal panel. 10/29/2018-patient is admitted with acute kidney injury admission creatinine is 1.93. Creatinine today is 1.45 baseline creatinine is 1.3. Acute kidney injury secondary to prerenal causes improved. 10/30/2018-patient is admitted with acute kidney injury with creatinine of 1.93, today it is 1.2 it is at baseline now acute on chronic kidney injury most likely prerenal is resolved. (2) Intractable pain Is this a current diagnosis for this admission?: Yes Plan: Patient will be admitted for further evaluation and treatment with addressing his back pain with a reasonable approach to chronic pain therapy and dealing with acute exacerbations. This will require use of morphine 2-4 mg IV every 2 hours as needed on a sliding scale for pain control. Patient should then be placed on a chronic dose of morphine with an extended release form and an instant release form given in combination for long-term pain management and acute breakthrough pain. Another approach to pain management may be acceptable and will be at the discretion of hospitalist managing the patient. 10/25/2018-patient was admitted with intractable pain. He is on IV morphine sliding scale. Physical therapy consult was requested. aT the time of examination patient said pain scale is 0. Physical therapy consult was requested. 10/26/2018-patient is not complaining of any pain at present he is comfortable in the chair. Physical therapy is working with the patient. He is on modified sliding scale. Plan is to continue the present management. 10/27/2018-patient is on IV morphine as needed no complaints of pain today. Family's main concern is constipation at this time. We are going to give GoLYTELY to him. 10/28/2018-patient admitted with intractable pain. Pain is well controlled. He is getting IV morphine on as-needed basis. Presently severely constipated we going to try soapsuds enema. 10/29/2018 patient still having the occasional severe back pains. Is getting morphine on as-needed basis. Plan is to continue the present management. 10/30/2018-patient is pain-free today he is on IV morphine on as-needed basis. Physical therapy consult and social service agency director consult was placed again today family is really interested in patient going to a rehab facility. (3) Insulin dependent diabetes mellitus Is this a current diagnosis for this admission?: Yes Plan: Along with a diabetic diet the patient will be continued on an insulin regiment for management of his diabetes with the use of Lantus and a sliding scale insulin in the form of Humulin R to bring his blood sugar under adequate control. 10/25/2018-patient's hemoglobin A1c is 11.2. Is on insulin sliding scale. I started him on Lantus 10 units twice a day. Latest blood sugar is 437. We are going to check the labs again tomorrow. Dietary consult was requested. 10/26/2017-latest blood sugar is 223. He is on Lantus 10 units twice a day and i s also insulin sliding scale. Plan is to increase the Lantus to 15 units twice a day and continue to closely monitor the blood sugars. 10/27/2018 finally blood sugars are controlled. Blood sugar is 106 today. Presently on Lantus 15 units twice a day, on glipizide 10 mg p.o. daily and insulin sliding scale. plan is to continue the present management .dietary consult was requested. 10/28/2018 patient hemoglobin A1c is 11.2 gently he is on Lantus 20 units twice a day glipizide 10 mg daily his blood sugar dropped to 51 last night he already received glipizide this morning. Be going to hold his Lantus to his morning dose. Continue to do the sliding scale. And plan to give Lantus [address] [facility]. . 10/29/2018-blood sugar this morning is 139 the blood sugars are stable last night. Presently on Lantus 25 units twice a day. Glipizide was discontinued. Plan is to continue the present management. 10/30/2018-patient blood sugar today is 340 is fluctuating. Patient is presently on Lantus 25 units twice a day, he is also on insulin sliding scale before meals and at bedtime we will continue the present management follow him on regular basis. (4) Hypertension Qualifiers: Hypertension type: essential hypertension Qualified Code(s): I10 - Essential (primary) hypertension Is this a current diagnosis for this admission?: Yes Plan: 10/25/2018 patient blood pressure today is 124/52 with pulse rate 76 he is on Bumex 1 mg p.o. daily which was discontinued. 10/26/2018-patient blood pressure today is 122/54. We are going to hold his losartan for today. 10/27/2018-patient blood pressure today is 157/54 presently on amlodipine 10 mg daily hydrochlorothiazide 12.5 mg p.o. daily plan is to continue the present management. 10/28/2018 patient blood pressure is 119/51 with pulse rate of 69 blood pressure is well-controlled presently on amlodipine 10 mg daily, hydrochlorothiazide 25 mg p.o. daily. 10/29/2018-patient blood pressure today is 119/54 with pulse rate of 64 blood pressure is well controlled he is on amlodipine 10 mg daily, hydrochlorothiazide 25 mg p.o. daily plan is to continue the present management. 10/30/2018 patient blood pressure today is 123/53. Stable. Heart rate of 67. Pain 10 mg daily, hydrochlorothiazide 25 mg p.o. daily. Plan is to continue the present management. (5) Chronic pain syndrome Is this a current diagnosis for this admission?: Yes Plan: 10/25/2018-patient has a chronic pain syndrome he is on morphine sliding scale. Pain is relatively controlled now. Physical therapy consult was requested. 10/26/2018-patient has chronic pain syndrome most likely secondary to spinal stenosis. Physical therapy consult was requested he is on IV morphine on as needed basis. 10/28/2018-patient is admitted with chronic pain syndrome secondary to spinal stenosis. His pain is relatively controlled well. 10/29/2018 patient has chronic pain syndrome with opioid dependent. Presently is on morphine. Pain is relatively controlled. 10/30/2018-patient is a chronic pains syndrome dependent on pain medications because of the severe back pains. Plan is to continue the present management. (6) Hyperkalemia Is this a current diagnosis for this admission?: Yes Plan: 10/26/2018-patient potassium level 6.2 today started on Veltassa yesterday. Plan is to hold losartan for today. Hyperkalemia most likely secondary to acute on chronic kidney injury. To recheck the labs tomorrow morning. 10/27/2018-serum potassium level is 4.9 today he still did not have any bowel movement for the last 4 days we going to give GoLYTELY. Hopefully it may help in decreasing the potassium levels. 10/28/2018 patient potassium is 4.5 today hyperkalemia is resolved. 10/29/2018-patient potassium level is 5.0 today today .hyperkalemia is resolved. Today's potassium is 5.2. We have difficulty in controlling his potassium levels. For the last 2 days potassium levels are normal now it is just able to normal today. We could continue his MiraLAX continue as needed Kayexalate to keep the blood potassium levels below 5. - Time Time Spent with patient: 15-24 minutes Medications reviewed and adjusted accordingly: Yes Anticipated discharge: Home
[2018-10-30] MEDS: ATORVASTATIN CALCIUM 40 MG TABLET PO SCH (22:23)
[2018-10-31 05:37] LABS: ABSOLUTE LYMPHOCYTES (AUTO) 0.9 10^3/uL (0.5-4.7); ABSOLUTE MONOCYTES (AUTO) 0.8 10^3/uL (0.1-1.4); ABSOLUTE NEUT (AUTO) 5.5 10^3/uL (1.7-8.2); BASOPHILS % (AUTO) 0.4 % (0-2); EOSINOPHILS % (AUTO) 0.5 % (0-6); HEMATOCRIT 28.1 % (37.9-51.0); HEMOGLOBIN 9.7 g/dL (13.5-17.0); LYMPHOCYTES % (AUTO) 11.9 % (13-45); MEAN CORPUSCULAR HEMOGLOBIN 31.9 pg (27.0-33.4); MEAN CORPUSCULAR HGB CONC 34.5 g/dL (32.0-36.0); MEAN CORPUSCULAR VOLUME 92 fl (80-97); PLATELET COUNT 144 10^3/uL (150-450); RED BLOOD COUNT 3.04 10^6/uL (4.35-5.55); RED CELL DISTRIBUTION WIDTH 14.1 % (11.5-14.0); SEGMENTED NEUTROPHILS % (AUTO) 76.2 % (42-78); TOTAL CELLS COUNTED % (AUTO) 100 %; WHITE BLOOD COUNT 7.2 10^3/uL (4.0-10.5)
[2018-10-31] MEDS: HEPARIN SOD (PORCINE) 5,000 UNIT/ML 1 ML SYRINGE SUBCUT SCH ×3 (05:50→21:40)
[2018-10-31 06:05] LABS: ALANINE AMINOTRANSFERASE 45 U/L (21-72); ALBUMIN 2.8 g/dL (3.5-5.0); ALKALINE PHOSPHATASE 52 U/L (38-126); ASPARTATE AMINO TRANSFERASE 31 U/L (17-59); BILIRUBIN,DIRECT 0.2 mg/dL (0.0-0.4); BILIRUBIN,TOTAL 0.3 mg/dL (0.2-1.3); BLOOD UREA NITROGEN 63 mg/dL (7-20); CALCIUM 8.2 mg/dL (8.4-10.2); GLUCOSE 180 mg/dL (75-110); POTASSIUM 5.5 mmol/L (3.6-5.0); TOTAL PROTEIN 4.8 g/dL (6.3-8.2)
[2018-10-31 06:28] LABS: ANION GAP 7 (5-19); CARBON DIOXIDE 25 mmol/L (22-30); CHLORIDE 101 mmol/L (98-107)
[2018-10-31] MEDS: MORPHINE SULFATE IR 15 MG TABLET PO PRN ×2 (08:36→21:39)
[2018-10-31] MEDS ORDERED: SODIUM POLYSTYRENE SULFONATE 15 GM/60 ML PO ONE (09:00)
--- NOTE | 2018-10-31 10:24 | EKG REPORT ---
SEVERITY:- NORMAL ECG - SINUS RHYTHM : Confirmed by: Ha Mabry 31-Oct-2018 10:24:18
[2018-10-31] MEDS: LIDOCAINE 5% (700 MG) TRANSDERMAL ADH..PATCH TP SCH (10:32)
[2018-10-31] MEDS: HYDROCHLOROTHIAZIDE 25 MG TABLET PO SCH (10:35)
[2018-10-31] MEDS: FAMOTIDINE 20 MG TABLET PO SCH (10:36)
[2018-10-31] MEDS: TAMSULOSIN HCL 0.4 MG CAP.SR.24H PO SCH (10:36)
[2018-10-31] MEDS: DOCUSATE SODIUM 100 MG CAPSULE PO SCH ×2 (10:36→17:51)
[2018-10-31] MEDS: FERROUS SULFATE 325 MG TABLET PO SCH (10:36)
[2018-10-31] MEDS: AMLODIPINE BESYLATE 10 MG TABLET PO SCH (10:36)
[2018-10-31] MEDS: CYANOCOBALAMIN (VITAMIN B-12) 1,000 MCG TABLET PO SCH (10:36)
[2018-10-31] MEDS: ASPIRIN 81 MG TABLET, ENT COATED PO SCH (10:36)
[2018-10-31] MEDS: CHOLECALCIFEROL (D3) 1,000 UNIT TABLET PO SCH (10:36)
[2018-10-31] MEDS: CIPROFLOXACIN HCL 500 MG TABLET PO SCH (10:37)
[2018-10-31] MEDS: POLYETHYLENE GLYCOL 3350 POWDER 17 GM/1 PACKET PO SCH (10:37)
[2018-10-31] MEDS: INSULIN GLARGINE,HUM.REC.ANLOG 1,000 UNIT/10 ML UNIT SUBCUT SCH ×2 (10:37→21:39)
[2018-10-31] MEDS: FINASTERIDE 5 MG TABLET PO SCH (10:37)
[2018-10-31] MEDS: INSULIN REG, HUMAN 100 UNIT/ML 3 ML VIAL (PYX) SUBCUT PRN ×3 (12:07→21:39)
[2018-10-31] MEDS: MORPHINE SULFATE 10 MG/ML INJ IV PRN (13:25)
[2018-10-31] MEDS ORDERED: PATIROMER 8.4 GM SUSP PACKET PO SCH (17:00)
--- NOTE | 2018-10-31 17:56 | PDOC PROGRESS REPORT ---
Subjective Progress Note for:: 10/31/18 Subjective:: The patient is an 83-year-old male with past medical history of hypertension, DM 2, CKD, arthritis and chronic back pain who was admitted 10/25/2018 for intractable back pain and AK I. The patient was seen on morning rounds. He was found resting in bed, really on room air. He reports that he is feeling well today and has no questions or concerns. He is looking forward to discharge to SNF and expresses appreciation for the care he has received here. He denies fever, chills, chest pain, palpitations, dyspnea, orthopnea, abdominal pain, nausea vomiting and diarrhea. He reports good appetite has just finished his lunch. He has no questions or concerns at this time. No concerns per nursing. Reason For Visit: PROGRESSIVE GENERALIZED WEAKNESS, WITH Physical Exam Vital Signs: Temp Pulse Resp BP Pulse Ox 97.8 F 66 16 142/55 H 97 10/31/18 15:14 10/31/18 15:14 10/31/18 15:14 10/31/18 15:14 10/31/18 15:14 Intake & Output 10/30/18 10/31/18 11/01/18 06:59 06:59 06:59 Intake Total 950 800 717 Output Total 300 Balance 650 800 717 Weight 63.5 kg 64.5 kg General appearance: PRESENT: no acute distress, cooperative, thin, well- developed, well-nourished Head exam: PRESENT: atraumatic, normocephalic Eye exam: PRESENT: conjunctiva pink, EOMI, PERRLA. ABSENT: scleral icterus Mouth exam: PRESENT: moist, tongue midline Respiratory exam: PRESENT: clear to auscultation kevin. ABSENT: rales, rhonchi, wheezes Cardiovascular exam: PRESENT: RRR. ABSENT: diastolic murmur, rubs, systolic murmur Pulses: PRESENT: normal dorsalis pedis pul GI/Abdominal exam: PRESENT: normal bowel sounds, soft. ABSENT: distended, guarding, mass, organolmegaly, rebound, tenderness Rectal exam: PRESENT: deferred Extremities exam: PRESENT: full ROM. ABSENT: calf tenderness, clubbing, pedal edema Neurological exam: PRESENT: alert, awake, oriented to person, oriented to place, oriented to time, oriented to situation, CN II-XII grossly intact. ABSENT: motor sensory deficit Psychiatric exam: PRESENT: appropriate affect, normal mood. ABSENT: homicidal ideation, suicidal ideation Skin exam: PRESENT: dry, intact, warm. ABSENT: cyanosis, rash Results Laboratory Results: 10/31/18 04:34 10/31/18 04:34 10/31/18 10/31/18 04:34 04:34 WBC 7.2 RBC 3.04 L Hgb 9.7 L Hct 28.1 L MCV 92 MCH 31.9 MCHC 34.5 RDW 14.1 H Plt Count 144 L Seg Neutrophils % 76.2 Lymphocytes % 11.9 L Monocytes % 11.0 Eosinophils % 0.5 Basophils % 0.4 Absolute Neutrophils 5.5 Absolute Lymphocytes 0.9 Absolute Monocytes 0.8 Absolute Eosinophils 0.0 Absolute Basophils 0.0 Sodium 133.0 L Potassium 5.5 H Chloride 101 Carbon Dioxide 25 Anion Gap 7 BUN 63 H Creatinine 1.20 Est GFR ( Amer) > 60 Est GFR (Non-Af Amer) 58 L Glucose 180 H Calcium 8.2 L Magnesium 3.0 H Total Bilirubin 0.3 AST 31 ALT 45 Alkaline Phosphatase 52 Total Protein 4.8 L Albumin 2.8 L 10/24/18 10/25/18 10/25/18 20:14 03:20 03:20 Creatine Kinase 249 H CK-MB (CK-2) 5.17 H Troponin I 0.054 0.044 10/25/18 10/25/18 10/25/18 09:07 09:07 14:33 Creatine Kinase 189 H 133 CK-MB (CK-2) 4.05 Troponin I 0.046 10/25/18 14:33 Creatine Kinase CK-MB (CK-2) 2.62 Troponin I 0.035 Impressions: Head MRI 10/25/18 00:00 IMPRESSION: Prominence of the ventricles out of proportion to sulci. Question normal pressure hydrocephalus. Clinical correlation recommended. 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 Minimal white matter disease. EVIDENCE OF ACUTE STROKE: NO. Head CT 10/25/18 01:24 IMPRESSION: Diffuse atrophy with small vessel ischemic change TECHNICAL DOCUMENTATION: Quality ID # 436: Final reports with documentation of one or more dose reduction techniques (e.g., Automated exposure control, adjustment of the mA and/or kV according to patient size, use of iterative reconstruction technique) copyright 2011 [employer]- All Rights Reserved KUB X-Ray 10/28/18 00:00 IMPRESSION: 1. Moderate fecal residue scattered throughout the colon. 2. Nonspecific and nonobstructive bowel gas pattern. 3. Prior L4 cement augmentation. Assessment & Plan - Diagnosis (1) Acute kidney injury (nontraumatic) Is this a current diagnosis for this admission?: Yes Plan: Resolved; patient was admitted with a creatinine of 1.34 that increased to 1.92 now returned to baseline of 1.20. BUN is gradually trending down. Continues to have difficulty with hyperkalemia; improved overall. Likely prerenal secondary to poor p.o. intake and excessive diuresis. Losartan and Bumex have been discontinued. Was provided gentle IV fluids and encouraged to increase p.o. fluids. (2) Chronic pain syndrome Is this a current diagnosis for this admission?: Yes Plan: Opiate dependent chronic pain secondary to spinal stenosis. Pain management was consulted with recommendations for morphine IR 50 mg every 6 hours as needed which is tremendously improved the patient's (3) Hyperkalemia Is this a current diagnosis for this admission?: Yes Plan: Slightly worsened today. Hyperkalemia likely secondary to acute on chronic kidney injury while on losartan. Losartan has been discontinued. Veltassa started yesterday, however, this takes several days to become effective. Potassium up to 5.5 this morning; will provide Kayexalate x1 and continue Veltassa. If stabilized or improved tomorrow, make proceed with plans to discharge to SNF with recommendation to repeat BMP by SNF provider in 2-3 days. (4) Hypertension Qualifiers: Hypertension type: essential hypertension Qualified Code(s): I10 - Essential (primary) hypertension Is this a current diagnosis for this admission?: Yes Plan: Acceptable for age; 142/55 Continue amlodipine 10 mg daily, hydrochlorothiazide 12.5 mg daily Cardiac diet. (5) Insulin dependent diabetes mellitus Is this a current diagnosis for this admission?: Yes Plan: Consistent carb diet. Accu-Cheks before meals and at bedtime with Humalog for sliding scale coverage. Lantus 30 units twice daily. Hypoglycemia protocol in place. (6) Intractable pain Is this a current diagnosis for this admission?: Yes Plan: Resolved; patient is now relatively comfortable. Pain management consultation was obtained; appreciate [facility]'s assistance. Continue Morphine IR 15 mg p.o. every 6 hours as needed. - Time Time Spent with patient: 15-24 minutes Medications reviewed and adjusted accordingly: Yes Anticipated discharge: SNF Within: within 24 hours
[2018-10-31] MEDS: ATORVASTATIN CALCIUM 40 MG TABLET PO SCH (21:39)
[2018-10-31] MEDS ORDERED: PHARMACY COMMUNICATION ORDER MC SCH (22:00)
[2018-11-01] MEDS ORDERED: CIPROFLOXACIN HCL 500 MG TABLET PO SCH (06:00)
[2018-11-01] MEDS: HEPARIN SOD (PORCINE) 5,000 UNIT/ML 1 ML SYRINGE SUBCUT SCH ×2 (06:21→13:32)
[2018-11-01 07:42] LABS: BLOOD UREA NITROGEN 46 mg/dL (7-20); CALCIUM 8.4 mg/dL (8.4-10.2); CARBON DIOXIDE 28 mmol/L (22-30); CHLORIDE 104 mmol/L (98-107); POTASSIUM 5.1 mmol/L (3.6-5.0); SODIUM 136.1 mmol/L (137-145)
[2018-11-01 07:53] LABS: ANION GAP 4 (5-19)
[2018-11-01 07:55] LABS: GLUCOSE 61 mg/dL (75-110)
[2018-11-01 08:34] VITALS: BP 140/58
[2018-11-01] MEDS: MORPHINE SULFATE IR 15 MG TABLET PO PRN (09:57)
[2018-11-01] MEDS: INSULIN GLARGINE,HUM.REC.ANLOG 1,000 UNIT/10 ML UNIT SUBCUT SCH (10:20)
[2018-11-01] MEDS: TAMSULOSIN HCL 0.4 MG CAP.SR.24H PO SCH (10:21)
[2018-11-01] MEDS: AMLODIPINE BESYLATE 10 MG TABLET PO SCH (10:21)
[2018-11-01] MEDS: HYDROCHLOROTHIAZIDE 25 MG TABLET PO SCH (10:21)
[2018-11-01] MEDS: CHOLECALCIFEROL (D3) 1,000 UNIT TABLET PO SCH (10:21)
[2018-11-01] MEDS: FINASTERIDE 5 MG TABLET PO SCH (10:22)
[2018-11-01] MEDS: DOCUSATE SODIUM 100 MG CAPSULE PO SCH (10:22)
[2018-11-01] MEDS: CYANOCOBALAMIN (VITAMIN B-12) 1,000 MCG TABLET PO SCH (10:22)
[2018-11-01] MEDS: LIDOCAINE 5% (700 MG) TRANSDERMAL ADH..PATCH TP SCH (10:22)
[2018-11-01] MEDS: ASPIRIN 81 MG TABLET, ENT COATED PO SCH (10:22)
[2018-11-01] MEDS: FAMOTIDINE 20 MG TABLET PO SCH (10:22)
[2018-11-01] MEDS: POLYETHYLENE GLYCOL 3350 POWDER 17 GM/1 PACKET PO SCH (10:22)
[2018-11-01] MEDS: FERROUS SULFATE 325 MG TABLET PO SCH (10:22)
--- NOTE | 2018-11-01 13:23 | PDOC TRANSFER SUMMARY ---
General - Admit/Disc Date/PCP Admission Date/Primary Care Provider: 10/25/18 02:10 ELIUD GARCIA MD Discharge Date: 11/01/18 - Discharge Diagnosis (1) Acute kidney injury (nontraumatic) Is this a current diagnosis for this admission?: Yes Summary: Resolved; patient was admitted with a creatinine of 1.34 that increased to 1.92 now returned to baseline of 1.20. BUN is gradually trending down. Continues to have difficulty with hyperkalemia; improved overall. Likely prerenal secondary to poor p.o. intake and excessive diuresis. Losartan and Bumex have been discontinued. Was provided gentle IV fluids and encouraged to increase p.o. fluids. Recommend follow-up BMP in 3-5 days. The patient is discharged to [facility] for continued physical therapy. He is in stable condition, maintaining oxygen saturations on room air, with adequately controlled pain. Recommend follow-up appointment with primary care provider within 1 week. Keep follow-up appointment with Dr. Washburn scheduled for 11/21/2018 at 3:15 PM. Return to the emergency department as needed for concerning symptoms. (2) Chronic pain syndrome Is this a current diagnosis for this admission?: Yes Summary: Opiate dependent chronic pain secondary to spinal stenosis. Pain management was consulted with recommendations for morphine IR 15 mg every 6 hours as needed. Trend is improvement in the patient's chronic pain. Keep follow-up appointment with Dr. Washburn as scheduled. (3) Hyperkalemia Is this a current diagnosis for this admission?: Yes Summary: Improved today. Hyperkalemia likely secondary to acute on chronic kidney injury while on losartan. Losartan has been discontinued. Veltassa started this admission, however, this takes several days to become effective. He was provided Kayexalate x1. He is discharged with prescription to continue for Veltassa daily. Recommend follow-up BMP in 3-5 days; hopefully the hyperkalemia will have no rmalized and patient will no longer require Veltassa. (4) Hypertension Is this a current diagnosis for this admission?: Yes Summary: Acceptable for age Continue amlodipine 10 mg daily, hydrochlorothiazide 12.5 mg daily (5) Insulin dependent diabetes mellitus Is this a current diagnosis for this admission?: Yes Summary: A1c 11.2%. Patient was placed on a consistent carb diet with Accu-Cheks before meals and at bedtime with Humalog for sliding scale coverage. Consistent carb diet. He was placed on Lantus 30 units nightly. He was provided the opportunity to meet with the registered dietitian and clinical staff educator. (6) Intractable pain Is this a current diagnosis for this admission?: Yes Summary: Resolved; patient is now relatively comfortable. Pain management consultation was obtained; pattie [facility]'s assistance. Continue Morphine IR 15 mg p.o. every 6 hours as needed. Follow-up with Dr. Washburn as scheduled. - Additional Information Resuscitation Status: Full Code Discharge Diet: Cardiac, Diabetic Prescriptions: Ciprofloxacin HCl [Cipro 500 mg Tablet] 500 mg PO Q6AM #7 tablet Insulin Glargine,Hum.rec.anlog [Lantus Insulin 100 Unit/1 ml 10 ml] 30 unit SUBC UT Q12 #1 vial Insulin Regular, Human [Humulin R (Reg) Insulin 100 unit/mL] 0 - 15 unit SUBCUT ACHSP PRN #1 vial PRN Reason: Lidocaine [Lidoderm 5% (700 mg) Transdermal Patch] 1 patch TP DAILY #30 a dh..patch Morphine Sulfate [Morphine Ir 15 mg Tablet] 15 mg PO Q6HP PRN #14 tablet PRN Reason: Patiromer Calcium Sorbitex [Veltassa 8.4 gm Susp Packet] 8.4 gm PO WSUPPER #14 packet Home Medications: Atorvastatin Calcium [Lipitor 40 mg Tablet] 40 mg PO QHS 11/09/16 Cholecalciferol (Vitamin D3) [Vitamin D3 1000 Unit Tablet] 1,000 unit PO DAILY 11/09/16 Finasteride [Proscar 5 mg Tablet] 5 mg PO DAILY 11/09/16 Tamsulosin HCl [Flomax] 0.4 mg PO DAILY 11/09/16 Alendronate Sodium [Fosamax 70 mg Tablet] 70 mg PO MO@1000 09/09/18 Ferrous Sulfate [Albafort] 325 mg PO DAILY 09/09/18 Cyanocobalamin (Vitamin B-12) [B-12] 1,000 mcg PO DAILY 10/25/18 Mirtazapine [Remeron] 30 mg PO HSP PRN 10/25/18 Acetaminophen [Tylenol 325 mg Tablet] 650 mg PO Q4HP PRN tablet 11/01/18 Amlodipine Besylate [Norvasc 10 mg Tablet] 10 mg PO DAILY tablet 11/01/18 Aspirin [Ecotrin 81 mg EC Tablet] 81 mg PO DAILY tabec 11/01/18 Ciprofloxacin HCl [Cipro 500 mg Tablet] 500 mg PO Q6AM #7 tablet 11/01/18 Docusate Sodium [Colace 100 mg Capsule] 100 mg PO BID capsule 11/01/18 Insulin Glargine,Hum.rec.anlog [Lantus Insulin 100 Unit/1 ml 10 ml] 30 unit SUBCUT Q12 #1 vial 11/01/18 Insulin Regular, Human [Humulin R (Reg) Insulin 100 unit/mL] 0 - 15 unit SUBCUT ACHSP PRN #1 vial 11/01/18 Lidocaine [Lidoderm 5% (700 mg) Transdermal Patch] 1 patch TP DAILY #30 adh..patch 11/01/18 Mag Hydrox/Al Hydrox/Simeth [Maalox Plus Susp 30 Udcup] 30 ml PO Q6HP PRN udc 11/01/18 Magnesium Hydroxide [Milk of Magnesia 30 ml Udcup] 30 ml PO HSP PRN udc 11/01/18 Morphine Sulfate [Morphine Ir 15 mg Tablet] 15 mg PO Q6HP PRN #14 tablet 11/01/18 Patiromer Calcium Sorbitex [Veltassa 8.4 gm Susp Packet] 8.4 gm PO WSUPPER #14 packet 11/01/18 Polyethylene Glycol 3350 [Miralax Powder 17 gm/Packet] 17 gm PO DAILY powd.pack 11/01/18 History of Present Illness Admission Date/PCP: 10/25/18 02:10 ELIUD GARCAI MD History of Present Illness: H&P per Dr. Gottlieb: SARAH PIÑA is a 83 year old male who presented to the emergency room with a one-week history of gradually worsening weakness. He indicates that his problems began several weeks ago when he apparently injured his back while moving a large flowerpot. He subsequently had an evaluation performed utilizing a CT/MRI which revealed bulging disks and some collapsed vertebrae which were treated with an injection of some type. Approximately 1 week ago he received a steroid injection in his left hip performed by his [facility] physician and also another injection 1 day later given in the emergency room here at [facility]. Since that time he has gradually worsening weakness, his blood sugars have been running high and there has been no relief of his back pain which he now rates as extremely severe. His pain is a constant, continuous, sharp grinding/grating sensation in his left lower back radiating to the left hip area. The pain is somewhat relieved with rest and is significantly exacerbated by movement or weightbearing. His attempt to control his blood sugar with insulin has failed and he has become more lethargic and weak. He additionally admits the associated symptoms of decreased appetite with the increased pain in his back since his injury. He admits that this pain is an increased level of the pain that he has chronically. In the emergency room he was found to have no significant changes in his laboratory evaluation from his baseline with the exception of a mild hyperkalemia and a acute on chronic renal insufficiency. He was subsequently admitted to hospital for further evaluation and treatment. Physical Exam Vital Signs: Temp Pulse Resp BP Pulse Ox 97.9 F 78 14 140/58 H 97 11/01/18 07:51 11/01/18 07:51 11/01/18 07:51 11/01/18 07:51 11/01/18 07:51 Intake & Output 10/31/18 11/01/18 11/02/18 06:59 06:59 06:59 Intake Total 800 1358 Balance 800 1358 Weight 64.5 kg 64.7 kg General appearance: PRESENT: no acute distress, cooperative, thin, well- developed, well-nourished Head exam: PRESENT: atraumatic, normocephalic Eye exam: PRESENT: conjunctiva pink, EOMI, PERRLA. ABSENT: scleral icterus Ear exam: PRESENT: normal external ear exam Mouth exam: PRESENT: moist, tongue midline Neck exam: ABSENT: carotid bruit, JVD, lymphadenopathy, thyromegaly Respiratory exam: PRESENT: clear to auscultation kevin, symmetrical, unlabored. ABSENT: rales, rhonchi, wheezes Cardiovascular exam: PRESENT: RRR. ABSENT: diastolic murmur, rubs, systolic murmur Pulses: PRESENT: normal dorsalis pedis pul Vascular exam: PRESENT: normal capillary refill GI/Abdominal exam: PRESENT: normal bowel sounds, soft. ABSENT: distended, guarding, mass, organolmegaly, rebound, tenderness Rectal exam: PRESENT: deferred Extremities exam: PRESENT: full ROM. ABSENT: calf tenderness, clubbing, pedal edema Neurological exam: PRESENT: alert, awake, oriented to person, oriented to place, oriented to time, oriented to situation, CN II-XII grossly intact. ABSENT: motor sensory deficit Psychiatric exam: PRESENT: appropriate affect, normal mood. ABSENT: homicidal ideation, suicidal ideation Skin exam: PRESENT: dry, intact, warm. ABSENT: cyanosis, rash Results Laboratory Results: 10/31/18 04:34 11/01/18 06:17 11/01/18 06:17 Sodium 136.1 L Potassium 5.1 H Chloride 104 Carbon Dioxide 28 Anion Gap 4 L BUN 46 H Creatinine 1.18 Est GFR ( Amer) > 60 Est GFR (Non-Af Amer) 59 L Glucose 61 L Calcium 8.4 10/24/18 10/25/18 10/25/18 20:14 03:20 03:20 Creatine Kinase 249 H CK-MB (CK-2) 5.17 H Troponin I 0.054 0.044 10/25/18 10/25/18 10/25/18 09:07 09:07 14:33 Creatine Kinase 189 H 133 CK-MB (CK-2) 4.05 Troponin I 0.046 10/25/18 14:33 Creatine Kinase CK-MB (CK-2) 2.62 Troponin I 0.035 Impressions: Head MRI 10/25/18 00:00 IMPRESSION: Prominence of the ventricles out of proportion to sulci. Question normal pressure hydrocephalus. Clinical correlation recommended. 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 Minimal white matter disease. EVIDENCE OF ACUTE STROKE: NO. Head CT 10/25/18 01:24 IMPRESSION: Diffuse atrophy with small vessel ischemic change TECHNICAL DOCUMENTATION: Quality ID # [id number]: Final reports with documentation of one or more dose reduction techniques (e.g., Automated exposure control, adjustment of the mA and/or kV according to patient size, use of iterative reconstruction technique) copyright 2011 [employer]- All Rights Reserved KUB X-Ray 10/28/18 00:00 IMPRESSION: 1. Moderate fecal residue scattered throughout the colon. 2. Nonspecific and nonobstructive bowel gas pattern. 3. Prior L4 cement augmentation. Transfer Plan - Disposition Transfer Plan: Follow-up with primary care provider within 1 week. Follow-up with [facility] as scheduled. Take your medications as prescribed. Drink plenty of water. Recommend follow-up BMP in 3-5 days. Return to the emergency department as needed for concerning symptoms. Qualifiers - * PATIENT BEING DISCHARGED WITH ANY OF THE FOLLOWING DIAGNOSIS: No
== END 2018-11-01 16:59 | DRG 684 ==
LOC: ER 19:43 → EH 10-25 02:10 → 4S 10-25 04:50
PROVIDERS: ADMIT Emergency Medicine; ATTEND Emergency Medicine
DX: N17.9 Acute kidney failure, unspecified (principal); G89.4 Chronic pain syndrome; M48.00 Spinal stenosis, site unspecified; E87.5 Hyperkalemia; N18.9 Chronic kidney disease, unspecified; I12.9 Hypertensive chronic kidney disease with stage 1 through stage 4 chronic kidney disease, or unspecified chronic kidney disease; E11.22 Type 2 diabetes mellitus with diabetic chronic kidney disease; N40.0 Benign prostatic hyperplasia without lower urinary tract symptoms; E78.5 Hyperlipidemia, unspecified; M81.0 Age-related osteoporosis without current pathological fracture; L30.9 Dermatitis, unspecified; L40.9 Psoriasis, unspecified; Z79.891 Long term (current) use of opiate analgesic; Z79.4 Long term (current) use of insulin; Z79.899 Other long term (current) drug therapy; Z90.49 Acquired absence of other specified parts of digestive tract; Z87.891 Personal history of nicotine dependence; Z83.3 Family history of diabetes mellitus; Z80.9 Family history of malignant neoplasm, unspecified; Z82.49 Family history of ischemic heart disease and other diseases of the circulatory system
CPT/HCPCS: 36415; 70450; 70551; 74018; 80048; 80053; 81001; 82550; 82553; 82803; 82962; 83036; 83735; 84132; 84439; 84443; 84481; 84484; 85025; 85027; 87086; 87088; 87186; 93005; 93010; 96360; 96361; 99285; J1644; J1815; J2270; J3490; J7030

== ENCOUNTER → 2019-02-05 | Outpatient (CLI) | payer MEDICARE ==
--- NOTE | 2019-02-05 11:49 | RADIOLOGY REPORT (SQ) ---
EXAM DESCRIPTION: BONE SURVEY COMPLETE COMPLETED DATE/TIME: 02/05/2019 11:12 am REASON FOR STUDY: MULTIPLE MYELOMA D47.2 MONOCLONAL GAMMOPATHY COMPARISON: None. TECHNIQUE: Images of the axial and proximal appendicular skeleton are obtained, along with lateral s kull and frontal chest films. LIMITATIONS: None. FINDINGS: AP CHEST: No bony findings. Lungs are clear. LATERAL SKULL: There are scattered small calvarial lesions. AP BOTH HUMERI: There appear to be several small lytic lesions in each proximal humerus. TWO-VIEW LUMBAR SPINE: No worrisome bone lesions. TWO-VIEW THORACIC SPINE: No worrisome bone lesions. AP PELVIS: No worrisome bone lesions. AP BOTH FEMURS: No worrisome bone lesions. OTHER: Degenerative joint disease in the knees, right more than left. Degenerative disc disease in t he lumbar spine. Anterolisthesis of L5 on S1. IMPRESSION: Small lytic lesions are seen in the calvarium and in both proximal humeri. Other findin gs as described. TECHNICAL DOCUMENTATION: JOB ID: [id number] [employer]- All Rights Reserved Reading location - IP/workstation name: [email or web address]
== END ==
LOC: RAD 10:36
PROVIDERS: ATTEND Internal Medicine Hematology & Oncology
DX: D47.2 Monoclonal gammopathy (principal); C90.00 Multiple myeloma not having achieved remission
CPT/HCPCS: 77075

== ENCOUNTER 2019-06-19 08:27 | Inpatient (IN) | payer MEDICARE ==
--- NOTE | 2019-06-19 08:53 | ER Document Report ---
ED General - General Chief Complaint: Leg Pain Stated Complaint: LEFT LEG PAIN Time Seen by Provider: 06/19/19 08:41 Primary Care Provider: TIFF COOK MD [ASSOCIATE] - Follow up as needed TRAVEL OUTSIDE OF THE [place] IN LAST 30 DAYS: No - HPI Notes: Patient is an 83-year-old male with a history of hypertension, mild CKD, anemia, gout, a-fib (on coumadin), insulin-dependent diabetes, multiple myeloma who presents complaining of left lower anterior leg soreness and mild redness that developed overnight. Patient states that he usually does have swelling in his legs bilaterally, but has had increased swelling recently to both legs. He has not had any calf pain. Denies drug allergies. He has not had any recent illness or fevers. He is able to eat and drink without difficulty. He is urinating normally and having normal bowel movements. No dyspnea on exertion or shortness of breath. Denies any headache, fever, neck pain, URI, sore throat, chest pain, palpitations, syncope, cough, shortness of breath, wheeze, dyspnea, abdominal pain, nausea/vomiting/diarrhea, urinary retention, dysuria, hematuria, loss of control of bowel or bladder, numbness/tingling, saddle anesthesia, muscle paralysis. - Related Data Allergies/Adverse Reactions: No Known Allergies Allergy (Verified 10/16/18 10:35) Past Medical History - Social History Smoking Status: Unknown if Ever Smoked Family History: CAD, DM, Hypertension, Malignancy - Past Medical History Cardiac Medical History: Reports: Hx Hypertension Denies: Hx Heart Attack Pulmonary Medical History: Denies: Hx Asthma, Hx COPD Neurological Medical History: Denies: Hx Cerebrovascular Accident, Hx Seizures Endocrine Medical History: Reports: Hx Diabetes Mellitus Type 2. 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 Denies: Hx Open Heart Surgery, Hx Pacemaker - Immunizations Immunizations up to date: Yes Hx Diphtheria, Pertussis, Tetanus Vaccination: Yes Review of Systems - Review of Systems -: Yes All other systems reviewed and negative Physical Exam - Vital signs Vitals: Temp Pulse Resp BP Pulse Ox 98.4 F 86 18 143/72 H 96 06/19/19 08:28 06/19/19 08:28 06/19/19 08:28 06/19/19 08:28 06/19/19 08:28 - Notes Notes: PHYSICAL EXAMINATION: GENERAL: Well-appearing, well-nourished and in no acute distress. HEAD: Atraumatic, normocephalic. EYES: Pupils equal round and reactive to light, extraocular movements intact, sclera anicteric, conjunctiva are normal. ENT: Nares patent and without discharge. oropharynx clear without exudates. No tonsilar hypertrophy or erythema. Moist mucous membranes. NECK: Normal range of motion, supple without lymphadenopathy LUNGS: Breath sounds clear to auscultation bilaterally and equal. No wheezes rales or rhonchi. HEART: Regular rate and rhythm ABDOMEN: Soft, nontender, nondistended abdomen. No guarding, no rebound. Normal bowel sounds present. No CVA tenderness bilaterally. Musculoskeletal: FROM to passive/active. Strength 5+/5. Lacy neg. No asymmetry to LE's. Extremities: there is 3+ pitting edema b/l LE's with 1-2+ extending to the proximal/mid thighs b/l. Pulses not palpable due to edema, doppler performed. Capillary refill less than 3 seconds. NEUROLOGICAL: Normal speech, normal gait. PSYCH: Normal mood, normal affect. SKIN: very mild no blanchable hazy pink/erythema noted to the anterior left lower leg that is tender to palp w/o fluctuance, induration, or streaks. No d/c. Course - Re-evaluation Re-evalutation: 06/19/19 11:[address] Cook, oncologist [place]. He states that the patient has a significant multiple myeloma that has been treated over the past 4 months that has responded really well to oral chemotherapy as well as injection once weekly. He is on Velcade as the injection. He is also on Procrit for anemia. He is on denosumab which may be causing his hypocalcemia. His last calcium was 7.3 a week ago noticing 8 worsening creatinine range from 1.7-1.9. He had negative venous Dopplers performed a couple weeks ago. He did have his right knee drained about 1 week ago and was diagnosed with gout and started on allopurinol. Recommends admission for diurese and calcium correction. May consult Dr. Russ if needed as they speak to each other often. Dr. Cook's Cell phone is [phone]. Patient is currently an afebrile, well-hydrated, 83-year-old male who presents patient presents with hypocalcemia and significant pitting edema to his lower extremities without acute failure. Vitals are currently acceptable without significant tachycardia, tachypnea, or hypoxia. PE is otherwise unremarkable. Patient is currently nontoxic-appearing and is tolerating p.o. without difficulty. Patient will need admission for diuresis and correction of his hypocalcemia. 06/19/19 11:47 I spoke with Nely Matias PA-C who accepted pt for admit to medical floor under Dr. Goldman. Pt/son in agreement. - Vital Signs Vital signs: Temp Pulse Resp BP Pulse Ox 98.4 F 86 20 135/54 H 98 06/19/19 08:28 06/19/19 08:28 06/19/19 11:38 06/19/19 11:38 06/19/19 11:38 - Laboratory Result Diagrams: 06/19/19 09:02 06/19/19 09:02 Laboratory results interpreted by me: 06/19/19 06/19/19 06/19/19 08:55 09:02 09:02 RBC 3.55 L Hgb 10.1 L Hct 31.8 L MCHC 31.8 L RDW 20.9 H Plt Count 48 L Band Neutrophils % 2 L Sodium 135.2 L BUN 33 H Creatinine 1.42 H Est GFR ( Amer) 57 L Est GFR (MDRD) Non-Af 47 L Glucose 65 L POC Glucose 69 L Calcium 6.2 L* NT-Pro-B Natriuret Pep Total Protein 4.8 L Albumin 2.7 L 06/19/19 09:02 RBC Hgb Hct MCHC RDW Plt Count Band Neutrophils % Sodium BUN Creatinine Est GFR ( Amer) Est GFR (MDRD) Non-Af Glucose POC Glucose Calcium NT-Pro-B Natriuret Pep 52761 H Total Protein Albumin Discharge - Discharge Clinical Impression: Hypocalcemia, Bilateral lower extremity edema Condition: Stable Disposition: ADMITTED INPATIENT Admitting Provider: Jones (Hospitalist) Unit Admitted: Medical Floor Referrals: TIFF COOK MD [ASSOCIATE] - Follow up as needed
[2019-06-19 09:17] LABS: HEMATOCRIT 31.8 % (37.9-51.0); HEMOGLOBIN 10.1 g/dL (13.5-17.0); MEAN CORPUSCULAR HEMOGLOBIN 28.5 pg (27.0-33.4); MEAN CORPUSCULAR HGB CONC 31.8 g/dL (32.0-36.0); MEAN CORPUSCULAR VOLUME 90 fl (80-97); RED BLOOD COUNT 3.55 10^6/uL (4.35-5.55); RED CELL DISTRIBUTION WIDTH 20.9 % (11.5-14.0); WHITE BLOOD COUNT 5.2 10^3/uL (4.0-10.5)
[2019-06-19 09:41] LABS: PLATELET COUNT 48 10^3/uL (150-450)
--- NOTE | 2019-06-19 09:43 | RADIOLOGY REPORT (SQ) ---
EXAM DESCRIPTION: CHEST SINGLE VIEW COMPLETED DATE/TIME: 06/19/2019 9:29 am REASON FOR STUDY: b/l LE significant pitting edema COMPARISON: 10/16/2018. EXAM PARAMETERS: NUMBER OF VIEWS: One view. TECHNIQUE: Single frontal radiographic view of the chest acquired. RADIATION DOSE: NA LIMITATIONS: None. FINDINGS: LUNGS AND PLEURA: Low lung volumes. Mild atelectasis. No opacities, masses or pneumothor ax. No pleural effusion. MEDIASTINUM AND HILAR STRUCTURES: No masses. Contour normal. HEART AND VASCULAR STRUCTURES: Heart normal in size. Normal vasculature. BONES: No acute findings. HARDWARE: None in the chest. OTHER: No other significant finding. IMPRESSION: NO ACUTE RADIOGRAPHIC FINDING IN THE CHEST. TECHNICAL DOCUMENTATION: JOB ID: [id number] [employer]- All Rights Reserved Reading location - IP/workstation name: [email or web address]
[2019-06-19 09:45] LABS: ABSOLUTE LYMPHOCYTES# (MANUAL) 0.8 10^3/uL (0.5-4.7); ABSOLUTE MONOCYTES # (MANUAL) 0.5 10^3/uL (0.1-1.4); BAND NEUTROPHILS % (MANUAL) 2 % (3-5); BASOPHILS % (MANUAL) 0 % (0-2); EOSINOPHILS % (MANUAL) 3 % (0-6); LYMPHOCYTES % (MANUAL) 15 % (13-45); MONOCYTES % (MANUAL) 9 % (3-13); SEGMENTED NEUTROPHILS % (MAN) 71 % (42-78); TOTAL CELLS COUNTED 100
[2019-06-19 09:46] LABS: ANISOCYTOSIS 2+; HYPOCHROMASIA SLIGHT; OVALOCYTES SLIGHT; PLATELET COMMENT DECREASED; POIKILOCYTOSIS SLIGHT
[2019-06-19 10:12] LABS: APPEARANCE,URINE CLEAR; BILIRUBIN,URINE NEGATIVE (NEGATIVE); COLOR,URINE YELLOW; GLUCOSE, URINE NEGATIVE (NEGATIVE); KETONES,URINE NEGATIVE (NEGATIVE); PROTEIN,URINE NEGATIVE (NEGATIVE); URINE SPECIFIC GRAVITY 1.006; UROBILINOGEN,URINE NEGATIVE mg/dL (<2.0)
[2019-06-19 10:21] LABS: ALBUMIN 2.7 g/dL (3.5-5.0); ALKALINE PHOSPHATASE 46 U/L (38-126); ANION GAP 8 (5-19); ASPARTATE AMINO TRANSFERASE 23 U/L (17-59); BILIRUBIN,DIRECT 0.3 mg/dL (0.0-0.4); BILIRUBIN,TOTAL 1.1 mg/dL (0.2-1.3); BLOOD UREA NITROGEN 33 mg/dL (7-20); CARBON DIOXIDE 25 mmol/L (22-30); CHLORIDE 102 mmol/L (98-107); POTASSIUM 4.1 mmol/L (3.6-5.0); TOTAL PROTEIN 4.8 g/dL (6.3-8.2)
[2019-06-19] MEDS ORDERED: MORPHINE SULFATE 10 MG/ML INJ IV ONE (10:21)
[2019-06-19 10:33] LABS: GLUCOSE 65 mg/dL (75-110)
[2019-06-19 10:35] LABS: CALCIUM 6.2 mg/dL (8.4-10.2)
[2019-06-19] MEDS ORDERED: CALCIUM GLUCONATE 1000 MG/10 ML INJ IV ONE (11:42)
[2019-06-19 11:54] LABS: INTERNATIONAL RATION (INR) 1.13; PARTIAL THROMBOPLASTIN TIME 33.5 SEC (23.5-35.8); PROTHROMBIN TIME 14.6 SEC (11.4-15.4)
[2019-06-19] MEDS ORDERED: HYDROMORPHONE HCL INJ/PF 2 MG/ML AMPULE IV ONE (11:55)
[2019-06-19] MEDS ORDERED: DEXTROSE 40% GEL 15 GM TUBE PO PRN ×2 (13:43)
[2019-06-19] MEDS ORDERED: GLUCAGON,HUMAN RECOMB 1 MG INJ IM PRN (13:43)
[2019-06-19] MEDS ORDERED: DEXTROSE 50%-WATER 25 GM/50 ML DISP.SYRIN IV PRN ×2 (13:43)
[2019-06-19] MEDS ORDERED: MAG HYDROX/AL HYDROX/SIMETH SUSP 30 ML UDCUP PO PRN (13:44)
[2019-06-19] MEDS ORDERED: NORMAL SALINE 1000 ML 1,000 ML IV PRN (13:44)
[2019-06-19] MEDS ORDERED: ONDANSETRON 4 MG TAB.RAPDIS PO PRN (13:44)
[2019-06-19] MEDS ORDERED: ONDANSETRON HCL INJ/PF 4 MG/2 ML SDV IV PRN (13:44)
[2019-06-19] MEDS ORDERED: HEPARIN SOD (PORCINE) 5,000 UNIT/ML 1 ML VIAL SUBCUT SCH (14:00)
[2019-06-19] MEDS ORDERED: HYDROMORPHONE HCL 2 MG TABLET PO ONE (14:00)
--- NOTE | 2019-06-19 14:38 | RADIOLOGY REPORT (SQ) ---
EXAM DESCRIPTION: VENOUS BILATERAL LOWER COMPLETED DATE/TIME: 06/19/2019 2:26 pm REASON FOR STUDY: b/l LE asymmetry, left leg pain, high risk DVT COMPARISON: None. TECHNIQUE: Dynamic and static francis scale and color images acquired of both lower extremity venous sy stems. Selected spectral images acquired with additional compression and augmentation maneuvers. Imag es stored on PACS. LIMITATIONS: None. FINDINGS: RIGHT LEG COMMON FEMORAL AND FEMORAL: Normal phasicity, compression and augmentation. No visualized echogenic m aterial on francis scale. No defects on color images. POPLITEAL: Normal compression and augmentation. No visualized echogenic material on francis scale. No de fects on color images. CALF VESSELS: Normal compression and augmentation. No visualized echogenic material on francis scale. No defects on color image. GSV AND SSV: Noncompressible occlusive thrombus in the distal portions of the right greater saphenous vein. ANY DEEP VENOUS INSUFFICIENCY: Not evaluated. ANY EVIDENCE OF POPLITEAL CYST: No. OTHER: Lower leg soft tissue edema. LEFT LEG COMMON FEMORAL AND FEMORAL: Normal phasicity, compression and augmentation. No visualized echogenic m aterial on francis scale. No defects on color images. POPLITEAL: Normal compression and augmentation. No visualized echogenic material on francis scale. No de fects on color images. CALF VESSELS: Normal compression and augmentation. No visualized echogenic material on francis scale. No defects on color images. GSV AND SSV: Normal compression. No visualized echogenic material on francis scale. No defects on color images. ANY DEEP VENOUS INSUFFICIENCY: Not evaluated. ANY EVIDENCE POPLITEAL CYST: Large Griffiths cyst in the left popliteal fossa. OTHER: Lower leg soft tissue edema. IMPRESSION: 1. Negative examination for deep venous thrombosis bilaterally. 2. Noncompressible occlusive thrombus in the distal portions of the right greater saphenous vein. 3. Bilateral lower leg soft tissue edema. 4. Large Griffiths cyst in the left popliteal fossa. TECHNICAL DOCUMENTATION: JOB ID: [id number] [employer]- All Rights Reserved Reading location - IP/workstation name: [email or web address]
[2019-06-19] MEDS: FUROSEMIDE INJ/PF 20 MG/2 ML SDV IV SCH ×2 (14:50→22:01)
[2019-06-19] MEDS: CEFTRIAXONE 1 GM/D5W RTU 1 GM/50 ML RTUPB IV SCH (14:51)
[2019-06-19] MEDS: HYDROMORPHONE HCL 2 MG TABLET PO PRN (15:02)
--- NOTE | 2019-06-19 16:27 | PDOC H&P ---
History of Present Illness Admission Date/PCP: 06/19/19 14:05 JOSE HOOD MD History of Present Illness: SARAH PIÑA is a 83 year old male has a complicated medical history. Dianna arroyo was diagnosed with multiple myeloma 4 months ago and is been treated in [place] by the oncologist, cording to the son who is historian last night his father started having left leg pain and was unable to get up out of the chair secondary to the left leg pain. Patient had a similar episode about 3 weeks ago with the right leg. At that time the patient had his right knee tapped in had steroids ejected into the knee and became much improved to the point where he was up and ambulatory and almost no pain. They were concerned about cellulitis they were also concerned about gout. Last night he started complaining of left lower leg pain below the knee has developed redness at this area. He also has increased fluid in both lower legs. His HCTZ may have been discontinued recently. According to the son last week on Monday he weighed 178 pounds and 2 days ago he weighed 184 pounds. Pat amandant denies shortness of breath and he denies chest pain. Patient is now admitted for redness of the left lower leg, and increased peripheral edema. Venous Dopplers have been done in the emergency room and they were negative for DVT. Patient's calcium level is low at 6.2 secondary to his meant of multiple myeloma. Patient's platelets are low at 48,000.. 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 Skin Medical History: Reports: Eczema, Psoriasis Hematology: Denies: Anemia, Sickle Cell Disease Past Surgical History Past Surgical History: Reports: Cholecystectomy Denies: Pacemaker Social History Smoking Status: Unknown if Ever Smoked Frequency of Alcohol Use: None Hx Recreational Drug Use: No Drugs: None Hx Prescription Drug Abuse: No - Advance Directive Resuscitation Status: Do Not Resuscitate Family History Family History: CAD, DM, Hypertension, Malignancy Parental Family History Reviewed: No Children Family History Reviewed: No Sibling(s) Family History Reviewed.: No Medication/Allergy Home Medications: Allopurinol [Zyloprim 100 mg Tablet] 200 mg PO DAILY 06/19/19 Aspirin [Adult Low Dose Aspirin EC] 81 mg PO DAILY 06/19/19 Atorvastatin Calcium [Lipitor 40 mg Tablet] 40 mg PO QHS 06/19/19 Bumetanide [Bumex 1 mg Tablet] 1 mg PO DAILY 06/19/19 Calcium Carbonate [Calcium] 500 mg PO BID 06/19/19 Cholecalciferol (Vitamin D3) [Vitamin D3 5000 unit Capsule] 5,000 unit PO BID 06/19/19 Dexamethasone [Decadron 4 mg Tablet] 20 mg PO WE 06/19/19 Docusate Sodium [Colace 100 mg Capsule] 100 mg PO BID 06/19/19 Ferrous Sulfate [Feosol 325 mg Tablet] 650 mg PO DAILY 06/19/19 Finasteride [Proscar 5 mg Tablet] 5 mg PO DAILY 06/19/19 Hydromorphone HCl [Dilaudid 2 mg Tablet] 2 mg PO BID 06/19/19 Insulin Glargine,Hum.rec.anlog [Lantus Insulin 100 Unit/1 ml 10 ml] 8 units SQ Q12 06/19/19 Lenalidomide [Revlimid] 15 mg PO QHS 06/19/19 Losartan Potassium [Cozaar 50 mg Tablet] 50 mg PO DAILY 06/19/19 Mirtazapine [Remeron] 30 mg PO QHS 06/19/19 Multivitamin [Multiple Vitamins] 1 tbs PO DAILY 06/19/19 Tamsulosin HCl [Flomax 0.4 mg Cap.sr] 0.4 mg PO QPM 06/19/19 Allergies/Adverse Reactions: No Known Allergies Allergy (Verified 10/16/18 10:35) Review of Systems Constitutional: ABSENT: chills, fever(s), headache(s), weight gain, weight loss Cardiovascular: ABSENT: chest pain, dyspnea on exertion, edema, orthropnea, palpitations Respiratory: ABSENT: cough, hemoptysis Neurological: ABSENT: abnormal gait, abnormal speech, confusion, dizziness, focal weakness, syncope Psychiatric: ABSENT: anxiety, depression, homidical ideation, suicidal ideation Physical Exam Vital Signs: Temp Pulse Resp BP Pulse Ox 98.4 F 86 27 H 122/56 L 97 06/19/19 08:28 06/19/19 08:28 06/19/19 15:00 06/19/19 15:00 06/19/19 15:00 Intake & Output 06/18/19 06/19/19 06/20/19 06:59 06:59 06:59 Intake Total 50 Output Total 650 Balance -600 Weight 89 kg General appearance: PRESENT: no acute distress Respiratory exam: PRESENT: clear to auscultation kevin. ABSENT: rales, rhonchi, wheezes Cardiovascular exam: PRESENT: RRR. ABSENT: diastolic murmur, rubs, systolic m urmur Pulses: PRESENT: normal dorsalis pedis pul Extremities exam: PRESENT: joint swelling, +2 edema, other - Redness of left lower leg Neurological exam: PRESENT: alert, awake, oriented to person, oriented to place, oriented to time, oriented to situation, CN II-XII grossly intact. ABSENT: motor sensory deficit Psychiatric exam: PRESENT: appropriate affect, normal mood. ABSENT: homicidal ideation, suicidal ideation Results Laboratory Results: 06/19/19 09:02 06/19/19 09:02 06/19/19 06/19/19 06/19/19 09:02 09:02 09:02 WBC 5.2 RBC 3.55 L Hgb 10.1 L Hct 31.8 L MCV 90 MCH 28.5 MCHC 31.8 L RDW 20.9 H Plt Count 48 L Seg Neutrophils % Not Reportable Sodium 135.2 L Potassium 4.1 Chloride 102 Carbon Dioxide 25 Anion Gap 8 BUN 33 H Creatinine 1.42 H Est GFR ( Amer) 57 L Glucose 65 L Calcium 6.2 L* Total Bilirubin 1.1 AST 23 Alkaline Phosphatase 46 Ammonia Total Protein 4.8 L Albumin 2.7 L TSH 1.87 Urine Color Urine Appearance Urine pH Ur Specific Vivian Urine Protein Urine Glucose (UA) Urine Ketones Urine Blood Urine RBC (Auto) 06/19/19 06/19/19 09:30 14:45 WBC RBC Hgb Hct MCV MCH MCHC RDW Plt Count Seg Neutrophils % Sodium Potassium Chloride Carbon Dioxide Anion Gap BUN Creatinine Est GFR ( Amer) Glucose Calcium Total Bilirubin AST Alkaline Phosphatase Ammonia < 8.7 L Total Protein Albumin TSH Urine Color YELLOW Urine Appearance CLEAR Urine pH 5.0 Ur Specific Vivian 1.006 Urine Protein NEGATIVE Urine Glucose (UA) NEGATIVE Urine Ketones NEGATIVE Urine Blood NEGATIVE Urine RBC (Auto) 0 06/19/19 06/19/19 09:02 09:02 Creatine Kinase 32 L NT-Pro-B Natriuret Pep [id number] H Impressions: Chest X-Ray 06/19/19 08:53 IMPRESSION: NO ACUTE RADIOGRAPHIC FINDING IN THE CHEST. Venous Doppler Study 06/19/19 11:38 IMPRESSION: 1. Negative examination for deep venous thrombosis bilaterally. 2. Noncompressible occlusive thrombus in the distal portions of the right greater saphenous vein. 3. Bilateral lower leg soft tissue edema. 4. Large Griffiths cyst in the left popliteal fossa. Assessment and Plan - Diagnosis (1) Multiple myeloma Is this a current diagnosis for this admission?: Yes (2) Bilateral lower extremity edema Is this a current diagnosis for this admission?: Yes (3) Hypocalcemia Is this a current diagnosis for this admission?: Yes (4) Acute kidney injury (nontraumatic) Is this a current diagnosis for this admission?: Yes (5) Chronic pain syndrome Is this a current diagnosis for this admission?: Yes (6) Insulin dependent diabetes mellitus Is this a current diagnosis for this admission?: Yes - Plan Summary Summary: 06/19/2019 Gently diurese patient with IV Lasix, will start broad-spectrum IV antibiotic, replace calcium. Venous Dopplers were done in the emergency room Chest x-ray shows no acute cardiopulmonary disease. I have explained this to the patient as well as his family in the room - Time Time Spent with patient: 35 or more minutes
[2019-06-19] MEDS: INSULIN LISPRO 100 UNIT/ML 3 ML VIAL SUBCUT SCH ×2 (16:46→21:40)
[2019-06-19] MEDS: HYDROMORPHONE HCL INJ/PF 2 MG/ML AMPULE IV PRN (16:47)
[2019-06-19] MEDS: DEXAMETHASONE 4 MG TABLET PO SCH (17:21)
[2019-06-19] MEDS ORDERED: LENALIDOMIDE 15 MG PO SCH ×2 (18:00→22:00)
[2019-06-19] MEDS: TAMSULOSIN HCL 0.4 MG CAP.SR.24H PO SCH (18:59)
[2019-06-19] MEDS ORDERED: CALCIUM GLUCONATE 2,222 MG in DEXTROSE 5%-WATER 100 ML IV ONE (19:00)
[2019-06-19] MEDS: CALCIUM CARBONATE 500 MG TABLET PO SCH (19:07)
[2019-06-19] MEDS: INSULIN GLARGINE,HUM.REC.ANLOG 1,000 UNIT/10 ML VIAL SUBCUT SCH (21:41)
[2019-06-19] MEDS: ATORVASTATIN CALCIUM 40 MG TABLET PO SCH (22:00)
[2019-06-19] MEDS ORDERED: Lenalidomide [Revlimid] 15 MG PO SCH (22:00)
[2019-06-19] MEDS: MIRTAZAPINE 15 MG TABLET PO SCH (22:00)
[2019-06-19] MEDS: FAMOTIDINE 20 MG TABLET PO SCH (22:01)
--- NOTE | 2019-06-19 23:12 | EKG REPORT ---
SEVERITY:- ABNORMAL ECG - ATRIAL FIBRILLATION, V-RATE 68-106 BORDERLINE PROLONGED QT INTERVAL : Confirmed by: Ha Mabry 19-Jun-2019 23:11:31
[2019-06-20 04:19] LABS: ABSOLUTE LYMPHOCYTES (AUTO) 0.5 10^3/uL (0.5-4.7); ABSOLUTE MONOCYTES (AUTO) 0.2 10^3/uL (0.1-1.4); BASOPHILS % (AUTO) 0.3 % (0-2); EOSINOPHILS % (AUTO) 0.2 % (0-6); HEMATOCRIT 28.8 % (37.9-51.0); HEMOGLOBIN 9.1 g/dL (13.5-17.0); LYMPHOCYTES % (AUTO) 9.8 % (13-45); MEAN CORPUSCULAR HEMOGLOBIN 28.3 pg (27.0-33.4); MEAN CORPUSCULAR HGB CONC 31.5 g/dL (32.0-36.0); MEAN CORPUSCULAR VOLUME 90 fl (80-97); MONOCYTES % (AUTO) 3.8 % (3-13); RED BLOOD COUNT 3.21 10^6/uL (4.35-5.55); RED CELL DISTRIBUTION WIDTH 21.5 % (11.5-14.0); SEGMENTED NEUTROPHILS % (AUTO) 85.9 % (42-78); TOTAL CELLS COUNTED % (AUTO) 100 %; WHITE BLOOD COUNT 4.6 10^3/uL (4.0-10.5)
[2019-06-20 04:49] LABS: PLATELET COUNT 27 10^3/uL (150-450)
[2019-06-20] MEDS: INSULIN LISPRO 100 UNIT/ML 3 ML VIAL SUBCUT SCH ×4 (08:45→22:14)
[2019-06-20] MEDS: MAGNESIUM HYDROXIDE SUSP 30 ML UDCUP PO PRN ×2 (08:45→22:20)
[2019-06-20] MEDS: ASPIRIN 81 MG TABLET, ENT COATED PO SCH (10:36)
[2019-06-20] MEDS: LOSARTAN POTASSIUM 50 MG TABLET PO SCH (10:36)
[2019-06-20] MEDS: CEFTRIAXONE 1 GM/D5W RTU 1 GM/50 ML RTUPB IV SCH (10:36)
[2019-06-20] MEDS: FERROUS SULFATE 325 MG TABLET PO SCH (10:36)
[2019-06-20] MEDS: ALLOPURINOL 100 MG TABLET PO SCH (10:36)
[2019-06-20] MEDS: FUROSEMIDE INJ/PF 20 MG/2 ML SDV IV SCH ×2 (10:36→22:14)
[2019-06-20] MEDS: INSULIN GLARGINE,HUM.REC.ANLOG 1,000 UNIT/10 ML VIAL SUBCUT SCH ×2 (10:37→22:16)
[2019-06-20] MEDS: MULTIVITAMIN TABLET PO SCH (10:37)
[2019-06-20] MEDS: CHOLECALCIFEROL (D3) 1,000 UNIT (25 MCG) TABLET PO SCH (10:37)
[2019-06-20] MEDS: DOCUSATE SODIUM 100 MG CAPSULE PO SCH (10:37)
[2019-06-20] MEDS: FINASTERIDE 5 MG TABLET PO SCH (10:37)
[2019-06-20] MEDS: CALCIUM CARBONATE 500 MG TABLET PO SCH ×2 (10:37→17:46)
[2019-06-20] MEDS: FAMOTIDINE 20 MG TABLET PO SCH ×2 (10:38→22:13)
[2019-06-20 10:56] LABS: ALBUMIN 2.2 g/dL (3.5-5.0); ALKALINE PHOSPHATASE 43 U/L (38-126); ANION GAP 13 (5-19); ASPARTATE AMINO TRANSFERASE 22 U/L (17-59); BILIRUBIN,DIRECT 0.5 mg/dL (0.0-0.4); BILIRUBIN,TOTAL 0.9 mg/dL (0.2-1.3); BLOOD UREA NITROGEN 39 mg/dL (7-20); CARBON DIOXIDE 17 mmol/L (22-30); CHLORIDE 102 mmol/L (98-107); GLUCOSE 244 mg/dL (75-110); PHOSPHORUS 5.4 mg/dL (2.5-4.5); TOTAL PROTEIN 4.2 g/dL (6.3-8.2)
[2019-06-20 11:00] LABS: PATH REVIEW PATHOLOGIST REVIEWED
[2019-06-20 11:12] LABS: CALCIUM 6.4 mg/dL (8.4-10.2)
[2019-06-20] MEDS ORDERED: FUROSEMIDE INJ/PF 40 MG/4 ML SDV IV ONE (12:30)
[2019-06-20] MEDS: POLYETHYLENE GLYCOL 3350 POWDER 17 GM/1 PACKET PO SCH (13:06)
[2019-06-20] MEDS ORDERED: CALCIUM GLUCONATE 2,222 MG in DEXTROSE 5%-WATER 100 ML IV ONE (13:30)
--- NOTE | 2019-06-20 14:33 | PDOC PROGRESS REPORT ---
Subjective Progress Note for:: 06/20/19 Subjective:: 06/20/2019 Patient is sitting up in bed looks much better and feels much better. Reason For Visit: MULTIPLE MELOMA, CONGESTIVE HEART FAILUTE, Physical Exam Vital Signs: Temp Pulse Resp BP Pulse Ox 97.4 F 74 16 141/50 H 98 06/20/19 12:00 06/20/19 12:00 06/20/19 12:00 06/20/19 12:00 06/20/19 12:00 Intake & Output 06/19/19 06/20/19 06/21/19 06:59 06:59 06:59 Intake Total 270 526 Output Total 650 200 Balance -380 326 Weight 88.2 kg General appearance: PRESENT: no acute distress Respiratory exam: PRESENT: clear to auscultation kevin. ABSENT: rales, rhonchi, wheezes Cardiovascular exam: PRESENT: RRR. ABSENT: diastolic murmur, rubs, systolic murmur Neurological exam: PRESENT: alert, awake, oriented to person, oriented to place, oriented to time, oriented to situation, CN II-XII grossly intact, other - Patient is much more alert today, even asking about getting up out of bed. ABSENT: motor sensory deficit Psychiatric exam: PRESENT: appropriate affect, normal mood. ABSENT: homicidal ideation, suicidal ideation Results Laboratory Results: 06/20/19 03:59 06/20/19 03:59 06/19/19 06/19/19 06/19/19 09:02 14:45 14:45 WBC RBC Hgb Hct MCV MCH MCHC RDW Plt Count Seg Neutrophils % Sodium Potassium Chloride Carbon Dioxide Anion Gap BUN Creatinine Est GFR ( Amer) Glucose Calcium 6.5 L* Phosphorus Magnesium Total Bilirubin AST Alkaline Phosphatase Ammonia < 8.7 L Total Protein Albumin TSH 1.87 06/20/19 06/20/19 03:59 03:59 WBC 4.6 RBC 3.21 L Hgb 9.1 L Hct 28.8 L MCV 90 MCH 28.3 MCHC 31.5 L RDW 21.5 H Plt Count 27 L* Seg Neutrophils % 85.9 H Sodium 132.2 L Potassium 5.0 Chloride 102 Carbon Dioxide 17 L Anion Gap 13 BUN 39 H Creatinine 1.69 H Est GFR ( Amer) 47 L Glucose 244 H Calcium 6.4 L* Phosphorus 5.4 H Magnesium 2.2 Total Bilirubin 0.9 AST 22 Alkaline Phosphatase 43 Ammonia Total Protein 4.2 L Albumin 2.2 L TSH 06/19/19 06/19/19 06/20/19 09:02 09:02 03:59 Creatine Kinase 32 L NT-Pro-B Natriuret Pep 71781 H 53448 H Impressions: Chest X-Ray 06/19/19 08:53 IMPRESSION: NO ACUTE RADIOGRAPHIC FINDING IN THE CHEST. Venous Doppler Study 06/19/19 11:38 IMPRESSION: 1. Negative examination for deep venous thrombosis bilaterally. 2. Noncompressible occlusive thrombus in the distal portions of the right greater saphenous vein. 3. Bilateral lower leg soft tissue edema. 4. Large Griffiths cyst in the left popliteal fossa. Assessment and Plan - Diagnosis (1) Multiple myeloma Is this a current diagnosis for this admission?: Yes (2) Bilateral lower extremity edema Is this a current diagnosis for this admission?: Yes (3) Hypocalcemia Is this a current diagnosis for this admission?: Yes (4) Acute kidney injury (nontraumatic) Is this a current diagnosis for this admission?: Yes (5) Chronic pain syndrome Is this a current diagnosis for this admission?: Yes (6) Insulin dependent diabetes mellitus Is this a current diagnosis for this admission?: Yes - Plan Summary Summary: 06/19/2019 Gently diurese patient with IV Lasix, will start broad-spectrum IV antibiotic, replace calcium. Venous Dopplers were done in the emergency room Chest x-ray shows no acute cardiopulmonary disease. I have explained this to the patient as well as his family in the room 06/20/2019 Venous Doppler showed no DVT. Continue to replace calcium. Add laxatives due to patient's history of constipation and chronic narcotics. Give extra dose of Lasix today during the day IV. Count still normal H&H is stable platelets have gone down to 27,000. Albumin low at 2.2. BNP is elevated at 13,500 however this is stable. Cultures pending Clinically patient has less peripheral edema this morning and less redness to the left lower leg. I did speak with the son by phone this morning with in the room - Time Time Spent with patient: 35 or more minutes
[2019-06-20] MEDS: TAMSULOSIN HCL 0.4 MG CAP.SR.24H PO SCH (17:46)
[2019-06-20] MEDS ORDERED: Lenalidomide [Revlimid] 15 MG PO SCH (22:00)
[2019-06-20] MEDS: ATORVASTATIN CALCIUM 40 MG TABLET PO SCH (22:13)
[2019-06-20] MEDS: MIRTAZAPINE 15 MG TABLET PO SCH (22:13)
[2019-06-21 07:54] LABS: ABSOLUTE EOSINOPHILS # (AUTO) 0.3 10^3/uL (0.0-0.6); ABSOLUTE LYMPHOCYTES (AUTO) 0.6 10^3/uL (0.5-4.7); ABSOLUTE MONOCYTES (AUTO) 0.7 10^3/uL (0.1-1.4); ABSOLUTE NEUT (AUTO) 3.7 10^3/uL (1.7-8.2); BASOPHILS % (AUTO) 0.5 % (0-2); EOSINOPHILS % (AUTO) 5.6 % (0-6); HEMATOCRIT 28.5 % (37.9-51.0); HEMOGLOBIN 9.2 g/dL (13.5-17.0); LYMPHOCYTES % (AUTO) 11.3 % (13-45); MEAN CORPUSCULAR HEMOGLOBIN 28.7 pg (27.0-33.4); MEAN CORPUSCULAR HGB CONC 32.4 g/dL (32.0-36.0); MEAN CORPUSCULAR VOLUME 89 fl (80-97); MONOCYTES % (AUTO) 13.6 % (3-13); RED BLOOD COUNT 3.21 10^6/uL (4.35-5.55); RED CELL DISTRIBUTION WIDTH 21.5 % (11.5-14.0); TOTAL CELLS COUNTED % (AUTO) 100 %; WHITE BLOOD COUNT 5.3 10^3/uL (4.0-10.5)
[2019-06-21 08:13] LABS: ALBUMIN 2.2 g/dL (3.5-5.0); ANION GAP 5 (5-19); BLOOD UREA NITROGEN 53 mg/dL (7-20); CARBON DIOXIDE 26 mmol/L (22-30); CHLORIDE 101 mmol/L (98-107); GLUCOSE 249 mg/dL (75-110); POTASSIUM 4.6 mmol/L (3.6-5.0)
[2019-06-21] MEDS: INSULIN LISPRO 100 UNIT/ML 3 ML VIAL SUBCUT SCH ×4 (08:18→21:54)
[2019-06-21 08:28] LABS: CALCIUM 6.5 mg/dL (8.4-10.2); PLATELET COUNT 53 10^3/uL (150-450)
[2019-06-21 08:29] LABS: ANISOCYTOSIS 3+; BURR CELLS 1+; OVALOCYTES 1+; PLATELET COMMENT ADEQUATE; PLATELET LARGE PRESENT; POIKILOCYTOSIS 1+; POLYCHROMASIA SLIGHT; SCHISTOCYTES 1+
[2019-06-21] MEDS ORDERED: NA PHOS,M-B/NA PHOS,DI-BA (ADULT) 133 ML ENEMA PR ONE (10:00)
[2019-06-21] MEDS: INSULIN GLARGINE,HUM.REC.ANLOG 1,000 UNIT/10 ML VIAL SUBCUT SCH ×2 (10:35→21:57)
[2019-06-21] MEDS: CEFTRIAXONE 1 GM/D5W RTU 1 GM/50 ML RTUPB IV SCH (10:35)
[2019-06-21] MEDS: FERROUS SULFATE 325 MG TABLET PO SCH (10:36)
[2019-06-21] MEDS: CHOLECALCIFEROL (D3) 1,000 UNIT (25 MCG) TABLET PO SCH (10:36)
[2019-06-21] MEDS: FAMOTIDINE 20 MG TABLET PO SCH ×2 (10:36→21:58)
[2019-06-21] MEDS: DOCUSATE SODIUM 100 MG CAPSULE PO SCH (10:36)
[2019-06-21] MEDS: CALCIUM CARBONATE 500 MG TABLET PO SCH ×2 (10:37→17:19)
[2019-06-21] MEDS: ALLOPURINOL 100 MG TABLET PO SCH (10:37)
[2019-06-21] MEDS: POLYETHYLENE GLYCOL 3350 POWDER 17 GM/1 PACKET PO SCH (10:37)
[2019-06-21] MEDS: ASPIRIN 81 MG TABLET, ENT COATED PO SCH (10:37)
[2019-06-21] MEDS: LOSARTAN POTASSIUM 50 MG TABLET PO SCH (10:37)
[2019-06-21] MEDS: FINASTERIDE 5 MG TABLET PO SCH (10:37)
[2019-06-21] MEDS: MULTIVITAMIN TABLET PO SCH (10:37)
[2019-06-21] MEDS: FUROSEMIDE INJ/PF 20 MG/2 ML SDV IV SCH ×2 (10:38→21:57)
--- NOTE | 2019-06-21 16:52 | PDOC PROGRESS REPORT ---
Subjective Progress Note for:: 06/21/19 Subjective:: 06/20/2019 Patient is sitting up in bed looks much better and feels much better. 06/21/2019 Patient is complaining of not having a bowel movement and states that the MiraLAX and Dulcolax are not working. He has had problems in the past with constipation due to to his narcotics. Start with a fleets enema and if that fails go to a soapsuds enema. Patient has about the same amount of peripheral edema and a little bit more redness to the left lower extremity. No shortness of breath no chest pain He is complaining of more left knee pain. Reason For Visit: MULTIPLE MELOMA, CONGESTIVE HEART FAILUTE, Physical Exam Vital Signs: Temp Pulse Resp BP Pulse Ox 98.0 F 68 18 126/50 H 96 06/21/19 16:00 06/21/19 16:00 06/21/19 16:00 06/21/19 16:00 06/21/19 16:00 Intake & Output 06/20/19 06/21/19 06/22/19 06:59 06:59 06:59 Intake Total 270 1066 290 Output Total 650 200 Balance -380 866 290 Weight 88.2 kg General appearance: PRESENT: mild distress Respiratory exam: PRESENT: clear to auscultation kevin. ABSENT: rales, rhonchi, wheezes Cardiovascular exam: PRESENT: RRR. ABSENT: diastolic murmur, rubs, systolic murmur GI/Abdominal exam: PRESENT: hyperactive bowel sounds, soft Extremities exam: PRESENT: +1 edema, other - Redness to the left lower leg, lightly more hyperintense today and larger than yesterday Neurological exam: PRESENT: alert, awake, oriented to person, oriented to place, oriented to time, oriented to situation, CN II-XII grossly intact. ABSENT: motor sensory deficit Psychiatric exam: PRESENT: flat affect Results Laboratory Results: 06/21/19 07:15 06/21/19 07:15 06/21/19 06/21/19 07:15 07:15 WBC 5.3 RBC 3.21 L Hgb 9.2 L Hct 28.5 L MCV 89 MCH 28.7 MCHC 32.4 RDW 21.5 H Plt Count 53 L Seg Neutrophils % 69.0 Sodium 132.3 L Potassium 4.6 Chloride 101 Carbon Dioxide 26 Anion Gap 5 BUN 53 H Creatinine 1.85 H Est GFR ( Amer) 42 L Glucose 249 H Calcium 6.5 L* Albumin 2.2 L 06/19/19 06/19/19 06/20/19 09:02 09:02 03:59 Creatine Kinase 32 L NT-Pro-B Natriuret Pep 94224 H 08417 H 06/21/19 07:15 Creatine Kinase NT-Pro-B Natriuret Pep 91319 H Impressions: Chest X-Ray 06/19/19 08:53 IMPRESSION: NO ACUTE RADIOGRAPHIC FINDING IN THE CHEST. Venous Doppler Study 06/19/19 11:38 IMPRESSION: 1. Negative examination for deep venous thrombosis bilaterally. 2. Noncompressible occlusive thrombus in the distal portions of the right greater saphenous vein. 3. Bilateral lower leg soft tissue edema. 4. Large Griffiths cyst in the left popliteal fossa. Assessment and Plan - Diagnosis (1) Multiple myeloma Is this a current diagnosis for this admission?: Yes (2) Bilateral lower extremity edema Is this a current diagnosis for this admission?: Yes (3) Hypocalcemia Is this a current diagnosis for this admission?: Yes (4) Acute kidney injury (nontraumatic) Is this a current diagnosis for this admission?: Yes (5) Chronic pain syndrome Is this a current diagnosis for this admission?: Yes (6) Insulin dependent diabetes mellitus Is this a current diagnosis for this admission?: Yes - Plan Summary Summary: 06/19/2019 Gently diurese patient with IV Lasix, will start broad-spectrum IV antibiotic, replace calcium. Venous Dopplers were done in the emergency room Chest x-ray shows no acute cardiopulmonary disease. I have explained this to the patient as well as his family in the room 06/20/2019 Venous Doppler showed no DVT. Continue to replace calcium. Add laxatives due to patient's history of constipation and chronic narcotics. Give extra dose of Lasix today during the day IV. Count still normal H&H is stable platelets have gone down to 27,000. Albumin low at 2.2. BNP is elevated at 13,500 however this is stable. Cultures pending Clinically patient has less peripheral edema this morning and less redness to the left lower leg. I did speak with the son by phone this morning with in the room Patient states he is having much less pain 06/21/2019 She is vital signs are stable however. Platelets have gone up to 53,000 white count is still normal, urine and creatinine are up however BNP is down and be difficult to add fluids to this patient at the present time due to his peripheral edema. Patient's biggest complaint today is constipation. Try a fleets enema and then progressed to soapsuds if needed. Sodium level is still low and I have consulted oncology concerning his pain and his abnormal lab values elated to his multiple myeloma. We will continue IV Lasix and increase IV to 100 and hour up from 30/h - Time Time Spent with patient: 25-34 minutes
[2019-06-21] MEDS: TAMSULOSIN HCL 0.4 MG CAP.SR.24H PO SCH (17:19)
[2019-06-21] MEDS: NORMAL SALINE 1000 ML 1,000 ML IV PRN (17:21)
[2019-06-21] MEDS ORDERED: CALCIUM GLUCONATE 1000 MG/10 ML INJ IV ONE (17:41)
--- NOTE | 2019-06-21 17:59 | PDOC CONSULTATION ---
Consultation Consult Date: 06/21/19 Provider Consulted: MARCI ISIDRO Consult reason:: Hematology/Oncology consultation was requested for patient with multiple myeloma who presents with cellulitis and hypocalcemia. History of Present Illness Admission Date/PCP: 06/19/19 14:05 ELIUD GARCIA MD History of Present Illness: SARAH PIÑA is a 83 year old male who was diagnosed with multiple myeloma earlier this year. He is followed by Dr. Owen in [place]. Although we do not have his records, family states that he was started on initial treatment for this which included 3 shots and at least 2 different oral medications. He is taking Revlimid as well as Dexamethasone and presumably received Velcade and Xgeva/Zometa in the office. He presented with a 24 hour history of left leg pain and weakness. A few weeks prior, he was admitted to the hospital in [place] for right knee effusion and was diagnosed with gout. He was started on Allopurinol at that time. On admission, he was found to have cellulitis of the left lower leg, hypocalcemia, and mild renal insufficiency. Today, patient and caregivers report that the erythema from cellulitis is worse, but swelling has improved. He only has pain with movement, so he has not been up out of bed. He was constipated, so Fleets enema was given earlier today with good results. 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 Skin Medical History: Reports: Eczema, Psoriasis Hematology: Denies: Anemia, Sickle Cell Disease Past Surgical History Past Surgical History: Reports: Cholecystectomy Denies: Pacemaker Social History Smoking Status: Never Smoker Frequency of Alcohol Use: None Hx Recreational Drug Use: No Drugs: None Hx Prescription Drug Abuse: No - Advance Directive Resuscitation Status: Do Not Resuscitate Family History Family History: CAD, DM, Hypertension, Malignancy Parental Family History Reviewed: Yes Children Family History Reviewed: Yes Sibling(s) Family History Reviewed.: No Medication/Allergy Home Medications: Allopurinol [Zyloprim 100 mg Tablet] 200 mg PO DAILY 06/19/19 Aspirin [Adult Low Dose Aspirin EC] 81 mg PO DAILY 06/19/19 Atorvastatin Calcium [Lipitor 40 mg Tablet] 40 mg PO QHS 06/19/19 Bumetanide [Bumex 1 mg Tablet] 1 mg PO DAILY 06/19/19 Calcium Carbonate [Calcium] 500 mg PO BID 06/19/19 Cholecalciferol (Vitamin D3) [Vitamin D3 5000 unit Capsule] 5,000 unit PO BID 06/19/19 Dexamethasone [Decadron 4 mg Tablet] 20 mg PO WE 06/19/19 Docusate Sodium [Colace 100 mg Capsule] 100 mg PO BID 06/19/19 Ferrous Sulfate [Feosol 325 mg Tablet] 650 mg PO DAILY 06/19/19 Finasteride [Proscar 5 mg Tablet] 5 mg PO DAILY 06/19/19 Hydromorphone HCl [Dilaudid 2 mg Tablet] 2 mg PO BID 06/19/19 Insulin Glargine,Hum.rec.anlog [Lantus Insulin 100 Unit/1 ml 10 ml] 8 units SQ Q12 06/19/19 Lenalidomide [Revlimid] 15 mg PO QHS 06/19/19 Losartan Potassium [Cozaar 50 mg Tablet] 50 mg PO DAILY 06/19/19 Mirtazapine [Remeron] 30 mg PO QHS 06/19/19 Multivitamin [Multiple Vitamins] 1 tbs PO DAILY 06/19/19 Tamsulosin HCl [Flomax 0.4 mg Cap.sr] 0.4 mg PO QPM 06/19/19 Allergies/Adverse Reactions: No Known Allergies Allergy (Verified 10/16/18 10:35) Review of Systems Constitutional: ABSENT: fever(s), headache(s) Eyes: ABSENT: visual disturbances Ears: ABSENT: hearing changes Nose, Mouth, and Throat: ABSENT: sore throat Cardiovascular: ABSENT: chest pain Respiratory: ABSENT: dyspnea Gastrointestinal: PRESENT: abdominal pain, constipation Genitourinary: ABSENT: dysuria Musculoskeletal: PRESENT: as per HPI Integumentary: PRESENT: as per HPI Neurological: PRESENT: weakness Hematologic/Lymphatic: ABSENT: easy bleeding Physical Exam Vital Signs: Temp Pulse Resp BP Pulse Ox 98.0 F 68 18 126/50 H 96 06/21/19 16:00 06/21/19 16:00 06/21/19 16:00 06/21/19 16:00 06/21/19 16:00 Intake & Output 06/20/19 06/21/19 06/22/19 06:59 06:59 06:59 Intake Total 270 1066 290 Output Total 650 200 Balance -380 866 290 Weight 88.2 kg General appearance: PRESENT: no acute distress, well-developed, well-nourished Head exam: PRESENT: normocephalic Eye exam: PRESENT: EOMI Mouth exam: PRESENT: tongue midline Neck exam: ABSENT: lymphadenopathy, tenderness Respiratory exam: PRESENT: clear to auscultation kevin, unlabored Cardiovascular exam: PRESENT: RRR GI/Abdominal exam: PRESENT: soft. ABSENT: tenderness Extremities exam: PRESENT: +2 edema - bilateral ankles. Neurological exam: PRESENT: alert, awake Psychiatric exam: PRESENT: appropriate affect Skin exam: PRESENT: other - erythema left lower extremity. Results Laboratory Results: 06/21/19 07:15 06/21/19 07:15 06/21/19 06/21/19 07:15 07:15 WBC 5.3 RBC 3.21 L Hgb 9.2 L Hct 28.5 L MCV 89 MCH 28.7 MCHC 32.4 RDW 21.5 H Plt Count 53 L Seg Neutrophils % 69.0 Sodium 132.3 L Potassium 4.6 Chloride 101 Carbon Dioxide 26 Anion Gap 5 BUN 53 H Creatinine 1.85 H Est GFR ( Amer) 42 L Glucose 249 H Calcium 6.5 L* Albumin 2.2 L 06/19/19 06/19/19 06/20/19 09:02 09:02 03:59 Creatine Kinase 32 L NT-Pro-B Natriuret Pep 26405 H 36716 H 06/21/19 07:15 Creatine Kinase NT-Pro-B Natriuret Pep 50932 H Impressions: Chest X-Ray 06/19/19 08:53 IMPRESSION: NO ACUTE RADIOGRAPHIC FINDING IN THE CHEST. Venous Doppler Study 06/19/19 11:38 IMPRESSION: 1. Negative examination for deep venous thrombosis bilaterally. 2. Noncompressible occlusive thrombus in the distal portions of the right greater saphenous vein. 3. Bilateral lower leg soft tissue edema. 4. Large Griffiths cyst in the left popliteal fossa. Status: Image reviewed by ne - US negative for DVT. CXR unremarkable. Assessment & Plan - Diagnosis (1) Cellulitis of left anterior lower leg Is this a current diagnosis for this admission?: Yes Plan: Continue antibiotics. We discussed immunocomromise status with Myeloma (2) Hypocalcemia Is this a current diagnosis for this admission?: Yes Plan: Replace with PO and IV. Watch levels. Most likely due to zometa/denosumab given prior to admission. (3) Multiple myeloma Qualifiers: Multiple myeloma remission status: not in remission Qualified Code(s): C90.00 - Multiple myeloma not having achieved remission Is this a current diagnosis for this admission?: Yes Plan: I will hold revlimid for now. He received Dex yesterday. I will add acyclovir for Shingles prophylaxis. Will add SC Heparin for DVT prophylaxis, although will hold this for PLT <50. - Plan Summary Plan Summary: Low blood counts most likely due to chemo. I have encouraged him to ask for pain meds and get up to walk as much as possible. We discussed good nutrition. and son were present (son by phone) and all questions were answered. Patient was also discussed with MAURICE Matias, Hospitalist. I will try to communicate with Dr. Owen, his primary oncologist when available. I called, but no physician medical communication specialist, only phone nurse.
[2019-06-21] MEDS ORDERED: CALCIUM GLUCONATE 2,000 MG in DEXTROSE 5%-WATER 100 ML IV ONE (19:00)
[2019-06-21 19:23] LABS: HEMATOCRIT 27.2 % (37.9-51.0); HEMOGLOBIN 8.7 g/dL (13.5-17.0); MEAN CORPUSCULAR HEMOGLOBIN 28.7 pg (27.0-33.4); MEAN CORPUSCULAR HGB CONC 32.2 g/dL (32.0-36.0); MEAN CORPUSCULAR VOLUME 89 fl (80-97); RED BLOOD COUNT 3.05 10^6/uL (4.35-5.55); RED CELL DISTRIBUTION WIDTH 21.4 % (11.5-14.0); WHITE BLOOD COUNT 4.7 10^3/uL (4.0-10.5)
[2019-06-21 19:36] LABS: ALBUMIN 2.1 g/dL (3.5-5.0); ALKALINE PHOSPHATASE 40 U/L (38-126); ANION GAP 6 (5-19); ASPARTATE AMINO TRANSFERASE 22 U/L (17-59); BILIRUBIN,DIRECT 0.2 mg/dL (0.0-0.4); BILIRUBIN,TOTAL 0.4 mg/dL (0.2-1.3); BLOOD UREA NITROGEN 51 mg/dL (7-20); CARBON DIOXIDE 25 mmol/L (22-30); CHLORIDE 102 mmol/L (98-107); GLUCOSE 145 mg/dL (75-110); POTASSIUM 4.1 mmol/L (3.6-5.0)
[2019-06-21 19:55] LABS: CALCIUM 6.1 mg/dL (8.4-10.2)
[2019-06-21 20:06] LABS: ABSOLUTE LYMPHOCYTES# (MANUAL) 0.4 10^3/uL (0.5-4.7); ABSOLUTE MONOCYTES # (MANUAL) 0.6 10^3/uL (0.1-1.4); ANISOCYTOSIS 3+; BAND NEUTROPHILS % (MANUAL) 1 % (3-5); BASOPHILS % (MANUAL) 1 % (0-2); EOSINOPHILS % (MANUAL) 21 % (0-6); LYMPHOCYTES % (MANUAL) 8 % (13-45); MONOCYTES % (MANUAL) 13 % (3-13); SEGMENTED NEUTROPHILS % (MAN) 56 % (42-78); TOTAL CELLS COUNTED 100
[2019-06-21 20:07] LABS: HELMET CELLS SLIGHT; OVALOCYTES SLIGHT; POIKILOCYTOSIS 1+; SCHISTOCYTES SLIGHT
[2019-06-21 20:08] LABS: PLATELET COMMENT DECREASED; PLATELET COUNT 30 10^3/uL (150-450)
[2019-06-21] MEDS: HEPARIN SOD (PORCINE) 5,000 UNIT/ML 1 ML VIAL SUBCUT SCH (21:37)
--- NOTE | 2019-06-21 21:41 | Progress Note ---
Provider Note Provider Note: Critical care: 06/21/2019 Critical care start time: 8:09 PM Critical care issue: Hypocalcemia I was called by the patient's nurse and informed of a panic calcium value of 6.1 which was down from 6.5 despite receiving IV calcium in the interim. I evaluated the patient and found his chest to be clear, heart showed regular rate and rhythm without murmur, he was alert and oriented x3, abdomen is soft and nontender with normal bowel sounds, cranial nerves II through XII grossly intact, peripheral reflexes were within normal limits and equal bilaterally. After discussion with the patient and his son about the calcium level I have determined that we should try further intravenous repletion of the patient's fabrizio cium utilizing calcium gluconate with a total of 4 g to be delivered. Patient's serum (total) calcium and ionized calcium levels will be checked after the infusion has completed. Patient will be continued on oral calcium supplementation as previously planned. Critical care end time: 9:36 PM Total critical care time: 21 minutes
[2019-06-21] MEDS: ATORVASTATIN CALCIUM 40 MG TABLET PO SCH (21:58)
[2019-06-21] MEDS: MIRTAZAPINE 15 MG TABLET PO SCH (21:58)
[2019-06-21] MEDS: ACYCLOVIR 800 MG TABLET PO SCH (21:58)
[2019-06-21] MEDS: CALCIUM GLUCONATE 2,000 MG in DEXTROSE 5%-WATER 100 ML IV SCH ×2 (21:59→23:13)
[2019-06-21] MEDS: HYDROMORPHONE HCL 2 MG TABLET PO PRN (22:13)
[2019-06-22 03:01] LABS: ALBUMIN 2.1 g/dL (3.5-5.0); CALCIUM 7.4 mg/dL (8.4-10.2)
[2019-06-22] MEDS: HEPARIN SOD (PORCINE) 5,000 UNIT/ML 1 ML VIAL SUBCUT SCH (05:48)
[2019-06-22] MEDS: ACYCLOVIR 800 MG TABLET PO SCH ×3 (05:49→21:30)
[2019-06-22] MEDS: NORMAL SALINE 1000 ML 1,000 ML IV PRN ×2 (05:51→18:44)
[2019-06-22] MEDS: INSULIN LISPRO 100 UNIT/ML 3 ML VIAL SUBCUT SCH ×4 (07:42→21:25)
[2019-06-22] MEDS: HYDROMORPHONE HCL 2 MG TABLET PO SCH ×3 (10:52→21:28)
[2019-06-22] MEDS: INSULIN GLARGINE,HUM.REC.ANLOG 1,000 UNIT/10 ML VIAL SUBCUT SCH ×2 (10:52→21:25)
[2019-06-22] MEDS: POLYETHYLENE GLYCOL 3350 POWDER 17 GM/1 PACKET PO SCH (10:52)
[2019-06-22] MEDS: CEFTRIAXONE 1 GM/D5W RTU 1 GM/50 ML RTUPB IV SCH (10:52)
[2019-06-22] MEDS: FUROSEMIDE INJ/PF 20 MG/2 ML SDV IV SCH ×2 (10:52→21:29)
[2019-06-22] MEDS: FERROUS SULFATE 325 MG TABLET PO SCH (10:53)
[2019-06-22] MEDS: FAMOTIDINE 20 MG TABLET PO SCH ×2 (10:53→21:28)
[2019-06-22] MEDS: FINASTERIDE 5 MG TABLET PO SCH (10:53)
[2019-06-22] MEDS: CHOLECALCIFEROL (D3) 1,000 UNIT (25 MCG) TABLET PO SCH (10:53)
[2019-06-22] MEDS: MULTIVITAMIN TABLET PO SCH (10:53)
[2019-06-22] MEDS: LOSARTAN POTASSIUM 50 MG TABLET PO SCH (10:54)
[2019-06-22] MEDS: DOCUSATE SODIUM 100 MG CAPSULE PO SCH (10:54)
[2019-06-22] MEDS: ASPIRIN 81 MG TABLET, ENT COATED PO SCH (10:54)
[2019-06-22] MEDS: CALCIUM CARBONATE 500 MG TABLET PO SCH ×2 (10:54→17:21)
[2019-06-22] MEDS: ALLOPURINOL 100 MG TABLET PO SCH (10:54)
--- NOTE | 2019-06-22 11:24 | PDOC PROGRESS REPORT ---
Subjective Progress Note for:: 06/22/19 Subjective:: 06/20/2019 Patient is sitting up in bed looks much better and feels much better. 06/21/2019 Patient is complaining of not having a bowel movement and states that the MiraLAX and Dulcolax are not working. He has had problems in the past with constipation due to to his narcotics. Start with a fleets enema and if that fails go to a soapsuds enema. Patient has about the same amount of peripheral edema and a little bit more redness to the left lower extremity. No shortness of breath no chest pain He is complaining of more left knee pain. 06/22/2019 Patient had good results from his fleets enema. Patient has not been out of bed since he was admitted. Patient states he has no pain as long as he does not move much, and in fact is not even asking for pain medicine. I have changed his pain medication to scheduled meds Patient's calcium actually went down last night to 6.1 after getting extra calcium. Patient was given a total of 6000 mg last night. This brought his serum calcium level up to 7.4 today and corrected calcium level to 8.9 Reason For Visit: MULTIPLE MELOMA, CONGESTIVE HEART FAILUTE, Physical Exam Vital Signs: Temp Pulse Resp BP Pulse Ox 99.1 F 78 19 157/54 H 96 06/22/19 07:52 06/22/19 07:52 06/22/19 07:52 06/22/19 07:52 06/22/19 07:52 Intake & Output 06/21/19 06/22/19 06/23/19 06:59 06:59 06:59 Intake Total 1066 2092 240 Output Total 200 200 Balance 866 1892 240 Weight 88 kg General appearance: PRESENT: no acute distress, other - As long as he is lying in bed still the has no left leg pain Respiratory exam: PRESENT: clear to auscultation kevin. ABSENT: rales, rhonchi, wheezes Cardiovascular exam: PRESENT: RRR. ABSENT: diastolic murmur, rubs, systolic murmur Extremities exam: PRESENT: +1 edema, other - I think his cellulitis looks less red today and may be even less well-defined No redness to the left knee no warmth to the touch and less edema. He is tender over the medial aspect of the left knee to palpation Neurological exam: PRESENT: alert, awake, oriented to person, oriented to place, oriented to time, oriented to situation, CN II-XII grossly intact. ABSENT: motor sensory deficit Psychiatric exam: PRESENT: appropriate affect, normal mood. ABSENT: homicidal ideation, suicidal ideation Results Laboratory Results: 06/21/19 18:54 06/21/19 18:54 06/21/19 06/21/19 06/22/19 18:54 18:54 02:12 WBC 4.7 RBC 3.05 L Hgb 8.7 L Hct 27.2 L MCV 89 MCH 28.7 MCHC 32.2 RDW 21.4 H Plt Count 30 L* Seg Neutrophils % Not Reportable Sodium 133.0 L Potassium 4.1 Chloride 102 Carbon Dioxide 25 Anion Gap 6 BUN 51 H Creatinine 1.65 H Est GFR ( Amer) 48 L Glucose 145 H Calcium 6.1 L* 7.4 L Ionized Calcium Kiki Total Bilirubin 0.4 AST 22 Alkaline Phosphatase 40 Total Protein 4.0 L Albumin 2.1 L 2.1 L 06/22/19 02:12 WBC RBC Hgb Hct MCV MCH MCHC RDW Plt Count Seg Neutrophils % Sodium Potassium Chloride Carbon Dioxide Anion Gap BUN Creatinine Est GFR ( Amer) Glucose Calcium Ionized Calcium Kiki 1.08 L Total Bilirubin AST Alkaline Phosphatase Total Protein Albumin 06/19/19 06/19/19 06/20/19 09:02 09:02 03:59 Creatine Kinase 32 L NT-Pro-B Natriuret Pep 76849 H 16192 H 06/21/19 07:15 Creatine Kinase NT-Pro-B Natriuret Pep 88508 H Impressions: Chest X-Ray 06/19/19 08:53 IMPRESSION: NO ACUTE RADIOGRAPHIC FINDING IN THE CHEST. Venous Doppler Study 06/19/19 11:38 IMPRESSION: 1. Negative examination for deep venous thrombosis bilaterally. 2. Noncompressible occlusive thrombus in the distal portions of the right greater saphenous vein. 3. Bilateral lower leg soft tissue edema. 4. Large Griffiths cyst in the left popliteal fossa. Assessment and Plan - Diagnosis (1) Multiple myeloma Qualifiers: Multiple myeloma remission status: not in remission Qualified Code(s): C90.00 - Multiple myeloma not having achieved remission Is this a current diagnosis for this admission?: Yes (2) Bilateral lower extremity edema Is this a current diagnosis for this admission?: Yes (3) Hypocalcemia Is this a current diagnosis for this admission?: Yes (4) Acute kidney injury (nontraumatic) Is this a current diagnosis for this admission?: Yes (5) Chronic pain syndrome Is this a current diagnosis for this admission?: Yes (6) Insulin dependent diabetes mellitus Is this a current diagnosis for this admission?: Yes - Plan Summary Summary: 06/19/2019 Gently diurese patient with IV Lasix, will start broad-spectrum IV antibiotic, replace calcium. Venous Dopplers were done in the emergency room Chest x-ray shows no acute cardiopulmonary disease. I have explained this to the patient as well as his family in the room 06/20/2019 Venous Doppler showed no DVT. Continue to replace calcium. Add laxatives due to patient's history of constipation and chronic narcotics. Give extra dose of Lasix today during the day IV. Count still normal H&H is stable platelets have gone down to 27,000. Albumin low at 2.2. BNP is elevated at 13,500 however this is stable. Cultures pending Clinically patient has less peripheral edema this morning and less redness to t he left lower leg. I did speak with the son by phone this morning with in the room Patient states he is having much less pain 06/21/2019 She is vital signs are stable however. Platelets have gone up to 53,000 white count is still normal, urine and creatinine are up however BNP is down and be difficult to add fluids to this patient at the present time due to his peripheral edema. Patient's biggest complaint today is constipation. Try a fleets enema and then progressed to soapsuds if needed. Sodium level is still low and I have consulted oncology concerning his pain and his abnormal lab values elated to his multiple myeloma. We will continue IV Lasix and increase IV to 100 and hour up from 30/h 06/22/2019 Up from last night showed that the platelets have gone back down to 30,000, 4 out of held the heparin. Corrected calcium level today is 8.9 so we will hold on any edition calcium, for now. I have added clindamycin IV to rocephin for better coverage after speaking with Dr. Palomino. I am rechecking the labs this morning., I have made his PRN pain medicine now scheduled as he was taking at home. Put an order in for physical therapy to see him today after he has had his pain medicine. Going to elevate his left leg higher.. I appreciate hematology/oncology assistance. - Time Time Spent with patient: 35 or more minutes
--- NOTE | 2019-06-22 11:50 | PDOC PROGRESS REPORT ---
Subjective Progress Note for:: 06/22/19 Subjective:: No acute events overnight, patient does feel tired after getting his sponge bath, today had a long conversation with the family, son who is primarily involved with his care was on the phone as well, I also discussed his case with Dr. Owen his oncologist in [facility]. We will plan to hold all of his therapy until his counts recover Reason For Visit: MULTIPLE MELOMA, CONGESTIVE HEART FAILUTE, Physical Exam Vital Signs: Temp Pulse Resp BP Pulse Ox 99.1 F 78 19 157/54 H 96 06/22/19 07:52 06/22/19 07:52 06/22/19 07:52 06/22/19 07:52 06/22/19 07:52 Intake & Output 06/21/19 06/22/19 06/23/19 06:59 06:59 06:59 Intake Total 1066 2092 240 Output Total 200 200 Balance 866 1892 240 Weight 88 kg General appearance: PRESENT: no acute distress, well-developed, well-nourished Head exam: PRESENT: atraumatic, normocephalic Eye exam: PRESENT: conjunctiva pink, EOMI, PERRLA. ABSENT: scleral icterus Ear exam: PRESENT: normal external ear exam Mouth exam: PRESENT: moist, tongue midline Neck exam: ABSENT: carotid bruit, JVD, lymphadenopathy, thyromegaly Respiratory exam: PRESENT: clear to auscultation kevin. ABSENT: rales, rhonchi, wheezes Cardiovascular exam: PRESENT: RRR. ABSENT: diastolic murmur, rubs, systolic murmur Pulses: PRESENT: normal dorsalis pedis pul Vascular exam: PRESENT: normal capillary refill GI/Abdominal exam: PRESENT: normal bowel sounds, soft. ABSENT: distended, guarding, mass, organolmegaly, rebound, tenderness Rectal exam: PRESENT: deferred Extremities exam: PRESENT: full ROM. ABSENT: calf tenderness, clubbing, pedal edema Neurological exam: PRESENT: alert, awake, oriented to person, oriented to place, oriented to time, oriented to situation, CN II-XII grossly intact. ABSENT: motor sensory deficit Psychiatric exam: PRESENT: appropriate affect, normal mood. ABSENT: homicidal ideation, suicidal ideation Skin exam: PRESENT: dry, intact, warm. ABSENT: cyanosis, rash Results Laboratory Results: 06/21/19 18:54 10/18/19 18:54 06/21/19 06/21/19 06/22/19 18:54 18:54 02:12 WBC 4.7 RBC 3.05 L Hgb 8.7 L Hct 27.2 L MCV 89 MCH 28.7 MCHC 32.2 RDW 21.4 H Plt Count 30 L* Seg Neutrophils % Not Reportable Sodium 133.0 L Potassium 4.1 Chloride 102 Carbon Dioxide 25 Anion Gap 6 BUN 51 H Creatinine 1.65 H Est GFR ( Amer) 48 L Glucose 145 H Calcium 6.1 L* 7.4 L Ionized Calcium Kiki Total Bilirubin 0.4 AST 22 Alkaline Phosphatase 40 Total Protein 4.0 L Albumin 2.1 L 2.1 L 06/22/19 02:12 WBC RBC Hgb Hct MCV MCH MCHC RDW Plt Count Seg Neutrophils % Sodium Potassium Chloride Carbon Dioxide Anion Gap BUN Creatinine Est GFR ( Amer) Glucose Calcium Ionized Calcium Kiki 1.08 L Total Bilirubin AST Alkaline Phosphatase Total Protein Albumin 06/19/19 06/19/19 06/20/19 09:02 09:02 03:59 Creatine Kinase 32 L NT-Pro-B Natriuret Pep 05856 H 26553 H 06/21/19 07:15 Creatine Kinase NT-Pro-B Natriuret Pep 37864 H Impressions: Chest X-Ray 06/19/19 08:53 IMPRESSION: NO ACUTE RADIOGRAPHIC FINDING IN THE CHEST. Venous Doppler Study 06/19/19 11:38 IMPRESSION: 1. Negative examination for deep venous thrombosis bilaterally. 2. Noncompressible occlusive thrombus in the distal portions of the right greater saphenous vein. 3. Bilateral lower leg soft tissue edema. 4. Large Griffiths cyst in the left popliteal fossa. Assessment & Plan - Diagnosis (1) Pancytopenia due to antineoplastic chemotherapy Is this a current diagnosis for this admission?: Yes Plan: Pancytopenia related to chemotherapy, await platelet count recovery and hemoglobin recovery. (2) Multiple myeloma Qualifiers: Multiple myeloma remission status: not in remission Qualified Code(s): C90.00 - Multiple myeloma not having achieved remission Is this a current diagnosis for this admission?: Yes Plan: Holding all therapy until discharge (3) Cellulitis of left anterior lower leg Is this a current diagnosis for this admission?: Yes Plan: Improving, continue per hospitalist team - Time Time Spent with patient: 35 or more minutes
[2019-06-22 12:21] LABS: ANION GAP 9 (5-19); BLOOD UREA NITROGEN 44 mg/dL (7-20); CALCIUM 7.2 mg/dL (8.4-10.2); CARBON DIOXIDE 23 mmol/L (22-30); CHLORIDE 101 mmol/L (98-107); GLUCOSE 208 mg/dL (75-110); POTASSIUM 4.3 mmol/L (3.6-5.0)
[2019-06-22 13:27] LABS: HEMATOCRIT 27.4 % (37.9-51.0); HEMOGLOBIN 8.7 g/dL (13.5-17.0); MEAN CORPUSCULAR HEMOGLOBIN 28.4 pg (27.0-33.4); MEAN CORPUSCULAR VOLUME 89 fl (80-97); RED BLOOD COUNT 3.08 10^6/uL (4.35-5.55); RED CELL DISTRIBUTION WIDTH 21.4 % (11.5-14.0); WHITE BLOOD COUNT 4.1 10^3/uL (4.0-10.5)
[2019-06-22 13:28] LABS: PLATELET COUNT 34 10^3/uL (150-450)
[2019-06-22] MEDS: CLINDAMYCIN 600 MG/D5W RTU 600 MG/50 ML RTUPB IV SCH ×2 (13:40→21:26)
[2019-06-22 13:54] LABS: ABSOLUTE LYMPHOCYTES# (MANUAL) 0.6 10^3/uL (0.5-4.7); ABSOLUTE MONOCYTES # (MANUAL) 0.4 10^3/uL (0.1-1.4); BAND NEUTROPHILS % (MANUAL) 1 % (3-5); BASOPHILS % (MANUAL) 1 % (0-2); EOSINOPHILS % (MANUAL) 14 % (0-6); LYMPHOCYTES % (MANUAL) 13 % (13-45); MONOCYTES % (MANUAL) 10 % (3-13); SEGMENTED NEUTROPHILS % (MAN) 60 % (42-78); TOTAL CELLS COUNTED 100
[2019-06-22 13:58] LABS: ANISOCYTOSIS 3+; OVALOCYTES SLIGHT
[2019-06-22 13:59] LABS: PLATELET COMMENT DECREASED
[2019-06-22 14:00] LABS: HYPOCHROMASIA SLIGHT
[2019-06-22 17:07] LABS: ALKALINE PHOSPHATASE 41 U/L (38-126); ANION GAP 7 (5-19); ASPARTATE AMINO TRANSFERASE 35 U/L (17-59); BILIRUBIN,DIRECT 0.2 mg/dL (0.0-0.4); BILIRUBIN,TOTAL 0.6 mg/dL (0.2-1.3); BLOOD UREA NITROGEN 42 mg/dL (7-20); CARBON DIOXIDE 25 mmol/L (22-30); CHLORIDE 103 mmol/L (98-107); GLUCOSE 189 mg/dL (75-110); POTASSIUM 4.3 mmol/L (3.6-5.0)
[2019-06-22] MEDS: TAMSULOSIN HCL 0.4 MG CAP.SR.24H PO SCH (17:21)
[2019-06-22 17:51] LABS: ABSOLUTE EOSINOPHILS # (AUTO) 0.4 10^3/uL (0.0-0.6); ABSOLUTE LYMPHOCYTES (AUTO) 0.5 10^3/uL (0.5-4.7); ABSOLUTE MONOCYTES (AUTO) 0.6 10^3/uL (0.1-1.4); ABSOLUTE NEUT (AUTO) 1.9 10^3/uL (1.7-8.2); BASOPHILS % (AUTO) 0.9 % (0-2); EOSINOPHILS % (AUTO) 12.4 % (0-6); HEMATOCRIT 27.2 % (37.9-51.0); HEMOGLOBIN 8.6 g/dL (13.5-17.0); LYMPHOCYTES % (AUTO) 13.3 % (13-45); MEAN CORPUSCULAR HEMOGLOBIN 27.9 pg (27.0-33.4); MEAN CORPUSCULAR HGB CONC 31.5 g/dL (32.0-36.0); MEAN CORPUSCULAR VOLUME 89 fl (80-97); MONOCYTES % (AUTO) 18.1 % (3-13); RED BLOOD COUNT 3.07 10^6/uL (4.35-5.55); RED CELL DISTRIBUTION WIDTH 21.3 % (11.5-14.0); SEGMENTED NEUTROPHILS % (AUTO) 55.3 % (42-78); TOTAL CELLS COUNTED % (AUTO) 100 %; WHITE BLOOD COUNT 3.5 10^3/uL (4.0-10.5)
[2019-06-22 17:54] LABS: PLATELET COUNT 32 10^3/uL (150-450)
[2019-06-22 18:14] LABS: ANISOCYTOSIS 3+; HYPOCHROMASIA SLIGHT; OVALOCYTES SLIGHT; PLATELET COMMENT DECREASED
[2019-06-22] MEDS: MIRTAZAPINE 15 MG TABLET PO SCH (21:28)
[2019-06-22] MEDS: ATORVASTATIN CALCIUM 40 MG TABLET PO SCH (21:28)
[2019-06-23] MEDS: HYDROMORPHONE HCL 2 MG TABLET PO SCH ×3 (05:16→22:53)
[2019-06-23] MEDS: ACYCLOVIR 800 MG TABLET PO SCH ×3 (05:16→23:32)
[2019-06-23] MEDS: CLINDAMYCIN 600 MG/D5W RTU 600 MG/50 ML RTUPB IV SCH ×3 (05:16→23:32)
[2019-06-23] MEDS: NORMAL SALINE 1000 ML 1,000 ML IV PRN ×2 (05:16→22:52)
[2019-06-23] MEDS: INSULIN LISPRO 100 UNIT/ML 3 ML VIAL SUBCUT SCH ×4 (07:36→22:54)
[2019-06-23] MEDS: FERROUS SULFATE 325 MG TABLET PO SCH (09:19)
[2019-06-23] MEDS: POLYETHYLENE GLYCOL 3350 POWDER 17 GM/1 PACKET PO SCH (09:19)
[2019-06-23] MEDS: ASPIRIN 81 MG TABLET, ENT COATED PO SCH (09:19)
[2019-06-23] MEDS: CEFTRIAXONE 1 GM/D5W RTU 1 GM/50 ML RTUPB IV SCH (09:19)
[2019-06-23] MEDS: INSULIN GLARGINE,HUM.REC.ANLOG 1,000 UNIT/10 ML VIAL SUBCUT SCH ×2 (09:20→22:54)
[2019-06-23] MEDS: CHOLECALCIFEROL (D3) 1,000 UNIT (25 MCG) TABLET PO SCH (09:20)
[2019-06-23] MEDS: FUROSEMIDE INJ/PF 20 MG/2 ML SDV IV SCH ×2 (09:20→22:53)
[2019-06-23] MEDS: DOCUSATE SODIUM 100 MG CAPSULE PO SCH (09:20)
[2019-06-23] MEDS: FAMOTIDINE 20 MG TABLET PO SCH ×2 (09:20→22:54)
[2019-06-23] MEDS: FINASTERIDE 5 MG TABLET PO SCH (09:20)
[2019-06-23] MEDS: MULTIVITAMIN TABLET PO SCH (09:20)
[2019-06-23] MEDS: LOSARTAN POTASSIUM 50 MG TABLET PO SCH (09:20)
[2019-06-23] MEDS: ALLOPURINOL 100 MG TABLET PO SCH (09:20)
[2019-06-23] MEDS: CALCIUM CARBONATE 500 MG TABLET PO SCH ×2 (09:20→17:00)
[2019-06-23] MEDS ORDERED: PREDNISONE 20 MG TABLET PO ONE (11:30)
--- NOTE | 2019-06-23 11:32 | PDOC PROGRESS REPORT ---
Subjective Progress Note for:: 06/23/19 Subjective:: Pt having L wrist swelling and pain along w/ L knee and ankle pain, d/w hospitalist team at length, maybe gouty attack, will start higher dose steroids for this. Reason For Visit: MULTIPLE MELOMA, CONGESTIVE HEART FAILUTE, Physical Exam Vital Signs: Temp Pulse Resp BP Pulse Ox 99.3 F 61 17 142/55 H 97 06/23/19 08:00 06/23/19 08:00 06/23/19 08:00 06/23/19 08:00 06/23/19 08:00 Intake & Output 06/22/19 06/23/19 06/24/19 06:59 06:59 06:59 Intake Total 2092 3411 Output Total 200 450 Balance 1892 2961 Weight 88 kg 88.6 kg General appearance: PRESENT: no acute distress, well-developed, well-nourished Head exam: PRESENT: atraumatic, normocephalic Eye exam: PRESENT: conjunctiva pink, EOMI, PERRLA. ABSENT: scleral icterus Ear exam: PRESENT: normal external ear exam Mouth exam: PRESENT: moist, tongue midline Neck exam: ABSENT: carotid bruit, JVD, lymphadenopathy, thyromegaly Respiratory exam: PRESENT: clear to auscultation kevin. ABSENT: rales, rhonchi, wheezes Cardiovascular exam: PRESENT: RRR. ABSENT: diastolic murmur, rubs, systolic murmur Pulses: PRESENT: normal dorsalis pedis pul Vascular exam: PRESENT: normal capillary refill GI/Abdominal exam: PRESENT: normal bowel sounds, soft. ABSENT: distended, guarding, mass, organolmegaly, rebound, tenderness Rectal exam: PRESENT: deferred Extremities exam: PRESENT: full ROM. ABSENT: calf tenderness, clubbing, pedal edema Neurological exam: PRESENT: alert, awake, oriented to person, oriented to place, oriented to time, oriented to situation, CN II-XII grossly intact. ABSENT: motor sensory deficit Psychiatric exam: PRESENT: appropriate affect, normal mood. ABSENT: homicidal ideation, suicidal ideation Skin exam: PRESENT: dry, intact, warm. ABSENT: cyanosis, rash Results Laboratory Results: 06/22/19 17:35 06/22/19 16:35 06/22/19 06/22/19 06/22/19 11:40 11:40 13:17 WBC Cancelled 4.1 RBC Cancelled 3.08 L Hgb Cancelled 8.7 L Hct Cancelled 27.4 L MCV Cancelled 89 MCH Cancelled 28.4 MCHC Cancelled 32.0 RDW Cancelled 21.4 H Plt Count Cancelled 34 L Seg Neutrophils % Cancelled Not Reportable Sodium 132.5 L Potassium 4.3 Chloride 101 Carbon Dioxide 23 Anion Gap 9 BUN 44 H Creatinine 1.37 H Est GFR ( Amer) > 60 Glucose 208 H Uric Acid Calcium 7.2 L Total Bilirubin AST Alkaline Phosphatase Total Protein Albumin 06/22/19 06/22/19 06/22/19 16:35 16:35 17:35 WBC Cancelled 3.5 L RBC Cancelled 3.07 L Hgb Cancelled 8.6 L Hct Cancelled 27.2 L MCV Cancelled 89 MCH Cancelled 27.9 MCHC Cancelled 31.5 L RDW Cancelled 21.3 H Plt Count Cancelled 32 L Seg Neutrophils % Cancelled 55.3 Sodium 134.7 L Potassium 4.3 Chloride 103 Carbon Dioxide 25 Anion Gap 7 BUN 42 H Creatinine 1.41 H Est GFR ( Amer) 58 L Glucose 189 H Uric Acid Calcium 7.0 L* Total Bilirubin 0.6 AST 35 Alkaline Phosphatase 41 Total Protein 4.0 L Albumin 2.0 L 06/23/19 10:40 WBC RBC Hgb Hct MCV MCH MCHC RDW Plt Count Seg Neutrophils % Sodium Potassium Chloride Carbon Dioxide Anion Gap BUN Creatinine Est GFR ( Amer) Glucose Uric Acid 4.6 Calcium Total Bilirubin AST Alkaline Phosphatase Total Protein Albumin 06/19/19 06/19/19 06/20/19 09:02 09:02 03:59 Creatine Kinase 32 L NT-Pro-B Natriuret Pep 65965 H 87773 H 06/21/19 07:15 Creatine Kinase NT-Pro-B Natriuret Pep 35765 H Impressions: Chest X-Ray 06/19/19 08:53 IMPRESSION: NO ACUTE RADIOGRAPHIC FINDING IN THE CHEST. Venous Doppler Study 06/19/19 11:38 IMPRESSION: 1. Negative examination for deep venous thrombosis bilaterally. 2. Noncompressible occlusive thrombus in the distal portions of the right greater saphenous vein. 3. Bilateral lower leg soft tissue edema. 4. Large Griffiths cyst in the left popliteal fossa. Assessment & Plan - Diagnosis (1) Pancytopenia due to antineoplastic chemotherapy Is this a current diagnosis for this admission?: Yes Plan: Stable but low, con't to monitor closely. As noted previously, discussed with his oncologist and will be holding therapy. (2) Multiple myeloma Qualifiers: Multiple myeloma remission status: not in remission Qualified Code(s): C90.00 - Multiple myeloma not having achieved remission Is this a current diagnosis for this admission?: Yes Plan: Response thus far, holding therapy (3) Cellulitis of left anterior lower leg Is this a current diagnosis for this admission?: Yes Plan: Improving (4) Swelling of joint, wrist, left Is this a current diagnosis for this admission?: Yes Plan: May be secondary to gouty attack, start prednisone 60 mg daily per hospitalist team - Time Time Spent with patient: 35 or more minutes Disposition: Had a long discussion with son today about plan, will continue
--- NOTE | 2019-06-23 13:15 | PDOC PROGRESS REPORT ---
Subjective Progress Note for:: 06/23/19 Subjective:: 06/20/2019 Patient is sitting up in bed looks much better and feels much better. 06/21/2019 Patient is complaining of not having a bowel movement and states that the MiraLAX and Dulcolax are not working. He has had problems in the past with constipation due to to his narcotics. Start with a fleets enema and if that fails go to a soapsuds enema. Patient has about the same amount of peripheral edema and a little bit more redness to the left lower extremity. No shortness of breath no chest pain He is complaining of more left knee pain. 06/22/2019 Patient had good results from his fleets enema. Patient has not been out of bed since he was admitted. Patient states he has no pain as long as he does not move much, and in fact is not even asking for pain medicine. I have changed his pain medication to scheduled meds Patient's calcium actually went down last night to 6.1 after getting extra calcium. Patient was given a total of 6000 mg last night. This brought his serum calcium level up to 7.4 today and corrected calcium level to 8.9 06/23/2019 Patient's now main complaint is left wrist pain says this started yesterday. States it hurts to move his left wrist. It is red,warm to the touch and edematous Patient is going to be seen by physical therapy today. Reason For Visit: MULTIPLE MELOMA, CONGESTIVE HEART FAILUTE, Physical Exam Vital Signs: Temp Pulse Resp BP Pulse Ox 97.3 F 71 18 153/68 H 95 06/23/19 12:00 06/23/19 12:00 06/23/19 12:00 06/23/19 12:00 06/23/19 12:00 Intake & Output 06/22/19 06/23/19 06/24/19 06:59 06:59 06:59 Intake Total 2092 3411 170 Output Total 200 450 Balance 1892 2961 170 Weight 88 kg 88.6 kg General appearance: PRESENT: mild distress - Only his left wrist with any movement of his left upper extremity, which causes left wrist pain Respiratory exam: PRESENT: clear to auscultation kevin. ABSENT: rales, rhonchi, wheezes Cardiovascular exam: PRESENT: RRR. ABSENT: diastolic murmur, rubs, systolic murmur Extremities exam: PRESENT: +1 edema, other - He actually has less peripheral edema today.. As mentioned above his left wrist is red, edematous slightly, and very tender to palpate dorsum Neurological exam: PRESENT: alert, awake, oriented to person, oriented to place, oriented to time, oriented to situation, CN II-XII grossly intact. ABSENT: motor sensory deficit Psychiatric exam: PRESENT: flat affect Results Laboratory Results: 06/22/19 17:35 06/22/19 16:35 06/22/19 06/22/19 06/22/19 13:17 16:35 16:35 WBC 4.1 Cancelled RBC 3.08 L Cancelled Hgb 8.7 L Cancelled Hct 27.4 L Cancelled MCV 89 Cancelled MCH 28.4 Cancelled MCHC 32.0 Cancelled RDW 21.4 H Cancelled Plt Count 34 L Cancelled Seg Neutrophils % Not Reportable Cancelled Sodium 134.7 L Potassium 4.3 Chloride 103 Carbon Dioxide 25 Anion Gap 7 BUN 42 H Creatinine 1.41 H Est GFR ( Amer) 58 L Glucose 189 H Uric Acid Calcium 7.0 L* Total Bilirubin 0.6 AST 35 Alkaline Phosphatase 41 Total Protein 4.0 L Albumin 2.0 L 06/22/19 06/23/19 17:35 10:40 WBC 3.5 L RBC 3.07 L Hgb 8.6 L Hct 27.2 L MCV 89 MCH 27.9 MCHC 31.5 L RDW 21.3 H Plt Count 32 L Seg Neutrophils % 55.3 Sodium Potassium Chloride Carbon Dioxide Anion Gap BUN Creatinine Est GFR ( Amer) Glucose Uric Acid 4.6 Calcium Total Bilirubin AST Alkaline Phosphatase Total Protein Albumin 06/19/19 06/19/19 06/20/19 09:02 09:02 03:59 Creatine Kinase 32 L NT-Pro-B Natriuret Pep 97066 H 42745 H 06/21/19 07:15 Creatine Kinase NT-Pro-B Natriuret Pep 61775 H Impressions: Chest X-Ray 06/19/19 08:53 IMPRESSION: NO ACUTE RADIOGRAPHIC FINDING IN THE CHEST. Venous Doppler Study 06/19/19 11:38 IMPRESSION: 1. Negative examination for deep venous thrombosis bilaterally. 2. Noncompressible occlusive thrombus in the distal portions of the right greater saphenous vein. 3. Bilateral lower leg soft tissue edema. 4. Large Griffiths cyst in the left popliteal fossa. Assessment and Plan - Diagnosis (1) Multiple myeloma Qualifiers: Multiple myeloma remission status: not in remission Qualified Code(s): C90.00 - Multiple myeloma not having achieved remission Is this a current diagnosis for this admission?: Yes (2) Bilateral lower extremity edema Is this a current diagnosis for this admission?: Yes (3) Hypocalcemia Is this a current diagnosis for this admission?: Yes (4) Acute kidney injury (nontraumatic) Is this a current diagnosis for this admission?: Yes (5) Chronic pain syndrome Is this a current diagnosis for this admission?: Yes (6) Insulin dependent diabetes mellitus Is this a current diagnosis for this admission?: Yes - Plan Summary Summary: 06/19/2019 Gently diurese patient with IV Lasix, will start broad-spectrum IV antibiotic, replace calcium. Venous Dopplers were done in the emergency room Chest x-ray shows no acute cardiopulmonary disease. I have explained this to t he patient as well as his family in the room 06/20/2019 Venous Doppler showed no DVT. Continue to replace calcium. Add laxatives due to patient's history of constipation and chronic narcotics. Give extra dose of Lasix today during the day IV. Count still normal H&H is stable platelets have gone down to 27,000. Albumin low at 2.2. BNP is elevated at 13,500 however this is stable. Cultures pending Clinically patient has less peripheral edema this morning and less redness to the left lower leg. I did speak with the son by phone this morning with in the room Patient states he is having much less pain 06/21/2019 She is vital signs are stable however. Platelets have gone up to 53,000 white count is still normal, urine and creatinine are up however BNP is down and be difficult to add fluids to this patient at the present time due to his peripheral edema. Patient's biggest complaint today is constipation. Try a fleets enema and then progressed to soapsuds if needed. Sodium level is still low and I have consulted oncology concerning his pain and his abnormal lab values elated to his multiple myeloma. We will continue IV Lasix and increase IV to 100 and hour up from 30/h 06/22/2019 Up from last night showed that the platelets have gone back down to 30,000, therefore held the heparin. Corrected calcium level today is 8.9 so we will hold on any edition calcium, for now. I have added clindamycin IV to rocephin for better coverage after speaking with Dr. Palomino. I am rechecking the labs this morning., I have made his PRN pain medicine now scheduled as he was taking at home. Put an order in for physical therapy to see him today after he has had his pain medicine. Going to elevate his left leg higher.. I appreciate hematology/oncology assistance. 06/23/2019 She now has a new complaint of left wrist pain. Is in fact read edematous and tender to the touch. ROM is severely limited secondary to pain Discussing in great detail with oncology we will going to give him a short 5-day course of prednisone. Starting at 60 mg a day tapering. This seemed to help hi s right knee pain dramatically when it was injected into his right knee to 4 weeks ago at [facility]. Uric acid level today is 4.6 Platelets are once again low however hopefully these will soon start to become normal. Continue IV antibiotics, pain medication, therapy. - Time Time Spent with patient: 35 or more minutes
[2019-06-23] MEDS: TAMSULOSIN HCL 0.4 MG CAP.SR.24H PO SCH (17:00)
[2019-06-23 17:27] LABS: HEMATOCRIT 27.8 % (37.9-51.0); MEAN CORPUSCULAR HEMOGLOBIN 28.7 pg (27.0-33.4); MEAN CORPUSCULAR HGB CONC 32.3 g/dL (32.0-36.0); MEAN CORPUSCULAR VOLUME 89 fl (80-97); RED BLOOD COUNT 3.13 10^6/uL (4.35-5.55); RED CELL DISTRIBUTION WIDTH 21.5 % (11.5-14.0); WHITE BLOOD COUNT 2.7 10^3/uL (4.0-10.5)
[2019-06-23 17:48] LABS: ABSOLUTE LYMPHOCYTES# (MANUAL) 0.4 10^3/uL (0.5-4.7); ABSOLUTE MONOCYTES # (MANUAL) 0.4 10^3/uL (0.1-1.4); BASOPHILS % (MANUAL) 0 % (0-2); EOSINOPHILS % (MANUAL) 0 % (0-6); LYMPHOCYTES % (MANUAL) 15 % (13-45); MONOCYTES % (MANUAL) 15 % (3-13); SEGMENTED NEUTROPHILS % (MAN) 70 % (42-78); TOTAL CELLS COUNTED 100
[2019-06-23 17:52] LABS: ANISOCYTOSIS 3+; OVALOCYTES SLIGHT; PLATELET COMMENT DECREASED; TEAR DROP CELLS SLIGHT
[2019-06-23 17:57] LABS: PLATELET COUNT 30 10^3/uL (150-450)
[2019-06-23 18:04] LABS: ALBUMIN 2.2 g/dL (3.5-5.0); ALKALINE PHOSPHATASE 53 U/L (38-126); ANION GAP 9 (5-19); ASPARTATE AMINO TRANSFERASE 69 U/L (17-59); BILIRUBIN,DIRECT 0.2 mg/dL (0.0-0.4); BILIRUBIN,TOTAL 0.5 mg/dL (0.2-1.3); BLOOD UREA NITROGEN 36 mg/dL (7-20); CARBON DIOXIDE 22 mmol/L (22-30); CHLORIDE 105 mmol/L (98-107); GLUCOSE 172 mg/dL (75-110); POTASSIUM 4.3 mmol/L (3.6-5.0); TOTAL PROTEIN 4.2 g/dL (6.3-8.2)
[2019-06-23 18:18] LABS: CALCIUM 6.7 mg/dL (8.4-10.2)
[2019-06-23] MEDS ORDERED: CALCIUM GLUCONATE 2,222 MG in DEXTROSE 5%-WATER 100 ML IV ONE (19:00)
[2019-06-23] MEDS ORDERED: CALCIUM GLUCONATE 1000 MG/10 ML INJ IV ONE ×2 (21:01→21:11)
[2019-06-23] MEDS: MIRTAZAPINE 15 MG TABLET PO SCH (22:53)
[2019-06-23] MEDS: ATORVASTATIN CALCIUM 40 MG TABLET PO SCH (22:53)
[2019-06-24] MEDS: CLINDAMYCIN 600 MG/D5W RTU 600 MG/50 ML RTUPB IV SCH ×3 (06:44→21:59)
[2019-06-24] MEDS: HYDROMORPHONE HCL 2 MG TABLET PO SCH ×3 (06:44→21:59)
[2019-06-24] MEDS: ACYCLOVIR 800 MG TABLET PO SCH ×3 (06:44→22:08)
[2019-06-24] MEDS: INSULIN GLARGINE,HUM.REC.ANLOG 1,000 UNIT/10 ML VIAL SUBCUT SCH ×2 (09:14→22:06)
[2019-06-24] MEDS: INSULIN LISPRO 100 UNIT/ML 3 ML VIAL SUBCUT SCH ×4 (09:16→22:06)
[2019-06-24] MEDS: CEFTRIAXONE 1 GM/D5W RTU 1 GM/50 ML RTUPB IV SCH (09:18)
[2019-06-24] MEDS: FUROSEMIDE INJ/PF 20 MG/2 ML SDV IV SCH ×2 (09:19→21:58)
[2019-06-24] MEDS: FINASTERIDE 5 MG TABLET PO SCH (09:20)
[2019-06-24] MEDS: CHOLECALCIFEROL (D3) 1,000 UNIT (25 MCG) TABLET PO SCH (09:20)
[2019-06-24] MEDS: CALCIUM CARBONATE 500 MG TABLET PO SCH ×2 (09:20→17:19)
[2019-06-24] MEDS: MULTIVITAMIN TABLET PO SCH (09:20)
[2019-06-24] MEDS: DOCUSATE SODIUM 100 MG CAPSULE PO SCH (09:20)
[2019-06-24] MEDS: FERROUS SULFATE 325 MG TABLET PO SCH (09:20)
[2019-06-24] MEDS: LOSARTAN POTASSIUM 50 MG TABLET PO SCH (09:21)
[2019-06-24] MEDS: ASPIRIN 81 MG TABLET, ENT COATED PO SCH (09:21)
[2019-06-24] MEDS: POLYETHYLENE GLYCOL 3350 POWDER 17 GM/1 PACKET PO SCH (09:21)
[2019-06-24] MEDS: FAMOTIDINE 20 MG TABLET PO SCH ×2 (09:21→21:58)
[2019-06-24] MEDS: ALLOPURINOL 100 MG TABLET PO SCH (09:21)
--- NOTE | 2019-06-24 13:57 | PDOC PROGRESS REPORT ---
Subjective Progress Note for:: 06/24/19 Subjective:: 06/20/2019 Patient is sitting up in bed looks much better and feels much better. 06/21/2019 Patient is complaining of not having a bowel movement and states that the MiraLAX and Dulcolax are not working. He has had problems in the past with constipation due to to his narcotics. Start with a fleets enema and if that fails go to a soapsuds enema. Patient has about the same amount of peripheral edema and a little bit more redness to the left lower extremity. No shortness of breath no chest pain He is complaining of more left knee pain. 06/22/2019 Patient had good results from his fleets enema. Patient has not been out of bed since he was admitted. Patient states he has no pain as long as he does not move much, and in fact is not even asking for pain medicine. I have changed his pain medication to scheduled meds Patient's calcium actually went down last night to 6.1 after getting extra calcium. Patient was given a total of 6000 mg last night. This brought his serum calcium level up to 7.4 today and corrected calcium level to 8.9 06/23/2019 Patient's now main complaint is left wrist pain says this started yesterday. States it hurts to move his left wrist. It is red,warm to the touch and edematous Patient is going to be seen by physical therapy today. 06/24/2019 Uric acid level was 4.6 patient was given prednisone 60 mg p.o. yesterday. Will give another 60 mg today, and recommend 50 mg tomorrow, with tapering over the next 3 to 5 days. Patient now has what appears to be petechiae about his right leg as well as his left shoulder. This does not appear to be a cellulitis. Reason For Visit: MULTIPLE MELOMA, CONGESTIVE HEART FAILUTE, Physical Exam Vital Signs: Temp Pulse Resp BP Pulse Ox 97.5 F 77 19 130/49 H 97 06/24/19 12:00 06/24/19 12:00 06/24/19 12:00 06/24/19 12:00 06/24/19 12:00 Intake & Output 06/23/19 06/24/19 06/25/19 06:59 06:59 06:59 Intake Total 3411 1692 390 Output Total 450 600 100 Balance 2961 1092 290 Weight 88.6 kg 89.4 kg General appearance: PRESENT: mild distress, other - Much less pain in his left wrist today Respiratory exam: PRESENT: clear to auscultation kevin. ABSENT: rales, rhonchi, wheezes Cardiovascular exam: PRESENT: RRR. ABSENT: diastolic murmur, rubs, systolic murmur Extremities exam: PRESENT: other - Petechiae about the left lower leg which has been present since admission. New petechiae about the right heel and ankle as well as calf. Also a small area on the left anterior shoulder Much less peripheral edema in both lower legs today No redness and only minimal edema to the left wrist Psychiatric exam: PRESENT: appropriate affect, normal mood. ABSENT: homicidal ideation, suicidal ideation Results Laboratory Results: 06/23/19 17:10 06/23/19 17:10 06/23/19 06/23/19 17:10 17:10 WBC 2.7 L RBC 3.13 L Hgb 9.0 L Hct 27.8 L MCV 89 MCH 28.7 MCHC 32.3 RDW 21.5 H Plt Count 30 L* Seg Neutrophils % Not Reportable Sodium 136.0 L Potassium 4.3 Chloride 105 Carbon Dioxide 22 Anion Gap 9 BUN 36 H Creatinine 1.32 H Est GFR ( Amer) > 60 Glucose 172 H Calcium 6.7 L* Total Bilirubin 0.5 AST 69 H Alkaline Phosphatase 53 Total Protein 4.2 L Albumin 2.2 L 06/19/19 06/19/19 06/20/19 09:02 09:02 03:59 Creatine Kinase 32 L NT-Pro-B Natriuret Pep 52926 H 88609 H 06/21/19 07:15 Creatine Kinase NT-Pro-B Natriuret Pep 18837 H Impressions: Chest X-Ray 06/19/19 08:53 IMPRESSION: NO ACUTE RADIOGRAPHIC FINDING IN THE CHEST. Venous Doppler Study 06/19/19 11:38 IMPRESSION: 1. Negative examination for deep venous thrombosis bilaterally. 2. Noncompressible occlusive thrombus in the distal portions of the right greater saphenous vein. 3. Bilateral lower leg soft tissue edema. 4. Large Griffiths cyst in the left popliteal fossa. Assessment and Plan - Diagnosis (1) Multiple myeloma Qualifiers: Multiple myeloma remission status: not in remission Qualified Code(s): C90.00 - Multiple myeloma not having achieved remission Is this a current diagnosis for this admission?: Yes (2) Bilateral lower extremity edema Is this a current diagnosis for this admission?: Yes (3) Hypocalcemia Is this a current diagnosis for this admission?: Yes (4) Acute kidney injury (nontraumatic) Is this a current diagnosis for this admission?: Yes (5) Chronic pain syndrome Is this a current diagnosis for this admission?: Yes (6) Insulin dependent diabetes mellitus Is this a current diagnosis for this admission?: Yes - Plan Summary Summary: 06/19/2019 Gently diurese patient with IV Lasix, will start broad-spectrum IV antibiotic, replace calcium. Venous Dopplers were done in the emergency room Chest x-ray shows no acute cardiopulmonary disease. I have explained this to the patient as well as his family in the room 06/20/2019 Venous Doppler showed no DVT. Continue to replace calcium. Add laxatives due to patient's history of constipation and chronic narcotics. Give extra dose of Lasix today during the day IV. Count still normal H&H is stable platelets have gone down to 27,000. Albumin low at 2.2. BNP is elevated at 13,500 however this is stable. Cultures pending Clinically patient has less peripheral edema this morning and less redness to the left lower leg. I did speak with the son by phone this morning with in the room Patient states he is having much less pain 06/21/2019 She is vital signs are stable however. Platelets have gone up to 53,000 white count is still normal, urine and creatinine are up however BNP is down and be difficult to add fluids to this patient at the present time due to his peripheral edema. Patient's biggest complaint today is constipation. Try a fleets enema and then progressed to soapsuds if needed. Sodium level is still low and I have consulted oncology concerning his pain and his abnormal lab values elated to his multiple myeloma. We will continue IV Lasix and increase IV to 100 and hour up from 30/h 06/22/2019 Up from last night showed that the platelets have gone back down to 30,000, therefore held the heparin. Corrected calcium level today is 8.9 so we will hold on any edition calcium, for now. I have added clindamycin IV to rocephin for better coverage after speaking with Dr. Palomino. I am rechecking the labs this morning., I have made his PRN pain medicine now scheduled as he was taking at home. Put an order in for physical therapy to see him today after he has had his pain medicine. Going to elevate his left leg higher.. I appreciate hematology/oncology assistance. 06/23/2019 She now has a new complaint of left wrist pain. Is in fact read edematous and tender to the touch. ROM is severely limited secondary to pain Discussing in great detail with oncology we will going to give him a short 5-day course of prednisone. Starting at 60 mg a day tapering. This seemed to help his right knee pain dramatically when it was injected into his right knee to 4 weeks ago at [place]. Uric acid level today is 4.6 Platelets are once again low however hopefully these will soon start to become normal. Continue IV antibiotics, pain medication, therapy. 06/24/2019 Wondering now if what was diagnosed as cellulitis on admission was not cellulitis at all but a side effect to his medications for multiple myeloma. He definitely had generalized peripheral edema, and is also had joint pain. Patient's platelets remain low as well as his white count. Patient does not seem to be responding to antibiotics which would explain the fact that this is not an infection. Also patient is growing nothing out of his blood cultures. Patient responds quite well to steroids, however patient has also been off of his medications for multiple myeloma now for 3 days. Continue treating generalized peripheral edema, continue treating joint pain with steroids, continue IVs antibiotics until it is definitively sided that he does not have cellulitis. Continue treating patient's hypocalcemia secondary to to multiple myeloma - Time Time Spent with patient: 25-34 minutes
[2019-06-24] MEDS: NORMAL SALINE 1000 ML 1,000 ML IV PRN (15:53)
[2019-06-24] MEDS: TAMSULOSIN HCL 0.4 MG CAP.SR.24H PO SCH (17:19)
[2019-06-24] MEDS: HYDROMORPHONE HCL INJ/PF 2 MG/ML AMPULE IV PRN (17:19)
[2019-06-24 18:17] LABS: HEMATOCRIT 27.6 % (37.9-51.0); MEAN CORPUSCULAR HEMOGLOBIN 29.1 pg (27.0-33.4); MEAN CORPUSCULAR HGB CONC 32.4 g/dL (32.0-36.0); MEAN CORPUSCULAR VOLUME 90 fl (80-97); RED BLOOD COUNT 3.08 10^6/uL (4.35-5.55); RED CELL DISTRIBUTION WIDTH 21.5 % (11.5-14.0); WHITE BLOOD COUNT 4.4 10^3/uL (4.0-10.5)
[2019-06-24 18:32] LABS: ALKALINE PHOSPHATASE 51 U/L (38-126); ANION GAP 7 (5-19); ASPARTATE AMINO TRANSFERASE 121 U/L (17-59); BILIRUBIN,DIRECT 0.1 mg/dL (0.0-0.4); BILIRUBIN,TOTAL 0.3 mg/dL (0.2-1.3); BLOOD UREA NITROGEN 43 mg/dL (7-20); CARBON DIOXIDE 24 mmol/L (22-30); CHLORIDE 100 mmol/L (98-107); GLUCOSE 241 mg/dL (75-110); POTASSIUM 4.5 mmol/L (3.6-5.0); TOTAL PROTEIN 4.1 g/dL (6.3-8.2)
[2019-06-24 18:41] LABS: PLATELET COUNT 55 10^3/uL (150-450)
[2019-06-24 18:45] LABS: ABSOLUTE LYMPHOCYTES# (MANUAL) 0.5 10^3/uL (0.5-4.7); ABSOLUTE MONOCYTES # (MANUAL) 0.2 10^3/uL (0.1-1.4); BAND NEUTROPHILS % (MANUAL) 1 % (3-5); BASOPHILS % (MANUAL) 0 % (0-2); EOSINOPHILS % (MANUAL) 1 % (0-6); LYMPHOCYTES % (MANUAL) 12 % (13-45); MONOCYTES % (MANUAL) 4 % (3-13); SEGMENTED NEUTROPHILS % (MAN) 82 % (42-78); TOTAL CELLS COUNTED 100
[2019-06-24 18:47] LABS: CALCIUM 6.9 mg/dL (8.4-10.2)
[2019-06-24 18:50] LABS: ANISOCYTOSIS 3+; BURR CELLS 1+; OVALOCYTES 1+; PLATELET COMMENT DECREASED; POIKILOCYTOSIS 2+; SCHISTOCYTES SLIGHT
[2019-06-24] MEDS: ATORVASTATIN CALCIUM 40 MG TABLET PO SCH (21:59)
[2019-06-24] MEDS: MIRTAZAPINE 15 MG TABLET PO SCH (21:59)
[2019-06-25] MEDS: NORMAL SALINE 1000 ML 1,000 ML IV PRN ×2 (03:21→15:13)
[2019-06-25] MEDS: HYDROMORPHONE HCL 2 MG TABLET PO SCH ×3 (05:05→22:15)
[2019-06-25] MEDS: ACYCLOVIR 800 MG TABLET PO SCH ×3 (05:06→22:15)
[2019-06-25] MEDS: CLINDAMYCIN 600 MG/D5W RTU 600 MG/50 ML RTUPB IV SCH ×3 (05:06→22:16)
[2019-06-25] MEDS: INSULIN LISPRO 100 UNIT/ML 3 ML VIAL SUBCUT SCH ×4 (10:58→22:16)
[2019-06-25] MEDS: MULTIVITAMIN TABLET PO SCH (11:08)
[2019-06-25] MEDS: FINASTERIDE 5 MG TABLET PO SCH (11:08)
[2019-06-25] MEDS: FERROUS SULFATE 325 MG TABLET PO SCH (11:08)
[2019-06-25] MEDS: ALLOPURINOL 100 MG TABLET PO SCH (11:08)
[2019-06-25] MEDS: ASPIRIN 81 MG TABLET, ENT COATED PO SCH (11:08)
[2019-06-25] MEDS: CHOLECALCIFEROL (D3) 1,000 UNIT (25 MCG) TABLET PO SCH (11:08)
[2019-06-25] MEDS: CALCIUM CARBONATE 500 MG TABLET PO SCH ×2 (11:08→17:51)
[2019-06-25] MEDS: FUROSEMIDE INJ/PF 20 MG/2 ML SDV IV SCH ×2 (11:09→22:15)
[2019-06-25] MEDS: FAMOTIDINE 20 MG TABLET PO SCH ×2 (11:09→22:17)
[2019-06-25] MEDS: CEFTRIAXONE 1 GM/D5W RTU 1 GM/50 ML RTUPB IV SCH (11:09)
[2019-06-25] MEDS: DOCUSATE SODIUM 100 MG CAPSULE PO SCH (11:09)
[2019-06-25] MEDS: LOSARTAN POTASSIUM 50 MG TABLET PO SCH (11:09)
[2019-06-25] MEDS: INSULIN GLARGINE,HUM.REC.ANLOG 1,000 UNIT/10 ML VIAL SUBCUT SCH ×2 (11:10→22:14)
[2019-06-25] MEDS: POLYETHYLENE GLYCOL 3350 POWDER 17 GM/1 PACKET PO SCH (11:10)
--- NOTE | 2019-06-25 13:48 | PDOC PROGRESS REPORT ---
Subjective Progress Note for:: 06/25/19 Subjective:: Patient feeling about the same. He states that he has not yet been up out of bed. Family state that he was up walking normally about a week ago. He has not had a BM for 3 days. ROS: right hand swelling. No nausea. Reason For Visit: MULTIPLE MELOMA, CONGESTIVE HEART FAILUTE, Physical Exam Vital Signs: Temp Pulse Resp BP Pulse Ox 97.5 F 68 19 107/50 L 97 06/25/19 07:22 06/25/19 07:22 06/25/19 07:22 06/25/19 07:22 06/25/19 07:22 Intake & Output 06/24/19 06/25/19 06/26/19 06:59 06:59 06:59 Intake Total 1692 3100 Output Total 600 900 Balance 1092 2200 Weight 89.4 kg 90.9 kg General appearance: PRESENT: well-developed, well-nourished Head exam: PRESENT: normocephalic Respiratory exam: PRESENT: clear to auscultation kevin, unlabored Cardiovascular exam: PRESENT: RRR Extremities exam: PRESENT: other - No edema. moving all 4 extremities without difficulty. Neurological exam: PRESENT: alert, awake Psychiatric exam: PRESENT: appropriate affect Skin exam: PRESENT: other - Left leg now with chronic vascular changes reso lving. The acute cellulitis has greatly improved. Results Laboratory Results: 06/24/19 17:35 06/24/19 17:35 06/24/19 06/24/19 17:35 17:35 WBC 4.4 RBC 3.08 L Hgb 9.0 L Hct 27.6 L MCV 90 MCH 29.1 MCHC 32.4 RDW 21.5 H Plt Count 55 L Seg Neutrophils % Not Reportable Sodium 130.9 L Potassium 4.5 Chloride 100 Carbon Dioxide 24 Anion Gap 7 BUN 43 H Creatinine 1.35 H Est GFR ( Amer) > 60 Glucose 241 H Calcium 6.9 L* Total Bilirubin 0.3 AST 121 H Alkaline Phosphatase 51 Total Protein 4.1 L Albumin 2.0 L 06/19/19 15:40 Blood Blood Culture - Final NO GROWTH IN 5 DAYS 06/19/19 14:45 Blood Blood Culture - Final NO GROWTH IN 5 DAYS 06/19/19 06/19/19 06/20/19 09:02 09:02 03:59 Creatine Kinase 32 L NT-Pro-B Natriuret Pep 31262 H 02362 H 06/21/19 07:15 Creatine Kinase NT-Pro-B Natriuret Pep 07568 H Impressions: Chest X-Ray 06/19/19 08:53 IMPRESSION: NO ACUTE RADIOGRAPHIC FINDING IN THE CHEST. Venous Doppler Study 06/19/19 11:38 IMPRESSION: 1. Negative examination for deep venous thrombosis bilaterally. 2. Noncompressible occlusive thrombus in the distal portions of the right greater saphenous vein. 3. Bilateral lower leg soft tissue edema. 4. Large Griffiths cyst in the left popliteal fossa. Assessment & Plan - Diagnosis (1) Cellulitis of left anterior lower leg Is this a current diagnosis for this admission?: Yes Plan: Much improved. Would consider changing ABX to PO. (2) Hypocalcemia Is this a current diagnosis for this admission?: Yes Plan: Continue oral supplements. (3) Multiple myeloma Qualifiers: Multiple myeloma remission status: not in remission Qualified Code(s): C90.00 - Multiple myeloma not having achieved remission Is this a current diagnosis for this admission?: Yes Plan: All treatment on hold. - Time Time Spent with patient: 15-24 minutes - Plan Summary Plan Summary: Acute medical issues seem to have resolved. I believe patient would greatly benefit from ambulation at this point. Continue Bowel regimen. Will increase colace. He also has MOM ordered PRN.
[2019-06-25 17:42] LABS: ABSOLUTE EOSINOPHILS # (AUTO) 0.8 10^3/uL (0.0-0.6); ABSOLUTE LYMPHOCYTES (AUTO) 0.5 10^3/uL (0.5-4.7); ABSOLUTE MONOCYTES (AUTO) 0.6 10^3/uL (0.1-1.4); ABSOLUTE NEUT (AUTO) 1.8 10^3/uL (1.7-8.2); BASOPHILS % (AUTO) 0.6 % (0-2); EOSINOPHILS % (AUTO) 21.5 % (0-6); HEMATOCRIT 25.6 % (37.9-51.0); HEMOGLOBIN 8.2 g/dL (13.5-17.0); LYMPHOCYTES % (AUTO) 13.3 % (13-45); MEAN CORPUSCULAR HEMOGLOBIN 28.4 pg (27.0-33.4); MEAN CORPUSCULAR HGB CONC 32.3 g/dL (32.0-36.0); MEAN CORPUSCULAR VOLUME 88 fl (80-97); MONOCYTES % (AUTO) 15.9 % (3-13); RED BLOOD COUNT 2.91 10^6/uL (4.35-5.55); RED CELL DISTRIBUTION WIDTH 21.1 % (11.5-14.0); SEGMENTED NEUTROPHILS % (AUTO) 48.7 % (42-78); TOTAL CELLS COUNTED % (AUTO) 100 %; WHITE BLOOD COUNT 3.8 10^3/uL (4.0-10.5)
[2019-06-25] MEDS: TAMSULOSIN HCL 0.4 MG CAP.SR.24H PO SCH (17:51)
[2019-06-25 17:55] LABS: ALBUMIN 1.8 g/dL (3.5-5.0); ALKALINE PHOSPHATASE 45 U/L (38-126); ANION GAP 5 (5-19); ASPARTATE AMINO TRANSFERASE 79 U/L (17-59); BILIRUBIN,DIRECT 0.1 mg/dL (0.0-0.4); BILIRUBIN,TOTAL 0.2 mg/dL (0.2-1.3); BLOOD UREA NITROGEN 46 mg/dL (7-20); CARBON DIOXIDE 25 mmol/L (22-30); CHLORIDE 104 mmol/L (98-107); GLUCOSE 130 mg/dL (75-110); POTASSIUM 4.7 mmol/L (3.6-5.0); TOTAL PROTEIN 3.7 g/dL (6.3-8.2)
[2019-06-25 18:04] LABS: CALCIUM 6.6 mg/dL (8.4-10.2)
[2019-06-25 18:12] LABS: PLATELET COUNT 60 10^3/uL (150-450)
--- NOTE | 2019-06-25 19:39 | PDOC PROGRESS REPORT ---
Subjective Progress Note for:: 06/25/19 Subjective:: Patient states that he is feeling better today. His joint pain has significantly improved with steroid use. States that the swelling in his left knee has come down significantly. Still endorses erythema in his left lower extremity. Otherwise has no complaints. Reason For Visit: MULTIPLE MELOMA, CONGESTIVE HEART FAILUTE, Physical Exam Vital Signs: Temp Pulse Resp BP Pulse Ox 97.5 F 68 19 107/50 L 97 06/25/19 07:22 06/25/19 07:22 06/25/19 07:22 06/25/19 07:22 06/25/19 07:22 Intake & Output 06/24/19 06/25/19 06/26/19 06:59 06:59 06:59 Intake Total 1692 3100 1100 Output Total 600 900 Balance 1092 2200 1100 Weight 89.4 kg 90.9 kg General appearance: PRESENT: no acute distress, cooperative Head exam: PRESENT: atraumatic Eye exam: PRESENT: conjunctiva pink Mouth exam: PRESENT: moist Throat exam: ABSENT: tonsillogmegaly Neck exam: ABSENT: JVD Respiratory exam: PRESENT: clear to auscultation kevin Cardiovascular exam: PRESENT: RRR, +S1 Vascular exam: ABSENT: pallor GI/Abdominal exam: PRESENT: normal bowel sounds Extremities exam: PRESENT: pedal edema, +2 edema Musculoskeletal exam: PRESENT: other - No swelling in the left knee. No significant fluid collection in the left wrist either. Neurological exam: PRESENT: alert, awake, oriented to person, oriented to place Psychiatric exam: ABSENT: agitated Skin exam: PRESENT: other - erythema and swelling of left lower extremity without any significant warmth. Per patient and there has been significant improvement in the erythema. No clear pockets or collections in the leg. Results Laboratory Results: 06/25/19 17:11 06/25/19 17:11 06/25/19 06/25/19 17:11 17:11 WBC 3.8 L RBC 2.91 L Hgb 8.2 L Hct 25.6 L MCV 88 MCH 28.4 MCHC 32.3 RDW 21.1 H Plt Count 60 L Seg Neutrophils % 48.7 Sodium 134.0 L Potassium 4.7 Chloride 104 Carbon Dioxide 25 Anion Gap 5 BUN 46 H Creatinine 1.46 H Est GFR ( Amer) 55 L Glucose 130 H Calcium 6.6 L* Total Bilirubin 0.2 AST 79 H Alkaline Phosphatase 45 Total Protein 3.7 L Albumin 1.8 L 06/19/19 15:40 Blood Blood Culture - Final NO GROWTH IN 5 DAYS 06/19/19 14:45 Blood Blood Culture - Final NO GROWTH IN 5 DAYS 06/19/19 06/19/19 06/20/19 09:02 09:02 03:59 Creatine Kinase 32 L NT-Pro-B Natriuret Pep 78474 H 74317 H 06/21/19 07:15 Creatine Kinase NT-Pro-B Natriuret Pep 09364 H Impressions: Chest X-Ray 06/19/19 08:53 IMPRESSION: NO ACUTE RADIOGRAPHIC FINDING IN THE CHEST. Venous Doppler Study 06/19/19 11:38 IMPRESSION: 1. Negative examination for deep venous thrombosis bilaterally. 2. Noncompressible occlusive thrombus in the distal portions of the right greater saphenous vein. 3. Bilateral lower leg soft tissue edema. 4. Large Griffiths cyst in the left popliteal fossa. Assessment and Plan - Diagnosis (1) Cellulitis of left anterior lower leg Is this a current diagnosis for this admission?: Yes Plan: Continue ceftriaxone and clindamycin. Will de-escalate antibiotic regimen tomorrow. Blood cultures negative. (2) Hypocalcemia Is this a current diagnosis for this admission?: Yes Plan: Continue with supplementation. Current corrected calcium is 8.36 which is only reflective of mild hypocalcemia. (3) Multiple myeloma Qualifiers: Multiple myeloma remission status: not in remission Qualified Code(s): C90.00 - Multiple myeloma not having achieved remission Is this a current diagnosis for this admission?: Yes Plan: All treatments currently held. Oncology following. (4) Swelling of joint, wrist, left Is this a current diagnosis for this admission?: Yes Plan: Improved with steroids we will continue to monitor. (5) Insulin dependent diabetes mellitus Is this a current diagnosis for this admission?: Yes (6) [id number] kidney injury Qualifiers: Chronic kidney disease stage: stage 3 (moderate) Is this a current diagnosis for this admission?: Yes Plan: Creatinine currently seems to be at baseline. Will monitor - Plan Summary Summary: 06/19/2019 Gently diurese patient with IV Lasix, will start broad-spectrum IV antibiotic, replace calcium. Venous Dopplers were done in the emergency room Chest x-ray shows no acute cardiopulmonary disease. I have explained this to the patient as well as his family in the room 06/20/2019 Venous Doppler showed no DVT. Continue to replace calcium. Add laxatives due to patient's history of constipation and chronic narcotics. Give extra dose of Lasix today during the day IV. Count still normal H&H is stable platelets have gone down to 27,000. Albumin low at 2.2. BNP is elevated at 13,500 however this is stable. Cultures pending Clinically patient has less peripheral edema this morning and less redness to the left lower leg. I did speak with the son by phone this morning with in the room Patient states he is having much less pain 06/21/2019 She is vital signs are stable however. Platelets have gone up to 53,000 white count is still normal, urine and creatinine are up however BNP is down and be difficult to add fluids to this patient at the present time due to his peripheral edema. Patient's biggest complaint today is constipation. Try a fleets enema and then progressed to soapsuds if needed. Sodium level is still low and I have consulted oncology concerning his pain and his abnormal lab values elated to his multiple myeloma. We will continue IV Lasix and increase IV to 100 and hour up from 30/h 06/22/2019 Up from last night showed that the platelets have gone back down to 30,000, therefore held the heparin. Corrected calcium level today is 8.9 so we will hold on any edition calcium, for now. I have added clindamycin IV to rocephin for better coverage after speaking with Dr. Palomino. I am rechecking the labs this morning., I have made his PRN pain medicine now scheduled as he was taking at home. Put an order in for physical therapy to see him today after he has had his pain medicine. Going to elevate his left leg higher.. I appreciate hematology/oncology assistance. 06/23/2019 She now has a new complaint of left wrist pain. Is in fact read edematous and tender to the touch. ROM is severely limited secondary to pain Discussing in great detail with oncology we will going to give him a short 5-day course of prednisone. Starting at 60 mg a day tapering. This seemed to help his right knee pain dramatically when it was injected into his right knee to 4 weeks ago at [place]. Uric acid level today is 4.6 Platelets are once again low however hopefully these will soon start to become normal. Continue IV antibiotics, pain medication, therapy. 06/24/2019 Wondering now if what was diagnosed as cellulitis on admission was not cellul itis at all but a side effect to his medications for multiple myeloma. He definitely had generalized peripheral edema, and is also had joint pain. Patient's platelets remain low as well as his white count. Patient does not seem to be responding to antibiotics which would explain the fact that this is not an infection. Also patient is growing nothing out of his blood cultures. Patient responds quite well to steroids, however patient has also been off of his medications for multiple myeloma now for 3 days. Continue treating generalized peripheral edema, continue treating joint pain with steroids, continue IVs antibiotics until it is definitively sided that he does not have cellulitis. Continue treating patient's hypocalcemia secondary to to multiple myeloma - Time Time Spent with patient: 25-34 minutes
[2019-06-25] MEDS: ACETAMINOPHEN 325 MG TABLET PO PRN (19:58)
[2019-06-25] MEDS: MAGNESIUM HYDROXIDE SUSP 30 ML UDCUP PO PRN (22:14)
[2019-06-25] MEDS: ATORVASTATIN CALCIUM 40 MG TABLET PO SCH (22:15)
[2019-06-25] MEDS: MIRTAZAPINE 15 MG TABLET PO SCH (22:15)
[2019-06-26] MEDS: NORMAL SALINE 1000 ML 1,000 ML IV PRN (01:52)
[2019-06-26 04:29] LABS: ABSOLUTE EOSINOPHILS # (AUTO) 0.7 10^3/uL (0.0-0.6); ABSOLUTE LYMPHOCYTES (AUTO) 0.6 10^3/uL (0.5-4.7); ABSOLUTE MONOCYTES (AUTO) 0.6 10^3/uL (0.1-1.4); ABSOLUTE NEUT (AUTO) 1.3 10^3/uL (1.7-8.2); BASOPHILS % (AUTO) 0.5 % (0-2); EOSINOPHILS % (AUTO) 21.4 % (0-6); HEMATOCRIT 25.2 % (37.9-51.0); HEMOGLOBIN 8.1 g/dL (13.5-17.0); LYMPHOCYTES % (AUTO) 18.1 % (13-45); MEAN CORPUSCULAR HEMOGLOBIN 28.4 pg (27.0-33.4); MEAN CORPUSCULAR HGB CONC 32.1 g/dL (32.0-36.0); MEAN CORPUSCULAR VOLUME 89 fl (80-97); MONOCYTES % (AUTO) 19.1 % (3-13); RED BLOOD COUNT 2.85 10^6/uL (4.35-5.55); RED CELL DISTRIBUTION WIDTH 20.8 % (11.5-14.0); SEGMENTED NEUTROPHILS % (AUTO) 40.9 % (42-78); TOTAL CELLS COUNTED % (AUTO) 100 %; WHITE BLOOD COUNT 3.3 10^3/uL (4.0-10.5)
[2019-06-26 04:47] LABS: ALBUMIN 1.8 g/dL (3.5-5.0); ALKALINE PHOSPHATASE 44 U/L (38-126); ANION GAP 5 (5-19); ASPARTATE AMINO TRANSFERASE 78 U/L (17-59); BILIRUBIN,DIRECT 0.1 mg/dL (0.0-0.4); BILIRUBIN,TOTAL 0.4 mg/dL (0.2-1.3); BLOOD UREA NITROGEN 44 mg/dL (7-20); CARBON DIOXIDE 24 mmol/L (22-30); CHLORIDE 105 mmol/L (98-107); GLUCOSE 101 mg/dL (75-110); POTASSIUM 4.5 mmol/L (3.6-5.0); TOTAL PROTEIN 3.6 g/dL (6.3-8.2)
[2019-06-26 04:52] LABS: PLATELET COUNT 54 10^3/uL (150-450)
[2019-06-26 04:56] LABS: CALCIUM 6.7 mg/dL (8.4-10.2)
[2019-06-26] MEDS ORDERED: CALCIUM GLUCONATE 1000 MG/10 ML INJ IV ONE (05:15)
[2019-06-26] MEDS: ACYCLOVIR 800 MG TABLET PO SCH ×3 (06:02→22:35)
[2019-06-26] MEDS: CLINDAMYCIN 600 MG/D5W RTU 600 MG/50 ML RTUPB IV SCH ×3 (06:02→22:36)
[2019-06-26] MEDS: HYDROMORPHONE HCL 2 MG TABLET PO SCH ×3 (06:03→22:35)
[2019-06-26] MEDS: INSULIN LISPRO 100 UNIT/ML 3 ML VIAL SUBCUT SCH ×4 (09:06→22:36)
[2019-06-26] MEDS: ACETAMINOPHEN 325 MG TABLET PO PRN (10:32)
[2019-06-26] MEDS: POLYETHYLENE GLYCOL 3350 POWDER 17 GM/1 PACKET PO SCH (10:33)
[2019-06-26] MEDS: CHOLECALCIFEROL (D3) 1,000 UNIT (25 MCG) TABLET PO SCH (10:33)
[2019-06-26] MEDS: FERROUS SULFATE 325 MG TABLET PO SCH (10:34)
[2019-06-26] MEDS: ASPIRIN 81 MG TABLET, ENT COATED PO SCH (10:34)
[2019-06-26] MEDS: LOSARTAN POTASSIUM 50 MG TABLET PO SCH (10:34)
[2019-06-26] MEDS: CEFTRIAXONE 1 GM/D5W RTU 1 GM/50 ML RTUPB IV SCH (10:35)
[2019-06-26] MEDS: FAMOTIDINE 20 MG TABLET PO SCH ×2 (10:35→22:35)
[2019-06-26] MEDS: ALLOPURINOL 100 MG TABLET PO SCH (10:35)
[2019-06-26] MEDS: CALCIUM CARBONATE 500 MG TABLET PO SCH ×2 (10:35→18:36)
[2019-06-26] MEDS: DOCUSATE SODIUM 100 MG CAPSULE PO SCH (10:35)
[2019-06-26] MEDS: MULTIVITAMIN TABLET PO SCH (10:35)
[2019-06-26] MEDS: FUROSEMIDE INJ/PF 20 MG/2 ML SDV IV SCH (10:35)
[2019-06-26] MEDS: FINASTERIDE 5 MG TABLET PO SCH (10:35)
[2019-06-26] MEDS: INSULIN GLARGINE,HUM.REC.ANLOG 1,000 UNIT/10 ML VIAL SUBCUT SCH ×2 (10:36→22:36)
[2019-06-26] MEDS ORDERED: BISACODYL 10 MG SUPP.RECT PR PRN (13:56)
[2019-06-26] MEDS ORDERED: BISACODYL 10 MG SUPP.RECT PR ONE ×2 (14:00)
--- NOTE | 2019-06-26 15:25 | PDOC PROGRESS REPORT ---
Subjective Progress Note for:: 06/26/19 Subjective:: Patient got up this morning and experienced some pain in his plantar surface of his feet. Was able to stand but not able to ambulate much due to the pain of the sole of his foot. Also had mild pain in his left wrist this morning. Still expresses concern about swollen legs. Reason For Visit: MULTIPLE MELOMA, CONGESTIVE HEART FAILUTE, Physical Exam Vital Signs: Temp Pulse Resp BP Pulse Ox 97.4 F 61 17 150/66 H 97 06/26/19 11:11 06/26/19 11:11 06/26/19 11:11 06/26/19 11:11 06/26/19 11:11 Intake & Output 06/25/19 06/26/19 06/27/19 06:59 06:59 06:59 Intake Total 3100 2410 290 Output Total 900 300 500 Balance 2200 2110 -210 Weight 90.9 kg 89.8 kg General appearance: PRESENT: no acute distress, cooperative Head exam: PRESENT: atraumatic Eye exam: PRESENT: EOMI Mouth exam: PRESENT: moist Neck exam: ABSENT: JVD, thyromegaly, tracheal deviation Respiratory exam: PRESENT: clear to auscultation kevin. ABSENT: chest wall tenderness Cardiovascular exam: PRESENT: RRR, +S1 Vascular exam: ABSENT: pallor GI/Abdominal exam: PRESENT: normal bowel sounds, soft Extremities exam: PRESENT: other - 3+ bilateral lower extremity edema up to knees Musculoskeletal exam: PRESENT: other - Swelling in left wrist without warmth or erythema. Anasarca Neurological exam: PRESENT: alert, awake, oriented to person, oriented to place Psychiatric exam: ABSENT: agitated Focused psych exam: ABSENT: internal stimuli Skin exam: PRESENT: other - Erythema in the left leg similar to yesterday with some patchiness Results Laboratory Results: 06/26/19 04:06 06/26/19 04:06 06/25/19 06/25/19 06/26/19 17:11 17:11 04:06 WBC 3.8 L 3.3 L RBC 2.91 L 2.85 L Hgb 8.2 L 8.1 L Hct 25.6 L 25.2 L MCV 88 89 MCH 28.4 28.4 MCHC 32.3 32.1 RDW 21.1 H 20.8 H Plt Count 60 L 54 L Seg Neutrophils % 48.7 40.9 L Sodium 134.0 L Potassium 4.7 Chloride 104 Carbon Dioxide 25 Anion Gap 5 BUN 46 H Creatinine 1.46 H Est GFR ( Amer) 55 L Glucose 130 H Calcium 6.6 L* Total Bilirubin 0.2 AST 79 H Alkaline Phosphatase 45 Total Protein 3.7 L Albumin 1.8 L 06/26/19 04:06 WBC RBC Hgb Hct MCV MCH MCHC RDW Plt Count Seg Neutrophils % Sodium 133.9 L Potassium 4.5 Chloride 105 Carbon Dioxide 24 Anion Gap 5 BUN 44 H Creatinine 1.37 H Est GFR ( Amer) > 60 Glucose 101 Calcium 6.7 L* Total Bilirubin 0.4 AST 78 H Alkaline Phosphatase 44 Total Protein 3.6 L Albumin 1.8 L 06/19/19 06/19/19 06/20/19 09:02 09:02 03:59 Creatine Kinase 32 L NT-Pro-B Natriuret Pep 13893 H 42210 H 06/21/19 07:15 Creatine Kinase NT-Pro-B Natriuret Pep 56596 H Impressions: Chest X-Ray 06/19/19 08:53 IMPRESSION: NO ACUTE RADIOGRAPHIC FINDING IN THE CHEST. Venous Doppler Study 06/19/19 11:38 IMPRESSION: 1. Negative examination for deep venous thrombosis bilaterally. 2. Noncompressible occlusive thrombus in the distal portions of the right greater saphenous vein. 3. Bilateral lower leg soft tissue edema. 4. Large Griffiths cyst in the left popliteal fossa. Assessment and Plan - Diagnosis (1) Cellulitis of left anterior lower leg Is this a current diagnosis for this admission?: Yes Plan: Had 7 days of ceftriaxone which was discontinued today. Day 3 of clindamycin will continue for 2 more days. Blood cultures negative. (2) Anasarca Is this a current diagnosis for this admission?: Yes Plan: Likely secondary to acute on chronic kidney injury as well as hypoalbuminemia. We will continue with diuresis. IV Lasix increased to 40 mg twice a day. Mo nitor I's and O's. Encouraged on proper nutrition. Initial UA negative for proteins (3) Hypocalcemia Is this a current diagnosis for this admission?: Yes Plan: Continue with supplementation. Corrected calcium level today is 8.46 which indicates resolution of the hypercalcemia. will maintain supplementation. (4) Multiple myeloma Qualifiers: Multiple myeloma remission status: not in remission Qualified Code(s): C90.00 - Multiple myeloma not having achieved remission Is this a current diagnosis for this admission?: Yes Plan: All treatments currently held. Oncology following. (5) Swelling of joint, wrist, left Is this a current diagnosis for this admission?: Yes Plan: Improved with steroids we will continue to monitor. (6) Insulin dependent diabetes mellitus Is this a current diagnosis for this admission?: Yes (7) [id number] kidney injury Qualifiers: Chronic kidney disease stage: stage 3 (moderate) Is this a current diagnosis for this admission?: Yes Plan: Creatinine currently seems to be at baseline. Will monitor (8) Constipation Qualifiers: Constipation type: unspecified constipation type Qualified Code(s): K59.00 - Constipation, unspecified Is this a current diagnosis for this admission?: Yes Plan: Continue with bowel regimen. Will start on Dulcolax today. If no improvement will try enemas. (9) Pain and swelling of lower extremity Qualifiers: Laterality: unspecified laterality Qualified Code(s): M79.606 - Pain in leg, unspecified; M79.89 - Other specified soft tissue disorders Is this a current diagnosis for this admission?: Yes Plan: Swelling in lower extremities secondary to anasarca with some component of venous insufficiency. The pain on plantar sole surface is secondary to the swelling when pressure is applied. Will continue with diuresis. Patient encouraged to elevate legs whenever in bed. Will administer compression stockings to both legs. - Time Time Spent with patient: 25-34 minutes
[2019-06-26] MEDS: TAMSULOSIN HCL 0.4 MG CAP.SR.24H PO SCH (18:36)
[2019-06-26] MEDS: DEXAMETHASONE 4 MG TABLET PO SCH (18:37)
[2019-06-26] MEDS: MIRTAZAPINE 15 MG TABLET PO SCH (22:35)
[2019-06-26] MEDS: FUROSEMIDE INJ/PF 40 MG/4 ML SDV IV SCH (22:35)
[2019-06-26] MEDS: ATORVASTATIN CALCIUM 40 MG TABLET PO SCH (22:35)
[2019-06-27] MEDS: ACYCLOVIR 800 MG TABLET PO SCH ×3 (05:51→22:00)
[2019-06-27] MEDS: CLINDAMYCIN 600 MG/D5W RTU 600 MG/50 ML RTUPB IV SCH ×3 (05:52→21:53)
[2019-06-27] MEDS: HYDROMORPHONE HCL 2 MG TABLET PO SCH ×3 (05:52→21:54)
[2019-06-27 06:57] LABS: HEMATOCRIT 29.9 % (37.9-51.0); HEMOGLOBIN 9.7 g/dL (13.5-17.0); MEAN CORPUSCULAR HEMOGLOBIN 28.9 pg (27.0-33.4); MEAN CORPUSCULAR HGB CONC 32.4 g/dL (32.0-36.0); MEAN CORPUSCULAR VOLUME 89 fl (80-97); RED BLOOD COUNT 3.36 10^6/uL (4.35-5.55); RED CELL DISTRIBUTION WIDTH 21.1 % (11.5-14.0); WHITE BLOOD COUNT 2.3 10^3/uL (4.0-10.5)
[2019-06-27 07:09] LABS: ANION GAP 5 (5-19); BLOOD UREA NITROGEN 40 mg/dL (7-20); CALCIUM 7.4 mg/dL (8.4-10.2); CARBON DIOXIDE 25 mmol/L (22-30); CHLORIDE 104 mmol/L (98-107); GLUCOSE 189 mg/dL (75-110); POTASSIUM 5.5 mmol/L (3.6-5.0)
[2019-06-27 08:02] LABS: ABSOLUTE LYMPHOCYTES# (MANUAL) 0.5 10^3/uL (0.5-4.7); ABSOLUTE MONOCYTES # (MANUAL) 0.1 10^3/uL (0.1-1.4); BAND NEUTROPHILS % (MANUAL) 1 % (3-5); BASOPHILS % (MANUAL) 1 % (0-2); EOSINOPHILS % (MANUAL) 0 % (0-6); LYMPHOCYTES % (MANUAL) 23 % (13-45); MONOCYTES % (MANUAL) 5 % (3-13); NUCLEATED RED BLOOD CELLS 1 /100 WBC (0); SEGMENTED NEUTROPHILS % (MAN) 70 % (42-78); TOTAL CELLS COUNTED 100
[2019-06-27 08:06] LABS: ANISOCYTOSIS 3+; BURR CELLS 1+; OVALOCYTES 1+; PLATELET COMMENT DECREASED; POIKILOCYTOSIS 2+; SCHISTOCYTES 1+
[2019-06-27 08:07] LABS: PLATELET COUNT 72 10^3/uL (150-450)
[2019-06-27] MEDS: FUROSEMIDE INJ/PF 40 MG/4 ML SDV IV SCH ×2 (09:16→21:57)
[2019-06-27] MEDS: POLYETHYLENE GLYCOL 3350 POWDER 17 GM/1 PACKET PO SCH (09:16)
[2019-06-27] MEDS: CHOLECALCIFEROL (D3) 1,000 UNIT (25 MCG) TABLET PO SCH (09:17)
[2019-06-27] MEDS: LOSARTAN POTASSIUM 50 MG TABLET PO SCH (09:17)
[2019-06-27] MEDS: MULTIVITAMIN TABLET PO SCH (09:17)
[2019-06-27] MEDS: DOCUSATE SODIUM 100 MG CAPSULE PO SCH (09:17)
[2019-06-27] MEDS: FINASTERIDE 5 MG TABLET PO SCH (09:18)
[2019-06-27] MEDS: FAMOTIDINE 20 MG TABLET PO SCH ×2 (09:18→21:58)
[2019-06-27] MEDS: ASPIRIN 81 MG TABLET, ENT COATED PO SCH (09:18)
[2019-06-27] MEDS: FERROUS SULFATE 325 MG TABLET PO SCH (09:18)
[2019-06-27] MEDS: ALLOPURINOL 100 MG TABLET PO SCH (09:18)
[2019-06-27] MEDS: CALCIUM CARBONATE 500 MG TABLET PO SCH ×2 (09:18→18:04)
[2019-06-27] MEDS: INSULIN GLARGINE,HUM.REC.ANLOG 1,000 UNIT/10 ML VIAL SUBCUT SCH ×2 (09:19→21:56)
[2019-06-27] MEDS: INSULIN LISPRO 100 UNIT/ML 3 ML VIAL SUBCUT SCH ×4 (09:19→21:55)
[2019-06-27] MEDS ORDERED: ALBUMIN HUMAN 12.5 GM/50 ML RTUINJ IV ONE (09:30)
--- NOTE | 2019-06-27 14:32 | PDOC PROGRESS REPORT ---
Subjective Progress Note for:: 06/27/19 Subjective:: Patient still has swelling but states that the swelling has improved in his lower extremities. Still has pain in the left wrist. Denies any fever chills. Denies any nausea vomiting. Reason For Visit: MULTIPLE MELOMA, CONGESTIVE HEART FAILUTE, Physical Exam Vital Signs: Temp Pulse Resp BP Pulse Ox 97.7 F 81 18 156/81 H 96 06/27/19 07:28 06/27/19 07:28 06/27/19 00:00 06/27/19 07:28 06/27/19 07:28 Intake & Output 06/26/19 06/27/19 06/28/19 06:59 06:59 06:59 Intake Total 2410 1920 460 Output Total 300 1050 Balance 2110 870 460 Weight 89.8 kg 98.7 kg General appearance: PRESENT: no acute distress, cooperative Eye exam: PRESENT: EOMI Mouth exam: PRESENT: moist Neck exam: ABSENT: JVD, tracheal deviation Respiratory exam: PRESENT: clear to auscultation kevin, unlabored. ABSENT: crackles Cardiovascular exam: PRESENT: +S1. ABSENT: tachycardia Vascular exam: ABSENT: pallor GI/Abdominal exam: PRESENT: normal bowel sounds, soft. ABSENT: distended, firm, guarding, tenderness Rectal exam: PRESENT: deferred Gentrourinary exam: PRESENT: ecchymosis Extremities exam: PRESENT: other - Generalized limb swelling in all limbs indicative of anasarca Musculoskeletal exam: PRESENT: full ROM. ABSENT: ambulatory Neurological exam: PRESENT: alert, oriented to person, oriented to place, oriented to situation Psychiatric exam: PRESENT: normal mood. ABSENT: agitated Results Laboratory Results: 06/27/19 05:57 06/27/19 05:57 06/27/19 06/27/19 05:57 05:57 WBC 2.3 L RBC 3.36 L Hgb 9.7 L Hct 29.9 L MCV 89 MCH 28.9 MCHC 32.4 RDW 21.1 H Plt Count 72 L Seg Neutrophils % Not Reportable Sodium 134.4 L Potassium 5.5 H Chloride 104 Carbon Dioxide 25 Anion Gap 5 BUN 40 H Creatinine 1.25 Est GFR ( Amer) > 60 Glucose 189 H Calcium 7.4 L 06/19/19 06/19/19 06/20/19 09:02 09:02 03:59 Creatine Kinase 32 L NT-Pro-B Natriuret Pep 15195 H 57312 H 06/21/19 07:15 Creatine Kinase NT-Pro-B Natriuret Pep 41184 H Impressions: Chest X-Ray 06/19/19 08:53 IMPRESSION: NO ACUTE RADIOGRAPHIC FINDING IN THE CHEST. Venous Doppler Study 06/19/19 11:38 IMPRESSION: 1. Negative examination for deep venous thrombosis bilaterally. 2. Noncompressible occlusive thrombus in the distal portions of the right greater saphenous vein. 3. Bilateral lower leg soft tissue edema. 4. Large Griffiths cyst in the left popliteal fossa. Assessment and Plan - Diagnosis (1) Cellulitis of left anterior lower leg Is this a current diagnosis for this admission?: Yes Plan: Had 7 days of ceftriaxone which has been discontinued. Day 4 of clindamycin will continue for 1 more day. Blood cultures negative. (2) Anasarca Is this a current diagnosis for this admission?: Yes Plan: Likely secondary to acute on chronic kidney injury as well as hypoalbuminemia. We will continue with diuresis. Placed on fluid restriction. Monitor I's and O's. Encouraged on proper nutrition. Initial UA negative for proteins Albumin infused to prevent intravascular volume depletion with Lasix administration. (3) Multiple myeloma Qualifiers: Multiple myeloma remission status: not in remission Qualified Code(s): C90.00 - Multiple myeloma not having achieved remission Is this a current diagnosis for this admission?: Yes (4) Swelling of joint, wrist, left Is this a current diagnosis for this admission?: Yes Plan: Improved with steroids we will continue to monitor. (5) Insulin dependent diabetes mellitus Is this a current diagnosis for this admission?: Yes (6) Acute hyperkalemia Is this a current diagnosis for this admission?: Yes Plan: Unclear what the etiology of this could have been. Will repeat lab. (7) [id number] kidney injury Qualifiers: Chronic kidney disease stage: stage 3 (moderate) Is this a current diagnosis for this admission?: Yes Plan: BITA currently resolved (8) Constipation Qualifiers: Constipation type: unspecified constipation type Qualified Code(s): K59.00 - Constipation, unspecified Is this a current diagnosis for this admission?: Yes Plan: Continue with bowel regimen. If no improvement will try enemas. (9) Pain and swelling of lower extremity Qualifiers: Laterality: unspecified laterality Qualified Code(s): M79.606 - Pain in leg, unspecified; M79.89 - Other specified soft tissue disorders Is this a current diagnosis for this admission?: Yes Plan: Swelling in lower extremities secondary to anasarca with some component of v enous insufficiency. The pain on plantar sole surface is secondary to the swelling when pressure is applied. continue with diuresis. Patient encouraged to elevate legs whenever in bed. Compression stockings placed on both legs. - Time Time Spent with patient: 25-34 minutes
[2019-06-27 15:24] LABS: ANION GAP 7 (5-19); BLOOD UREA NITROGEN 45 mg/dL (7-20); CALCIUM 7.2 mg/dL (8.4-10.2); CARBON DIOXIDE 25 mmol/L (22-30); CHLORIDE 102 mmol/L (98-107); GLUCOSE 255 mg/dL (75-110)
[2019-06-27] MEDS ORDERED: CALCIUM CARBONATE 500 MG TABLET PO SCH (18:00)
[2019-06-27] MEDS: TAMSULOSIN HCL 0.4 MG CAP.SR.24H PO SCH (18:04)
[2019-06-27] MEDS: MIRTAZAPINE 15 MG TABLET PO SCH (21:58)
[2019-06-27] MEDS: ATORVASTATIN CALCIUM 40 MG TABLET PO SCH (21:58)
[2019-06-28] MEDS: CLINDAMYCIN 600 MG/D5W RTU 600 MG/50 ML RTUPB IV SCH ×3 (06:04→21:13)
[2019-06-28] MEDS: HYDROMORPHONE HCL 2 MG TABLET PO SCH ×3 (06:05→21:11)
[2019-06-28] MEDS: ACYCLOVIR 800 MG TABLET PO SCH ×3 (06:05→21:10)
[2019-06-28 06:20] LABS: ABSOLUTE LYMPHOCYTES (AUTO) 1.2 10^3/uL (0.5-4.7); ABSOLUTE MONOCYTES (AUTO) 0.5 10^3/uL (0.1-1.4); ABSOLUTE NEUT (AUTO) 1.4 10^3/uL (1.7-8.2); BASOPHILS % (AUTO) 0.2 % (0-2); EOSINOPHILS % (AUTO) 0.7 % (0-6); HEMATOCRIT 25.2 % (37.9-51.0); HEMOGLOBIN 8.1 g/dL (13.5-17.0); LYMPHOCYTES % (AUTO) 39.2 % (13-45); MEAN CORPUSCULAR HEMOGLOBIN 28.8 pg (27.0-33.4); MEAN CORPUSCULAR HGB CONC 32.2 g/dL (32.0-36.0); MEAN CORPUSCULAR VOLUME 89 fl (80-97); MONOCYTES % (AUTO) 15.1 % (3-13); RED BLOOD COUNT 2.82 10^6/uL (4.35-5.55); RED CELL DISTRIBUTION WIDTH 21.4 % (11.5-14.0); SEGMENTED NEUTROPHILS % (AUTO) 44.8 % (42-78); TOTAL CELLS COUNTED % (AUTO) 100 %
[2019-06-28 06:38] LABS: ALBUMIN 1.9 g/dL (3.5-5.0); ALKALINE PHOSPHATASE 44 U/L (38-126); ASPARTATE AMINO TRANSFERASE 58 U/L (17-59); BILIRUBIN,TOTAL 0.3 mg/dL (0.2-1.3); BLOOD UREA NITROGEN 50 mg/dL (7-20); CALCIUM 7.1 mg/dL (8.4-10.2); CHLORIDE 104 mmol/L (98-107); GLUCOSE 166 mg/dL (75-110); TOTAL PROTEIN 3.7 g/dL (6.3-8.2)
[2019-06-28 06:43] LABS: CARBON DIOXIDE 25 mmol/L (22-30)
[2019-06-28 06:48] LABS: ANION GAP 4 (5-19)
[2019-06-28 06:52] LABS: PLATELET COUNT 86 10^3/uL (150-450)
[2019-06-28] MEDS: ALBUMIN HUMAN 12.5 GM/50 ML RTUINJ IV SCH ×2 (08:35→10:25)
[2019-06-28] MEDS: INSULIN LISPRO 100 UNIT/ML 3 ML VIAL SUBCUT SCH ×4 (08:36→21:11)
[2019-06-28] MEDS ORDERED: FUROSEMIDE INJ/PF 40 MG/4 ML SDV IV SCH (10:00)
[2019-06-28] MEDS: POLYETHYLENE GLYCOL 3350 POWDER 17 GM/1 PACKET PO SCH (10:25)
[2019-06-28] MEDS: FUROSEMIDE INJ/PF 100 MG/10 ML SDV IV SCH ×2 (10:25→17:05)
[2019-06-28] MEDS: FAMOTIDINE 20 MG TABLET PO SCH ×2 (10:26→21:11)
[2019-06-28] MEDS: FERROUS SULFATE 325 MG TABLET PO SCH (10:26)
[2019-06-28] MEDS: CHOLECALCIFEROL (D3) 1,000 UNIT (25 MCG) TABLET PO SCH (10:26)
[2019-06-28] MEDS: FINASTERIDE 5 MG TABLET PO SCH (10:26)
[2019-06-28] MEDS: INSULIN GLARGINE,HUM.REC.ANLOG 1,000 UNIT/10 ML VIAL SUBCUT SCH ×2 (10:26→21:11)
[2019-06-28] MEDS: LOSARTAN POTASSIUM 50 MG TABLET PO SCH (10:26)
[2019-06-28] MEDS: ASPIRIN 81 MG TABLET, ENT COATED PO SCH (10:26)
[2019-06-28] MEDS: MULTIVITAMIN TABLET PO SCH (10:26)
[2019-06-28] MEDS: DOCUSATE SODIUM 100 MG CAPSULE PO SCH (10:27)
[2019-06-28] MEDS: ALLOPURINOL 100 MG TABLET PO SCH (10:27)
[2019-06-28] MEDS: CALCIUM CARBONATE 500 MG TABLET PO SCH ×2 (10:27→17:06)
--- NOTE | 2019-06-28 12:28 | PDOC PROGRESS REPORT ---
Subjective Progress Note for:: 06/28/19 Subjective:: Patient has no complaints today. Patient states that the swelling in his wrist is reduced and the pain has reduced as well. Patient denies any shortness of breath. Reason For Visit: MULTIPLE MELOMA, CONGESTIVE HEART FAILUTE, Physical Exam Vital Signs: Temp Pulse Resp BP Pulse Ox 97.4 F 107 H 20 138/42 H 96 06/28/19 08:00 06/28/19 08:00 06/28/19 08:00 06/28/19 08:00 06/28/19 08:00 Intake & Output 06/27/19 06/28/19 06/29/19 06:59 06:59 06:59 Intake Total 1920 560 150 Output Total 1050 550 Balance 870 10 150 Weight 98.7 kg 95.6 kg General appearance: PRESENT: no acute distress, cooperative Head exam: PRESENT: atraumatic Eye exam: PRESENT: conjunctiva pink Mouth exam: PRESENT: moist Throat exam: ABSENT: tonsillogmegaly Neck exam: ABSENT: tracheal deviation Respiratory exam: PRESENT: clear to auscultation kevin. ABSENT: crackles, stridor Cardiovascular exam: PRESENT: RRR, +S1 Vascular exam: ABSENT: pallor GI/Abdominal exam: PRESENT: normal bowel sounds, soft. ABSENT: tenderness Rectal exam: PRESENT: deferred Extremities exam: PRESENT: other - Bilateral lower extremity and upper extremity swelling. Compression stockings in place swelling in arms and legs have decreased Results Laboratory Results: 06/28/19 04:58 06/28/19 04:58 06/27/19 06/28/19 06/28/19 14:51 04:58 04:58 WBC 3.0 L RBC 2.82 L Hgb 8.1 L Hct 25.2 L MCV 89 MCH 28.8 MCHC 32.2 RDW 21.4 H Plt Count 86 L Seg Neutrophils % 44.8 Sodium 133.5 L 133.0 L Potassium 5.0 5.0 Chloride 102 104 Carbon Dioxide 25 25 Anion Gap 7 4 L BUN 45 H 50 H Creatinine 1.33 H 1.38 H Est GFR ( Amer) > 60 59 L Glucose 255 H 166 H Calcium 7.2 L 7.1 L Total Bilirubin 0.3 AST 58 Alkaline Phosphatase 44 Total Protein 3.7 L Albumin 1.9 L 06/19/19 06/19/19 06/20/19 09:02 09:02 03:59 Creatine Kinase 32 L NT-Pro-B Natriuret Pep 41830 H 94127 H 06/21/19 07:15 Creatine Kinase NT-Pro-B Natriuret Pep 79338 H Impressions: Chest X-Ray 06/19/19 08:53 IMPRESSION: NO ACUTE RADIOGRAPHIC FINDING IN THE CHEST. Venous Doppler Study 06/19/19 11:38 IMPRESSION: 1. Negative examination for deep venous thrombosis bilaterally. 2. Noncompressible occlusive thrombus in the distal portions of the right greater saphenous vein. 3. Bilateral lower leg soft tissue edema. 4. Large Griffiths cyst in the left popliteal fossa. Assessment and Plan - Diagnosis (1) Anasarca Is this a current diagnosis for this admission?: Yes Plan: Likely secondary to acute on chronic kidney injury as well as hypoalbuminemia. We will continue with diuresis. Placed on fluid restriction. Monitor I's and O's. Encouraged on proper nutrition. Initial UA negative for proteins Albumin infused again to prevent intravascular volume depletion with Lasix administration now increased to 60 mg bid. (2) Cellulitis of left anterior lower leg Is this a current diagnosis for this admission?: Yes Plan: Had 7 days of ceftriaxone which has been discontinued. Day 5 and final day of clindamycin. Blood cultures negative. (3) Multiple myeloma Qualifiers: Multiple myeloma remission status: not in remission Qualified Code(s): C90.00 - Multiple myeloma not having achieved remission Is this a current diagnosis for this admission?: Yes Plan: All treatments currently held. Oncology following. (4) Swelling of joint, wrist, left Is this a current diagnosis for this admission?: Yes Plan: Improved. (5) Insulin dependent diabetes mellitus Is this a current diagnosis for this admission?: Yes (6) Acute hyperkalemia Is this a current diagnosis for this admission?: Yes Plan: Resolved. Continue with Lasix (7) [id number]-[id number] kidney injury Qualifiers: Chronic kidney disease stage: stage 3 (moderate) Is this a current diagnosis for this admission?: Yes Plan: BITA currently resolved. Now back to baseline (8) Constipation Qualifiers: Constipation type: unspecified constipation type Qualified Code(s): K59.00 - Constipation, unspecified Is this a current diagnosis for this admission?: Yes Plan: Resolved. Had good bowel movements. Continue with bowel regimen. (9) Pain and swelling of lower extremity Qualifiers: Laterality: unspecified laterality Qualified Code(s): M79.606 - Pain in leg, unspecified; M79.89 - Other specified soft tissue disorders Is this a current diagnosis for this admission?: Yes Plan: Swelling in lower extremities secondary to anasarca with some component of venous insufficiency. The pain on plantar sole surface is secondary to the swelling when pressure is applied. continue with diuresis. Patient encouraged to elevate legs whenever in bed. Compression stockings placed on both legs. - Time Time Spent with patient: 25-34 minutes
[2019-06-28] MEDS: TAMSULOSIN HCL 0.4 MG CAP.SR.24H PO SCH (17:06)
[2019-06-28] MEDS: ATORVASTATIN CALCIUM 40 MG TABLET PO SCH (21:11)
[2019-06-28] MEDS: MIRTAZAPINE 15 MG TABLET PO SCH (21:11)
[2019-06-29] MEDS: ACETAMINOPHEN 325 MG TABLET PO PRN (04:43)
[2019-06-29 05:25] LABS: HEMATOCRIT 25.5 % (37.9-51.0); HEMOGLOBIN 8.1 g/dL (13.5-17.0); MEAN CORPUSCULAR HEMOGLOBIN 28.2 pg (27.0-33.4); MEAN CORPUSCULAR HGB CONC 31.9 g/dL (32.0-36.0); MEAN CORPUSCULAR VOLUME 89 fl (80-97); RED BLOOD COUNT 2.88 10^6/uL (4.35-5.55); RED CELL DISTRIBUTION WIDTH 21.2 % (11.5-14.0); WHITE BLOOD COUNT 3.1 10^3/uL (4.0-10.5)
[2019-06-29] MEDS: ACYCLOVIR 800 MG TABLET PO SCH ×3 (05:44→21:54)
[2019-06-29] MEDS: CLINDAMYCIN 600 MG/D5W RTU 600 MG/50 ML RTUPB IV SCH (05:44)
[2019-06-29] MEDS: HYDROMORPHONE HCL 2 MG TABLET PO SCH (05:44)
[2019-06-29 05:53] LABS: ALBUMIN 2.1 g/dL (3.5-5.0); ALKALINE PHOSPHATASE 47 U/L (38-126); ASPARTATE AMINO TRANSFERASE 58 U/L (17-59); BILIRUBIN,DIRECT 0.2 mg/dL (0.0-0.4); BILIRUBIN,TOTAL 0.3 mg/dL (0.2-1.3); BLOOD UREA NITROGEN 48 mg/dL (7-20); CALCIUM 7.3 mg/dL (8.4-10.2); CARBON DIOXIDE 26 mmol/L (22-30); CHLORIDE 108 mmol/L (98-107); GLUCOSE 105 mg/dL (75-110); POTASSIUM 4.6 mmol/L (3.6-5.0)
[2019-06-29 05:57] LABS: PLATELET COUNT 93 10^3/uL (150-450)
[2019-06-29 06:00] LABS: ANION GAP 4 (5-19)
[2019-06-29] MEDS: INSULIN LISPRO 100 UNIT/ML 3 ML VIAL SUBCUT SCH ×4 (08:23→21:54)
[2019-06-29] MEDS: CHOLECALCIFEROL (D3) 1,000 UNIT (25 MCG) TABLET PO SCH (09:07)
[2019-06-29] MEDS: LOSARTAN POTASSIUM 50 MG TABLET PO SCH (09:07)
[2019-06-29] MEDS: FINASTERIDE 5 MG TABLET PO SCH (09:08)
[2019-06-29] MEDS: DOCUSATE SODIUM 100 MG CAPSULE PO SCH (09:08)
[2019-06-29] MEDS: ALLOPURINOL 100 MG TABLET PO SCH (09:08)
[2019-06-29] MEDS: FAMOTIDINE 20 MG TABLET PO SCH ×2 (09:08→21:54)
[2019-06-29] MEDS: FERROUS SULFATE 325 MG TABLET PO SCH (09:08)
[2019-06-29] MEDS: MULTIVITAMIN TABLET PO SCH (09:08)
[2019-06-29] MEDS: CALCIUM CARBONATE 500 MG TABLET PO SCH ×2 (09:08→17:14)
[2019-06-29] MEDS: ASPIRIN 81 MG TABLET, ENT COATED PO SCH (09:08)
[2019-06-29] MEDS: FUROSEMIDE INJ/PF 100 MG/10 ML SDV IV SCH ×2 (09:11→17:14)
[2019-06-29] MEDS: POLYETHYLENE GLYCOL 3350 POWDER 17 GM/1 PACKET PO SCH (09:12)
[2019-06-29] MEDS: INSULIN GLARGINE,HUM.REC.ANLOG 1,000 UNIT/10 ML VIAL SUBCUT SCH ×2 (09:12→21:53)
--- NOTE | 2019-06-29 11:12 | PDOC PROGRESS REPORT ---
Subjective Progress Note for:: 06/29/19 Subjective:: Patient has no complaints today. Patient denies any shortness of breath. Reason For Visit: MULTIPLE MELOMA, CONGESTIVE HEART FAILUTE, Physical Exam Vital Signs: Temp Pulse Resp BP Pulse Ox 97.4 F 53 L 14 142/46 H 97 06/29/19 07:25 06/29/19 07:25 06/29/19 07:25 06/29/19 07:25 06/29/19 07:25 Intake & Output 06/28/19 06/29/19 06/30/19 06:59 06:59 06:59 Intake Total 560 660 Output Total 550 900 Balance 10 -240 Weight 95.6 kg 97.8 kg General appearance: PRESENT: no acute distress, cooperative Head exam: PRESENT: normocephalic Eye exam: PRESENT: conjunctiva pink Neck exam: ABSENT: JVD, tracheal deviation Respiratory exam: PRESENT: clear to auscultation kevin Cardiovascular exam: PRESENT: +S1 GI/Abdominal exam: PRESENT: normal bowel sounds, soft. ABSENT: tenderness Rectal exam: PRESENT: deferred Extremities exam: PRESENT: +2 edema - Bilateral lower extremity Neurological exam: PRESENT: alert, oriented to person, oriented to place, oriented to situation Psychiatric exam: PRESENT: normal mood Skin exam: PRESENT: other - Unchanged erythema in the extremities. No warmth Results Laboratory Results: 06/29/19 04:28 06/29/19 04:28 06/29/19 06/29/19 04:28 04:28 WBC 3.1 L RBC 2.88 L Hgb 8.1 L Hct 25.5 L MCV 89 MCH 28.2 MCHC 31.9 L RDW 21.2 H Plt Count 93 L Sodium 138.0 Potassium 4.6 Chloride 108 H Carbon Dioxide 26 Anion Gap 4 L BUN 48 H Creatinine 1.40 H Est GFR ( Amer) 58 L Glucose 105 Calcium 7.3 L Total Bilirubin 0.3 AST 58 Alkaline Phosphatase 47 Total Protein 4.0 L Albumin 2.1 L 06/19/19 06/19/19 06/20/19 09:02 09:02 03:59 Creatine Kinase 32 L NT-Pro-B Natriuret Pep 66879 H 96560 H 06/21/19 07:15 Creatine Kinase NT-Pro-B Natriuret Pep 78966 H Impressions: Chest X-Ray 06/19/19 08:53 IMPRESSION: NO ACUTE RADIOGRAPHIC FINDING IN THE CHEST. Venous Doppler Study 06/19/19 11:38 IMPRESSION: 1. Negative examination for deep venous thrombosis bilaterally. 2. Noncompressible occlusive thrombus in the distal portions of the right greater saphenous vein. 3. Bilateral lower leg soft tissue edema. 4. Large Griffiths cyst in the left popliteal fossa. Assessment and Plan - Diagnosis (1) Anasarca Is this a current diagnosis for this admission?: Yes Plan: Likely secondary to acute on chronic kidney injury as well as hypoalbuminemia. We will continue with diuresis. Placed on fluid restriction. Monitor I's and O's. Encouraged on proper nutrition. Initial UA negative for proteins Albumin improved post infusion's yesterday Lasix administration 60 mg bid. (2) Cellulitis of left anterior lower leg Is this a current diagnosis for this admission?: Yes Plan: Completed 7 days of ceftriaxone and 5 days of clindamycin. Blood cultures negative. (3) Multiple myeloma Qualifiers: Multiple myeloma remission status: not in remission Qualified Code(s): C90.00 - Multiple myeloma not having achieved remission Is this a current diagnosis for this admission?: Yes Plan: All treatments currently held. Will defer to oncology. (4) Insulin dependent diabetes mellitus Is this a current diagnosis for this admission?: Yes (5) Acute hyperkalemia Is this a current diagnosis for this admission?: Yes Plan: Resolved. Continue with Lasix (6) Axukr-ic-phqowix kidney injury Qualifiers: Chronic kidney disease stage: stage 3 (moderate) Is this a current diagnosis for this admission?: Yes Plan: BITA currently resolved. Now back to baseline (7) Pain and swelling of lower extremity Qualifiers: Laterality: unspecified laterality Qualified Code(s): M79.606 - Pain in leg, unspecified; M79.89 - Other specified soft tissue disorders Is this a current diagnosis for this admission?: Yes Plan: Swelling in lower extremities secondary to anasarca with some component of venous insufficiency. The pain on plantar sole surface is secondary to the swelling when pressure is applied. continue with diuresis. Patient encouraged to elevate legs whenever in bed. Compression stockings placed on both legs. - Plan Summary Summary: Will Start working towards discharge to SNF versus home with home health. - Time Time Spent with patient: 15-24 minutes
--- NOTE | 2019-06-29 12:23 | PDOC PROGRESS REPORT ---
Subjective Progress Note for:: 06/29/19 Subjective:: Patient was able to get up and walk briefly in [place] yesterday. No new complaints. Plans are for discharge to [facility] for PT in the near future. Reason For Visit: MULTIPLE MELOMA, CONGESTIVE HEART FAILUTE, Physical Exam Vital Signs: Temp Pulse Resp BP Pulse Ox 97.4 F 53 L 14 142/46 H 97 06/29/19 07:25 06/29/19 07:25 06/29/19 07:25 06/29/19 07:25 06/29/19 07:25 Intake & Output 06/28/19 06/29/19 06/30/19 06:59 06:59 06:59 Intake Total 560 660 Output Total 550 900 Balance 10 -240 Weight 95.6 kg 97.8 kg General appearance: PRESENT: well-developed, well-nourished Head exam: PRESENT: normocephalic Eye exam: PRESENT: EOMI Respiratory exam: PRESENT: unlabored Neurological exam: PRESENT: alert, awake Psychiatric exam: PRESENT: appropriate affect Skin exam: PRESENT: normal color Results Laboratory Results: 06/29/19 04:28 06/29/19 04:28 06/29/19 06/29/19 04:28 04:28 WBC 3.1 L RBC 2.88 L Hgb 8.1 L Hct 25.5 L MCV 89 MCH 28.2 MCHC 31.9 L RDW 21.2 H Plt Count 93 L Sodium 138.0 Potassium 4.6 Chloride 108 H Carbon Dioxide 26 Anion Gap 4 L BUN 48 H Creatinine 1.40 H Est GFR ( Amer) 58 L Glucose 105 Calcium 7.3 L Total Bilirubin 0.3 AST 58 Alkaline Phosphatase 47 Total Protein 4.0 L Albumin 2.1 L 06/19/19 06/19/19 06/20/19 09:02 09:02 03:59 Creatine Kinase 32 L NT-Pro-B Natriuret Pep 28904 H 41620 H 06/21/19 07:15 Creatine Kinase NT-Pro-B Natriuret Pep 52520 H Impressions: Chest X-Ray 06/19/19 08:53 IMPRESSION: NO ACUTE RADIOGRAPHIC FINDING IN THE CHEST. Venous Doppler Study 06/19/19 11:38 IMPRESSION: 1. Negative examination for deep venous thrombosis bilaterally. 2. Noncompressible occlusive thrombus in the distal portions of the right greater saphenous vein. 3. Bilateral lower leg soft tissue edema. 4. Large Griffiths cyst in the left popliteal fossa. Assessment & Plan - Diagnosis (1) Cellulitis of left anterior lower leg Is this a current diagnosis for this admission?: Yes (2) Hypocalcemia Is this a current diagnosis for this admission?: Yes (3) Multiple myeloma Qualifiers: Multiple myeloma remission status: not in remission Qualified Code(s): C90.00 - Multiple myeloma not having achieved remission Is this a current diagnosis for this admission?: Yes Plan: All treatment on hold until patient is stronger. - Time Time Spent with patient: Less than 15 minutes - Plan Summary Plan Summary: Agree with plans for transfer to rehab. Please call with any concerns.
[2019-06-29] MEDS: TAMSULOSIN HCL 0.4 MG CAP.SR.24H PO SCH (17:14)
[2019-06-29] MEDS: ATORVASTATIN CALCIUM 40 MG TABLET PO SCH (21:54)
[2019-06-29] MEDS: MIRTAZAPINE 15 MG TABLET PO SCH (21:54)
[2019-06-30] MEDS: ACYCLOVIR 800 MG TABLET PO SCH ×3 (05:50→21:32)
[2019-06-30] MEDS: INSULIN LISPRO 100 UNIT/ML 3 ML VIAL SUBCUT SCH ×4 (08:28→21:33)
[2019-06-30] MEDS: FUROSEMIDE INJ/PF 100 MG/10 ML SDV IV SCH ×2 (09:54→17:10)
[2019-06-30] MEDS: POLYETHYLENE GLYCOL 3350 POWDER 17 GM/1 PACKET PO SCH (09:55)
[2019-06-30] MEDS: DOCUSATE SODIUM 100 MG CAPSULE PO SCH (09:56)
[2019-06-30] MEDS: MULTIVITAMIN TABLET PO SCH (09:56)
[2019-06-30] MEDS: CALCIUM CARBONATE 500 MG TABLET PO SCH ×2 (09:56→17:10)
[2019-06-30] MEDS: CHOLECALCIFEROL (D3) 1,000 UNIT (25 MCG) TABLET PO SCH (09:56)
[2019-06-30] MEDS: ALLOPURINOL 100 MG TABLET PO SCH (09:56)
[2019-06-30] MEDS: ASPIRIN 81 MG TABLET, ENT COATED PO SCH (09:56)
[2019-06-30] MEDS: FINASTERIDE 5 MG TABLET PO SCH (09:56)
[2019-06-30] MEDS: FERROUS SULFATE 325 MG TABLET PO SCH (09:57)
[2019-06-30] MEDS: FAMOTIDINE 20 MG TABLET PO SCH ×2 (09:57→21:33)
[2019-06-30] MEDS: LOSARTAN POTASSIUM 50 MG TABLET PO SCH (09:57)
[2019-06-30] MEDS: INSULIN GLARGINE,HUM.REC.ANLOG 1,000 UNIT/10 ML VIAL SUBCUT SCH ×2 (10:09→21:32)
--- NOTE | 2019-06-30 10:12 | PDOC PROGRESS REPORT ---
Subjective Progress Note for:: 06/30/19 Subjective:: Patient is doing well. Has no complaints today. Reason For Visit: MULTIPLE MELOMA, CONGESTIVE HEART FAILUTE, Physical Exam Vital Signs: Temp Pulse Resp BP Pulse Ox 98.0 F 67 18 156/51 H 100 06/30/19 08:00 06/30/19 08:00 06/30/19 08:00 06/30/19 08:00 06/30/19 08:00 Intake & Output 06/29/19 06/30/19 07/01/19 06:59 06:59 06:59 Intake Total 660 930 Output Total 900 Balance -240 930 Weight 97.8 kg 97.8 kg General appearance: PRESENT: no acute distress, cooperative Neck exam: ABSENT: JVD Respiratory exam: PRESENT: clear to auscultation kevin. ABSENT: crackles Cardiovascular exam: PRESENT: RRR, +S1, +S2 Extremities exam: PRESENT: +2 edema, other - Anasarca and swelling in the extremities have improved Neurological exam: PRESENT: alert, awake Psychiatric exam: PRESENT: normal mood Results Laboratory Results: 06/29/19 04:28 06/29/19 04:28 06/19/19 06/19/19 06/20/19 09:02 09:02 03:59 Creatine Kinase 32 L NT-Pro-B Natriuret Pep 50571 H 22461 H 06/21/19 07:15 Creatine Kinase NT-Pro-B Natriuret Pep 44422 H Impressions: Chest X-Ray 06/19/19 08:53 IMPRESSION: NO ACUTE RADIOGRAPHIC FINDING IN THE CHEST. Venous Doppler Study 06/19/19 11:38 IMPRESSION: 1. Negative examination for deep venous thrombosis bilaterally. 2. Noncompressible occlusive thrombus in the distal portions of the right greater saphenous vein. 3. Bilateral lower leg soft tissue edema. 4. Large Griffiths cyst in the left popliteal fossa. Assessment and Plan - Diagnosis (1) Anasarca Is this a current diagnosis for this admission?: Yes Plan: Likely secondary to acute on chronic kidney injury as well as hypoalbuminemia. We will continue with diuresis. Placed on fluid restriction. Monitor I's and O's. Encouraged on proper nutrition. Initial UA negative for proteins Albumin improved post infusion's on this admission Lasix administration 60 mg bid. (2) Cellulitis of left anterior lower leg Is this a current diagnosis for this admission?: Yes Plan: Completed 7 days of ceftriaxone and 5 days of clindamycin. Blood cultures negative. (3) Multiple myeloma Qualifiers: Multiple myeloma remission status: not in remission Qualified Code(s): C90.00 - Multiple myeloma not having achieved remission Is this a current diagnosis for this admission?: Yes Plan: All treatments currently held. Will defer to oncology. (4) Insulin dependent diabetes mellitus Is this a current diagnosis for this admission?: Yes (5) Acute hyperkalemia Is this a current diagnosis for this admission?: Yes Plan: Resolved. Continue with Lasix (6) Ymojg-km-adnzqmd kidney injury Qualifiers: Chronic kidney disease stage: stage 3 (moderate) Is this a current diagnosis for this admission?: Yes Plan: BITA currently resolved. Now back to baseline (7) Pain and swelling of lower extremity Qualifiers: Laterality: unspecified laterality Qualified Code(s): M79.606 - Pain in leg, unspecified; M79.89 - Other specified soft tissue disorders Is this a current diagnosis for this admission?: Yes Plan: Swelling in lower extremities secondary to anasarca with some component of venous insufficiency. The pain on plantar sole surface is secondary to the swelling when pressure is applied. continue with diuresis. Patient encouraged to elevate legs whenever in bed. Compression stockings placed on both legs. - Plan Summary Summary: Working towards discharge to SNF. - Time Time Spent with patient: 15-24 minutes Medications reviewed and adjusted accordingly: Yes Anticipated discharge: SNF Within: within 24 hours
[2019-06-30] MEDS: TAMSULOSIN HCL 0.4 MG CAP.SR.24H PO SCH (17:10)
[2019-06-30] MEDS: MIRTAZAPINE 15 MG TABLET PO SCH (21:32)
[2019-06-30] MEDS: ATORVASTATIN CALCIUM 40 MG TABLET PO SCH (21:32)
[2019-07-01 05:34] LABS: BLOOD UREA NITROGEN 32 mg/dL (7-20); CALCIUM 7.5 mg/dL (8.4-10.2); GLUCOSE 83 mg/dL (75-110); POTASSIUM 3.8 mmol/L (3.6-5.0)
[2019-07-01 05:40] LABS: CARBON DIOXIDE 31 mmol/L (22-30); CHLORIDE 104 mmol/L (98-107)
[2019-07-01 05:44] LABS: ANION GAP 3 (5-19)
[2019-07-01] MEDS: ACYCLOVIR 800 MG TABLET PO SCH ×2 (06:12→13:08)
[2019-07-01] MEDS ORDERED: FUROSEMIDE 40 MG TABLET PO SCH (10:00)
[2019-07-01] MEDS: INSULIN LISPRO 100 UNIT/ML 3 ML VIAL SUBCUT SCH ×2 (10:12→13:08)
[2019-07-01] MEDS: FAMOTIDINE 20 MG TABLET PO SCH (10:28)
[2019-07-01] MEDS: DOCUSATE SODIUM 100 MG CAPSULE PO SCH (10:28)
[2019-07-01] MEDS: MULTIVITAMIN TABLET PO SCH (10:29)
[2019-07-01] MEDS: ALLOPURINOL 100 MG TABLET PO SCH (10:29)
[2019-07-01] MEDS: ASPIRIN 81 MG TABLET, ENT COATED PO SCH (10:29)
[2019-07-01] MEDS: CALCIUM CARBONATE 500 MG TABLET PO SCH (10:29)
[2019-07-01] MEDS: LOSARTAN POTASSIUM 50 MG TABLET PO SCH (10:29)
[2019-07-01] MEDS: FINASTERIDE 5 MG TABLET PO SCH (10:29)
[2019-07-01] MEDS: POLYETHYLENE GLYCOL 3350 POWDER 17 GM/1 PACKET PO SCH (10:30)
[2019-07-01] MEDS: CHOLECALCIFEROL (D3) 1,000 UNIT (25 MCG) TABLET PO SCH (10:30)
[2019-07-01] MEDS: FERROUS SULFATE 325 MG TABLET PO SCH (10:35)
[2019-07-01] MEDS: INSULIN GLARGINE,HUM.REC.ANLOG 1,000 UNIT/10 ML VIAL SUBCUT SCH (10:35)
--- NOTE | 2019-07-01 11:50 | PDOC TRANSFER SUMMARY ---
Impression - Admit/DC Date/PCP Admission Date/Primary Care Provider: 06/19/19 14:05 ELIUD GARCIA MD Discharge Date: 07/01/19 - Discharge Diagnosis (1) Anasarca Is this a current diagnosis for this admission?: Yes (2) Cellulitis of left anterior lower leg Is this a current diagnosis for this admission?: Yes (3) Multiple myeloma Is this a current diagnosis for this admission?: Yes (4) Insulin dependent diabetes mellitus Is this a current diagnosis for this admission?: Yes (5) Acute hyperkalemia Is this a current diagnosis for this admission?: Yes (6) Hokgd-ji-aymqrwq kidney injury Is this a current diagnosis for this admission?: Yes (7) Pain and swelling of lower extremity Is this a current diagnosis for this admission?: Yes (8) Constipation Is this a current diagnosis for this admission?: Yes (9) Hypocalcemia Is this a current diagnosis for this admission?: Yes (10) Chronic pain syndrome Is this a current diagnosis for this admission?: Yes - Assessment Summary: 84-year-old male with a history of diabetes mellitus, multiple myeloma, renal dysfunction presented initially with left leg pain and redness. Was initially found to also be fluid overloaded. He was started on treatment for kidney injury as well as cellulitis and fluid overload. He was noted to have vivid anasarca. He was treated with several days of antibiotics IV for his cellulitis and diuresed adequately. His generalized body swelling improved significantly his acute kidney injury resolved. There is swelling or redness in the left leg also significantly improved. Patient was initially aggressively diuresed now his Lasix dose has been changed to 40 mg p.o. twice a day. Patient is now stable for discharge. - Additional Information Resuscitation Status: Do Not Resuscitate Discharge Diet: Diabetic Discharge Activity: Activity As Tolerated Referrals: [facility] [Outside] TIFF COOK MD [ASSOCIATE] - 07/03/19 12:15 pm ([facility] WITH DR ROMERO) Home Medications: Allopurinol [Zyloprim 100 mg Tablet] 200 mg PO DAILY 06/19/19 Aspirin [Adult Low Dose Aspirin EC] 81 mg PO DAILY 06/19/19 Atorvastatin Calcium [Lipitor 40 mg Tablet] 40 mg PO QHS 06/19/19 Calcium Carbonate [Calcium] 500 mg PO BID 06/19/19 Cholecalciferol (Vitamin D3) [Vitamin D3 5000 unit Capsule] 5,000 unit PO BID 06/19/19 Dexamethasone [Decadron 4 mg Tablet] 20 mg PO WE 06/19/19 Docusate Sodium [Colace 100 mg Capsule] 100 mg PO BID 06/19/19 Ferrous Sulfate [Feosol 325 mg Tablet] 650 mg PO DAILY 06/19/19 Finasteride [Proscar 5 mg Tablet] 5 mg PO DAILY 06/19/19 Insulin Glargine,Hum.rec.anlog [Lantus Insulin 100 Unit/1 ml 10 ml] 8 units SQ Q12 06/19/19 Losartan Potassium [Cozaar 50 mg Tablet] 50 mg PO DAILY 06/19/19 Mirtazapine [Remeron] 30 mg PO QHS 06/19/19 Multivitamin [Multiple Vitamins] 1 tbs PO DAILY 06/19/19 Tamsulosin HCl [Flomax 0.4 mg Cap.sr] 0.4 mg PO QPM 06/19/19 Acetaminophen [Tylenol 325 mg Tablet] 650 mg PO Q4HP PRN tablet 07/01/19 Acyclovir [Zovirax 800 mg Tablet] 800 mg PO Q8 tablet 07/01/19 Bisacodyl [Dulcolax 10 mg Supp.rect] 10 mg NC DAILYP PRN supp.rect 07/01/19 Furosemide [Lasix 40 mg Tablet] 40 mg PO BID tablet 07/01/19 Mag Hydrox/Al Hydrox/Simeth [Maalox Plus Susp 30 Udcup] 15 ml PO Q6HP PRN udc 07/01/19 Polyethylene Glycol 3350 [Miralax Powder 17 gm/Packet] 17 gm PO DAILY powd.pack 07/01/19 History of Present Illiness History of Present Illness: SARAH PIÑA is a 83 year old male has a complicated medical history. Patient was diagnosed with multiple myeloma 4 months ago and is been treated in [place] by the oncologist, cording to the son who is historian last night his father started having left leg pain and was unable to get up out of the chair secondary to the left leg pain. Patient had a similar episode about 3 weeks ago with the right leg. At that time the patient had his right knee tapped in had steroids ejected into the knee and became much improved to the point where he was up and ambulatory and almost no pain. They were concerned about cellulitis they were also concerned about gout. Last night he started complaining of left lower leg pain below the knee has developed redness at this area. He also has increased fluid in both lower legs. His HCTZ may have been discontinued recently. According to the son last week on Monday he weighed 178 pounds and 2 days ago he weighed 184 pounds. Patient denies shortness of breath and he denies chest pain. Patient is now admitted for redness of the left lower leg, and increased peripheral edema. Venous Dopplers have been done in the emergency room and they were negative for DVT. Patient's calcium level is low at 6.2 secondary to his meant of multiple myeloma. Patient's platelets are low at 48,000.. Patient's BNP is elevated at 13,500 Physical Exam Vital Signs: Temp Pulse Resp BP Pulse Ox 98.1 F 69 16 154/58 H 94 07/01/19 07:27 07/01/19 07:27 07/01/19 07:27 07/01/19 07:27 07/01/19 07:27 Intake & Output 06/30/19 07/01/19 07/02/19 06:59 06:59 06:59 Intake Total 930 236 Output Total 325 Balance 930 -89 Weight 97.8 kg 89.8 kg Results Laboratory Results: WBC 3.1 10^3/uL (4.0-10.5) L 06/29/19 04:28 RBC 2.88 10^6/uL (4.35-5.55) L 06/29/19 04:28 Hgb 8.1 g/dL (13.5-17.0) L 06/29/19 04:28 Hct 25.5 % (37.9-51.0) L 06/29/19 04:28 MCV 89 fl (80-97) 06/29/19 04:28 MCH 28.2 pg (27.0-33.4) 06/29/19 04:28 MCHC 31.9 g/dL (32.0-36.0) L 06/29/19 04:28 RDW 21.2 % (11.5-14.0) H 06/29/19 04:28 Plt Count 93 10^3/uL (150-450) L 06/29/19 04:28 Lymph % (Auto) 39.2 % (13-45) 06/28/19 04:58 [place] % (Auto) 15.1 % (3-13) H 06/28/19 04:58 Eos % (Auto) 0.7 % (0-6) 06/28/19 04:58 Baso % (Auto) 0.2 % (0-2) 06/28/19 04:58 Absolute Neuts (auto) 1.4 10^3/uL (1.7-8.2) L 06/28/19 04:58 Absolute Lymphs (auto) 1.2 10^3/uL (0.5-4.7) 06/28/19 04:58 Absolute Monos (auto) 0.5 10^3/uL (0.1-1.4) 06/28/19 04:58 Absolute Eos (auto) 0.0 10^3/uL (0.0-0.6) 06/28/19 04:58 Absolute Basos (auto) 0.0 10^3/uL (0.0-0.2) 06/28/19 04:58 Total Counted 100 06/27/19 05:57 Seg Neutrophils % 44.8 % (42-78) 06/28/19 04:58 Seg Neuts % (Manual) 70 % (42-78) 06/27/19 05:57 Band Neutrophils % 1 % (3-5) L 06/27/19 05:57 Lymphocytes % (Manual) 23 % (13-45) 06/27/19 05:57 Atypical Lymphs % 1 % (0) 06/22/19 13:17 Monocytes % (Manual) 5 % (3-13) 06/27/19 05:57 Eosinophils % (Manual) 0 % (0-6) 06/27/19 05:57 Basophils % (Manual) 1 % (0-2) 06/27/19 05:57 Abs Neuts (Manual) 1.6 10^3/uL (1.7-8.2) L 06/27/19 05:57 Abs Lymphs (Manual) 0.5 10^3/uL (0.5-4.7) 06/27/19 05:57 Abs Monocytes (Manual) 0.1 10^3/uL (0.1-1.4) 06/27/19 05:57 Absolute Eos (Manual) 0.0 10^3/uL (0.0-0.6) 06/27/19 05:57 Abs Basophils (Manual) 0.0 10^3/uL (0.0-0.2) 06/27/19 05:57 Nucleated RBCs 1 /100 WBC (0) 06/27/19 05:57 Platelet Estimate Cancelled 06/22/19 16:35 Large Platelets PRESENT 06/21/19 07:15 Platelet Comment DECREASED 06/27/19 05:57 Polychromasia SLIGHT 06/21/19 07:15 Hypochromasia SLIGHT 06/22/19 17:35 Poikilocytosis 2+ 06/27/19 05:57 Anisocytosis 3+ 06/27/19 05:57 Microcytosis 1+ 06/22/19 13:17 Tear Drop Cells SLIGHT 06/23/19 17:10 Ovalocytes 1+ 06/27/19 05:57 Helmet Cells SLIGHT 06/21/19 18:54 Amanda Cells 1+ 06/27/19 05:57 Acanthocytes (Spur) SLIGHT 06/21/19 18:54 Schistocytes 1+ 06/27/19 05:57 PT 14.6 SEC (11.4-15.4) 06/19/19 09:02 INR 1.13 06/19/19 09:02 APTT 33.5 SEC (23.5-35.8) 06/19/19 09:02 Sodium 137.7 mmol/L (137-145) 07/01/19 04:26 Potassium 3.8 mmol/L (3.6-5.0) 07/01/19 04:26 Chloride 104 mmol/L (98-107) 07/01/19 04:26 Carbon Dioxide 31 mmol/L (22-30) H 07/01/19 04:26 Anion Gap 3 (5-19) L 07/01/19 04:26 BUN 32 mg/dL (7-20) H 07/01/19 04:26 Creatinine 1.17 mg/dL (0.52-1.25) 07/01/19 04:26 Est GFR ( Amer) > 60 (>60) 07/01/19 04:26 Est GFR (MDRD) Non-Af 59 (>60) L 07/01/19 04:26 Glucose 83 mg/dL (75-110) 07/01/19 04:26 POC Glucose 160 mg/dL (70-110) H 07/01/19 11:16 Hemoglobin A1c % 8.1 % (4.7-6.0) H 06/20/19 03:59 Uric Acid 4.6 mg/dL (3.5-8.5) 06/23/19 10:40 Calcium 7.5 mg/dL (8.4-10.2) L 07/01/19 04:26 Ionized Calcium Kiki 1.08 mmol/L (1.14-1.30) L 06/22/19 02:12 Phosphorus 5.4 mg/dL (2.5-4.5) H 06/20/19 03:59 Magnesium 2.2 mg/dL (1.6-2.3) 06/20/19 03:59 Total Bilirubin 0.3 mg/dL (0.2-1.3) 06/29/19 04:28 Direct Bilirubin 0.2 mg/dL (0.0-0.4) 06/29/19 04:28 Neonat Total Bilirubin Not Reportable 06/29/19 04:28 Neonat Direct Bilirubin Not Reportable 06/29/19 04:28 Neonat Indirect Bili Not Reportable 06/29/19 04:28 AST 58 U/L (17-59) 06/29/19 04:28 ALT 72 U/L (<50) 06/29/19 04:28 Alkaline Phosphatase 47 U/L (38-126) 06/29/19 04:28 Ammonia < 8.7 umol/L (9-33) L 06/19/19 14:45 Creatine Kinase 32 U/L (55-170) L 06/19/19 09:02 NT-Pro-B Natriuret Pep 91085 pg/mL (<450) H 06/21/19 07:15 Total Protein 4.0 g/dL (6.3-8.2) L 06/29/19 04:28 Albumin 2.1 g/dL (3.5-5.0) L 06/29/19 04:28 TSH 1.87 uIU/mL (0.47-4.68) 06/19/19 09:02 Urine Color YELLOW 06/19/19 09:30 Urine Appearance CLEAR 06/19/19 09:30 Urine pH 5.0 (5.0-9.0) 06/19/19 09:30 Ur Specific [place] 1.006 06/19/19 09:30 Urine Protein NEGATIVE mg/dL (NEGATIVE) 06/19/19 09:30 Urine Glucose (UA) NEGATIVE mg/dL (NEGATIVE) 06/19/19 09:30 Urine Ketones NEGATIVE mg/dL (NEGATIVE) 06/19/19 09:30 Urine Blood NEGATIVE (NEGATIVE) 06/19/19 09:30 Urine Nitrite (Reflex) NEGATIVE (NEGATIVE) 06/19/19 09:30 Urine Bilirubin NEGATIVE (NEGATIVE) 06/19/19 09:30 Urine Urobilinogen NEGATIVE mg/dL (<2.0) 06/19/19 09:30 Leukocyte Esterase Rfl NEGATIVE (NEGATIVE) 06/19/19 09:30 Urine RBC (Auto) 0 /HPF 06/19/19 09:30 Urine WBC (Reflex) < 1 /HPF 06/19/19 09:30 Squamous Epi Cells Auto <1 /HPF 06/19/19 09:30 Urine Mucus (Auto) RARE /LPF 06/19/19 09:30 Urine Ascorbic Acid NEGATIVE (NEGATIVE) 06/19/19 09:30 Slides for Path Review Cancelled 06/22/19 16:35 06/19/19 06/20/19 06/21/19 09:02 03:59 07:15 NT-Pro-B Natriuret Pep 58057 H 43832 H 93660 H Impressions: Chest X-Ray 06/19/19 08:53 IMPRESSION: NO ACUTE RADIOGRAPHIC FINDING IN THE CHEST. Venous Doppler Study 06/19/19 11:38 IMPRESSION: 1. Negative examination for deep venous thrombosis bilaterally. 2. Noncompressible occlusive thrombus in the distal portions of the right greater saphenous vein. 3. Bilateral lower leg soft tissue edema. 4. Large Griffiths cyst in the left popliteal fossa. Plan Plan of Treatment: (1) Anasarca Is this a current diagnosis for this admission?: Yes Plan: Volume overload Likely secondary to acute on chronic kidney injury as well as hypoalbuminemia. His volume overload state has significantly improved. We will continue with diuresis. Placed on fluid restriction. Monitor I's and O's. Encouraged on proper nutrition. Initial UA negative for proteins Albumin improved post 2 infusion's on this admission Lasix administration 40 mg bid. (2) Cellulitis of left anterior lower leg Is this a current diagnosis for this admission?: Yes Plan: Completed 7 days of ceftriaxone and 5 days of clindamycin. Blood cultures negative. (3) Multiple myeloma Qualifiers: Multiple myeloma remission status: not in remission Qualified Code(s): C90.00 - Multiple myeloma not having achieved remission Is this a current diagnosis for this admission?: Yes Plan: All treatments currently held. Patient is to follow up with Dr. Cook in clinic for further management of this. (4) Insulin dependent diabetes mellitus Is this a current diagnosis for this admission?: Yes Continue current regimen. Good BG readings. (5) Acute hyperkalemia Is this a current diagnosis for this admission?: Yes Plan: Resolved few days ago. Continue with Lasix (6) Trutk-cv-feygekf kidney injury Qualifiers: Chronic kidney disease stage: stage 3 (moderate) Is this a current diagnosis for this admission?: Yes Plan: BITA currently resolved. Now back to baseline Repeat BMP in 4 days (7) Pain and swelling of lower extremity Qualifiers: Laterality: unspecified laterality Qualified Code(s): M79.606 - Pain in leg, unspecified; M79.89 - Other specified soft tissue disorders Is this a current diagnosis for this admission?: Yes Plan: Swelling in lower extremities secondary to anasarca with some component of venou s insufficiency. The pain on plantar sole surface is secondary to the swelling when pressure is applied. continue with diuresis. Patient encouraged to elevate legs whenever in bed. Compression stockings placed on both legs. 8 Weakness Patient will require a lot of physical therapy to help regain his strength Normal. Doing some not to do we can do Flexeril we can do just really like Flexeril like 1010 3 times daily as needed for back spasms Thank you Stroke Is this a Stroke Patient?: No Acute Heart Failure - Is this a Heart Failure Patient?: No
[2019-07-01 12:07] VITALS: BP 162/58
== END 2019-07-01 13:53 | DRG 602 ==
LOC: ER 08:27 → EH 14:05 → 4W 17:58 → 4S 19:34 → 4W 19:35 → 5 06-24 15:35
PROVIDERS: ADMIT Hospitalist; ATTEND Hospitalist
DX: L03.116 Cellulitis of left lower limb (principal); D61.810 Antineoplastic chemotherapy induced pancytopenia; N17.9 Acute kidney failure, unspecified; C90.00 Multiple myeloma not having achieved remission; E83.51 Hypocalcemia; E88.09 Other disorders of plasma-protein metabolism, not elsewhere classified; E11.22 Type 2 diabetes mellitus with diabetic chronic kidney disease; N18.3 Chronic kidney disease, stage 3 (moderate); I12.9 Hypertensive chronic kidney disease with stage 1 through stage 4 chronic kidney disease, or unspecified chronic kidney disease; E87.70 Fluid overload, unspecified; E87.5 Hyperkalemia; G89.4 Chronic pain syndrome; M10.9 Gout, unspecified; M16.12 Unilateral primary osteoarthritis, left hip; L30.9 Dermatitis, unspecified; K59.03 Drug induced constipation; T40.605A Adverse effect of unspecified narcotics, initial encounter; R60.1 Generalized edema; Z66 Do not resuscitate; Z79.82 Long term (current) use of aspirin; Z79.4 Long term (current) use of insulin; Z83.3 Family history of diabetes mellitus; Z82.49 Family history of ischemic heart disease and other diseases of the circulatory system; Z80.9 Family history of malignant neoplasm, unspecified; Z79.899 Other long term (current) drug therapy
CPT/HCPCS: 36415; 71045; 80048; 80053; 81001; 82040; 82140; 82310; 82330; 82550; 82962; 83036; 83735; 83880; 84100; 84443; 84550; 85025; 85027; 85610; 85730; 87040; 87070; 93005; 93010; 93970; 96374; 96375; 99285; J0610; J0696; J1170; J1815; J1940; J2270; J3490; J7030; J7060; J7512; J8540; P9047

== ENCOUNTER → 2019-11-19 | Outpatient (CLI) | payer MEDICARE ==
--- NOTE | 2019-11-19 16:44 | RADIOLOGY REPORT (SQ) ---
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 TECHNIQUE: Dynamic and static francis scale and color images acquired of the lower extremity arteries. Additional selected spectral images recorded. ABIs recorded. LIMITATIONS: None. FINDINGS: RIGHT LEG: ABIS: Noncompressible vessels. INFLOW ARTERIES: Normal, no obstruction evident. FEMORAL ARTERIES:Triphasic waveforms. Normal, no velocity elevation to suggest focal stenosis. Normal color Doppler evaluation. No aneurysm. POPLITEAL ARTERY:Triphasic waveforms. Normal, no velocity elevation to suggest focal stenosis. Normal color Doppler evaluation. No aneurysm. PATENT TIBIOPERONEAL TRUNK AND 3 VESSEL RUNOFF: Yes, normal vessels. TBI: Not performed. OTHER: No other significant finding. LEFT LEG: ABIS: Noncompressible vessels. INFLOW ARTERIES: Normal, no obstruction evident. FEMORAL ARTERIES:Triphasic waveforms. Normal, no velocity elevation to suggest focal stenosis. Normal color Doppler evaluation. No aneurysm. POPLITEAL ARTERY:Triphasic waveforms. Normal, no velocity elevation to suggest focal stenosis. Normal color Doppler evaluation. No aneurysm. PATENT TIBIOPERONEAL TRUNK AND 3 VESSEL RUNOFF: Yes, normal vessels. TBI: Not performed. OTHER: No other significant finding. IMPRESSION: NORMAL BILATERAL LOWER EXTREMITY ARTERIAL DOPPLER. COMMENT: DEBI NORMAL: Greater than 1.0 MINIMAL DISEASE: 0.9 to 1.0 CLAUDICATION: 0.5 to 0.9 SEVERE ARTERIAL DISEASE: Less than 0.5 [facility] NORMAL: Greater than 1.0 (1.2 If Heavy Calcifications) NORMAL TO MILD ISCHEMIA: 0.8 to 1.0 MODERATE ISCHEMIA: 0.4 to 0.8 SEVERE ISCHEMIA: Less than 0.4 TECHNICAL DOCUMENTATION: JOB ID: [id number] 2010 [employer]- All Rights Reserved Reading location - IP/workstation name: [email or web address]
--- NOTE | 2019-11-19 16:44 | RADIOLOGY REPORT (SQ) ---
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 TECHNIQUE: Dynamic and static francis scale and color images acquired of the lower extremity arteries. Additional selected spectral images recorded. ABIs recorded. LIMITATIONS: None. FINDINGS: RIGHT LEG: ABIS: Noncompressible vessels. INFLOW ARTERIES: Normal, no obstruction evident. FEMORAL ARTERIES:Triphasic waveforms. Normal, no velocity elevation to suggest focal stenosis. Normal color Doppler evaluation. No aneurysm. POPLITEAL ARTERY:Triphasic waveforms. Normal, no velocity elevation to suggest focal stenosis. Normal color Doppler evaluation. No aneurysm. PATENT TIBIOPERONEAL TRUNK AND 3 VESSEL RUNOFF: Yes, normal vessels. TBI: Not performed. OTHER: No other significant finding. LEFT LEG: ABIS: Noncompressible vessels. INFLOW ARTERIES: Normal, no obstruction evident. FEMORAL ARTERIES:Triphasic waveforms. Normal, no velocity elevation to suggest focal stenosis. Normal color Doppler evaluation. No aneurysm. POPLITEAL ARTERY:Triphasic waveforms. Normal, no velocity elevation to suggest focal stenosis. Normal color Doppler evaluation. No aneurysm. PATENT TIBIOPERONEAL TRUNK AND 3 VESSEL RUNOFF: Yes, normal vessels. TBI: Not performed. OTHER: No other significant finding. IMPRESSION: NORMAL BILATERAL LOWER EXTREMITY ARTERIAL DOPPLER. COMMENT: DEBI NORMAL: Greater than 1.0 MINIMAL DISEASE: 0.9 to 1.0 CLAUDICATION: 0.5 to 0.9 SEVERE ARTERIAL DISEASE: Less than 0.5 [facility] NORMAL: Greater than 1.0 (1.2 If Heavy Calcifications) NORMAL TO MILD ISCHEMIA: 0.8 to 1.0 MODERATE ISCHEMIA: 0.4 to 0.8 SEVERE ISCHEMIA: Less than 0.4 TECHNICAL DOCUMENTATION: JOB ID: [id number] 2010 [employer]- All Rights Reserved Reading location - IP/workstation name: [email or web address]
== END ==
LOC: SP 14:58
PROVIDERS: ATTEND Nurse Practitioner Family
DX: L97.222 Non-pressure chronic ulcer of left calf with fat layer exposed (principal)
CPT/HCPCS: 93922; 93925

== ENCOUNTER 2020-06-01 08:06 | Emergency (ER) | payer MEDICARE ==
[2020-06-01] MEDS ORDERED: HYDROMORPHONE HCL INJ/PF 2 MG/ML AMPULE IV ONE (10:04)
[2020-06-01 10:18] LABS: ABSOLUTE EOSINOPHILS # (AUTO) 0.1 10^3/uL (0.0-0.6); ABSOLUTE LYMPHOCYTES (AUTO) 0.6 10^3/uL (0.5-4.7); ABSOLUTE MONOCYTES (AUTO) 0.5 10^3/uL (0.1-1.4); ABSOLUTE NEUT (AUTO) 2.3 10^3/uL (1.7-8.2); BASOPHILS % (AUTO) 1.1 % (0-2); EOSINOPHILS % (AUTO) 2.3 % (0-6); HEMATOCRIT 21.4 % (37.9-51.0); LYMPHOCYTES % (AUTO) 16.2 % (13-45); MEAN CORPUSCULAR HEMOGLOBIN 32.2 pg (27.0-33.4); MEAN CORPUSCULAR HGB CONC 33.5 g/dL (32.0-36.0); MEAN CORPUSCULAR VOLUME 96 fl (80-97); MONOCYTES % (AUTO) 14.8 % (3-13); PLATELET COUNT 208 10^3/uL (150-450); RED BLOOD COUNT 2.23 10^6/uL (4.35-5.55); RED CELL DISTRIBUTION WIDTH 20.7 % (11.5-14.0); SEGMENTED NEUTROPHILS % (AUTO) 65.6 % (42-78); TOTAL CELLS COUNTED % (AUTO) 100 %
[2020-06-01 10:33] LABS: APPEARANCE,URINE SLIGHTLY-CLOUDY; BILIRUBIN,URINE NEGATIVE (NEGATIVE); COLOR,URINE YELLOW; GLUCOSE, URINE NEGATIVE (NEGATIVE); KETONES,URINE NEGATIVE (NEGATIVE); LEUKOCYTE ESTERASE,URINE NEGATIVE (NEGATIVE); NITRITE,URINE NEGATIVE (NEGATIVE); PROTEIN,URINE NEGATIVE (NEGATIVE); URINE SPECIFIC GRAVITY 1.008; UROBILINOGEN,URINE NEGATIVE mg/dL (<2.0)
[2020-06-01 10:39] LABS: HEMOGLOBIN 7.2 g/dL (13.5-17.0)
[2020-06-01 10:41] LABS: ALKALINE PHOSPHATASE 55 U/L (38-126); ANION GAP 6 (5-19); ASPARTATE AMINO TRANSFERASE 26 U/L (17-59); BILIRUBIN,DIRECT 0.3 mg/dL (0.0-0.4); BILIRUBIN,TOTAL 0.4 mg/dL (0.2-1.3); BLOOD UREA NITROGEN 44 mg/dL (7-20); CALCIUM 8.4 mg/dL (8.4-10.2); CARBON DIOXIDE 33 mmol/L (22-30); CHLORIDE 97 mmol/L (98-107); CREATINE KINASE 81 U/L (55-170); GLUCOSE 119 mg/dL (75-110); TOTAL PROTEIN 4.9 g/dL (6.3-8.2)
[2020-06-01 10:44] LABS: WHITE BLOOD COUNT 3.6 10^3/uL (4.0-10.5)
[2020-06-01 10:52] LABS: CREATINE KINASE MB 1.48 ng/mL (<4.55); TROPONIN I 0.025 ng/mL
--- NOTE | 2020-06-01 11:37 | ER Document Report ---
ED General - General Chief Complaint: Near Syncope Stated Complaint: ALTERED MENTAL STATUS Time Seen by Provider: 06/01/20 09:00 Primary Care Provider: ELIUD GARCIA MD [Primary Care Provider] - Follow up as needed Notes: This 84-year-old man history of multiple myeloma presents to the emergency department with a history of a fall at home yesterday. He sustained skin tears to the right forearm and left elbow. This morning at the breakfast table he had an episode where he appeared to become decreased response. Blood sugar was checked it was 362 he was given 15 units of regular insulin and it was after the insulin that he had episodes where he was not responding. EMS was called patient was transported to the emergency department for further evaluation and treatment. Alert and talking and in no acute distress. TRAVEL OUTSIDE OF THE [place] IN LAST 30 DAYS: No - Related Data Allergies/Adverse Reactions: No Known Allergies Allergy (Verified 10/16/18 10:35) Home Medications: tradjenta. hydromorphone. bumetanide. finasteride. tamsulin. spirolactone. Aspirin. Xarelto. potassim cl. Isosorbide Past Medical History - Social History Smoking Status: Never Smoker Chew tobacco use (# tins/day): No Frequency of alcohol use: None Drug Abuse: None Family History: CAD, DM, Hypertension, Malignancy - Past Medical History Cardiac Medical History: Reports: Hx Hypertension Denies: Hx Heart Attack Pulmonary Medical History: Denies: Hx Asthma, Hx COPD Neurological Medical History: Denies: Hx Cerebrovascular Accident, Hx Seizures Endocrine Medical History: Reports: Hx Diabetes Mellitus Type 2. 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 Denies: Hx Open Heart Surgery, Hx Pacemaker - Immunizations Immunizations up to date: Yes Hx Diphtheria, Pertussis, Tetanus Vaccination: Yes Review of Systems - Review of Systems Notes: Constitutional: See HPI HENT: Negative for sore throat. Eyes: Negative for visual changes. Cardiovascular: Negative for chest pain. Respiratory: Negative for shortness of breath. Gastrointestinal: Negative for abdominal pain, vomiting or diarrhea. Genitourinary: Negative for dysuria. Musculoskeletal: Negative for back pain. Skin: See HPI Neurological: Negative for headaches, weakness or numbness. 10 point ROS negative except as marked above and in HPI. Physical Exam - Vital signs Vitals: Temp Resp Pulse Ox 98.1 F 16 99 06/01/20 08:13 06/01/20 08:13 06/01/20 08:13 - Notes Notes: PHYSICAL EXAMINATION: Physical Exam: General: Frail 84-year-old man in no acute distress HEENT: NC/AT, pupils equal round and reactive to light, MM moist,nares clear, oropharynx clear, airway patent Neck: supple, no adenopathy, no masses. Good range of motion Lungs: clear, no wheezing, no rales no rhonchi CVS: Regular rate and rhythm no murmur gallop or rub Abdomen: Soft, active, nontender, no masses, no hepatosplenomegaly Ext: No edema, clubbing or cyanosis. Neuro: Alert and responsive, moving all 4 extremities on command, cranial nerves intact, no focal findings Skin: 2 cm skin tear to the right volar surface of the forearm, mild bleeding, a 6 cm laceration to the left elbow with a large clot. PSYCH: Normal mood, normal affect. Course - Re-evaluation Re-evalutation: 06/01/20 13:10 I have a compared the lacerations on the right forearm and left elbow with feeling Dermabond. I also contacted the hematology oncologist in [place] regarding the anemia. He notes that the patient had a hemoglobin of 8 in the office April. He notes that patient has an appointment with him this week and that he will follow up during the visit. - Vital Signs Vital signs: Temp Pulse Resp BP Pulse Ox 98.1 F 15 108/46 L 98 06/01/20 08:13 06/01/20 12:31 06/01/20 12:31 06/01/20 12:31 - Laboratory Result Diagrams: 06/01/20 09:35 06/01/20 09:35 Laboratory results interpreted by me: 06/01/20 06/01/20 09:35 09:35 WBC 3.6 L RBC 2.23 L Hgb 7.2 L Hct 21.4 L RDW 20.7 H Dixon % (Auto) 14.8 H Sodium 136.3 L Chloride 97 L Carbon Dioxide 33 H BUN 44 H Creatinine 1.58 H Est GFR ( Amer) 51 L Est GFR (MDRD) Non-Af 42 L Glucose 119 H Total Protein 4.9 L Albumin 3.0 L 06/01/20 13:15 I have reviewed laboratory data and used this information for the treatment decisions regarding the patient. - EKG Interpretation by Me Rate: Normal - EKG interpreted by Dr. Santiago: Normal sinus rhythm, rate 65, QT 432, normal axis, NM interval 184, no acute ST or T wave abnormalities, no ischemic findings, compared to EKG dated 06/19/2019, atrial fibrillation is no longer present. Procedures - Laceration/Wound Repair Right Arm Time completed: 11:16 Wound length (cm): 2.0 Wound's Depth, Shape: Superficial - Skin tear Wound explored: Clean Wound Repaired With: Dermabond Post-procedure wound care: Sterile dressing applied Post-procedure NV exam normal: Yes Complications: No Left Elbow Time completed: 11:20 Wound length (cm): 6 Wound's Depth, Shape: Superficial - Skin tear Irrigated w/ Saline (mLs): 10 Wound Repaired With: Dermabond - Good approximation of the tissue and 2 separate applications of Dermabond were applied. Post-procedure wound care: Sterile dressing applied Post-procedure NV exam normal: Yes Complications: No Discharge - Discharge Clinical Impression: Insulin dependent diabetes mellitus, Chronic anemia Laceration of left elbow Qualifiers: Encounter type: initial encounter Qualified Code(s): S51.012A - Laceration without foreign body of left elbow, initial encounter Laceration of right forearm Qualifiers: Encounter type: initial encounter Qualified Code(s): S51.811A - Laceration without foreign body of right forearm, initial encounter Multiple myeloma Qualifiers: Multiple myeloma remission status: unspecified Qualified Code(s): C90.00 - Multiple myeloma not having achieved remission Condition: Good Disposition: HOME, SELF-CARE Instructions: Laceration Care ([facility]) Additional Instructions: You were seen in the emergency department today with multiple skin tears associated with a fall. You are also noted to be anemic with a hemoglobin of 7.2. We have had a discussion with your oncologist in [place], he is planning to see you this week per the appointment. Continue your usual medications, follow-up with your hematology oncology appointment. If you have other difficulties or concerns you may return to the emergency department for further evaluation and treatment time. HOME CARE INSTRUCTIONS & INFORMATION: Thank you for choosing us for your medic al needs. We hope you're satisfied with the care you received. After you leave, you must properly care for your problem and, at the same time, observe its progress. Any condition can change. Some illnesses can change rapidly over hours or days. If your condition worsens, return to the Emergency Department or see your physician promptly. ABOUT YOUR X-RAYS AND EKG'S: If you had an EKG or X-rays taken, they have been read by the Emergency Physician. The X-rays and EKG's will also be read by a Radiologist or [facility] within 24 hours. If discrepancies are noted, you will be notified by telephone. Please be certain the ED has a correct telephone number & address where you can be reached. Also, realize that some fractures or abnormalities do not show up on initial X-rays. If your symptoms continue, see your physician. ABOUT YOUR LABORATORY TEST: If you had laboratory tests, the results have been reviewed by the Emergency Physician. Some test results (for example cultures) m ay not be available for several days. You will be contacted if any test result shows you need additional treatment. Please be certain the ED has a correct telephone number and address where you can be reached. ABOUT YOUR MEDICATIONS: You will receive instructions on how to take your medicine on the prescription label you receive. Additional information may be provided by the Pharmacy. If you have questions afterwards, call the ED for clarification or further instructions. Some prescribed medications may cause drowsiness. Do not perform tasks such as driving a car or operating machinery without consulting your Pharmacist. If you feel you need a refill of pain medication, your condition will need re-evaluation. Please do not call for a refill of any medication. ABOUT YOUR SIGNATURE: Signature of this document acknowledges to followin. Understanding that you received emergency treatment and that you may be released before al medical problems are known or treated. Please be certain the ED has a correct phone number & address where you can be reached. 2. Acknowledgement that you will arrange for follow-up care as recommended. 3. Authorization for the Emergency Physician to provide information to your follow-up Physician in order to maximize your care. AT ANY TIME, IF YOUR SYMPTOMS CHANGE SIGNIFICANTLY OR WORSEN OR YOU DEVELOP NEW SYMPTOMS, RETURN TO THE EMERGENCY DEPARTMENT IMMEDIATELY FOR RE-EVALUATION. OUR GOAL IS TO PROVIDE EXCELLENT MEDICAL CARE! WE HOPE THAT WE HAVE MET YOUR EXPECTATIONS DURING YOUR EMERGENCY DEPARTMENT VISIT AND THAT YOU FEEL YOU HAVE RECEIVED EXCELLENT CARE! Referrals: ELIUD GARCIA MD [Primary Care Provider] - Follow up as needed
[2020-06-01 12:37] VITALS: BP 108/46
--- NOTE | 2020-06-01 13:17 | EKG REPORT ---
SEVERITY:- BORDERLINE ECG - SINUS RHYTHM FIRST DEGREE AVB : Confirmed by: Venkat Fonseca MD 01-Jun-2020 13:16:52
== END 2020-06-01 12:50 | disposition home or self-care (01) ==
LOC: ER 08:06
DX: S51.811A Laceration without foreign body of right forearm, initial encounter (principal); S51.012A Laceration without foreign body of left elbow, initial encounter; D64.9 Anemia, unspecified; R55 Syncope and collapse; R41.82 Altered mental status, unspecified; C90.00 Multiple myeloma not having achieved remission; W18.30XA Fall on same level, unspecified, initial encounter; Y92.009 Unspecified place in unspecified non-institutional (private) residence as the place of occurrence of the external cause; I10 Essential (primary) hypertension; E11.9 Type 2 diabetes mellitus without complications; Z79.4 Long term (current) use of insulin; Z79.01 Long term (current) use of anticoagulants; Z79.82 Long term (current) use of aspirin
CPT/HCPCS: 12004; 93005; 99284; 96374; 36415; 82553; 82550; 85025; 80053; 81001; 84484; 93010; J1170

== ENCOUNTER 2020-06-05 08:36 | Inpatient (IN) | payer MEDICARE ==
[2020-06-05 09:03] LABS: ABSOLUTE EOSINOPHILS # (AUTO) 0.2 10^3/uL (0.0-0.6); ABSOLUTE LYMPHOCYTES (AUTO) 1.1 10^3/uL (0.5-4.7); ABSOLUTE MONOCYTES (AUTO) 0.7 10^3/uL (0.1-1.4); ABSOLUTE NEUT (AUTO) 2.4 10^3/uL (1.7-8.2); HEMATOCRIT 20.2 % (37.9-51.0); LYMPHOCYTES % (AUTO) 24.7 % (13-45); MEAN CORPUSCULAR HEMOGLOBIN 31.3 pg (27.0-33.4); MEAN CORPUSCULAR HGB CONC 33.4 g/dL (32.0-36.0); MEAN CORPUSCULAR VOLUME 94 fl (80-97); MONOCYTES % (AUTO) 15.4 % (3-13); PLATELET COUNT 237 10^3/uL (150-450); RED BLOOD COUNT 2.15 10^6/uL (4.35-5.55); RED CELL DISTRIBUTION WIDTH 21.2 % (11.5-14.0); SEGMENTED NEUTROPHILS % (AUTO) 53.9 % (42-78); TOTAL CELLS COUNTED % (AUTO) 100 %; WHITE BLOOD COUNT 4.5 10^3/uL (4.0-10.5)
[2020-06-05 09:15] LABS: HEMOGLOBIN 6.7 g/dL (13.5-17.0)
[2020-06-05 09:19] LABS: ALBUMIN 3.2 g/dL (3.5-5.0); ALKALINE PHOSPHATASE 52 U/L (38-126); ANION GAP 9 (5-19); ASPARTATE AMINO TRANSFERASE 24 U/L (17-59); BILIRUBIN,DIRECT 0.3 mg/dL (0.0-0.4); BILIRUBIN,TOTAL 0.4 mg/dL (0.2-1.3); BLOOD UREA NITROGEN 61 mg/dL (7-20); CALCIUM 8.9 mg/dL (8.4-10.2); CARBON DIOXIDE 30 mmol/L (22-30); CHLORIDE 97 mmol/L (98-107); CREATINE KINASE 68 U/L (55-170); GLUCOSE 191 mg/dL (75-110); POTASSIUM 4.7 mmol/L (3.6-5.0); TOTAL PROTEIN 5.2 g/dL (6.3-8.2)
[2020-06-05 09:31] LABS: CREATINE KINASE MB 1.56 ng/mL (<4.55)
[2020-06-05 09:35] LABS: TROPONIN I < 0.012 ng/mL
[2020-06-05] MEDS ORDERED: NORMAL SALINE 500 ML IV ONE (10:21)
[2020-06-05] MEDS ORDERED: MORPHINE SULFATE 10 MG/ML INJ IV ONE (10:22)
[2020-06-05] MEDS ORDERED: ONDANSETRON HCL INJ/PF 4 MG/2 ML SDV IV ONE ×2 (10:23→13:24)
--- NOTE | 2020-06-05 11:37 | RADIOLOGY REPORT (SQ) ---
EXAM DESCRIPTION: HIP LEFT AP/LATERAL IMAGES COMPLETED DATE/TIME: 06/05/2020 11:17 am REASON FOR STUDY: Trauma fall/left hip pain COMPARISON: 09/09/2018 NUMBER OF VIEWS: Two views. TECHNIQUE: AP pelvis and additional frog legview of the left hip. LIMITATIONS: None. FINDINGS: MINERALIZATION: Decreased. LEFT HIP: No definite fracture dislocation. Osteophytosis and decreased joint space. RIGHT HIP: No displaced fracture. Asymmetric contour possibly related to patient positioning althoug h subcapital fracture not excluded. Degenerative changes with joint space loss and osteophytosis. PUBIS AND ISCHIUM: No fracture. Degenerative changes at the pubic symphysis. SACRUM: No fracture or dislocation. No worrisome bone lesions. LOWER LUMBAR SPINE: Lower lumbar spondylosis. SOFT TISSUES: No findings. OTHER: No other significant finding. IMPRESSION: 1. No definite fracture identified although contour asymmetry along the right hip which may be related to patient positioning although subcapital fracture not entirely excluded. If high c linical concern for acute traumatic injury to the RIGHT HIP recommend CT or MRI. No evidence of acut e bony abnormality of the LEFT HIP. 2. Decreased mineralization with moderate bilateral hip osteoarthritis. TECHNICAL DOCUMENTATION: JOB ID: [id number] 2010 [employer]- All Rights Reserved Reading location - IP/workstation name: [email or web address]
--- NOTE | 2020-06-05 11:43 | ER Document Report ---
Entered by LINDA MIRANDA SCRIBE 06/05/20 0928 Acting as scribe for:WILLIE BAHENA MD ED General - General Chief Complaint: Syncope Stated Complaint: SYNCOPE Mode of Arrival: Medic Information source: Patient Notes: This 84 year old male patient with a history significant for multiple myeloma and insulin-dependent diabetes mellitus brought in by EMS from home presents to the ED today for evaluation after a fall that occurred this morning. Patient states that he fell getting off of the toilet and his had to get him up. He reports left hip pain and neck pain following the fall. He denies LOC, but states that he actually doesn't remember if he blacked out or not. Patient was seen here recently on 06/01 for a fall and sustained skin tears to his left forearm which were repaired with Dermabond; a dressing is applied to this area. Patient mentions that he saw his PCP yesterday and made him aware of his prior fall. He states that he had x-rays and lab work done, but he does not remember the results of the workup. Patient is a poor historian and admits that he "can't think straight" and discloses that his son who is on is way would be able to provide more information regarding the past several days. His oncologist is Dr. Orlando Owen in [place], [place] and his PCP is Dr. Stew Nguyen. TRAVEL OUTSIDE OF THE [place] IN LAST 30 DAYS: No - Related Data Allergies/Adverse Reactions: No Known Allergies Allergy (Verified 10/16/18 10:35) Home Medications: Tradjenta, Hydromorphone, Bumetanide, Tamsulosin, Xarelto, Spironolactone, Aspirin, Vitamin D, Metagenics, Glipizide, Allpurinol, Amitiza, Joint Complex, Isosorbide Monotitrate, Potassium. 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, Reports Hx Musculoskeletal Trauma Skin Medical History: Reports Hx Eczema, Reports Hx Psoriasis Past Surgical History: Reports: Hx Cholecystectomy - Immunizations Immunizations up to date: Yes Hx Diphtheria, Pertussis, Tetanus Vaccination: Yes Review of Systems - Review of Systems Constitutional: No symptoms reported EENT: No symptoms reported Cardiovascular: No symptoms reported Respiratory: No symptoms reported Gastrointestinal: No symptoms reported Genitourinary: No symptoms reported Male Genitourinary: No symptoms reported Musculoskeletal: See HPI, Joint pain, Leg swelling - chronic Skin: See HPI Hematologic/Lymphatic: No symptoms reported Neurological/Psychological: See HPI -: Yes All other systems reviewed and negative Physical Exam - Vital signs Vitals: Resp 19 06/05/20 08:39 - General General appearance: Alert, Other - Appears sick In distress: Moderate - HEENT Head: Normocephalic, Atraumatic Eyes: Normal Pupils: PERRL - Respiratory Respiratory status: No respiratory distress Chest status: Nontender Breath sounds: Normal Chest palpation: Normal - Cardiovascular Rhythm: Regular Heart sounds: Normal auscultation Murmur: No Friction rub: No Gallop: None auscultated - Abdominal Inspection: Normal Distension: No distension Bowel sounds: Normal Tenderness: Nontender - Abdomen soft Organomegaly: No organomegaly - Back Back: Normal, Nontender - Extremities General lower extremity: Edema - Brawny edema noted to lower extremities bilaterally. No: Normal temperature - Bilateral lower extremities are warm to the touch Forearm: Other - Open wound/skin tear noted volar surface of left forearm that appears to not be healing well - Neurological Neuro grossly intact: Yes Orientation: AAOx4 Ida Coma Scale Eye Opening: Spontaneous Ida Coma Scale Verbal: Oriented Ida Coma Scale Motor: Obeys Commands Ida Coma Scale Total: 15 Additional motor exam normals: Equal food and beverage operations manager. No: Pronator drift - Psychological Associated symptoms: Normal affect, Normal mood - Skin Skin Temperature: Warm Skin Moisture: Dry Skin Color: Normal Course - Re-evaluation Re-evalutation: 06/05/20 11:10 Spoke with the patient's oncologist, Dr. Owen ([phone]) at [facility] who discloses that he saw the patient 2 days ago. He states that he advised the patient to hold his Xarelto and aspirin. 06/06/20 03:20 Unable to check patients orthostatic bp and pulse as he was in pain and could not tolerate sitting or standing. During course in ED, patient received ivf, transfusion of 1 unit of PRBCs, and iv pain management. His vital signs remain stable, and patient ate lunch and reported his pain was lessened and felt better overall. - Vital Signs Vital signs: Temp Pulse Resp BP Pulse Ox 99.3 F 72 20 149/57 H 98 06/06/20 02:13 06/06/20 02:13 06/06/20 02:13 06/06/20 02:13 06/06/20 02:13 06/06/20 03:24 Vitaal signs are stable. - Laboratory Result Diagrams: 06/05/20 08:51 06/05/20 08:51 Laboratory results interpreted by me: 06/05/20 06/05/20 06/05/20 08:50 08:51 08:51 RBC 2.15 L Hgb 6.7 L Hct 20.2 L RDW 21.2 H [place] % (Auto) 15.4 H D-Dimer Sodium 135.7 L Chloride 97 L BUN 61 H Creatinine 2.01 H Est GFR ( Amer) 38 L Est GFR (MDRD) Non-Af 32 L Glucose 191 H POC Glucose 217 H NT-Pro-B Natriuret Pep Total Protein 5.2 L Albumin 3.2 L TSH Crossmatch 06/05/20 06/05/20 06/05/20 08:51 08:51 08:51 RBC Hgb Hct RDW [place] % (Auto) D-Dimer 4.00 H Sodium Chloride BUN Creatinine Est GFR ( Amer) Est GFR (MDRD) Non-Af Glucose POC Glucose NT-Pro-B Natriuret Pep 1460 H Total Protein Albumin TSH 6.76 H Crossmatch 06/05/20 06/05/20 14:01 14:15 RBC Hgb Hct RDW [place] % (Auto) D-Dimer Sodium Chloride BUN Creatinine Est GFR ( Amer) Est GFR (MDRD) Non-Af Glucose POC Glucose 143 H NT-Pro-B Natriuret Pep Total Protein Albumin TSH Crossmatch See Detail 06/06/20 03:25 patient's labs shows anemia, elevated creatinine,glucose,bnp,tsh, d dimer, - Diagnostic Test Radiology reviewed: Image reviewed, Reports reviewed Radiology results interpreted by me: 06/05/20 13:28 Hip X-Ray 06/05/20 10:36 IMPRESSION: 1. No definite fracture identified although contour asymmetry along the right hip which may be related to patient positioning although subcapital fracture not entirely excluded. If high clinical concern for acute traumatic injury to the RIGHT HIP recommend CT or MRI. No evidence of acute bony abnormality of the LEFT HIP. 2. Decreased mineralization with moderate bilateral hip osteoarthritis. Head CT 06/05/20 11:24 IMPRESSION: CHRONIC CHANGES OF ATROPHY AND MICROVASCULAR ISCHEMIA. NO ACUTE PROCESS. EVIDENCE OF ACUTE STROKE: NO. Cervical Spine CT 06/05/20 11:26 IMPRESSION: Multilevel degenerative changes of the cervical spine without evidence of acute bony abnormality. Chest CT 06/05/20 11:27 IMPRESSION: 1. No evidence of acute intrathoracic process. 2. Extensive coronary atherosclerosis. 3. Mild dilation of the ascending aorta measuring up to 3.7 cm. Abdomen/Pelvis CT 06/05/20 11:29 IMPRESSION: 1. Prostatomegaly with moderately distended urinary bladder. 2. Significant stool throughout the colon. No other evidence of acute intra- abdominal/pelvic process. 06/06/20 03:33 xrays of hip show no acute fracture. Ct scan of head showed no stroke; CT cervical with degenerative changes of spine; Ct chest shows coronary atherosclerosis, mild dilation of of ascending aorta up to 3.7 cm; and ct of Abd/pelvis shows prostatomegaly,colon constipation . - EKG Interpretation by Me Additional EKG results interpreted by me: 06/06/20 03:38 12 lead EKG shows NSR, rate 70, normal axis, nonspecific STTWchanges lateral leads, borderline first degree AV block,. QRS, and QT interval within normal ranges. No acute STEMI. - Consults Dr. Orlando Owen, Oncologist at [facility] Time consulted: 10:45 Dr. Mcelroy, Hospitalist Time consulted: 16:12 Consulted provider: will see as inpatient Discharge - Discharge Clinical Impression: Chronic pain syndrome, Anemia, Elevated TSH, Syncope and collapse, Intractable pain, CKD (chronic kidney disease) stage 4, GFR 15-29 ml/min, DNR (do not resuscitate) Multiple myeloma Qualifiers: Multiple myeloma remission status: unspecified Qualified Code(s): C90.00 - Multiple myeloma not having achieved remission Laceration of left elbow Qualifiers: Encounter type: initial encounter Qualified Code(s): S51.012A - Laceration without foreign body of left elbow, initial encounter Condition: Serious Disposition: ADMITTED INPATIENT Admitting Provider: Navi (Hospitalist) Unit Admitted: IMCU I personally performed the services described in the documentation, reviewed and edited the documentation which was dictated to the scribe in my presence, and it accurately records my words and actions.
[2020-06-05 11:55] LABS: INTERNATIONAL RATION (INR) 0.99; PARTIAL THROMBOPLASTIN TIME 26.7 SEC (23.5-35.8); PROTHROMBIN TIME 13.3 SEC (11.4-15.4)
[2020-06-05 12:01] LABS: APPEARANCE,URINE CLEAR; BILIRUBIN,URINE NEGATIVE (NEGATIVE); COLOR,URINE YELLOW; GLUCOSE, URINE NEGATIVE (NEGATIVE); KETONES,URINE NEGATIVE (NEGATIVE); LEUKOCYTE ESTERASE,URINE NEGATIVE (NEGATIVE); NITRITE,URINE NEGATIVE (NEGATIVE); PROTEIN,URINE NEGATIVE (NEGATIVE); URINE SPECIFIC GRAVITY 1.005; UROBILINOGEN,URINE NEGATIVE mg/dL (<2.0)
--- NOTE | 2020-06-05 12:42 | RADIOLOGY REPORT (SQ) ---
EXAM DESCRIPTION: CT HEAD WITHOUT IMAGES COMPLETED DATE/TIME: 06/05/2020 12:29 pm REASON FOR STUDY: syncope COMPARISON: 10/25/2018 CT/MRI TECHNIQUE: Axial images acquired through the brain without intravenous contrast. Images reviewed wi th bone, brain and subdural windows. Additional sagittal and coronal reconstructions were generated. Images stored on PACS. All CT scanners at this facility use dose modulation, iterative reconstruction, and/or weight based d osing when appropriate to reduce radiation dose to as low as reasonably achievable (ALARA). [facility]: Dose Right [facility]: CareDose [facility]: Dose Right [facility]: Teradose 4D [facility]: Netragon RADIATION DOSE: CT Rad equipment meets quality standard of care and radiation dose reduction techniq ues were employed. CTDIvol: 53.2 mGy. DLP: 1097 mGy-cm.mGy. LIMITATIONS: None. FINDINGS: VENTRICLES: Prominent. CEREBRUM: No masses. No hemorrhage. No midline shift. Areas of low density in the white matter mos t likely due to chronic micro-vascular ischemic change. No evidence for acute infarction. CEREBELLUM: No masses. No hemorrhage. No alteration of density. No evidence for acute infarction. EXTRAAXIAL SPACES: Age-related involutional change. No fluid collections. No masses. ORBITS AND GLOBE: No intra- or extraconal masses. Normal contour of globe without masses. Cataract surgery. CALVARIUM: No fracture. PARANASAL SINUSES: No fluid or mucosal thickening. SOFT TISSUES: No mass or hematoma. OTHER: Vascular calcifications. IMPRESSION: CHRONIC CHANGES OF ATROPHY AND MICROVASCULAR ISCHEMIA. NO ACUTE PROCESS. EVIDENCE OF ACUTE STROKE: NO. TECHNICAL DOCUMENTATION: JOB ID: [id number] Quality ID # [id number]: Final reports with documentation of one or more dose reduction techniques (e.g., Au tomated exposure control, adjustment of the mA and/or kV according to patient size, use of iterative reconstruction technique) 2010 [employer]- All Rights Reserved Reading location - IP/workstation name: [email or web address]
--- NOTE | 2020-06-05 12:45 | RADIOLOGY REPORT (SQ) ---
EXAM DESCRIPTION: CT CERVICAL SPINE WITHOUT IMAGES COMPLETED DATE/TIME: 06/05/2020 12:29 pm REASON FOR STUDY: syncope/neck pain COMPARISON: None. TECHNIQUE: Axial images acquired through the cervical spine without intravenous contrast. Images re viewed with lung, soft tissue and bone windows. Reconstructed coronal and sagittal MPR images review ed. Images stored on PACS. All CT scanners at this facility use dose modulation, iterative reconstruction, and/or weight based d osing when appropriate to reduce radiation dose to as low as reasonably achievable (ALARA). [facility]: Dose Right [facility]: CareDose [facility]: Dose Right [facility]: Teradose 4D [facility]: X BODY RADIATION DOSE: CT Rad equipment meets quality standard of care and radiation dose reduction techniq ues were employed. CTDIvol: 17.7 mGy. DLP: 345 mGy-cm. mGy. LIMITATIONS: None. FINDINGS: ALIGNMENT: Anatomic. MINERALIZATION: Normal. VERTEBRAL BODIES: No fractures or dislocation. DISCS: Multilevel disc height loss throughout the cervical spine, greatest at 5 6 and C6-7. Small mu ltilevel disc osteophyte complex without high-grade osseous spinal canal stenosis. FACETS, LATERAL MASSES, POSTERIOR ELEMENTS: No facet fracture dislocation. Mild multilevel facet art hropathy. HARDWARE: None in the spine. VISUALIZED RIBS: No fractures. LUNG APICES AND SOFT TISSUES: No significant or acute findings. OTHER: Vascular calcifications. IMPRESSION: Multilevel degenerative changes of the cervical spine without evidence of acute bony abn ormality. TECHNICAL DOCUMENTATION: JOB ID: [id number] Quality ID # [id number]: Final reports with documentation of one or more dose reduction techniques (e.g., Au tomated exposure control, adjustment of the mA and/or kV according to patient size, use of iterative reconstruction technique) 2010 [employer]- All Rights Reserved Reading location - IP/workstation name: [email or web address]
--- NOTE | 2020-06-05 13:02 | RADIOLOGY REPORT (SQ) ---
EXAM DESCRIPTION: CT CHEST WITHOUT IMAGES COMPLETED DATE/TIME: 06/05/2020 12:29 pm REASON FOR STUDY: syncope/chest pain COMPARISON: None. TECHNIQUE: CT scan performed of the chest without intravenous contrast. Images reviewed with lung, soft tissue and bone windows. Reconstructed coronal and sagittal MPR images reviewed. All images st ored on PACS. All CT scanners at this facility use dose modulation, iterative reconstruction, and/or weight based d osing when appropriate to reduce radiation dose to as low as reasonably achievable (ALARA). [facility]: Dose Right [facility]: CareDose [facility]: Dose Right [facility]: Teradose 4D [facility]: zlien RADIATION DOSE: CT Rad equipment meets quality standard of care and radiation dose reduction techniq ues were employed. CTDIvol: 14.4 mGy. DLP: 543 mGy-cm. mGy. LIMITATIONS: No technical limitations. FINDINGS: LUNGS AND PLEURA: No masses, infiltrates, or pneumothorax. No pleural effusions or pleura l calcifications. HILAR AND MEDIASTINAL STRUCTURES: No identified masses or abnormal nodes. No obvious aneurysm. HEART AND VASCULAR STRUCTURES: Dilation of the aortic arch measuring up to 3.7 cm. Scattered calcifi cations. Normal heart size. Coronary atherosclerosis. Trace pericardial effusion. UPPER ABDOMEN: See separate report of the CT of the abdomen. THYROID AND OTHER SOFT TISSUES: No masses. No adenopathy. BONES: No evidence of acute bony abnormality of the thoracic spine. Multilevel spondylosis. No susp icious osseous lesions. HARDWARE: None in the chest. OTHER: No other significant findings. IMPRESSION: 1. No evidence of acute intrathoracic process. 2. Extensive coronary atherosclerosis. 3. Mild dilation of the ascending aorta measuring up to 3.7 cm. TECHNICAL DOCUMENTATION: JOB ID: [id number] Quality ID # [id number]: Final reports with documentation of one or more dose reduction techniques (e.g., Au tomated exposure control, adjustment of the mA and/or kV according to patient size, use of iterative reconstruction technique) 2010 [employer]- All Rights Reserved Reading location - IP/workstation name: [email or web address]
--- NOTE | 2020-06-05 13:03 | EKG REPORT ---
SEVERITY:- ABNORMAL ECG - SINUS RHYTHM NONSPECIFIC ST-T CHANGES- LATERAL L JANELLE : Confirmed by: Venkat Fonseca MD 05-Jun-2020 13:01:40
--- NOTE | 2020-06-05 13:07 | RADIOLOGY REPORT (SQ) ---
EXAM DESCRIPTION: CT ABD/PELVIS NO ORAL OR IV IMAGES COMPLETED DATE/TIME: 06/05/2020 12:29 pm REASON FOR STUDY: syncope/abd pain COMPARISON: None. TECHNIQUE: CT scan of the abdomen and pelvis performed without intravenous or oral contrast. Images reviewed with lung, soft tissue, and bone windows. Reconstructed coronal and sagittal MPR images revi ewed. All images stored on PACS. All CT scanners at this facility use dose modulation, iterative reconstruction, and/or weight based d osing when appropriate to reduce radiation dose to as low as reasonably achievable (ALARA). [facility]: Dose Right [facility]: CareDose [facility]: Dose Right [facility]: Teradose 4D [facility]: Smart [employer] RADIATION DOSE: CT Rad equipment meets quality standard of care and radiation dose reduction techniq ues were employed. CTDIvol: 14.4 mGy. DLP: 695 mGy-cm.mGy. LIMITATIONS: None. FINDINGS: LOWER CHEST: See separate report of the CT of the chest. NON-CONTRASTED LIVER, SPLEEN, ADRENALS: Evaluation limited by lack of IV contrast. No identified sign ificant masses. PANCREAS: Scattered coarse pancreatic calcifications. No discrete mass. No peripancreatic stranding . GALLBLADDER: No identified stones by CT criteria. No inflammatory changes to suggest cholecystitis. RIGHT KIDNEY AND URETER: No suspicious masses. Assessment limited by lack of IV contrast. No signif icant calcifications. No hydronephrosis or hydroureter. LEFT KIDNEY AND URETER: No suspicious masses. Assessment limited by lack of IV contrast. No signifi cant calcifications. No hydronephrosis or hydroureter. AORTA AND RETROPERITONEUM: Heavy aortoiliac atherosclerosis. No aneurysm. No retroperitoneal mass o r hemorrhage. Shotty nodes. BOWEL AND PERITONEAL CAVITY: No evidence of focal bowel wall thickening. No evidence of obstruction. Significant stool throughout the colon. APPENDIX: Not visualized. PELVIS, BLADDER, AND ABDOMINAL WALL:Moderately distended urinary bladder. No focal bladder wall thic kening. Prostatomegaly measuring 5.3 cm. Mild subcutaneous edema. No focal lesions. BONES: No acute bony abnormality. L4 compression deformity with evidence of prior kyphoplasty. No d iscrete lytic or blastic osseous lesions. Multilevel spondylosis. OTHER: No other significant finding. IMPRESSION: 1. Prostatomegaly with moderately distended urinary bladder. 2. Significant stool throughout the colon. No other evidence of acute intra-abdominal/pelvic process . COMMENT: Quality ID # 436: Final reports with documentation of one or more dose reduction techniques (e.g., Automated exposure control, adjustment of the mA and/or kV according to patient size, use of iterative reconstruction technique) TECHNICAL DOCUMENTATION: JOB ID: [id number] 2010 [employer]- All Rights Reserved Reading location - IP/workstation name: [email or web address]
[2020-06-05] MEDS ORDERED: HYDROMORPHONE HCL INJ/PF 2 MG/ML AMPULE IV ONE (13:24)
[2020-06-05] MEDS ORDERED: NORMAL SALINE 250 ML IV PRN ×2 (13:42)
--- NOTE | 2020-06-05 17:30 | PDOC H&P ---
History of Present Illness Admission Date/PCP: ELIUD GARCIA MD History of Present Illness: SARAH PIÑA is a 84 year old male 84-year-old gentleman presents emergency room with complaints of falling today. In fact there are many complaints and many story lines however basically he comes in today because he fell with left hip pain. He was here recently on June 01 after a fall. He sustained some skin tears which was repaired with Dermabond. Patient lives at home with his . Son who is with him in the room today states that they have called EMS at least 4 times this week for various things including needs for. He states patient is a little bit more confused and his ambulation is less than his baseline. He does have a history of multiple myeloma although his treatment is currently on hold so that he could get: "Stronger. He is followed by in [place] and his PCP is Dr. Moreno Garcia. In the emergency room today he was found to be anemic somewhat worse than his baseline. His son did state that he had been bleeding profusely from the skin tears and wound he sustained when he fell. Patient had been on Xarelto and aspirin which was stopped after the fall and due to the bleeding. His hemoglobin is found to be 6.8 and is currently receiving blood. There is also a question of him possibly being confused and possible been unaware of his surroundings for a few seconds however there is no associated fall, or seizure activities. She was also found to have a slightly worsened kidney function superimposed on his baseline chronic kidney disease Past Medical History Cardiac Medical History: Reports: Hypertension Denies: Myocardial Infarction Pulmonary Medical History: Denies: Asthma, Chronic Obstructive Pulmonary Disease (COPD) Neurological Medical History: Denies: Seizures Endocrine Medical History: Reports: Diabetes Mellitus Type 2 Denies: Hyperthyroidism, Hypothyroidism Malignancy Medical History: Reports: Other - Multiple Myeloma GI Medical History: Denies: Cirrhosis, Hepatitis, Hiatal Hernia Musculoskeltal Medical History: Reports: 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 Skin Medical History: Reports: Eczema, Psoriasis Hematology: Denies: Anemia, Sickle Cell Disease Past Surgical History Past Surgical History: Reports: Cholecystectomy Denies: Pacemaker Social History Information Source: Patient Lives with: Spouse/Significant other Smoking Status: Unknown if Ever Smoked Frequency of Alcohol Use: None Hx Recreational Drug Use: No Drugs: None Hx Prescription Drug Abuse: No - Advance Directive Resuscitation Status: Do Not Resuscitate Family History Family History: Reviewed & Not Pertinent, CAD, DM, Hypertension, Malignancy Parental Family History Reviewed: No Children Family History Reviewed: Yes Sibling(s) Family History Reviewed.: Yes Medication/Allergy Home Medications: Allopurinol [Zyloprim 100 mg Tablet] 200 mg PO DAILY 06/19/19 Aspirin [Adult Low Dose Aspirin EC] 81 mg PO DAILY 06/19/19 Atorvastatin Calcium [Lipitor 40 mg Tablet] 40 mg PO QHS 06/19/19 Calcium Carbonate [Calcium] 500 mg PO BID 06/19/19 Cholecalciferol (Vitamin D3) [Vitamin D3 5000 unit Capsule] 5,000 unit PO BID 06/19/19 Dexamethasone [Decadron 4 mg Tablet] 20 mg PO WE 06/19/19 Docusate Sodium [Colace 100 mg Capsule] 100 mg PO BID 06/19/19 Ferrous Sulfate [Feosol 325 mg Tablet] 650 mg PO DAILY 06/19/19 Finasteride [Proscar 5 mg Tablet] 5 mg PO DAILY 06/19/19 Insulin Glargine,Hum.rec.anlog [Lantus Insulin 100 Unit/1 ml 10 ml] 8 units SQ Q12 06/19/19 Losartan Potassium [Cozaar 50 mg Tablet] 50 mg PO DAILY 06/19/19 Mirtazapine [Remeron] 30 mg PO QHS 06/19/19 Multivitamin [Multiple Vitamins] 1 tbs PO DAILY 06/19/19 Tamsulosin HCl [Flomax 0.4 mg Cap.sr] 0.4 mg PO QPM 06/19/19 Acetaminophen [Tylenol 325 mg Tablet] 650 mg PO Q4HP PRN tablet 07/01/19 Acyclovir [Zovirax 800 mg Tablet] 800 mg PO Q8 tablet 07/01/19 Bisacodyl [Dulcolax 10 mg Supp.rect] 10 mg GA DAILYP PRN supp.rect 07/01/19 Furosemide [Lasix 40 mg Tablet] 40 mg PO BID tablet 07/01/19 Mag Hydrox/Al Hydrox/Simeth [Maalox Plus Susp 30 Udcup] 15 ml PO Q6HP PRN udc 07/01/19 Polyethylene Glycol 3350 [Miralax Powder 17 gm/Packet] 17 gm PO DAILY powd.pack 07/01/19 Allergies/Adverse Reactions: No Known Allergies Allergy (Verified 10/16/18 10:35) Review of Systems Constitutional: ABSENT: anorexia, fever(s) Eyes: ABSENT: visual disturbances Ears: ABSENT: hearing changes Nose, Mouth, and Throat: ABSENT: sore throat Cardiovascular: ABSENT: edema, palpitations Respiratory: ABSENT: cough, dyspnea, sputum Gastrointestinal: ABSENT: abdominal pain, heartburn, nausea, vomiting Musculoskeletal: ABSENT: joint swelling Neurological: ABSENT: abnormal gait, abnormal speech, confusion, dizziness, focal weakness, syncope Hematologic/Lymphatic: PRESENT: as per HPI Physical Exam Vital Signs: Temp Pulse Resp BP Pulse Ox 97.3 F 61 14 123/45 L 100 06/05/20 16:22 06/05/20 16:22 06/05/20 16:22 06/05/20 16:22 06/05/20 16:22 Intake & Output 06/04/20 06/05/20 06/06/20 06:59 06:59 06:59 Intake Total 500 Balance 500 Weight 70.9 kg General appearance: PRESENT: no acute distress Head exam: PRESENT: atraumatic, normocephalic Eye exam: PRESENT: conjunctiva pink, EOMI, PERRLA. ABSENT: scleral icterus Ear exam: PRESENT: normal external ear exam Mouth exam: PRESENT: moist, tongue midline Neck exam: ABSENT: carotid bruit, JVD, lymphadenopathy, thyromegaly Respiratory exam: PRESENT: clear to auscultation kevin. ABSENT: rales, rhonchi, wheezes Cardiovascular exam: PRESENT: RRR, +S1, +S2. ABSENT: diastolic murmur, rubs, systolic murmur Pulses: PRESENT: normal dorsalis pedis pul Vascular exam: PRESENT: normal capillary refill GI/Abdominal exam: PRESENT: normal bowel sounds, soft. ABSENT: distended, guarding, mass, organolmegaly, rebound, tenderness Rectal exam: PRESENT: deferred Extremities exam: PRESENT: full ROM, +2 edema, other - Healing wound of L elbow and R elbow. ABSENT: calf tenderness, clubbing, pedal edema Neurological exam: PRESENT: alert, awake, oriented to person, oriented to place, oriented to time, oriented to situation, CN II-XII grossly intact. ABSENT: motor sensory deficit Psychiatric exam: PRESENT: appropriate affect, normal mood. ABSENT: homicidal ideation, suicidal ideation Skin exam: PRESENT: skin tears, warm, other - scattered bruises and skin tears. ABSENT: cyanosis, rash Results Laboratory Results: 06/05/20 08:51 06/05/20 08:51 06/05/20 06/05/20 06/05/20 08:51 08:51 08:51 WBC 4.5 RBC 2.15 L Hgb 6.7 L Hct 20.2 L MCV 94 MCH 31.3 MCHC 33.4 RDW 21.2 H Plt Count 237 Seg Neutrophils % 53.9 Sodium 135.7 L Potassium 4.7 Chloride 97 L Carbon Dioxide 30 Anion Gap 9 BUN 61 H Creatinine 2.01 H Est GFR ( Amer) 38 L Glucose 191 H Lactic Acid Calcium 8.9 Ferritin Total Bilirubin 0.4 AST 24 Alkaline Phosphatase 52 Total Protein 5.2 L Albumin 3.2 L Lipase 25.0 TSH Urine Color Urine Appearance Urine pH Ur Specific [place] Urine Protein Urine Glucose (UA) Urine Ketones Urine Blood Urine Nitrite Ur Leukocyte Esterase Urine RBC (Auto) Blood Type Antibody Screen 06/05/20 06/05/20 06/05/20 08:51 11:35 11:35 WBC RBC Hgb Hct MCV MCH MCHC RDW Plt Count Seg Neutrophils % Sodium Potassium Chloride Carbon Dioxide Anion Gap BUN Creatinine Est GFR ( Amer) Glucose Lactic Acid 1.3 Calcium Ferritin Total Bilirubin AST Alkaline Phosphatase Total Protein Albumin Lipase TSH 6.76 H Urine Color YELLOW Urine Appearance CLEAR Urine pH 8.0 Ur Specific [place] 1.005 Urine Protein NEGATIVE Urine Glucose (UA) NEGATIVE Urine Ketones NEGATIVE Urine Blood NEGATIVE Urine Nitrite NEGATIVE Ur Leukocyte Esterase NEGATIVE Urine RBC (Auto) 0 Blood Type Antibody Screen 06/05/20 06/05/20 11:35 14:01 WBC RBC Hgb Hct MCV MCH MCHC RDW Plt Count Seg Neutrophils % Sodium Potassium Chloride Carbon Dioxide Anion Gap BUN Creatinine Est GFR ( Amer) Glucose Lactic Acid Calcium Ferritin 191.00 Total Bilirubin AST Alkaline Phosphatase Total Protein Albumin Lipase TSH Urine Color Urine Appearance Urine pH Ur Specific [place] Urine Protein Urine Glucose (UA) Urine Ketones Urine Blood Urine Nitrite Ur Leukocyte Esterase Urine RBC (Auto) Blood Type A POSITIVE Antibody Screen NEGATIVE 06/05/20 06/05/20 06/05/20 08:51 08:51 08:51 Creatine Kinase 68 CK-MB (CK-2) 1.56 Troponin I < 0.012 NT-Pro-B Natriuret Pep 1460 H Impressions: Hip X-Ray 06/05/20 10:36 IMPRESSION: 1. No definite fracture identified although contour asymmetry along the right hip which may be related to patient positioning although subcapital fracture not entirely excluded. If high clinical concern for acute traumatic injury to the RIGHT HIP recommend CT or MRI. No evidence of acute bony abnormality of the LEFT HIP. 2. Decreased mineralization with moderate bilateral hip osteoarthritis. Head CT 06/05/20 11:24 IMPRESSION: CHRONIC CHANGES OF ATROPHY AND MICROVASCULAR ISCHEMIA. NO ACUTE PROCESS. EVIDENCE OF ACUTE STROKE: NO. Cervical Spine CT 06/05/20 11:26 IMPRESSION: Multilevel degenerative changes of the cervical spine without evidence of acute bony abnormality. Chest CT 06/05/20 11:27 IMPRESSION: 1. No evidence of acute intrathoracic process. 2. Extensive coronary atherosclerosis. 3. Mild dilation of the ascending aorta measuring up to 3.7 cm. Abdomen/Pelvis CT 06/05/20 11:29 IMPRESSION: 1. Prostatomegaly with moderately distended urinary bladder. 2. Significant stool throughout the colon. No other evidence of acute intra- abdominal/pelvic process. Assessment and Plan - Diagnosis (1) Acute on chronic anemia Is this a current diagnosis for this admission?: Yes Plan: Precise etiology is unclear but patient will be transfused. He does have chronic anemia due to his multiple myeloma. He also had had some bleeding sustained from his injury when he fell and his son did indicate that patient bled a lot especially when he removed the dressing. Xarelto and aspirin are currently on hold and will continue to hold this. At this time we will not pursue these other than transfuse and monitor (2) Syncope and collapse Is this a current diagnosis for this admission?: Yes Plan: Patient apparently did have some periods of being weak specific evidence of loss of consciousness. Patient will be placed on telemetry and will be monitored (3) CKD (chronic kidney disease) stage 4, GFR 15-29 ml/min Is this a current diagnosis for this admission?: Yes Plan: His recent creatinine is about 1 and currently it is 2. His BUN is also up. This may indicate his being somewhat dehydrated as patient had apparently been receiving extra Lasix on top of his home Bumex due to swelling of his legs. I will just hold his Lasix for now or at least decrease the dose and see if this helps with his kidney function otherwise I may use a little bit of judicious fluid hydration. His BMP is less than 1500 compared to a baseline of more than 10,000 (4) Multiple myeloma Qualifiers: Multiple myeloma remission status: unspecified Qualified Code(s): C90.00 - Multiple myeloma not having achieved remission Is this a current diagnosis for this admission?: Yes Plan: This is currently being managed by the oncologist although his pretreatment has currently been on hold to allow him to build up his results (5) Hip pain Qualifiers: Laterality: left Qualified Code(s): M25.552 - Pain in left hip Is this a current diagnosis for this admission?: Yes Plan: CT scan of the abdomen shows prostatomegaly with moderately distended urinary bladder, chest CT shows no evidence of acute intrathoracic process. He does have a mild dilatation of the ascending aorta during up to 3.[address] scan of the brain shows no acute process x-ray of the hip shows definite fracture although right hip CT or MRI recommended if symptoms persist - Time Time Spent with patient: 35 or more minutes Medications reviewed and adjusted accordingly: Yes Anticipated Discharge Disposition: Home with Home Health Anticipated Discharge Timeframe: within 72 hours - Inpatient Certification Based on my medical assessment, after consideration of the patient's comorbidities, presenting symptoms, or acuity I expect that the services needed warrant INPATIENT care.: Yes Medical Necessity: Need Close Monitoring Due to Risk of Patient Decompensation, Need For Continuous Telemetry Monitoring, Risk of Complication if Not Cared For in Hospital
[2020-06-05] MEDS ORDERED: MAGNESIUM HYDROXIDE SUSP 30 ML UDCUP PO PRN (17:34)
[2020-06-05] MEDS ORDERED: ACETAMINOPHEN 325 MG TABLET PO PRN (17:34)
[2020-06-05] MEDS ORDERED: ONDANSETRON HCL INJ/PF 4 MG/2 ML SDV IV PRN (17:34)
[2020-06-05] MEDS ORDERED: IPRATROPIUM/ALBUTEROL 0.5-2.5 MG/3 ML AMPUL NEB PRN (17:34)
[2020-06-05] MEDS ORDERED: DEXTROSE 40% GEL 15 GM TUBE PO PRN (21:30)
[2020-06-05] MEDS ORDERED: DEXTROSE 40% GEL 15 GM TUBE X 2 PO PRN (21:30)
[2020-06-05] MEDS ORDERED: GLUCAGON,HUMAN RECOMB 1 MG INJ IM PRN (21:30)
[2020-06-05] MEDS ORDERED: DEXTROSE 50%-WATER SYRINGE 25 GM/50 ML DOSE IV PRN (21:30)
[2020-06-05] MEDS ORDERED: DEXTROSE 50%-WATER SYRINGE 12.5 GM/25 ML DOSE IV PRN (21:30)
[2020-06-06] MEDS: PANTOPRAZOLE SODIUM 40 MG TABLET.DR PO SCH (05:09)
[2020-06-06 06:30] LABS: ABSOLUTE EOSINOPHILS # (AUTO) 0.1 10^3/uL (0.0-0.6); ABSOLUTE LYMPHOCYTES (AUTO) 0.9 10^3/uL (0.5-4.7); ABSOLUTE MONOCYTES (AUTO) 0.6 10^3/uL (0.1-1.4); ABSOLUTE NEUT (AUTO) 3.7 10^3/uL (1.7-8.2); BASOPHILS % (AUTO) 0.5 % (0-2); EOSINOPHILS % (AUTO) 2.3 % (0-6); HEMATOCRIT 31.2 % (37.9-51.0); LYMPHOCYTES % (AUTO) 16.5 % (13-45); MEAN CORPUSCULAR HEMOGLOBIN 30.5 pg (27.0-33.4); MONOCYTES % (AUTO) 11.2 % (3-13); PLATELET COUNT 260 10^3/uL (150-450); RED BLOOD COUNT 3.47 10^6/uL (4.35-5.55); RED CELL DISTRIBUTION WIDTH 20.2 % (11.5-14.0); SEGMENTED NEUTROPHILS % (AUTO) 69.5 % (42-78); TOTAL CELLS COUNTED % (AUTO) 100 %; WHITE BLOOD COUNT 5.3 10^3/uL (4.0-10.5)
[2020-06-06 06:35] LABS: INTERNATIONAL RATION (INR) 0.94; PROTHROMBIN TIME 12.8 SEC (11.4-15.4)
[2020-06-06 06:39] LABS: HEMOGLOBIN 10.6 g/dL (13.5-17.0); MEAN CORPUSCULAR VOLUME 90 fl (80-97)
[2020-06-06 06:47] LABS: ANION GAP 9 (5-19); BLOOD UREA NITROGEN 52 mg/dL (7-20); CALCIUM 8.9 mg/dL (8.4-10.2); CARBON DIOXIDE 28 mmol/L (22-30); CHLORIDE 98 mmol/L (98-107); GLUCOSE 195 mg/dL (75-110); POTASSIUM 5.3 mmol/L (3.6-5.0)
[2020-06-06] MEDS: DOCUSATE SODIUM 100 MG CAPSULE PO SCH (13:12)
[2020-06-06] MEDS ORDERED: RIVAROXABAN 10 MG PO SCH (15:30)
--- NOTE | 2020-06-06 15:46 | PDOC PROGRESS REPORT ---
Subjective Progress Note for:: 06/06/20 Subjective:: Patient is awake and pleasant, confused Reason For Visit: ANEMIA, LACERATION Physical Exam Vital Signs: Temp Pulse Resp BP Pulse Ox 98.2 F 73 16 142/52 H 100 06/06/20 10:00 06/06/20 14:00 06/06/20 07:50 06/06/20 07:50 06/06/20 07:50 Intake & Output 06/05/20 06/06/20 06/07/20 06:59 06:59 06:59 Intake Total 500 240 Output Total 1750 625 Balance -1250 -385 Weight 70 kg General appearance: PRESENT: no acute distress, thin, other - elderly Head exam: PRESENT: atraumatic Eye exam: PRESENT: conjunctiva pale, EOMI, PERRLA. ABSENT: scleral icterus Mouth exam: PRESENT: moist, tongue midline Neck exam: ABSENT: carotid bruit, JVD, lymphadenopathy, thyromegaly Respiratory exam: PRESENT: clear to auscultation kevin. ABSENT: rales, rhonchi, wheezes Cardiovascular exam: PRESENT: RRR, +S1, +S2. ABSENT: diastolic murmur, rubs, systolic murmur Vascular exam: PRESENT: normal capillary refill GI/Abdominal exam: PRESENT: normal bowel sounds, soft. ABSENT: distended, guarding, mass, organolmegaly, rebound, tenderness Rectal exam: PRESENT: deferred Extremities exam: PRESENT: full ROM. ABSENT: calf tenderness, clubbing, pedal edema Neurological exam: PRESENT: alert, awake, CN II-XII grossly intact. ABSENT: motor sensory deficit Psychiatric exam: PRESENT: appropriate affect, normal mood. ABSENT: homicidal ideation, suicidal ideation Skin exam: PRESENT: dry, intact, rash - lower extremities, warm. ABSENT: cyanosis Results Laboratory Results: 06/06/20 06:15 06/06/20 06:15 06/05/20 06/05/20 06/06/20 08:51 14:01 06:15 WBC 5.3 RBC 3.47 L Hgb 10.6 L D Hct 31.2 L MCV 90 D MCH 30.5 MCHC 34.0 RDW 20.2 H Plt Count 260 Seg Neutrophils % 69.5 Sodium Potassium Chloride Carbon Dioxide Anion Gap BUN Creatinine Est GFR ( Amer) Glucose Calcium Magnesium TSH 6.76 H Blood Type A POSITIVE Antibody Screen NEGATIVE 06/06/20 06:15 WBC RBC Hgb Hct MCV MCH MCHC RDW Plt Count Seg Neutrophils % Sodium 134.5 L Potassium 5.3 H Chloride 98 Carbon Dioxide 28 Anion Gap 9 BUN 52 H Creatinine 1.76 H Est GFR ( Amer) 45 L Glucose 195 H Calcium 8.9 Magnesium 2.3 TSH Blood Type Antibody Screen 06/05/20 06/05/20 06/05/20 08:51 08:51 08:51 Creatine Kinase 68 CK-MB (CK-2) 1.56 Troponin I < 0.012 NT-Pro-B Natriuret Pep 1460 H Impressions: Hip X-Ray 06/05/20 10:36 IMPRESSION: 1. No definite fracture identified although contour asymmetry along the right hip which may be related to patient positioning although subcapital fracture not entirely excluded. If high clinical concern for acute traumatic injury to the RIGHT HIP recommend CT or MRI. No evidence of acute bony abnormality of the LEFT HIP. 2. Decreased mineralization with moderate bilateral hip osteoarthritis. Head CT 06/05/20 11:24 IMPRESSION: CHRONIC CHANGES OF ATROPHY AND MICROVASCULAR ISCHEMIA. NO ACUTE PROCESS. EVIDENCE OF ACUTE STROKE: NO. Cervical Spine CT 06/05/20 11:26 IMPRESSION: Multilevel degenerative changes of the cervical spine without evidence of acute bony abnormality. Chest CT 06/05/20 11:27 IMPRESSION: 1. No evidence of acute intrathoracic process. 2. Extensive coronary atherosclerosis. 3. Mild dilation of the ascending aorta measuring up to 3.7 cm. Abdomen/Pelvis CT 06/05/20 11:29 IMPRESSION: 1. Prostatomegaly with moderately distended urinary bladder. 2. Significant stool throughout the colon. No other evidence of acute intra- abdominal/pelvic process. Assessment and Plan - Diagnosis (1) Acute on chronic anemia Is this a current diagnosis for this admission?: Yes Plan: Precise etiology is unclear but patient will be transfused. He does have chronic anemia due to his multiple myeloma. He also had had some bleeding sustained from his injury when he fell and his son did indicate that patient bled a lot especially when he removed the dressing. Xarelto and aspirin are currently on hold and will continue to hold this. At this time we will not pursue these other than transfuse and monitor 06/05 patient is status post 2 units of packed red blood cells. Hemoglobin has come up nicely. We will continue to monitor (2) Syncope and collapse Is this a current diagnosis for this admission?: Yes Plan: No evidence of any arrhythmias on telemetry (3) CKD (chronic kidney disease) stage 4, GFR 15-29 ml/min Is this a current diagnosis for this admission?: Yes Plan: His recent creatinine is about 1 and currently it is 2. His BUN is also up. This may indicate his being somewhat dehydrated as patient had apparently been receiving extra Lasix on top of his home Bumex due to swelling of his legs. I will just hold his Lasix for now or at least decrease the dose and see if this helps with his kidney function otherwise I may use a little bit of judicious fluid hydration. His BMP is less than 1500 compared to a baseline of more than 10,000 His kidney function actually improved today June 06. Patient was being diuresed and I suspect this was likely a component of his acute kidney injury. I will hold his spironolactone for now and decrease his Bumex to 1 mg/day and this can be reassessed prior to discharge for adjustment (4) Multiple myeloma Qualifiers: Multiple myeloma remission status: unspecified Qualified Code(s): C90.00 - Multiple myeloma not having achieved remission Is this a current diagnosis for this admission?: Yes Plan: History of multiple myeloma likely contributing to his chronic anemia (5) Hip pain Qualifiers: Laterality: left Qualified Code(s): M25.552 - Pain in left hip Is this a current diagnosis for this admission?: Yes Plan: CT scan of the abdomen shows prostatomegaly with moderately distended urinary bladder, chest CT shows no evidence of acute intrathoracic process. He does have a mild dilatation of the ascending aorta during up to 3.[address] scan of the brain shows no acute process x-ray of the hip shows definite fracture although right hip CT or MRI recommended if symptoms persist (6) Protein calorie malnutrition Qualifiers: Protein-calorie malnutrition severity: mild Qualified Code(s): E44.1 - Mild protein-calorie malnutrition Is this a current diagnosis for this admission?: Yes Plan: Supplemental diet as tolerated - Time Time Spent with patient: 15-24 minutes Medications reviewed and adjusted accordingly: Yes Anticipated Discharge Disposition: Home with Home Health Anticipated Discharge Timeframe: within 72 hours
[2020-06-06] MEDS ORDERED: [UNRECOGNIZED DRUG - MIXTURE] PO SCH (16:00)
[2020-06-06] MEDS: INSULIN REG, HUMAN 100 UNIT/ML 3 ML VIAL (PYX) SUBCUT SCH (18:20)
[2020-06-06] MEDS: TAMSULOSIN HCL 0.4 MG CAP.SR.24H PO SCH (18:22)
[2020-06-06] MEDS: ISOSORBIDE MONONITRATE 30 MG TAB.ER.24H PO SCH (18:22)
[2020-06-06] MEDS: CHOLECALCIFEROL (D3) 1,000 UNIT (25 MCG) TABLET PO SCH (18:22)
[2020-06-06] MEDS ORDERED: INSULIN REG, HUMAN 100 UNIT/ML 3 ML VIAL (PYX) SUBCUT ONE (21:30)
[2020-06-06] MEDS: HYDROMORPHONE HCL 2 MG TABLET PO SCH (21:57)
[2020-06-06] MEDS: LUBIPROSTONE 24 MCG CAPSULE PO SCH (21:59)
[2020-06-06] MEDS: ALLOPURINOL 100 MG TABLET PO SCH (21:59)
[2020-06-07 05:31] LABS: ABSOLUTE EOSINOPHILS # (AUTO) 0.2 10^3/uL (0.0-0.6); ABSOLUTE MONOCYTES (AUTO) 0.8 10^3/uL (0.1-1.4); TOTAL CELLS COUNTED % (AUTO) 100 %
[2020-06-07 05:40] LABS: ABSOLUTE LYMPHOCYTES (AUTO) 1.2 10^3/uL (0.5-4.7); ABSOLUTE NEUT (AUTO) 2.9 10^3/uL (1.7-8.2); BASOPHILS % (AUTO) 0.6 % (0-2); EOSINOPHILS % (AUTO) 3.2 % (0-6); HEMATOCRIT 27.6 % (37.9-51.0); HEMOGLOBIN 9.6 g/dL (13.5-17.0); LYMPHOCYTES % (AUTO) 23.5 % (13-45); MEAN CORPUSCULAR HEMOGLOBIN 32.7 pg (27.0-33.4); MEAN CORPUSCULAR HGB CONC 34.9 g/dL (32.0-36.0); MONOCYTES % (AUTO) 16.2 % (3-13); PLATELET COUNT 238 10^3/uL (150-450); RED BLOOD COUNT 2.95 10^6/uL (4.35-5.55); SEGMENTED NEUTROPHILS % (AUTO) 56.5 % (42-78); WHITE BLOOD COUNT 5.1 10^3/uL (4.0-10.5)
[2020-06-07] MEDS: HYDROMORPHONE HCL 2 MG TABLET PO SCH ×3 (05:52→21:16)
[2020-06-07 05:53] LABS: ANION GAP 6 (5-19); BLOOD UREA NITROGEN 48 mg/dL (7-20); CARBON DIOXIDE 27 mmol/L (22-30); CHLORIDE 101 mmol/L (98-107); GLUCOSE 106 mg/dL (75-110); POTASSIUM 4.6 mmol/L (3.6-5.0)
[2020-06-07] MEDS: PANTOPRAZOLE SODIUM 40 MG TABLET.DR PO SCH (05:53)
[2020-06-07 06:33] LABS: MEAN CORPUSCULAR VOLUME 94 fl (80-97)
[2020-06-07] MEDS ORDERED: BUMETANIDE 1 MG PO SCH (08:00)
[2020-06-07] MEDS: BUMETANIDE 1 MG TABLET PO SCH ×2 (08:00→14:32)
[2020-06-07] MEDS: INSULIN REG, HUMAN 100 UNIT/ML 3 ML VIAL (PYX) SUBCUT SCH ×3 (09:30→16:00)
[2020-06-07] MEDS: ISOSORBIDE MONONITRATE 30 MG TAB.ER.24H PO SCH (09:39)
[2020-06-07] MEDS: CHOLECALCIFEROL (D3) 1,000 UNIT (25 MCG) TABLET PO SCH ×2 (09:39→18:04)
[2020-06-07] MEDS: MULTIVITAMIN TABLET PO SCH (09:39)
[2020-06-07] MEDS: FINASTERIDE 5 MG TABLET PO SCH (09:39)
[2020-06-07] MEDS: DOCUSATE SODIUM 100 MG CAPSULE PO SCH (09:39)
[2020-06-07] MEDS: LUBIPROSTONE 24 MCG CAPSULE PO SCH ×2 (09:40→21:15)
[2020-06-07] MEDS: ALLOPURINOL 100 MG TABLET PO SCH ×2 (09:40→21:15)
[2020-06-07] MEDS: VITAMIN B COMPLEX TABLET PO SCH (09:40)
[2020-06-07] MEDS: GLIPIZIDE 10 MG TABLET PO SCH (09:40)
[2020-06-07] MEDS ORDERED: SPIRONOLACTONE 25 MG TABLET PO SCH (10:00)
[2020-06-07] MEDS ORDERED: VITAMIN B COMPLEX TABLET PO SCH (10:00)
[2020-06-07] MEDS ORDERED: [UNRECOGNIZED DRUG - MIXTURE] PO SCH (10:00)
[2020-06-07] MEDS: RIVAROXABAN 10 MG TABLET PO SCH ×2 (10:21→18:04)
[2020-06-07] MEDS: TAMSULOSIN HCL 0.4 MG CAP.SR.24H PO SCH (18:04)
[2020-06-08] MEDS: HYDROMORPHONE HCL 2 MG TABLET PO SCH (06:04)
[2020-06-08] MEDS: PANTOPRAZOLE SODIUM 40 MG TABLET.DR PO SCH (06:05)
[2020-06-08 06:38] LABS: ABSOLUTE EOSINOPHILS # (AUTO) 0.3 10^3/uL (0.0-0.6); ABSOLUTE LYMPHOCYTES (AUTO) 1.2 10^3/uL (0.5-4.7); ABSOLUTE MONOCYTES (AUTO) 0.6 10^3/uL (0.1-1.4); ABSOLUTE NEUT (AUTO) 2.4 10^3/uL (1.7-8.2); BASOPHILS % (AUTO) 0.4 % (0-2); EOSINOPHILS % (AUTO) 7.4 % (0-6); HEMOGLOBIN 10.1 g/dL (13.5-17.0); LYMPHOCYTES % (AUTO) 26.4 % (13-45); MEAN CORPUSCULAR HEMOGLOBIN 32.5 pg (27.0-33.4); MEAN CORPUSCULAR VOLUME 93 fl (80-97); MONOCYTES % (AUTO) 13.7 % (3-13); PLATELET COUNT 244 10^3/uL (150-450); RED BLOOD COUNT 3.12 10^6/uL (4.35-5.55); RED CELL DISTRIBUTION WIDTH 19.4 % (11.5-14.0); SEGMENTED NEUTROPHILS % (AUTO) 52.1 % (42-78); TOTAL CELLS COUNTED % (AUTO) 100 %; WHITE BLOOD COUNT 4.7 10^3/uL (4.0-10.5)
[2020-06-08 07:09] LABS: ANION GAP 7 (5-19)
[2020-06-08 07:41] LABS: BLOOD UREA NITROGEN 48 mg/dL (7-20); CALCIUM 8.8 mg/dL (8.4-10.2); CARBON DIOXIDE 27 mmol/L (22-30); CHLORIDE 101 mmol/L (98-107); GLUCOSE 156 mg/dL (75-110); POTASSIUM 4.5 mmol/L (3.6-5.0)
--- NOTE | 2020-06-08 08:18 | PDOC PROGRESS REPORT ---
Subjective Progress Note for:: 06/07/20 Subjective:: Patient is awake and pleasant, confused He has been seen by physical therapy and he was actually ambulating with a walker which seemed to be satisfactory Reason For Visit: ANEMIA, LACERATION Physical Exam Vital Signs: Temp Pulse Resp BP Pulse Ox 98.0 F 70 20 114/48 L 100 06/07/20 09:50 06/07/20 07:21 06/07/20 07:21 06/07/20 11:00 06/07/20 07:21 Intake & Output 06/06/20 06/07/20 06/08/20 06:59 06:59 06:59 Intake Total 500 560 437 Output Total 1750 1625 Balance -1250 -1065 437 Weight 70 kg 73.9 kg General appearance: PRESENT: no acute distress, thin - Daily and cachectic Head exam: PRESENT: atraumatic, normocephalic Eye exam: PRESENT: EOMI. ABSENT: scleral icterus Mouth exam: PRESENT: moist, tongue midline Neck exam: ABSENT: carotid bruit, JVD, lymphadenopathy, thyromegaly Respiratory exam: PRESENT: clear to auscultation kevin, unlabored. ABSENT: rales, rhonchi, wheezes Cardiovascular exam: PRESENT: RRR, +S1, +S2. ABSENT: diastolic murmur, rubs, systolic murmur GI/Abdominal exam: PRESENT: normal bowel sounds, soft. ABSENT: distended, guarding, mass, organolmegaly, rebound, tenderness Rectal exam: PRESENT: deferred Extremities exam: PRESENT: full ROM, +1 edema. ABSENT: calf tenderness, clubbing, pedal edema Musculoskeletal exam: PRESENT: ambulatory Neurological exam: PRESENT: alert, awake, oriented to person, oriented to situation. ABSENT: motor sensory deficit Psychiatric exam: PRESENT: appropriate affect, normal mood. ABSENT: homicidal ideation, suicidal ideation Skin exam: PRESENT: intact, rash, skin tears, other - Skin contusions and skin tears as well as dry skin, healing wound on the left elbow right elbow. ABSENT: cyanosis Results Laboratory Results: 06/07/20 04:58 06/07/20 04:58 06/07/20 06/07/20 04:58 04:58 WBC 5.1 RBC 2.95 L Hgb 9.6 L Hct 27.6 L MCV 94 D MCH 32.7 MCHC 34.9 RDW 20.0 H Plt Count 238 Seg Neutrophils % 56.5 Sodium 134.4 L Potassium 4.6 Chloride 101 Carbon Dioxide 27 Anion Gap 6 BUN 48 H Creatinine 1.75 H Est GFR ( Amer) 45 L Glucose 106 Calcium 9.0 06/05/20 06/05/20 06/05/20 08:51 08:51 08:51 Creatine Kinase 68 CK-MB (CK-2) 1.56 Troponin I < 0.012 NT-Pro-B Natriuret Pep 1460 H Impressions: Hip X-Ray 06/05/20 10:36 IMPRESSION: 1. No definite fracture identified although contour asymmetry along the right hip which may be related to patient positioning although subcapital fracture not entirely excluded. If high clinical concern for acute traumatic injury to the RIGHT HIP recommend CT or MRI. No evidence of acute bony abnormality of the LEFT HIP. 2. Decreased mineralization with moderate bilateral hip osteoarthritis. Head CT 06/05/20 11:24 IMPRESSION: CHRONIC CHANGES OF ATROPHY AND MICROVASCULAR ISCHEMIA. NO ACUTE PROCESS. EVIDENCE OF ACUTE STROKE: NO. Cervical Spine CT 06/05/20 11:26 IMPRESSION: Multilevel degenerative changes of the cervical spine without evidence of acute bony abnormality. Chest CT 06/05/20 11:27 IMPRESSION: 1. No evidence of acute intrathoracic process. 2. Extensive coronary atherosclerosis. 3. Mild dilation of the ascending aorta measuring up to 3.7 cm. Abdomen/Pelvis CT 06/05/20 11:29 IMPRESSION: 1. Prostatomegaly with moderately distended urinary bladder. 2. Significant stool throughout the colon. No other evidence of acute intra- abdominal/pelvic process. Assessment and Plan - Diagnosis (1) Acute on chronic anemia Is this a current diagnosis for this admission?: Yes (2) Syncope and collapse Is this a current diagnosis for this admission?: Yes (3) CKD (chronic kidney disease) stage 4, GFR 15-29 ml/min Is this a current diagnosis for this admission?: Yes (4) Multiple myeloma Qualifiers: Multiple myeloma remission status: unspecified Qualified Code(s): C90.00 - Multiple myeloma not having achieved remission Is this a current diagnosis for this admission?: Yes (5) Hip pain Qualifiers: Laterality: left Qualified Code(s): M25.552 - Pain in left hip Is this a current diagnosis for this admission?: Yes (6) Protein calorie malnutrition Qualifiers: Protein-calorie malnutrition severity: mild Qualified Code(s): E44.1 - Mild protein-calorie malnutrition Is this a current diagnosis for this admission?: Yes - Plan Summary Summary: Patient remains relatively stable in hospital. At this time I think he can be discharged home. I had an extensive discussion with his son. He has spends the night with him and had left to go back home. At this time is unsure if he can come back and pick him up but if it is possible patient will spend the night in hospital and if remains stable he will be discharged hopefully in a.m. - Time Time Spent with patient: 15-24 minutes Medications reviewed and adjusted accordingly: Yes Anticipated Discharge Disposition: Home with Home Health Anticipated Discharge Timeframe: within 24 hours
--- NOTE | 2020-06-08 10:11 | PDOC DISCHARGE SUMMARY ---
Impression - Admit/DC Date/PCP Admission Date/Primary Care Provider: 06/05/20 16:46 ELIUD GARCIA MD Discharge Date: 06/08/20 - Discharge Diagnosis (1) Acute on chronic anemia Is this a current diagnosis for this admission?: Yes (2) Syncope and collapse Is this a current diagnosis for this admission?: Yes (3) CKD (chronic kidney disease) stage 4, GFR 15-29 ml/min Is this a current diagnosis for this admission?: Yes (4) Multiple myeloma Is this a current diagnosis for this admission?: Yes (5) Hip pain Is this a current diagnosis for this admission?: Yes (6) Protein calorie malnutrition Is this a current diagnosis for this admission?: Yes - Assessment Summary: Patient remains relatively stable in hospital. At this time I think he can be discharged home. I had an extensive discussion with his son. He has spends the night with him and had left to go back home. At this time is unsure if he can come back and pick him up but if it is possible patient will spend the night in hospital and if remains stable he will be discharged hopefully in a.m. - Additional Information Resuscitation Status: Do Not Resuscitate Discharge Diet: Cardiac Discharge Activity: Activity As Tolerated Referrals: ELIUD GARCIA MD [Primary Care Provider] - Follow up as needed Home Medications: Allopurinol [Zyloprim 100 mg Tablet] 100 mg PO Q12 06/19/19 Cholecalciferol (Vitamin D3) [Vitamin D3 5000 unit Capsule] 5,000 unit PO BID 06/19/19 Finasteride [Proscar 5 mg Tablet] 5 mg PO DAILY 06/19/19 Multivitamin [Multiple Vitamins] 1 tab PO DAILY 06/19/19 Tamsulosin HCl [Flomax 0.4 mg Cap.sr] 0.4 mg PO QPM 06/19/19 Glipizide [Glucotrol 10 mg Tablet] 10 mg PO DAILY 06/05/20 Gluc/MSM/C/Crandall/Manganes/Prim [Joint Support Complex Softgel] 1 tab PO DAILY 06/05/20 Hydromorphone HCl [Dilaudid 2 mg Tablet] 2 mg PO Q8 06/05/20 Insulin Lispro Protamin/Lispro [Insulin Lispro Mix 75-25 Kwkpn] 10 units SQ PRN PRN 10/02/20 Isosorbide Mononitrate [Imdur 30 mg Tablet.er] 30 mg PO DAILY 06/05/20 Linagliptin [Tradjenta] 5 mg PO DAILY 06/05/20 Lubiprostone [Amitiza 24 Mcg Capsule] 24 mcg PO Q12 06/05/20 Potassium Chloride [Klor-Con 10 Meq Tablet ER] 10 meq PO 1400 06/05/20 Rivaroxaban [Xarelto] 10 mg PO DAILY 06/05/20 Vitamin B Complex [Vitamin B Complex Tablet] 1 tab PO DAILY 06/05/20 Bumetanide 1 mg PO 0800,1400 #0 06/08/20 Spironolactone [Aldactone 25 mg Tablet] 25 mg PO DAILY #0 06/08/20 History of Present Illiness History of Present Illness: SARAH PIÑA is a 84 year old male 84-year-old gentleman presents emergency room with complaints of falling today. In fact there are many complaints and many story lines however basically he comes in today because he fell with left hip pain. He was here recently on June 01 after a fall. He sustained some skin tears which was repaired with Dermabond. Patient lives at home with his . Son who is with him in the room today states that they have called EMS at least 4 times this week for various things including needs for. He states patient is a little bit more confused and his ambulation is less than his baseline. He does have a history of multiple myeloma although his treatment is currently on hold so that he could get: "Stronger. He is followed by in [place] and his PCP is Dr. Moreno Garcia. In the emergency room today he was found to be anemic somewhat worse than his baseline. His son did state that he had been bleeding profusely from the skin tears and wound he sustained when he fell. Patient had been on Xarelto and aspirin which was stopped after the fall and due to the bleeding. His hemoglobin is found to be 6.8 and is currently receiving blood. There is also a question of him possibly being confused and possible been unaware of his surroundings for a few seconds however there is no associated fall, or seizure activities. She was also found to have a slightly worsened kidney function superimposed on his baseline chronic kidney disease Hospital Course Hospital Course: Patient received 2 units of packed red blood cell transfusion and his hemoglobin has been stable up from 6.7 on admission to 10 today. Kidney function is also improved with his creatinine down from 2.01-1.74 today. BUN is also down from 61-48 today. It appears that patient is diuretics at recently been increased due to fluid retention. He is Bumex was decreased in hospital however to 2 mg daily instead of 4 mg daily and Aldactone was held although he is being discharged on 25 mg daily instead of 25 mg twice a day. Patient may have been excessively diuresed which may also explain some of the symptoms of him seemingly passing out. There was no evidence of any loss of consciousness or dizziness while in hospital. He is abrasions and wounds were dressed. Patient was seen by physical therapy and he ambulated with a walker sufficiently. Patient remains hemodynamically stable. At this time there appears to be no further acute indications for in-hospital stay so is been discharged home for outpatient follow-up. His medications will need to be reevaluated and readjusted and also discussed with his son to adjust his diuretics based on his fluid status. Physical Exam Vital Signs: Temp Pulse Resp BP Pulse Ox 98.6 F 71 17 149/62 H 99 06/08/20 07:30 06/08/20 07:30 06/08/20 07:30 06/08/20 07:30 06/08/20 07:30 Intake & Output 06/07/20 06/08/20 06/09/20 06:59 06:59 06:59 Intake Total 560 938 Output Total 1625 935 Balance -1065 3 Weight 73.9 kg 75.6 kg General appearance: PRESENT: no acute distress, thin, other - Elderly cachectic Head exam: PRESENT: atraumatic, normocephalic Eye exam: PRESENT: conjunctiva pink, EOMI. ABSENT: scleral icterus Mouth exam: PRESENT: moist, tongue midline Neck exam: ABSENT: carotid bruit, JVD, lymphadenopathy, thyromegaly Respiratory exam: PRESENT: clear to auscultation kevin, unlabored. ABSENT: rales, rhonchi, wheezes Cardiovascular exam: PRESENT: RRR, +S1, +S2. ABSENT: diastolic murmur, rubs, systolic murmur Pulses: PRESENT: normal dorsalis pedis pul Vascular exam: PRESENT: normal capillary refill GI/Abdominal exam: PRESENT: normal bowel sounds, soft. ABSENT: distended, guarding, mass, organolmegaly, rebound, tenderness Rectal exam: PRESENT: deferred Extremities exam: PRESENT: full ROM, +1 edema - RUE superficial wound and dressing. ABSENT: calf tenderness, clubbing, pedal edema Neurological exam: PRESENT: alert, awake. ABSENT: motor sensory deficit Psychiatric exam: PRESENT: appropriate affect, normal mood. ABSENT: homicidal ideation, suicidal ideation Skin exam: PRESENT: dry, intact, rash, skin tears. ABSENT: cyanosis Results Laboratory Results: WBC 4.7 10^3/uL (4.0-10.5) 06/08/20 06:00 RBC 3.12 10^6/uL (4.35-5.55) L 06/08/20 06:00 Hgb 10.1 g/dL (13.5-17.0) L 06/08/20 06:00 Hct 29.0 % (37.9-51.0) L 06/08/20 06:00 MCV 93 fl (80-97) 06/08/20 06:00 MCH 32.5 pg (27.0-33.4) 06/08/20 06:00 MCHC 35.0 g/dL (32.0-36.0) 06/08/20 06:00 RDW 19.4 % (11.5-14.0) H 06/08/20 06:00 Plt Count 244 10^3/uL (150-450) 06/08/20 06:00 Lymph % (Auto) 26.4 % (13-45) 06/08/20 06:00 [place] % (Auto) 13.7 % (3-13) H 06/08/20 06:00 Eos % (Auto) 7.4 % (0-6) H 06/08/20 06:00 Baso % (Auto) 0.4 % (0-2) 06/08/20 06:00 Absolute Neuts (auto) 2.4 10^3/uL (1.7-8.2) 06/08/20 06:00 Absolute Lymphs (auto) 1.2 10^3/uL (0.5-4.7) 06/08/20 06:00 Absolute Monos (auto) 0.6 10^3/uL (0.1-1.4) 06/08/20 06:00 Absolute Eos (auto) 0.3 10^3/uL (0.0-0.6) 06/08/20 06:00 Absolute Basos (auto) 0.0 10^3/uL (0.0-0.2) 06/08/20 06:00 Seg Neutrophils % 52.1 % (42-78) 06/08/20 06:00 PT 12.8 SEC (11.4-15.4) 06/06/20 06:15 INR 0.94 06/06/20 06:15 APTT 26.7 SEC (23.5-35.8) 06/05/20 08:51 D-Dimer 4.00 ug/mL (0.00-0.50) H 06/05/20 08:51 Sodium 135.4 mmol/L (137-145) L 06/08/20 06:00 Potassium 4.5 mmol/L (3.6-5.0) 06/08/20 06:00 Chloride 101 mmol/L (98-107) 06/08/20 06:00 Carbon Dioxide 27 mmol/L (22-30) 06/08/20 06:00 Anion Gap 7 (5-19) 06/08/20 06:00 BUN 48 mg/dL (7-20) H 06/08/20 06:00 Creatinine 1.74 mg/dL (0.52-1.25) H 06/08/20 06:00 Est GFR ( Amer) 45 (>60) L 06/08/20 06:00 Est GFR (MDRD) Non-Af 37 (>60) L 06/08/20 06:00 Glucose 156 mg/dL (75-110) H 06/08/20 06:00 POC Glucose 165 mg/dL (70-110) H 06/08/20 07:32 Lactic Acid 1.3 mmol/L (0.7-2.1) 06/05/20 11:35 Calcium 8.8 mg/dL (8.4-10.2) 06/08/20 06:00 Magnesium 2.3 mg/dL (1.6-2.3) 06/06/20 06:15 Ferritin 191.00 ng/mL (17.9-464.0) 06/05/20 11:35 Total Bilirubin 0.4 mg/dL (0.2-1.3) 06/05/20 08:51 Direct Bilirubin 0.3 mg/dL (0.0-0.4) 06/05/20 08:51 Neonat Total Bilirubin Not Reportable 06/05/20 08:51 Neonat Direct Bilirubin Not Reportable 06/05/20 08:51 Neonat Indirect Bili Not Reportable 06/05/20 08:51 AST 24 U/L (17-59) 06/05/20 08:51 ALT 15 U/L (<50) 06/05/20 08:51 Alkaline Phosphatase 52 U/L (38-126) 06/05/20 08:51 Lactate Dehydrogenase 198 U/L (120-246) 06/05/20 11:35 Creatine Kinase 68 U/L (55-170) 06/05/20 08:51 CK-MB (CK-2) 1.56 ng/mL (<4.55) 06/05/20 08:51 Troponin I < 0.012 ng/mL 06/05/20 08:51 NT-Pro-B Natriuret Pep 1460 pg/mL (<450) H 06/05/20 08:51 Total Protein 5.2 g/dL (6.3-8.2) L 06/05/20 08:51 Albumin 3.2 g/dL (3.5-5.0) L 06/05/20 08:51 Lipase 25.0 U/L (23-300) 06/05/20 08:51 TSH 6.76 uIU/mL (0.47-4.68) H 06/05/20 08:51 Urine Color YELLOW 06/05/20 11:35 Urine Appearance CLEAR 06/05/20 11:35 Urine pH 8.0 (5.0-9.0) 06/05/20 11:35 Ur Specific [place] 1.005 06/05/20 11:35 Urine Protein NEGATIVE mg/dL (NEGATIVE) 06/05/20 11:35 Urine Glucose (UA) NEGATIVE mg/dL (NEGATIVE) 06/05/20 11:35 Urine Ketones NEGATIVE mg/dL (NEGATIVE) 06/05/20 11:35 Urine Blood NEGATIVE (NEGATIVE) 06/05/20 11:35 Urine Nitrite NEGATIVE (NEGATIVE) 06/05/20 11:35 Urine Bilirubin NEGATIVE (NEGATIVE) 06/05/20 11:35 Urine Urobilinogen NEGATIVE mg/dL (<2.0) 06/05/20 11:35 Ur Leukocyte Esterase NEGATIVE (NEGATIVE) 06/05/20 11:35 Urine RBC (Auto) 0 /HPF 06/05/20 11:35 Urine Mucus (Auto) RARE /LPF 06/05/20 11:35 Urine Ascorbic Acid NEGATIVE (NEGATIVE) 06/05/20 11:35 Blood Type A POSITIVE 06/05/20 14:01 Blood Type Confirm A POSITIVE 06/05/20 15:13 Antibody Screen NEGATIVE 06/05/20 14:01 Crossmatch See Detail 06/05/20 14:01 06/05/20 06/05/20 08:51 08:51 CK-MB (CK-2) 1.56 Troponin I < 0.012 NT-Pro-B Natriuret Pep 1460 H Impressions: Hip X-Ray 06/05/20 10:36 IMPRESSION: 1. No definite fracture identified although contour asymmetry along the right hip which may be related to patient positioning although subcapital fracture not entirely excluded. If high clinical concern for acute traumatic injury to the RIGHT HIP recommend CT or MRI. No evidence of acute bony abnormality of the LEFT HIP. 2. Decreased mineralization with moderate bilateral hip osteoarthritis. Head CT 06/05/20 11:24 IMPRESSION: CHRONIC CHANGES OF ATROPHY AND MICROVASCULAR ISCHEMIA. NO ACUTE PROCESS. EVIDENCE OF ACUTE STROKE: NO. Cervical Spine CT 06/05/20 11:26 IMPRESSION: Multilevel degenerative changes of the cervical spine without evidence of acute bony abnormality. Chest CT 06/05/20 11:27 IMPRESSION: 1. No evidence of acute intrathoracic process. 2. Extensive coronary atherosclerosis. 3. Mild dilation of the ascending aorta measuring up to 3.7 cm. Abdomen/Pelvis CT 06/05/20 11:29 IMPRESSION: 1. Prostatomegaly with moderately distended urinary bladder. 2. Significant stool throughout the colon. No other evidence of acute intra- abdominal/pelvic process. Plan Health Concerns: Medication management and follow-up of labs strongly suggested with adjustments in his medications as required or indicated Time Spent: Greater than 30 Minutes Stroke Is this a Stroke Patient?: No Acute Heart Failure Is this a Heart Failure Patient?: No
[2020-06-08] MEDS: BUMETANIDE 1 MG TABLET PO SCH (10:24)
[2020-06-08] MEDS: INSULIN REG, HUMAN 100 UNIT/ML 3 ML VIAL (PYX) SUBCUT SCH ×2 (10:25→13:38)
[2020-06-08] MEDS: LUBIPROSTONE 24 MCG CAPSULE PO SCH (10:34)
[2020-06-08] MEDS: VITAMIN B COMPLEX TABLET PO SCH (10:34)
[2020-06-08] MEDS: MULTIVITAMIN TABLET PO SCH (10:34)
[2020-06-08] MEDS: FINASTERIDE 5 MG TABLET PO SCH (10:34)
[2020-06-08] MEDS: ISOSORBIDE MONONITRATE 30 MG TAB.ER.24H PO SCH (10:34)
[2020-06-08] MEDS: GLIPIZIDE 10 MG TABLET PO SCH (10:34)
[2020-06-08] MEDS: CHOLECALCIFEROL (D3) 1,000 UNIT (25 MCG) TABLET PO SCH (10:34)
[2020-06-08] MEDS: DOCUSATE SODIUM 100 MG CAPSULE PO SCH (10:34)
[2020-06-08] MEDS: ALLOPURINOL 100 MG TABLET PO SCH (10:34)
[2020-06-08 14:27] VITALS: BP 99/52
== END 2020-06-08 14:48 | disposition home health service (06) | DRG 841 ==
LOC: ER 08:36 → EH 16:46 → 3S 18:43
PROVIDERS: ADMIT Internal Medicine; ATTEND Internal Medicine
PROC: 30233N1 Transfusion of Nonautologous Red Blood Cells into Peripheral Vein, Percutaneous Approach (ICD-10-PCS; principal; 2020-06-05)
PROC: 0HQEXZZ Repair Left Lower Arm Skin, External Approach (ICD-10-PCS; 2020-06-05)
DX: C90.00 Multiple myeloma not having achieved remission (principal); E44.1 Mild protein-calorie malnutrition; N18.4 Chronic kidney disease, stage 4 (severe); D63.0 Anemia in neoplastic disease; E11.22 Type 2 diabetes mellitus with diabetic chronic kidney disease; I12.9 Hypertensive chronic kidney disease with stage 1 through stage 4 chronic kidney disease, or unspecified chronic kidney disease; S51.012A Laceration without foreign body of left elbow, initial encounter; Z66 Do not resuscitate; W19.XXXA Unspecified fall, initial encounter; L40.9 Psoriasis, unspecified; L30.9 Dermatitis, unspecified; R55 Syncope and collapse; M25.552 Pain in left hip; G89.4 Chronic pain syndrome; Z79.82 Long term (current) use of aspirin; Z79.4 Long term (current) use of insulin; Z79.899 Other long term (current) drug therapy; Z79.01 Long term (current) use of anticoagulants
CPT/HCPCS: 36415; 36430; 70450; 71250; 72125; 74176; 80048; 80053; 81001; 82550; 82553; 82728; 82962; 83605; 83615; 83690; 83735; 83880; 84443; 84484; 85025; 85379; 85610; 85730; 86850; 86900; 86901; 86920; 87040; 93005; 93010; 96361; 96374; 96375; 96376; 99285; J1170; J1815; J2270; J2405; J3490; J7040; P9016